=== PATIENT | female | born 1955 | race African-American/Black ===

== ENCOUNTER → 2016-11-17 | Outpatient (CLI) | payer OTHER ==
[2016-06-27 11:00] VITALS: BP 121/77
[~2016-11-17] MED LIST: ALPR0.25 PO; ALPR0.5T6 PO; AMLO10TA2 PO; AMLO10TA4 PO; ASPI325T70 PO; Aspirin PO; CELE200C PO; CITA10TA4 PO; GABA-586 PO; MELO-150 PO; MELO-156 PO; MELO7.5T5 PO; METH-37 PO; METO25TA2 PO; NITR0.4T SL; OLME1TAB3 PO; OLME40TA PO; OXYC10TA PO; OXYC1TAB9 PO; PREG150C PO; PREG75CA PO; TELM40TA PO; TIZA4CAP PO; WARF3TAB7 PO; WARF5TAB PO; ZOLP10TA4 PO
--- NOTE | 2016-11-18 04:03 | PAIN ---
DATE OF SERVICE: 11/17/2016 DIAGNOSES: 1. Chronic cervicalgia with cervical radiculopathy and post-cervical laminectomy syndrome. 2. Post-lumbar laminectomy syndrome with low back pain. 3. Bilateral knee joint pain. HISTORY OF PRESENT ILLNESS: The patient is a 61-year-old female who returns for followup status post medication management with oxycodone 10 mg. The patient reports she has been doing very well with this. Still taking Celebrex and Lyrica as well, all with good results and decreased pain in the neck, shoulders, arms as well as low back and legs. The patient reports that some of the pain is worse with weather-related issues with different changes in barometric pressures, but she is otherwise doing fairly well. The patient reports her left knee has been her most problematic area at this time, but she uses Pennsaid drops on the knee, which she is doing twice a day and it works significantly to reduce the pain about 80% and she is very pleased with this. The patient reports she was taking care of her mother who has been sick recently, has been on her feet a lot, visiting her at the hospital, which has made her knee more painful. Also, pain in the base of the neck, left shoulder, left upper extremity, low back and bilateral lower extremities. The patient reports the pain is a 7 on a scale of 10, it is worse, but reports no new motor or sensory deficits, no new bowel or bladder incontinence or other complaints. The patient's medication regimen has been very stable. She has been on the same regimen for sometime now with appropriate K-TRACS reporting as well as appropriate urinalysis to date and with good results with the medications about 70-80% improvement with the medications alone and without significant side effects. PHYSICAL EXAMINATION: VITAL SIGNS: The patient's blood pressure 126/77, pulse 80, respirations are 18, temperature is 98.8 degrees Fahrenheit, height is 5 feet 1 inch, weight is 168 pounds. GENERAL: The patient is awake, alert, oriented, appropriate, very pleasant demeanor. HEENT: Head shows normocephalic and atraumatic. Extraocular movements are intact, symmetrical. Oral cavity, mucous membranes are moist and pink. The patient wears eye glasses. NECK: Shows anterior throat supple without palpable lymphadenopathy noted. Swallow reflex is symmetrical. CHEST: Shows normal on inspection. Breath sounds are clear to auscultation bilaterally. HEART: Shows S1 and S2 clear. No murmurs are auscultated. ABDOMEN: Soft, nontender, nondistended. No palpable organomegaly. No rebound or guarding demonstrated. BACK: Shows spine grossly midline. Cervical paraspinous musculature shows some moderate tenderness with palpation bilaterally in the inferior aspect of the cervical paraspinous muscles and superior medial trapezius and slightly more on the left than the right on the trapezius with palpation, but no specific trigger points. No radiation of pain. The patient shows good rotation and motion of the cervical spine, both laterally at about 45 degrees with extension and flexion without significant pain reported. The patient's low back shows some well-healed surgical scarring, moderate tenderness with palpation in the lumbar paraspinous muscles bilaterally, but only diffusely and only to a mild extent without radiation. EXTREMITIES: The patient's upper extremities show deep tendon reflexes at 1+ in the biceps and triceps tendons. Motor exam is strong with civil drafting technician strength rated at 5/5, bicep and tricep flexion about 4/5 and equal. Lower extremities showed deep tendon reflexes 1+ in the patellar and tendo calcaneus tendons. Motor exam is strong with approximately 4/5 dorsiflexion, extension, quadriceps and hamstring flexion, but symmetrical. Peripheral pulses are 2+ in the radial distribution and 1+ posterior tibial and dorsalis pedis pulses. No peripheral edema is noted in any extremities. PLAN: Options were discussed with the patient and the patient's old chart was reviewed as her current medication regimen and updated. Current review of systems updated today as well, and we will refill the patient's oxycodone 10 mg for a 90-day supply as well as Lyrica and Celebrex, all with instructions and side effects to be aware are discussed. The patient was encouraged to maintain activity level and exercise, even just walking as she enjoys, as her knee will allow her to maintain a level of exercise, also was counseled as to the side effects of medications and will follow up with any concerns prior to that. She was given a 90-day prescription, will follow up in 90 days for office visit or sooner as needed. MACRINA LANDAVERDE MD DR: DIAMOND/dano JOB#: [id number] / [id number]
== END | disposition home or self-care (01) ==
LOC: PNCL 11:33
PROVIDERS: ATTEND Anesthesiology
DX: M54.2 Cervicalgia (principal); M54.16 Radiculopathy, lumbar region; M96.1 Postlaminectomy syndrome, not elsewhere classified; M54.5 Low back pain; M25.562 Pain in left knee; M25.561 Pain in right knee
CPT/HCPCS: G0463

== ENCOUNTER → 2016-12-09 | Outpatient (CLI) | payer OTHER ==
[2016-06-27 11:00] VITALS: BP 121/77
--- NOTE | 2016-12-09 14:57 | RAD ---
DATE: 12/09/2016 EXAM: DIGITAL SCREEN BILAT W/CAD HISTORY: Screening study. COMPARISON: 12/01/2013 This study was interpreted with the benefit of Computerized Aided Detection (CAD). FINDINGS: Digital MLO and CC mammograms of both breasts were obtained. Comparison study is dated 12/01/2013. The breast parenchyma is heterogeneously dense which can obscure a lesion on mammography (breast density code C). Benign-appearing calcifications and scattered vascular calcifications are seen within both breasts, unchanged. Small intramammary lymph nodes are unchanged. No spiculated mass is seen. No malignant appearing calcifications or area of architectural distortion is noted. Since the previous examination there has been no significant interval change. IMPRESSION: BI-RADS Category 1, negative. There is no mammographic evidence of malignancy. Routine yearly screening mammography is recommended for follow-up. BI-RADS CATEGORY: 1 NEGATIVE RECOMMENDED FOLLOW-UP: 12M 12 MONTH FOLLOW-UP PQRS compliance statement: Patient information was entered into a reminder system with a target due date 12/09/2017 for the next mammogram. Mammography is a sensitive method for finding small breast cancers, but it does not detect them all and is not a substitute for careful clinical examination. A negative mammogram does not negate a clinically suspicious finding and should not result in delay in biopsying a clinically suspicious abnormality. "Our facility is accredited by the [employer] Mammography Program."
== END | disposition home or self-care (01) ==
LOC: MAMMO 13:31
PROVIDERS: ATTEND Family Medicine
DX: Z12.31 Encounter for screening mammogram for malignant neoplasm of breast (principal)
CPT/HCPCS: G0202; 77067

== ENCOUNTER → 2016-12-11 | Outpatient (CLI) | payer OTHER ==
[2016-06-27 11:00] VITALS: BP 121/77
--- NOTE | 2016-12-11 13:38 | RAD ---
EXAM: Left lower extremity venous Doppler. HISTORY: Left lower extremity pain/swelling. COMPARISON: None. FINDINGS: Grayscale and Doppler analysis of the left lower extremity deep venous system was performed with graded compression and augmentation. The common femoral, greater saphenous, superficial femoral, popliteal and calf veins were assessed. There is no evidence of deep venous thrombosis. IMPRESSION: 1. No evidence of deep venous thrombosis.
== END | disposition home or self-care (01) ==
LOC: US 12:38
PROVIDERS: ATTEND Family Medicine
DX: M79.652 Pain in left thigh (principal); M79.89 Other specified soft tissue disorders
CPT/HCPCS: 93971

== ENCOUNTER → 2017-02-09 | Outpatient (CLI) | payer OTHER ==
[2016-06-27 11:00] VITALS: BP 121/77
[~2017-02-09] MED LIST changes: +WARF-78 PO; -WARF5TAB PO
--- NOTE | 2017-02-09 15:29 | PAIN ---
DATE OF SERVICE: 02/09/2017 PROGRESS NOTE FOR PAIN CLINIC DIAGNOSES: 1. Chronic cervicalgia with cervical radiculopathy with post-cervical laminectomy syndrome. 2. Chronic low back pain with post-lumbar laminectomy syndrome. 3. Bilateral knee joint pain. HISTORY OF PRESENT ILLNESS: The patient 62-year-old female, who returns for followup status post medication management of oxycodone and Lyrica and Celebrex. The patient reports she has been doing very well with this controlled the pain about 70%-80% improvement and her pain can be as high as 7 or 10 on scale of 10 in the low back and especially in the knees, but feels like she is doing better with the Celebrex helps, the Lyrica seems to help and the oxycodone helps. The patient reports no constipation, no drowsiness, sedation or any withdrawal symptoms. The patient ____ very stable regimen and reports still some pain that is constant, severe burning, aching ____ is off and on. The patient reports it awakens her from sleep occasionally, but not every night. She sleeps fairly well to most nights. The patient reports no new motor or sensory deficits, no new bowel or bladder incontinence or other complaints. PHYSICAL EXAMINATION: VITAL SIGNS: The patient's blood pressure 112/78, pulse 76, respirations are 18, temperature is 98.3 degrees Fahrenheit, height is 5 feet, weight is 168 pounds. GENERAL: The patient is awake, alert, oriented, appropriate, very pleasant demeanor. HEENT: Head shows normocephalic, atraumatic. Extraocular movements are intact and symmetrical. Oral cavity shows mucous membranes moist and pink. The patient is wearing eyeglasses. NECK: Shows anterior throat supple without palpable lymphadenopathy noted. Swallow reflex is symmetrical. Neck shows some limited extension, but better forward flexion. Right and left lateral rotation is guarded slow, but is complete to past 45 degrees. CHEST: Shows normal on inspection. Breath sounds are clear to auscultation bilaterally. HEART: Shows S1 and S2 clear. No murmurs auscultated. ABDOMEN: Soft, nontender, nondistended. No palpable organomegaly is noted. No rebound or guarding demonstrated. BACK: The patient's back shows spine grossly midline. Slight exaggeration of thoracic kyphosis and flattening of lumbar lordotic curvature. Well healed surgical scars noted in the lumbar distribution. Lumbar paraspinous musculature is moderately tender with palpation, but only diffusely in the lower lumbar distribution. EXTREMITIES: The patient's upper extremities show deep tendon reflexes at 2+ in the biceps and triceps tendons, lower extremities are 1+ in the patellar and tendo calcaneus tendons are symmetrical. Muscle strength is 5/5 with counter server strength and 4/5 with biceps and triceps flexion. Lower extremities show dorsiflexion, extension at 4/5 and symmetrical. Options were discussed with the patient and the patient's old chart was reviewed as her current medication regimen updated. Current review of systems updated today as well. We will refill the patient's oxycodone also Celebrex and Lyrica. The patient was given instruction as well as side effects to be aware of with the medication and will follow up in approximately 4 weeks as scheduled. Again, the patient has had appropriate K-TRACS reporting as well as appropriate urinalysis to date. We will maintain her medication and she is doing fairly well with this very stable on this regimen for followup. MACRINA LANDAVERDE MD DR: DIAMOND/dano JOB#: [id number] / [id number]
== END | disposition home or self-care (01) ==
LOC: PNCL 11:27
PROVIDERS: ATTEND Anesthesiology
DX: M54.12 Radiculopathy, cervical region (principal); M96.1 Postlaminectomy syndrome, not elsewhere classified; M54.5 Low back pain; G89.29 Other chronic pain; M25.562 Pain in left knee; M25.561 Pain in right knee
CPT/HCPCS: G0463

== ENCOUNTER → 2017-02-16 | Outpatient (CLI) | payer OTHER ==
[2016-06-27 11:00] VITALS: BP 121/77
--- NOTE | 2017-02-16 17:11 | CARD ---
APPROVED REPORT EXAM: Two-dimensional and M-mode echocardiogram with Doppler and color Doppler. Other Information Quality : Good INDICATION Ventricular Tachycardia 2D DIMENSIONS RVDd2.7 (2.9-3.5cm)Left Atrium(2D)2.8 (1.6-4.0cm) IVSd1.1 (0.7-1.1cm)Aortic Root(2D)2.5 (2.0-3.7cm) LVDd3.6 (3.9-5.9cm)LVOT Diameter1.9 (1.8-2.4cm) PWd1.1 (0.7-1.1cm)LVDs2.4 (2.5-4.0cm) FS (%) 30.0 %SV33.5 ml LVEF(%)60.0 (>50%) Aortic Valve AoV Peak Mario.103.3cm/sAoV VTI21.6cm AO Peak GR.4.3mmHgLVOT Peak Mario.90.4cm/s LVOT VTI 18.63cmAO Mean GR.2mmHg TAMMY (VMAX)2.20xw3RHD (VTI)2.49cm2 Mitral Valve MV E Paygkdvc67.6cm/sMV DECEL BNEP004nx MV A Hlnepuxy71.1cm/sMV MLV08ad E/A Ratio0.8MVA (PHT)3.16cm2 TDI E/Lateral E'8.5E/Medial E'11.8 Tricuspid Valve TR P. Mmshvnsd003ho/sRAP EOJSTVOW9slFk TR Peak Gr.83slFcCMMP89yiZu Pulmonary Vein S1 Lhcjneuj05.4cm/sD2 Golvupzz09.5cm/s PVa [id number] LEFT VENTRICLE The left ventricle is normal size. There is normal left ventricular wall thickness. The left ventricu lar systolic function is normal and the ejection fraction is within normal range. The Ejection Fracti on is 55-60%. There is normal LV segmental wall motion. Transmitral Doppler flow pattern is Grade I-a bnormal relaxation pattern. RIGHT VENTRICLE The right ventricle is normal size. The right ventricular systolic function is normal. ATRIA The left atrium size is normal. The right atrium size is normal. The interatrial septum is intact wit h no evidence for an atrial septal defect or patent foramen ovale as noted on 2-D or Doppler imaging. AORTIC VALVE The aortic valve is normal in structure and function. Doppler and Color Flow revealed trace aortic re gurgitation. There is no significant aortic valvular stenosis. MITRAL VALVE The anterior mitral valve leaflet is redundant but functions normally. There is no evidence of mitral valve prolapse. There is no mitral valve stenosis. Doppler and Color-flow revealed mild mitral regur gitation. TRICUSPID VALVE The tricuspid valve is normal in structure and function. Doppler and Color Flow revealed mild tricusp id regurgitation. The PA pressure was estimated at 36 mmHg. There is no tricuspid valve stenosis. PULMONIC VALVE Doppler and Color Flow revealed trace to mild pulmonic valvular regurgitation. There is no pulmonic v alvular stenosis. GREAT VESSELS The aortic root is normal in size. The ascending aorta is normal in size. The IVC is normal in size a nd collapses >50% with inspiration. PERICARDIAL EFFUSION There is no evidence of significant pericardial effusion. Critical Notification Critical Value: No <Conclusion> The left ventricular systolic function is normal and the ejection fraction is within normal range. Th e Ejection Fraction is 55-60%. There is normal LV segmental wall motion. Doppler and Color-flow revealed mild mitral regurgitation.
== END | disposition home or self-care (01) ==
LOC: ECHO 14:08
PROVIDERS: ATTEND Internal Medicine Cardiovascular Disease
DX: I08.3 Combined rheumatic disorders of mitral, aortic and tricuspid valves (principal)
CPT/HCPCS: 93306

== ENCOUNTER → 2017-04-09 | Outpatient (CLI) | payer OTHER ==
[2016-06-27 11:00] VITALS: BP 121/77
[~2017-04-09] MED LIST changes: +ATOR40TA59 PO; -MELO-150 PO; -MELO-156 PO; +MELO15TA23 PO; +MELO7.5T29 PO; +OLME1TAB23 PO; -OLME1TAB3 PO; -OLME40TA PO; +OLME40TA12 PO
== END | disposition home or self-care (01) ==
LOC: PNCL 11:32
PROVIDERS: ATTEND Anesthesiology
DX: M54.12 Radiculopathy, cervical region (principal); M96.1 Postlaminectomy syndrome, not elsewhere classified; M25.561 Pain in right knee; M25.562 Pain in left knee
CPT/HCPCS: G0463

== ENCOUNTER → 2017-06-04 | Outpatient (CLI) | payer OTHER ==
[2016-06-27 11:00] VITALS: BP 121/77
--- NOTE | 2017-06-04 19:59 | PAIN ---
DATE OF SERVICE: 06/04/2017 DIAGNOSES: 1. Chronic cervicalgia with cervical radiculopathy and post-cervical laminectomy syndrome. 2. Post-lumbar laminectomy syndrome with low back pain. 3. Bilateral knee joint pain. HISTORY OF PRESENT ILLNESS: The patient is a 62-year-old female who returns for followup status post medication management with oxycodone, Celebrex and Lyrica. The patient reports she is doing very well with this and reports about an 80% or so improvement with medications without significant side effects. The patient reports no constipation, no itching, no nausea, no dysphoria or sedation with medications. She has been complaining of some pain in her right knee, which is becoming more noticeable. She has had some significant degenerative changes. Next, she has had a left knee replacement already and is trying to put off having a right knee replacement, which is recommended by her report by her orthopedic surgeon. The patient reports that she also has some pain in her left shoulder and right hand with some symptoms of carpal tunnel on the right hand and some symptoms of bursitis in the left shoulder. The patient reports otherwise doing fairly well with the medication. She has had appropriate K-TRACS reporting as well as appropriate urinalysis to date. The patient reports she sleeps well at night but only sleeps about 4 hours at a time, but it does not wake him from sleep from the pain most nights, some nights she does. The patient reports her pain is a 10 on a scale of 10 at its worst, a 7 at least and a 7 on average in the base of the neck, left shoulder, some tingling again in the right hand as well as in the left shoulder and arm and the mid back, neck and low back. The patient reports aching and burning in quality, no new motor or sensory deficits, no new bowel or bladder incontinence. PHYSICAL EXAMINATION: VITAL SIGNS: The patient's blood pressure 117/68, pulse 72, respirations are 18, temperature is 98.7 degrees Fahrenheit, weight is 167 pounds. GENERAL: The patient is awake, alert, oriented, appropriate, very pleasant demeanor. HEENT: Head shows normocephalic and atraumatic. Extraocular movements are intact and symmetrical. Oral cavity: Mucous membranes are moist and pink. Dentition is intact. NECK: Shows anterior throat supple without palpable lymphadenopathy noted. Swallow reflex is symmetrical. CHEST: Shows normal on inspection. Breath sounds are clear to auscultation bilaterally. HEART: Shows S1 and S2 clear. No murmurs auscultated. ABDOMEN: Obese, soft, nontender, nondistended. No palpable organomegaly is noted. No rebound or guarding demonstrated. MUSCULOSKELETAL: Back shows spine grossly in midline with a normal-appearing cervical lordotic curvature, thoracic kyphotic curvature and lumbar lordotic curvature. Cervical paraspinous muscle shows some mild tenderness with palpation bilaterally in the inferior aspect of the cervical paraspinous musculature but without radiation. This is true with the superior, medial and lateral trapezius muscles as well, again diffusely tender without significant radiation. Neck shows full rotational motion of cervical spine, both laterally as well as in extension and flexion, without pain reported. The patient's upper extremities show deep tendon reflexes 1+ in the biceps and triceps tendons. Motor exam is strong with 5/5 [place] strength, rated at 5 in biceps and triceps flexion and at approximately 4 on a scale of 5 on the left and 5/5 on the right. Peripheral pulses are 2+ in radial distribution. No peripheral edema is noted. No clubbing, no cyanosis. The patient's left shoulder shows some mild tenderness with palpation over the acromioclavicular joint but only very mildly with palpation but shows tenderness with external abduction at approximately 90 degrees in the posterior aspect of the shoulder. This is relieved with relaxed adduction. ASSESSMENT AND PLAN: Options were discussed with the patient. The patient's old chart was reviewed as her current medication regimen and updated. Current review of systems updated today as well. We will refill the patient's oxycodone as well as Lyrica and Celebrex with instructions and side effects to be aware of discussed with each of the medications. The patient is also encouraged to increase her activity with stretching and strengthening exercises in the upper extremities as tolerated and to maintain her knee brace on her right knee and to follow up with her orthopedic surgeon should the pain become worse. MACRINA LANDAVERDE MD DR: DIAMOND/dano JOB#: [id number] / [id number]
== END | disposition home or self-care (01) ==
LOC: PNCL 11:00
PROVIDERS: ATTEND Anesthesiology
DX: M96.1 Postlaminectomy syndrome, not elsewhere classified (principal); G89.29 Other chronic pain; M54.9 Dorsalgia, unspecified
CPT/HCPCS: G0463

== ENCOUNTER → 2017-07-30 | Outpatient (CLI) | payer OTHER ==
[2016-06-27 11:00] VITALS: BP 121/77
--- NOTE | 2017-07-30 20:44 | PAIN ---
DATE OF SERVICE: 07/30/2017 PROGRESS NOTE FOR PAIN CLINIC DIAGNOSES: 1. Chronic cervicalgia with cervical radiculopathy and post-cervical laminectomy syndrome. 2. Post-lumbar laminectomy syndrome with chronic low back pain. 3. Bilateral knee joint pain with primary osteoarthritis, bilateral knee joints. HISTORY OF PRESENT ILLNESS: The patient is a 62-year-old female who returns for followup status post medication management with oxycodone, Lyrica and Celebrex. The patient reports she is continuing to do very well with this and is on very stable regimen for sometime now but still some pain in the base of the neck and shoulders, more on the right than the left, also the mid back, upper back and low back with some tingling in the right hand but she is wearing a brace on her right wrist, which we suggested on her last visit and has been helping about 50% as well. The patient reports overall she is about 70%-80% improved with the medications and without any significant side effects, dizziness, drowsiness, sleepiness, itching, nausea or constipation. The patient reports she sleeps fairly well at night about 5 hours at a time. She needs a reposition due to her neck and right shoulder is causing her to wake her from sleep. The patient reports the pain is aching, can be tingling, burning, stabbing, constant and severe. The patient reports no new motor or sensory deficits; however, no new bowel or bladder incontinence or other complaints. PHYSICAL EXAMINATION: VITAL SIGNS: Today, the patient's blood pressure is 121/74, pulse 84, respirations 16, temperature is 98.2 degrees Fahrenheit, height is 5 feet 1 inch and weight is 169 pounds. GENERAL: The patient is awake, alert, oriented, appropriate and very pleasant demeanor. The patient rates her pain as a 5 on a scale 10 today, can be as high as an 8 at its worst and is 7 on average. HEENT: Head shows normocephalic and atraumatic. The patient wears eyeglasses. Extraocular movements are intact and symmetrical. Oral cavity shows mucous membranes moist and pink. Dentition is intact. NECK: Shows anterior throat supple without palpable lymphadenopathy noted. Swallow reflex is symmetrical. Neck shows full rotational motion with some tenderness with extension but some minor guarding also but not with forward flexion. Right and left lateral rotations performed past 45 degrees, again some minor guarding with right lateral rotation but performed just fully. Left lateral rotations performed without significant guarding. CHEST: Shows normal with inspection. Breath sounds clear to auscultation bilaterally. HEART: Shows S1 and S2 clear. No murmurs auscultated. ABDOMEN: Soft, nontender and nondistended. No palpable organomegaly is noted. No rebound or guarding demonstrated. BACK: Shows spine grossly in the midline. Slight exaggeration of thoracic kyphosis and mild flattening of lumbar lordotic curvature. Well healed surgical scars noted in the lumbar distribution. Lumbar paraspinous muscle shows symmetrical. On inspection with palpation shows some moderate tenderness bilaterally but only diffusely in the middle and lower distribution of the paraspinous muscles, right equal to left without radiation on palpation. EXTREMITIES: Show upper extremity deep tendon reflexes 2+ in the biceps and triceps tendons. Motor exam is strong with composite science teacher strength at about 4/5 on the right and 5/5 on the left. Again, the patient is wearing a carpal tunnel type brace on the right wrist. Lower extremities showed deep tendon reflexes 1+ in the patellar and tendo-calcaneus tendons. Motor exam is strong with 5/5 dorsiflexion, extension, quadriceps and hamstring flexion and are equal bilaterally. Peripheral pulses are 2+ radial, 1+ posterior tibial. No peripheral edema is noted in any of the extremities. Options were discussed with the patient and the patient's old chart was reviewed as her current medication regimen updated and current review of systems updated today as well. We will proceed with refill of the patient's oxycodone as well as Celebrex and Lyrica. The patient was given instruction as well as side effects to be aware of each of medications and also was encouraged to increase activity as tolerated, doing some stretching and strengthening exercises at home as well as heat applications to the neck and shoulders as well as the mid and low back. The patient will have urinalysis today as well as routine random screening for documentation and renewal of the patient's narcotic contract as well. MACRINA LANDAVERDE MD DR: DIAMOND/dano JOB#: [id number] / [id number]
== END | disposition home or self-care (01) ==
LOC: PNCL 11:27
PROVIDERS: ATTEND Anesthesiology
DX: M54.12 Radiculopathy, cervical region (principal); M54.5 Low back pain; M16.0 Bilateral primary osteoarthritis of hip
CPT/HCPCS: G0463

== ENCOUNTER 2017-08-24 17:28 | Emergency (ER) | payer OTHER ==
[~2017-08-24] VITALS: Ht 149.9 cm; Wt 76.7 kg
[2017-08-24] MEDS ORDERED: ONDANSETRON PF 4 MG/2 ML VIAL. IV ONE (18:15)
[2017-08-24] MEDS ORDERED: IV NORMAL SALINE 1000ML BAG 1,000 ML IV ONE (18:15)
[2017-08-24] MEDS ORDERED: ONDANSETRON ODT 4 MG TAB.RAPDIS. PO ONE (18:45)
[2017-08-24 18:52] LABS: BASO # 0.1 x10^3/uL (0.0-0.2); BASO % 0 % (0-3); EOS % 0 % (0-3); HEMATOCRIT 46.6 % (36.0-47.0); HEMOGLOBIN 15.9 g/dL (12.0-15.5); LYMPH # 1.4 x10^3/uL (1.0-4.8); LYMPH % 12 % (24-48); MEAN CORPUSCULAR HEMOGLOBIN 30 pg (25-35); MEAN CORPUSCULAR HGB CONC 34 g/dL (31-37); MEAN CORPUSCULAR VOLUME 89 fL (79-100); MONO % 4 % (0-9); NEUT % 83 % (31-73); PLATELET COUNT 414 x10^3/uL (140-400); RED BLOOD COUNT 5.21 x10^6/uL (3.50-5.40); WHITE BLOOD COUNT 11.5 x10^3/uL (4.0-11.0)
[2017-08-24 19:08] LABS: CREATININE 0.8 mg/dL (0.6-1.0); GFR 87.4
[2017-08-24 19:14] LABS: ALBUMIN 4.2 g/dL (3.4-5.0); ALBUMIN/GLOBULIN RATIO 0.9 (1.0-1.7); TOTAL BILIRUBIN 1.1 mg/dL (0.2-1.0); TOTAL PROTEIN 8.8 g/dL (6.4-8.2)
[2017-08-24 19:19] LABS: BILIRUBIN,URINE NEGATIVE (NEG); GLUCOSE,URINE NEGATIVE (NEG); NITRITE,URINE NEGATIVE (NEG); PROTEIN,URINE NEGATIVE (NEG-TRACE)
[2017-08-24 19:23] LABS: POTASSIUM 4.1 mmol/L (3.5-5.1)
[2017-08-24] MEDS ORDERED: METOPROLOL SUCC 24HR ER 25 MG TAB.ER.24H. PO ONE (19:30)
[2017-08-24 19:31] LABS: BACTERIA,URINE FEW /HPF (0-FEW); RBC,URINE 0 /HPF (0-2); SQUAMOUS EPITHELIAL CELL,UR OCC /LPF; YEAST,URINE PRESENT /HPF
[2017-08-24] MEDS ORDERED: LOPE2TAB27 PO (19:42)
[2017-08-24] MEDS ORDERED: ZOLP10TA PO (19:42)
[2017-08-24] MEDS ORDERED: ONDA4TAB10 SL (19:42)
[2017-08-24] MEDS ORDERED: ALPR0.5T PO (19:42)
--- NOTE | 2017-08-24 19:43 | PHYS DOC ---
Past Medical History Past Medical History: Anxiety, CHF, Hypertension Additional Past Medical Histor: chronic low back pain, Past Surgical History: Other Additional Past Surgical Histo: back surgery, neck surgery x2, Alcohol Use: None Drug Use: None Adult General Chief Complaint Chief Complaint: NAUSEA/VOMITING/DIARRHA HPI HPI Patient is a 62 year old female who presents with days of worsening nausea with vomiting and diarrhea. Patient states that she was unable to take her blood pressure medication, she is keeping water down, vomiting food. Patient is also concerned that she is out of her Xanax and Ambien and has been unable to get a hold of her doctor he's been out of town. She attempted to call once today. No abdominal pain, no dysuria. Patient's primary care physician is Dr. Santacruz, denies chest pain or cough, no shortness of breath. Review of Systems Review of Systems Constitutional: Denies fever or chills Eyes: Denies eye pain or discharge HENT: Denies nasal congestion or sore throat Respiratory: Denies cough or shortness of breath [] Cardiovascular: Denies chest pain or edema GI: per hpi : Denies dysuria Musculoskeletal: Denies back pain Extremities: denies joint pain [] Integument: Denies rash Neurologic: Denies headache, denies focal weakness , denies sensory changes [] Current Medications Current Medications Current Medications Medications (Trade) Dose Ordered Sig/Dequan Start Time Stop Time Status Last Admin Dose Admin Metoprolol Succinate (Toprol Xl) 25 mg 1X ONCE 08/24/17 19:30 08/24/17 19:31 Ondansetron HCl (Zofran Odt) 4 mg 1X ONCE 08/24/17 18:45 08/24/17 18:46 DC 08/24/17 18:48 4 MG Ondansetron HCl (Zofran) 4 mg 1X ONCE 08/24/17 18:15 08/24/17 18:16 DC Sodium Chloride 1,000 ml @ 1,000 mls/hr 1X ONCE 08/24/17 18:15 08/24/17 19:14 DC Allergies Allergies Allergies Coded Allergies Type Severity Reaction Last Updated Verified atorvastatin Allergy Intermediate 04/03/16 Yes gabapentin Allergy Intermediate Rash 06/24/16 Yes strawberry Allergy Intermediate 03/31/16 Yes trazodone Allergy Intermediate Rash 04/03/16 Yes I S O L A T I O N *CONTACT* Allergy Unknown 03/31/16 Yes prednisone Adverse Reaction Intermediate 03/31/16 Yes Physical Exam Physical Exam Constitutional: Well developed, well nourished, no acute distress, non-toxic appearance. [] HENT: Normocephalic, atraumatic, bilateral external ears normal, oropharynx moist, no oral exudates, nose normal. [] Eyes: PERRLA, EOMI, conjunctiva normal, no discharge. [] Neck: Normal range of motion, no tenderness, supple, no stridor. [] Cardiovascular:Heart rate regular with regular rhythm, no murmur [] Lungs & Thorax: Bilateral breath sounds clear to auscultation [] Abdomen: Bowel sounds normal, soft, no tenderness, no masses, no pulsatile masses. No Guarding or peritoneal signs Skin: Warm, dry, no erythema, no rash. [] Back: No tenderness, no CVA tenderness. [] Extremities: No tenderness, no cyanosis, no clubbing, ROM intact, no edema. [] Neurologic: Alert and oriented X 3, normal motor function, normal sensory function, no focal deficits noted. [] Psychologic: Affect normal, judgement normal, mood normal. [] Current Patient Data Vital Signs Vital Signs Date Time Temp Pulse Resp B/P (MAP) Pulse Ox O2 Delivery O2 Flow Rate FiO2 08/24/17 17:28 98.9 16 141/83 (102) 96 Room Air 98.9 Lab Values Laboratory Tests Test 08/24/17 18:35 White Blood Count 11.5 x10^3/uL (4.0-11.0) H Red Blood Count 5.21 x10^6/uL (3.50-5.40) Hemoglobin 15.9 g/dL (12.0-15.5) H Hematocrit 46.6 % (36.0-47.0) Mean Corpuscular Volume 89 fL (79-100) Mean Corpuscular Hemoglobin 30 pg (25-35) Mean Corpuscular Hemoglobin Concent 34 g/dL (31-37) Red Cell Distribution Width 14.0 % (11.5-14.5) Platelet Count 414 x10^3/uL (140-400) H Neutrophils (%) (Auto) 83 % (31-73) H Lymphocytes (%) (Auto) 12 % (24-48) L Monocytes (%) (Auto) 4 % (0-9) Eosinophils (%) (Auto) 0 % (0-3) Basophils (%) (Auto) 0 % (0-3) Neutrophils # (Auto) 9.6 x10^3uL (1.8-7.7) H Lymphocytes # (Auto) 1.4 x10^3/uL (1.0-4.8) Monocytes # (Auto) 0.4 x10^3/uL (0.0-1.1) Eosinophils # (Auto) 0.0 x10^3/uL (0.0-0.7) Basophils # (Auto) 0.1 x10^3/uL (0.0-0.2) Sodium Level 137 mmol/L (136-145) Potassium Level 4.1 mmol/L (3.5-5.1) Chloride Level 101 mmol/L (98-107) Carbon Dioxide Level 22 mmol/L (21-32) Anion Gap 14 (6-14) Blood Urea Nitrogen 13 mg/dL (7-20) Creatinine 0.8 mg/dL (0.6-1.0) Estimated GFR (Cockcroft-Gault) 87.4 BUN/Creatinine Ratio 16 (6-20) Glucose Level 114 mg/dL (70-99) H Calcium Level 10.0 mg/dL (8.5-10.1) Total Bilirubin 1.1 mg/dL (0.2-1.0) H Aspartate Amino Transferase (AST) 43 U/L (15-37) H Alanine Aminotransferase (ALT) 23 U/L (14-59) Alkaline Phosphatase 117 U/L (46-116) H Total Protein 8.8 g/dL (6.4-8.2) H Albumin 4.2 g/dL (3.4-5.0) Albumin/Globulin Ratio 0.9 (1.0-1.7) L Laboratory Tests 08/24/17 18:35 Laboratory Tests 08/24/17 18:35 EKG EKG [] Radiology/Procedures Radiology/Procedures [] Course & Med Decision Making Course & Med Decision Making Pertinent Labs and Imaging studies reviewed. (See chart for details) pt has normal vital signs with exception of slightly elevated bp, likely due to not taking her meds today. No active vomiting in the ED, pt given zofran ODT and blood drawn. I informed pt I could give her a couple days of her Xanax and Ambien, further RX needs to come from PCP. She was agreeable. Also given RX for zofran and loperamide. Darren Disclaimer Dragon Disclaimer This electronic medical record was generated, in whole or in part, using a voice recognition dictation system. Departure Departure Impression: Primary Impression: Viral gastroenteritis Disposition: HOME, SELF-CARE Condition: IMPROVED Referrals: ELIAN LANCASTER MD (PCP) Patient Instructions: Insomnia, Viral Gastroenteritis Scripts Zolpidem Tartrate (AMBIEN) 10 Mg Tablet 1 TAB PO QHS Y for INSOMNIA, #5 TAB 0 Refills Prov: ZULMA GUTIERREZ MD 08/24/17 Alprazolam (XANAX) 0.5 Mg Tablet 1 TAB PO TID Y for ANXIETY / AGITATION, #10 TAB Prov: ZULMA GUTIERREZ MD 08/24/17 Ondansetron (ZOFRAN ODT) 4 Mg Tab.rapdis 1 TAB SL Q8HRS Y for NAUSEA, #10 TAB Prov: ZULMA GUTIERREZ MD 08/24/17 Loperamide Hcl (LOPERAMIDE) 2 Mg Tablet 2 MG PO per directions, #16 TAB take one tablet after each loose stool Prov: ZULMA GUTIERREZ MD 08/24/17 ZULMA GUTIERREZ MD Aug 24, 2017 19:43
[2017-08-24 19:50] VITALS: BP 149/81
== END 2017-08-24 19:55 | disposition home or self-care (01) ==
LOC: ER 17:28
DX: A08.4 Viral intestinal infection, unspecified (principal); I11.0 Hypertensive heart disease with heart failure; I50.9 Heart failure, unspecified; F41.9 Anxiety disorder, unspecified; G89.29 Other chronic pain; Z91.041 Radiographic dye allergy status; Z88.8 Allergy status to other drugs, medicaments and biological substances; Z91.018 Allergy to other foods
CPT/HCPCS: 36415; 80053; 81001; 85025; 87086; 99284; Q0162

== ENCOUNTER → 2017-09-29 | Outpatient (CLI) | payer OTHER | END | disposition home or self-care (01) | LOC: PNCL 10:39 | DX: M54.12 Radiculopathy, cervical region (principal); M17.0 Bilateral primary osteoarthritis of knee | CPT/HCPCS: G0463 ==

== ENCOUNTER → 2017-11-24 | Outpatient (CLI) | payer OTHER | END | disposition home or self-care (01) | LOC: PNCL 09:58 | DX: M54.12 Radiculopathy, cervical region (principal); M17.0 Bilateral primary osteoarthritis of knee | CPT/HCPCS: G0463 ==

== ENCOUNTER → 2018-01-19 | Outpatient (CLI) | payer OTHER | END | disposition home or self-care (01) | LOC: PNCL 10:25 | DX: M54.12 Radiculopathy, cervical region (principal); M17.0 Bilateral primary osteoarthritis of knee; M96.1 Postlaminectomy syndrome, not elsewhere classified | CPT/HCPCS: G0463 ==

== ENCOUNTER → 2018-02-25 | Outpatient (CLI) | payer OTHER | END | disposition home or self-care (01) | LOC: MAMMO 14:05 | DX: Z12.31 Encounter for screening mammogram for malignant neoplasm of breast (principal) | CPT/HCPCS: 77063; 77067 ==

== ENCOUNTER → 2018-03-25 | Outpatient (CLI) | payer OTHER | END | disposition home or self-care (01) | LOC: PNCL 13:41 | DX: M17.0 Bilateral primary osteoarthritis of knee (principal); M54.12 Radiculopathy, cervical region; M54.5 Low back pain; I13.0 Hypertensive heart and chronic kidney disease with heart failure and stage 1 through stage 4 chronic kidney disease, or unspecified chronic kidney disease; I50.9 Heart failure, unspecified; N18.9 Chronic kidney disease, unspecified; Z87.891 Personal history of nicotine dependence | CPT/HCPCS: G0463 ==

== ENCOUNTER → 2018-05-10 | Outpatient (CLI) | payer OTHER | END | disposition home or self-care (01) | LOC: MRI 14:12 | DX: M51.16 Intervertebral disc disorders with radiculopathy, lumbar region (principal); M48.061 Spinal stenosis, lumbar region without neurogenic claudication; M50.11 Cervical disc disorder with radiculopathy, high cervical region; M48.02 Spinal stenosis, cervical region; M41.85 Other forms of scoliosis, thoracolumbar region; N18.9 Chronic kidney disease, unspecified; I13.0 Hypertensive heart and chronic kidney disease with heart failure and stage 1 through stage 4 chronic kidney disease, or unspecified chronic kidney disease; I50.9 Heart failure, unspecified; E78.00 Pure hypercholesterolemia, unspecified; E66.9 Obesity, unspecified; Z96.652 Presence of left artificial knee joint; F32.9 Major depressive disorder, single episode, unspecified; F41.9 Anxiety disorder, unspecified; Z88.8 Allergy status to other drugs, medicaments and biological substances; Z91.018 Allergy to other foods; Z79.899 Other long term (current) drug therapy; M17.0 Bilateral primary osteoarthritis of knee; Z87.891 Personal history of nicotine dependence | CPT/HCPCS: 72141; 72148 ==

== ENCOUNTER → 2018-05-20 | Outpatient (CLI) | payer OTHER ==
[~2018-05-20] MED LIST changes: +ALPR0.5T PO; +LOPE2TAB27 PO; +ONDA4TAB10 SL; +OXYC-411 PO; -OXYC1TAB9 PO; +WARF3TAB50 PO; -WARF3TAB7 PO; +ZOLP10TA PO
--- NOTE | 2018-05-20 19:35 | PAIN ---
DATE OF SERVICE: 05/20/2018 DIAGNOSES: 1. Cervical radiculopathy with cervicalgia and post-cervical laminectomy syndrome. 2. Low back pain with lumbar post-laminectomy syndrome. 3. Bilateral knee joint pain with primary osteoarthritis, bilateral knees. HISTORY OF PRESENT ILLNESS: This patient is a 63-year-old female who returns for followup status post medication management for both oxycodone and Lyrica and Celebrex. The patient reports she has been doing very well with this and has been very stable, but her left arm continues to be painful. We ordered an MRI scan on her cervical and lumbar spines on her last visit and cervical spine showing significant findings of a C5-C6 left posterior osteophyte indenting on the left ventral cord. Also, C6-C7 showing posterior osteophyte asymmetric to the left with moderate facet uncovertebral joint disease, moderate left and mild right neural foraminal stenosis with mild mass effect on the left ventral cord without significant deformity. The patient reports the arm is becoming more weak, she has difficulty holding in things with the left arm and hand, is becoming more painful, is not covered with her pain medication. The patient reports pain is a 9 on a scale of 10 at its worst, 8 on average, 8 at its least and is an 8 today. Reports it is tight, aching, cramping, stabbing, shooting and becoming more constant in the left arm and hand. The patient reports it is awaking her from sleep at night, fairly frequently. She reports no new motor or sensory deficits, except for the increasing weakness in her left arm. PHYSICAL EXAMINATION: VITAL SIGNS: The patient's blood pressure 113/78, pulse 93, respirations 20, temperature is 98.4 degrees Fahrenheit, weight is 155 pounds. GENERAL: The patient is awake, alert, oriented, appropriate, very pleasant demeanor. HEENT: Head shows normocephalic, atraumatic. Extraocular movements are intact, symmetrical. Oral cavity: Mucous membranes are moist and pink. Dentition is intact. NECK: Shows anterior throat supple without palpable lymphadenopathy noted. A well-healed surgical scar is noted. The patient has good rotational motion, somewhat guarded to the left, but better rotation past 45 degrees right and left as well as full extension, full forward flexion without significant difficulty. CHEST: Shows normal on inspection. Breath sounds clear to auscultation bilaterally. HEART: Shows S1, S2 clear. No murmurs auscultated. ABDOMEN: Soft, nontender, nondistended. No palpable organomegaly is noted. No rebound or guarding demonstrated. BACK: Shows spine grossly in the midline. Normal appearing thoracic kyphosis, some minor flattening of lumbar lordotic curvature with well-healed surgical scar again appreciated. Lumbar paraspinous musculature shows symmetrical on inspection and palpation shows some [id number] tenderness, but only diffusely in the middle and lower distribution of paraspinous muscles. EXTREMITIES: The patient's upper extremities show deep tendon reflexes 2+ in the biceps and triceps tendons. 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 Bicep and tricep flexion again 3-4 on the left and 4-5 on the right. Peripheral pulses are 2+ radial distribution. No peripheral edema is noted. Options were discussed with the patient. The patient's old chart was reviewed as her current medication regimen and updated. Current review of systems is updated today as well. We will have the patient refill of oxycodone as well as Lyrica and Celebrex with instructions, side effects to be aware of these medications. The patient had appropriate K-TRACS reporting and appropriate urinalysis to date. We will fill this for 2 months. Also, we will make appointment for a neurosurgical evaluation regarding her left radiculopathy with increasing weakness and new MRI findings. The patient will follow up after neurosurgical evaluation and return for medication refill and evaluation in 2 months or sooner if necessary. MACRINA LANDAVERDE MD DR: DIAMOND/dano JOB#: [id number] / [id number]
== END | disposition home or self-care (01) ==
LOC: PNCL 12:59
PROVIDERS: ATTEND Anesthesiology
DX: M17.0 Bilateral primary osteoarthritis of knee (principal); M96.1 Postlaminectomy syndrome, not elsewhere classified; M54.12 Radiculopathy, cervical region; M79.642 Pain in left hand; I13.0 Hypertensive heart and chronic kidney disease with heart failure and stage 1 through stage 4 chronic kidney disease, or unspecified chronic kidney disease; N18.9 Chronic kidney disease, unspecified; I50.9 Heart failure, unspecified; E78.00 Pure hypercholesterolemia, unspecified; I25.10 Atherosclerotic heart disease of native coronary artery without angina pectoris; Z96.652 Presence of left artificial knee joint; Z87.891 Personal history of nicotine dependence
CPT/HCPCS: G0463

== ENCOUNTER → 2018-06-14 | Outpatient (CLI) | payer OTHER ==
[~2018-06-14] MED LIST changes: -AMLO10TA2 PO; +AMLO10TA6 PO; +DICL1KIT14 TP; +ERGO500027 PO; +LORA10TA3 PO; +OXYC-323 PO; +OXYC-328 PO; +TRAZ-85 PO
--- NOTE | 2018-06-14 16:15 | EKG ---
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
== END | disposition home or self-care (01) ==
LOC: SURGPAT 13:43
PROVIDERS: ATTEND Neurological Surgery
DX: I13.0 Hypertensive heart and chronic kidney disease with heart failure and stage 1 through stage 4 chronic kidney disease, or unspecified chronic kidney disease (principal); Z01.818 Encounter for other preprocedural examination; I25.2 Old myocardial infarction; I50.9 Heart failure, unspecified; N18.9 Chronic kidney disease, unspecified; M16.0 Bilateral primary osteoarthritis of hip; E78.00 Pure hypercholesterolemia, unspecified; Z96.652 Presence of left artificial knee joint; Z82.49 Family history of ischemic heart disease and other diseases of the circulatory system; Z83.3 Family history of diabetes mellitus; Z87.891 Personal history of nicotine dependence
CPT/HCPCS: 87641; 93005

== ENCOUNTER 2018-06-21 07:45 | Observation (INO) | payer OTHER ==
--- NOTE | 2018-06-18 14:50 | PREOP HP ---
DATE OF SERVICE: 06/21/2018 HISTORY OF PRESENT ILLNESS: The patient is a pleasant 63-year-old who 9 years ago underwent an anterior cervical discectomy and fusion at C4-C5, C5-C6 and did well. She said over the last 6 months, she has noted increasing neck pain along with numbness in her shoulders and arms and hands. The left side is much more involved than the right. The neck pain, she rates as an 8/10. She says it is worse when she lies down or tries to sleep. She has to sleep with her left arm across her chest. She takes Percocet for pain. She had cervical epidural steroid injections, which did not help her. She feels unsteady when she walks and feels as though she is going to fall. For this reason, she has been using a walker recently. She also describes problems with low back pain and says she has developed pain in her left posterior thigh and leg. PAST MEDICAL HISTORY: Hypertension, CHF, CAD, neck and lower back pain. PAST SURGICAL HISTORY: Cervical fusion, knee replacement in 2016. FAMILY HISTORY: Hypertension and arthritis. SOCIAL HISTORY: Retired. . History of marijuana abuse. Quit smoking more than 10 years ago. Never drinks alcohol. ALLERGIES: TO PREDNISONE, GABAPENTIN, AND STRAWBERRIES. CURRENT MEDICATIONS: Percocet, alprazolam, amlodipine, Celebrex, metoprolol, tizanidine, trazodone, atorvastatin. REVIEW OF SYSTEMS: A 12-point review of systems was obtained and is noncontributory except for that mentioned above. PHYSICAL EXAMINATION: NEUROSURGERY EXAMINATION: GENERAL APPEARANCE: Alert, pleasant, no acute distress. HEENT: Normocephalic and atraumatic. NECK: Thyroid mild to moderate tenderness with palpation of posterior cervical region, well-healed incision. SKIN: Warm and dry. MUSCULOSKELETAL: Cervical paraspinal muscle bulk is normal, restricted range of motion in the cervical spine, normal range of motion of the upper extremities bilaterally. EXTREMITIES: No clubbing, cyanosis or edema. NEUROLOGIC: Alert and oriented x 3, normal recent and remote memory. Strength 5/5 in bilateral upper and lower extremities except for 4+/5, wrist flexion, extension, and hand grasp, sensory was intact to light touch in the upper and lower extremities except for subjective decreased light touch involving her left hand diffusely, reflexes are present and symmetric in the upper and lower extremities bilaterally, unsteady gait. IMAGING: I reviewed the cervical MRI scan. Postoperative changes are seen at C4-C5 and C5-C6. At C3-C4, there is central and left-sided disc extrusion which when combined with moderate facet hypertrophy results in severe central canal stenosis. There is flattening of the cervical spinal cord. There are mild cord signal attenuation changes. I also reviewed a lumbar MRI scan. On that study, there is severe lateral recess stenosis bilaterally at L2-L3, severe; spinal stenosis at L3-L4, moderate; canal stenosis at L4-L5 and severe left lateral recess stenosis at L5-S1, which is due to left central disc extrusion along with severe left-sided facet arthropathy. ASSESSMENT/PLAN: The patient has problems with both cervical and lumbar spine. Currently, her cervical spine is more concern to me because of the relatively severe cervical spinal stenosis present. At this point, my recommendation is that we move forward with an anterior cervical discectomy and fusion at C3-C4. I did discuss the risk of this type of operation with her. I spoke about the technique of the operation and the expected postoperative course. She understands. She would like me to go ahead. We will make the arrangements. MARGRET FERRIS MD DR: JANEY/dano JOB#: [id number] / [id number] ELMA
[2018-06-21] VITALS (9 sets, daily range): BP systolic 120–150; BP diastolic 77–86
[~2018-06-21] VITALS: Ht 149.9 cm; Wt 68.0 kg
[~2018-06-21 07:45] MED LIST changes: +BACITRACIN 50,000 UNIT in IV NORMAL SALINE 1000ML BAG 1,000 ML IRR ONE; +BUPIVAC MPF-EPI 0.5%-1:200000 30 ML VIAL. INJ ONE; -DICL1KIT14 TP; -ERGO500027 PO; +GELATIN SPONGE SIZE 100. ONE; +HYDROmorphone 2 MG/ML VIAL IV PRN; +IV RINGERS,LACTATED 1000ML 1,000 ML IV SCH; +LIDOCAINE 1% PF 2 ML VIAL. ID PRN; -LORA10TA3 PO; +MORPHINE SULFATE 2 MG/ML VIAL. IV PRN; +ONDANSETRON PF 4 MG/2 ML VIAL. IV PRN; -OXYC-323 PO; +PROCHLORPERAZINE 10 MG/2 ML VIAL. IV PRN; +PROPOFOL 100 ML IV ONE; +THROMBIN TOPICAL 20,000 UNIT SPRAY.SYRN KIT TP ONE; +fentaNYL PF VIAL 100 MCG/2 ML VIAL IV PRN
[2018-06-21] MEDS ORDERED: REMIFENTANIL 1 MG VIAL. IV ONE ×3 (08:20→12:32)
[2018-06-21] MEDS ORDERED: MIDAZOLAM HCL/PF 2 MG/2 ML VIAL. ONE (08:20)
[2018-06-21] MEDS ORDERED: DESFLURANE > 120 MINUTES IH ONE (08:20)
[2018-06-21] MEDS ORDERED: NEOSTIGMINE METHYLSULFATE 5 MG/5 ML SYRINGE. ONE (08:21)
[2018-06-21] MEDS ORDERED: fentaNYL PF VIAL 100 MCG/2 ML VIAL ONE ×3 (08:21→14:57)
[2018-06-21] MEDS ORDERED: PHENYLEPHRINE in 0.9% NACL PF 1 MG/10 ML SYRINGE. IV ONE (08:21)
[2018-06-21] MEDS ORDERED: LIDOCAINE 2% PF Vial for OR 5 ML VIAL. ONE (08:21)
[2018-06-21] MEDS ORDERED: DEXAMETHASONE SOD PHOS 20 MG/5 ML VIAL. ONE (08:21)
[2018-06-21] MEDS ORDERED: GLYCOPYRROLATE 1 MG/5 ML VIAL. ONE (08:21)
[2018-06-21] MEDS ORDERED: PROPOFOL 20 ML IV ONE ×2 (08:21→12:40)
[2018-06-21] MEDS ORDERED: ONDANSETRON PF 4 MG/2 ML VIAL. ONE (08:21)
[2018-06-21] MEDS ORDERED: ROCURONIUM 50 MG/5 ML VIAL. ONE (08:21)
[2018-06-21] MEDS ORDERED: 0.9 % SODIUM CHLORIDE 20 ML VIAL. IJ ONE (08:24)
[2018-06-21] MEDS ORDERED: LORA10TA3 PO (09:02)
[2018-06-21] MEDS ORDERED: DICL1KIT14 TP (09:02)
[2018-06-21] MEDS ORDERED: ALPR0.5T6 PO ×2 (09:02)
[2018-06-21] MEDS ORDERED: ERGO500027 PO (09:02)
[2018-06-21] MEDS ORDERED: PHENYLEPHRINE 10 MG/ML VIAL. ONE ×2 (09:18)
[2018-06-21] MEDS ORDERED: ONDANSETRON ODT 4 MG TAB.RAPDIS. PO PRN (13:15)
[2018-06-21] MEDS ORDERED: NITROGLYCERIN SUBLINGUAL 0.4 MG BOTTLE OF 25. SL PRN (13:15)
[2018-06-21] MEDS ORDERED: LOPERAMIDE 2 MG CAPSULE PO PRN (13:30)
[2018-06-21] MEDS ORDERED: tiZANidine 4 MG TABLET. PO PRN (13:45)
[2018-06-21] MEDS ORDERED: 0.9 % SODIUM CHLORIDE 10 ML DISP.SYRIN. IV PRN (13:45)
[2018-06-21] MEDS ORDERED: ACETAMINOPHEN 325 MG TABLET. PO PRN (13:45)
[2018-06-21] MEDS ORDERED: ZOLPIDEM 5 MG TABLET. PO PRN ×2 (13:45)
[2018-06-21] MEDS ORDERED: CALCIUM CARBONATE 500 MG TAB.CHEW PO PRN (13:45)
[2018-06-21] MEDS ORDERED: MAGNESIUM HYDROXIDE 2,400 MG/30 ML ORAL.SUSP. PO PRN (13:45)
[2018-06-21] MEDS ORDERED: fentaNYL PF VIAL 100 MCG/2 ML VIAL IV PRN (13:45)
[2018-06-21] MEDS ORDERED: ONDANSETRON PF 4 MG/2 ML VIAL. IV PRN (13:45)
[2018-06-21] MEDS ORDERED: diphenhydrAMINE 50 MG/ML VIAL IV PRN (13:45)
[2018-06-21] MEDS ORDERED: MAG HYDROX/ALUMINUM HYD/SIMETH 30 ML ORAL.SUSP PO PRN (13:45)
[2018-06-21] MEDS ORDERED: diphenhydrAMINE HCL 25 MG CAPSULE PO PRN (13:45)
[2018-06-21] MEDS ORDERED: ceFAZolin SODIUM 1 GM in IV DEXTROSE 5% 50 ML IV SCH (14:00)
[2018-06-21] MEDS ORDERED: DICLOFENAC SODIUM 1% TOPICAL GEL 100GM TUBE. TP PRN (14:00)
[2018-06-21] MEDS: fentaNYL PF VIAL 100 MCG/2 ML VIAL IV PRN ×3 (14:23→15:01)
[2018-06-21] MEDS ORDERED: POTASSIUM CL 20MEQ D5-0.45NACL 1,000 ML IV SCH (16:00)
[2018-06-21] MEDS: ceFAZolin SODIUM IV Push 1 GM VIAL. IVP SCH (16:58)
[2018-06-21] MEDS: oxyCODONE/APAP 10/325 1 TAB TABLET PO PRN ×2 (16:59→23:10)
[2018-06-21] MEDS: DOCUSATE SODIUM 100 MG CAPSULE. PO SCH (20:36)
[2018-06-21] MEDS: ALPRAZolam 0.5 MG TABLET PO SCH (20:36)
[2018-06-21] MEDS: PREGABALIN 75 MG CAPSULE PO SCH (20:37)
[2018-06-21] MEDS ORDERED: CITALOPRAM 10 MG TABLET. PO SCH (21:00)
[2018-06-21] MEDS ORDERED: traZODone 50 MG TABLET. PO SCH (21:00)
[2018-06-21] MEDS ORDERED: ALPRAZolam 0.5 MG TABLET PO SCH (21:00)
[2018-06-21] MEDS ORDERED: INFLUENZA VAX SCREEN BY RX. MC ONE (21:15)
[2018-06-22] MEDS: ceFAZolin SODIUM IV Push 1 GM VIAL. IVP SCH ×2 (00:58→09:03)
[2018-06-22 03:00] VITALS: BP 129/82
[2018-06-22 05:54] VITALS: BP 124/79
[2018-06-22] MEDS: oxyCODONE/APAP 10/325 1 TAB TABLET PO PRN ×2 (06:09→14:46)
[2018-06-22] MEDS ORDERED: CETIRIZINE HCL 10 MG TABLET. PO SCH (09:00)
[2018-06-22] MEDS ORDERED: amLODIPine BESYLATE 10 MG TABLET PO SCH (09:00)
[2018-06-22] MEDS ORDERED: ATORVASTATIN CALCIUM 20 MG TABLET PO SCH (09:00)
[2018-06-22] MEDS ORDERED: METOPROLOL SUCC 24HR ER 25 MG TAB.ER.24H. PO SCH (09:00)
[2018-06-22] MEDS: DOCUSATE SODIUM 100 MG CAPSULE. PO SCH (09:01)
[2018-06-22] MEDS: ALPRAZolam 0.5 MG TABLET PO SCH (09:01)
[2018-06-22] MEDS: PREGABALIN 75 MG CAPSULE PO SCH (09:03)
[2018-06-22 09:08] VITALS: BP 106/67
--- NOTE | 2018-06-22 09:53 | DISCH ---
DISCHARGE INSTRUCTIONS Condition on Discharge Condition on Discharge: Stable Activity After Discharge Activity Instructions for Disc: Activity as tolerated, Avoid exertion Bathing Instructions: Shower-keep dressing dry, No Tub Bath until see Lifting Instructions after Dis: No heavy lifting Exercise Instruction after Dis: Progress as tolerated Driving Instructions after Dis: Do not drive, No driving for 2 weeks Weight Bearing Status after Di: As tolerated Diet after Discharge Additional Diet Restrictions: resume home diet Diet Texture: Regular Wound Incision Care Wound/Incision Care: Ice to area for comfort Other wound/incision instructi: may remove dressing in 24 hrs if dry, no soaking Wound Care Equipment: Dressings Checks after Discharge Checks after discharge: Check blood press - daily Contacting the [facility] after DC Call your doctor for: Concerns you may have Follow-Up Follow up with: Dr. Ferris's nurse in 2 weeks [phone] Treatment/Equipment after DC Adaptive Equipment Issued: Front wheeled walker MARGRET FERRIS MD Jun 22, 2018 09:53
[2018-06-22] MEDS ORDERED: OXYC-323 PO (09:56)
--- NOTE | 2018-06-22 10:15 | PDOC ---
PROGRESS NOTES Subjective Subjective POD #1 Up in chair notes significant improvement in arms and legs still has some tingling in hands Objective Objective Vital Signs Date Time Temp Pulse Resp B/P (MAP) Pulse Ox O2 Delivery O2 Flow Rate FiO2 06/22/18 09:08 101 16 106/67 (80) Room Air 06/22/18 07:00 96 06/22/18 06:09 2.0 06/22/18 05:54 99.0 99.0 Intake and Output 06/22/18 07:00 Intake Total 2657 ml Output Total 1825 ml Balance 832 ml Intake Oral 650 ml IV Total 2007 ml Output Urine Total 1800 ml Estimated Blood Loss 25 ml Physical Exam General: Alert, Oriented X3, Cooperative, No acute distress Neuro: Strength at 5/5 X4 ext Skin: Other (dressing C,D,I, flat) Plan Plan of Care may dc home f/u 2 weeks Comment Review of Relevant I have reviewed the following items gisele (where applicable) has been applied. Medications Current Medications Ondansetron HCl (Zofran) 4 mg PRN Q6HRS PRN IV NAUSEA/VOMITING; Start 06/21/18 at 07:00; Stop 06/21/18 at 19:00; Status DC Fentanyl Citrate (Fentanyl 2ml Vial) 25 mcg PRN Q5MIN PRN IV MILD PAIN; Start 06/21/18 at 07:00; Stop 06/21/18 at 19:00; Status DC Fentanyl Citrate (Fentanyl 2ml Vial) 50 mcg PRN Q5MIN PRN IV MODERATE TO SEVERE PAIN Last administered on 06/21/18at 15:01; Start 06/21/18 at 07:00; Stop 06/21/18 at 19:00; Status DC Morphine Sulfate (Morphine Sulfate) 1 mg PRN Q10MIN PRN IV SEVERE PAIN; Start 06/21/18 at 07:00; Stop 06/21/18 at 19:00; Status DC Ringer's Solution 1,000 ml @ 30 mls/hr Q24H IV Last administered on 06/21/18at 08:45; Start 06/21/18 at 07:00; Stop 06/21/18 at 18:59; Status DC Lidocaine HCl (Xylocaine-Mpf 1% 2ml Vial) 2 ml PRN 1X PRN ID PRIOR TO IV START ; Start 06/21/18 at 07:00; Stop 06/21/18 at 19:00; Status DC Hydromorphone HCl (Dilaudid) 0.5 mg PRN Q10MIN PRN IV SEV PAIN, Second choice; Start 06/21/18 at 07:00; Stop 06/21/18 at 19:00; Status DC Prochlorperazine Edisylate (Compazine) 5 mg PACU PRN PRN IV NAUSEA, MRX1; Start 06/21/18 at 07:00; Stop 06/21/18 at 19:00; Status DC Cefazolin Sodium/ Dextrose 50 ml @ 100 mls/hr 1X PREOP PRN IV PRIOR TO PROCEDURE Last administered on 06/21/18at 09:13; Start 06/21/18 at 06:00; Stop at 18:00; Status DC Bacitracin 67673 unit/Sodium Chloride 1,000 ml @ 1,000 mls/hr 1X ONCE IRR Last administered on 06/21/18at 09:41; Start 06/21/18 at 06:00; Stop 06/21/18 at 06:59; Status DC Bupivacaine HCl/ Epinephrine Bitart (Sensorcain-Mpf Epi 0.5%-1:[id number]) 30 ml 1X ONCE INJ Last administered on 06/21/18at 09:41; Start 06/21/18 at 06:00; Stop 06/21/18 at 06:01; Status DC Gelatin (Gelfoam Size 100) 1 each STK-MED ONCE .ROUTE Last administered on at 09:41; Start 06/21/18 at 06:21; Stop 06/21/18 at 07:22; Status DC Thrombin 20,000 unit STK-MED ONCE TP Last administered on 06/21/18at 09:41; Start 06/21/18 at 06:21; Stop 06/21/18 at 07:22; Status DC Propofol 100 ml @ As Directed STK-MED ONCE IV ; Start 06/21/18 at 07:14; Stop 06/21/18 at 08:15; Status DC Desflurane (Suprane) 90 ml STK-MED ONCE IH ; Start 06/21/18 at 08:20; Stop 06/21 at 08:21; Status DC Midazolam HCl (Versed) 2 mg STK-MED ONCE .ROUTE ; Start 06/21/18 at 08:20; Stop 06/21/18 at 08:21; Status DC Remifentanil HCl (Ultiva) 1 mg STK-MED ONCE IV ; Start 06/21/18 at 08:20; Stop 06/21/18 at 08:21; Status DC Fentanyl Citrate (Fentanyl 2ml Vial) 100 mcg STK-MED ONCE .ROUTE ; Start at 08:21; Stop 06/21/18 at 08:22; Status DC Glycopyrrolate (Robinul) 1 mg STK-MED ONCE .ROUTE ; Start 06/21/18 at 08:21; Stop 06/21/18 at 08:22; Status DC Neostigmine Methylsulfate (Neostigmine Methylsulfate) 5 mg STK-MED ONCE .ROUTE ; Start 06/21/18 at 08:21; Stop 06/21/18 at 08:22; Status DC Rocuronium [place]ham (Zemuron) 50 mg STK-MED ONCE .ROUTE ; Start 06/21/18 at 08:21 ; Stop 06/21/18 at 08:22; Status DC Dexamethasone Sodium Phosphate (Decadron) 20 mg STK-MED ONCE .ROUTE ; Start at 08:21; Stop 06/21/18 at 08:22; Status DC Ondansetron HCl (Zofran) 4 mg STK-MED ONCE .ROUTE ; Start 06/21/18 at 08:21; Stop 06/21/18 at 08:22; Status DC Propofol 20 ml @ As Directed STK-MED ONCE IV ; Start 06/21/18 at 08:21; Stop at 08:22; Status DC Lidocaine HCl (Lidocaine Pf 2% Vial) 5 ml STK-MED ONCE .ROUTE ; Start 06/21/18 at 08:21; Stop 06/21/18 at 08:22; Status DC Phenylephrine HCl (PHENYLEPHRINE in 0.9% NACL PF) 1 mg STK-MED ONCE IV ; Start 06/21/18 at 08:21; Stop 06/21/18 at 08:22; Status DC Sodium Chloride (SODIUM CHLORIDE 20ml) 20 ml STK-MED ONCE IJ ; Start 06/21/18 at 08:24; Stop 06/21/18 at 08:25; Status DC Phenylephrine HCl (Clark-Synephrine Inj) 10 mg STK-MED ONCE .ROUTE ; Start at 09:18; Stop 06/21/18 at 09:19; Status DC Phenylephrine HCl (Clark-Synephrine Inj) 10 mg STK-MED ONCE .ROUTE ; Start at 09:18; Stop 06/21/18 at 09:19; Status DC Remifentanil HCl (Ultiva) 1 mg STK-MED ONCE IV ; Start 06/21/18 at 10:37; Stop 06/21/18 at 10:38; Status DC Remifentanil HCl (Ultiva) 1 mg STK-MED ONCE IV ; Start 06/21/18 at 12:32; Stop 06/21/18 at 12:33; Status DC Propofol 20 ml @ As Directed STK-MED ONCE IV ; Start 06/21/18 at 12:40; Stop at 12:41; Status DC Cefazolin Sodium/ Dextrose 50 ml @ 100 mls/hr 1X ONCE IV Last administered on 06/21/18at 13:09; Start 06/21/18 at 13:00; Stop 06/21/18 at 13:29; Status DC Alprazolam (Xanax) 0.5 mg BID PO Last administered on 06/22/18at 09:01; Start at 21:00 Alprazolam (Xanax) 0.5 mg HS PO ; Start 06/21/18 at 21:00; Status UNV Amlodipine Besylate (Norvasc) 10 mg DAILY PO ; Start 06/22/18 at 09:00 Atorvastatin Calcium (Lipitor) 20 mg DAILY PO Last administered on 06/22/18at 09 :01; Start 06/22/18 at 09:00 Citalopram Hydrobromide (CeleXA) 10 mg HS PO Last administered on 06/21/18at 20: 37; Start 06/21/18 at 21:00 Ergocalciferol (Vitamin D2) 50,000 unit WEEKLY PO ; Start 06/28/18 at 09:00 Metoprolol Succinate (Toprol Xl) 25 mg DAILY PO Last administered on 06/22/18at 09:07; Start 06/22/18 at 09:00 Nitroglycerin (Nitrostat) 0.4 mg PRN Q5MIN PRN SL CHEST PAIN; Start 06/21/18 at 13:15 Ondansetron HCl (Zofran Odt) 4 mg PRN Q8HRS PRN PO NAUSEA; Start 06/21/18 at 13 :15 Oxycodone/ Acetaminophen (Percocet 10/325) 1 tab PRN Q6HRS PRN PO PAIN Last administered on 06/22/18at 06:09; Start 06/21/18 at 13:15 Trazodone HCl (Desyrel) 50 mg HS PO Last administered on 06/21/18at 20:43; Start 06/21/18 at 21:00 Diclofenac Sodium (Voltaren) 1 jackie PRN QID PRN TP JOINT PAIN; Start 06/21/18 at 14:00 Loperamide HCl (Imodium) 2 mg PRN Q15MIN PRN PO DIARRHEA; Start 06/21/18 at 13: 30 Cetirizine HCl (ZyrTEC) 10 mg DAILY PO Last administered on 06/22/18at 09:01; Start 06/22/18 at 09:00 Pregabalin (Lyrica) 150 mg BID PO Last administered on 06/22/18at 09:03; Start 06/21/18 at 21:00 Zolpidem Tartrate (Ambien) 5 mg PRN QHS PRN PO INSOMNIA, MAY REPEAT X1; Start 06/21/18 at 13:45 Acetaminophen (Tylenol) 650 mg PRN Q6HRS PRN PO MILD PAIN / TEMP; Start at 13:45 Al Hydroxide/Mg Hydroxide (Mylanta Plus Xs) 30 ml PRN Q3HRS PRN PO HEARTBURN / GAS; Start 06/21/18 at 13:45 Calcium Carbonate/ Glycine (Tums) 500 mg PRN Q3HRS PRN PO INDIGESTION; Start at 13:45 Diphenhydramine HCl (Benadryl) 25 mg PRN Q6HRS PRN PO ITCHING; Start 06/21/18 at 13:45 Diphenhydramine HCl (Benadryl) 25 mg PRN Q6HRS PRN IV ITCHING; Start 06/21/18 at 13:45 Zolpidem Tartrate (Ambien) 5 mg PRN QHS PRN PO INSOMNIA, MAY REPEAT IN 1HR; Start 06/21/18 at 13:45; Status UNV Sodium Chloride (Normal Saline Flush) 3 ml QSHIFT PRN IV AFTER MEDS AND BLOOD DRAWS; Start 06/21/18 at 13:45 Potassium Chloride/Dextrose/ Sod Cl 1,000 ml @ 75 mls/hr [id number] IV Last administered on 06/21/18at 16:59; Start 06/21/18 at 16:00; Stop 06/22/18 at 01:59 ; Status DC Docusate Sodium (Colace) 100 mg BID PO Last administered on 06/22/18at 09:01; Start 06/21/18 at 21:00 Magnesium Hydroxide (Milk Of Magnesia) 2,400 mg PRN Q12HR PRN PO CONSTIPATION; Start 06/21/18 at 13:45 Ondansetron HCl (Zofran) 4 mg PRN Q6HRS PRN IV NAUESA, 1ST CHOICE; Start at 13:45 Cefazolin Sodium 1 gm/Dextrose 50 ml @ 100 mls/hr Q8HRS IV ; Start 06/21/18 at 14:00; Stop 06/22/18 at 06:29; Status UNV Fentanyl Citrate (Fentanyl 2ml Vial) 50 mcg PRN Q2HR PRN IV PAIN; Start at 13:45 Tizanidine HCl (Zanaflex) 4 mg PRN Q8HRS PRN PO MUSCLE SPASMS; Start 06/21/18 at 13:45 Cefazolin Sodium (Ancef) 1 gm Q8H IVP Last administered on 06/22/18at 09:03; Start 06/21/18 at 17:00; Stop 06/22/18 at 09:01; Status DC Fentanyl Citrate (Fentanyl 2ml Vial) 100 mcg STK-MED ONCE .ROUTE ; Start at 14:18; Stop 06/21/18 at 14:19; Status DC Fentanyl Citrate (Fentanyl 2ml Vial) 100 mcg STK-MED ONCE .ROUTE ; Start at 14:57; Stop 06/21/18 at 14:58; Status DC Info (Do NOT chart on this placeholder) 1 each 1X ONCE MC ; Start 06/21/18 at 21:15; Stop 06/21/18 at 21:16; Status UNV Influenza Virus Vaccine (Afluria Trivalent 2233-3145 Syringe) 0.5 ml ONCE ONCE VAX IM Last administered on 06/22/18at 06:39; Start 06/21/18 at 21:00; Stop at 21:01; Status DC Active Scripts Active Ambien (Zolpidem Tartrate) 10 Mg Tablet 1 Tab PO QHS PRN Zofran Odt (Ondansetron) 4 Mg Tab.rapdis 1 Tab SL Q8HRS PRN Loperamide (Loperamide Hcl) 2 Mg Tablet 2 Mg PO PER DIRECTIONS take one tablet after each loose stool Nitrostat (Nitroglycerin) 0.4 Mg Tab.subl 0.4 Mg SL PRN Q5MIN PRN Toprol Xl (Metoprolol Succinate) 25 Mg Tab.er.24h 25 Mg PO DAILY Reported Diclo Gel (Diclofenac Sodium) 1 Each Kit 4 Each TP PRN 3-4XDAILY Vitamin D2 (Ergocalciferol (Vitamin D2)) 50,000 Unit Capsule 1 Cap PO WEEKLY Alprazolam 0.5 Mg Tablet 1 Tab PO HS Alprazolam 0.5 Mg Tablet 1 Tab PO BID Loratadine 10 Mg Tablet 1 Tab PO DAILY Trazodone Hcl 50 Mg Tablet 50 Mg PO HS Percocet 10-325 Mg Tablet (Oxycodone/Acetaminophen) 1 Each Tablet 1 Tab PO PRN Q6HRS PRN Atorvastatin Calcium 40 Mg Tablet 20 Mg PO DAILY Celebrex (Celecoxib) 200 Mg Capsule 1 Cap PO DAILY Amlodipine Besylate 10 Mg Tablet 10 Mg PO DAILY Lyrica (Pregabalin) 150 Mg Capsule 150 Mg PO BID Citalopram Hbr (Citalopram Hydrobromide) 10 Mg Tablet 1 Tab PO HS LAST DOSE LAST NIGHT NEXT DOSE TONIGHT Tizanidine Hcl 4 Mg Capsule 4 Mg PO BID Vitals/I & O Vital Sign - Last 24 Hours 06/21/18 06/21/18 06/21/18 06/21/18 13:46 13:46 14:01 14:16 Temp 98.1 98.1 Pulse 102 100 100 Resp 18 20 20 B/P (MAP) 167/77 148/85 118/62 Pulse Ox 100 100 97 O2 Delivery Mask Simple Mask Simple Mask Room Air O2 Flow Rate 8 8 8 06/21/18 17/18 17/18 06/21/18 14:23 14:31 14:33 14:46 Pulse 98 99 Resp 18 20 20 14 B/P (MAP) 105/66 128/61 Pulse Ox 98 97 97 96 O2 Delivery Nasal Cannula Nasal Cannula Nasal Cannula Nasal Cannula O2 Flow Rate 2.0 2 2.0 2 06/21/18 17/18 17/18 06/21/18 15:01 15:01 15:16 15:31 Temp 98.1 98.1 Pulse 98 100 97 Resp 14 16 20 18 B/P (MAP) 124/79 129/84 130/81 Pulse Ox 96 96 95 96 O2 Delivery Nasal Cannula Nasal Cannula Nasal Cannula Nasal Cannula O2 Flow Rate 2.0 2 2 2 18 06/21/18 06/21/18 06/21/18 15:40 16:00 16:13 16:15 Temp 98.1 98.1 Pulse 99 Resp 18 B/P (MAP) 129/86 (100) 122/79 (93) Pulse Ox 98 O2 Delivery Mask Nasal Cannula Nasal Cannula O2 Flow Rate 2 2.0 2.0 18 17/18 17/18 06/21/18 16:30 16:45 17:15 17:45 Temp 97.6 98.0 97.6 98.0 Pulse 88 79 Resp 18 20 B/P (MAP) 125/81 (96) 150/79 (102) 139/77 (97) 129/80 (96) Pulse Ox 98 97 O2 Delivery Nasal Cannula Nasal Cannula O2 Flow Rate 2.0 2.0 06/21/1806/21/18 17/18 06/21/18 18:16 19:15 20:00 23:00 Temp 97.3 98.7 99.2 97.3 98.7 99.2 Pulse 81 98 103 Resp 22 22 B/P (MAP) 131/83 (99) 121/84 (96) 120/85 (97) Pulse Ox 93 95 96 O2 Delivery Room Air Nasal Cannula Nasal Cannula Nasal Cannula O2 Flow Rate 2.0 2.0 2.0 06/21/1806/22/18 06/22/18 18 23:10 00:12 03:00 05:54 Temp 98.4 99.0 98.4 99.0 Pulse 101 101 Resp 18 24 B/P (MAP) 129/82 (98) 124/79 (94) Pulse Ox 96 99 97 O2 Delivery Nasal Cannula Nasal Cannula Nasal Cannula O2 Flow Rate 2.0 2.0 2.0 2.0 06/22/18 06/22/18 06/22/18 06/22/18 06:09 06:42 07:00 07:17 Resp 20 16 Pulse Ox 97 96 96 O2 Delivery Nasal Cannula Room Air Room Air Room Air O2 Flow Rate 2.0 06/22/18 06/22/18 06/22/18 09:00 09:07 09:08 Pulse 101 101 101 Resp 16 B/P (MAP) 106/67 106/67 106/67 (80) O2 Delivery Room Air Intake and Output 06/21/18 06/21/18 06/22/18 15:00 23:00 07:00 Intake Total 850 ml 610 ml 1197 ml Output Total 25 ml 750 ml 1050 ml Balance 825 ml -140 ml 147 ml MARGRET FERRIS MD Jun 22, 2018 10:15
[2018-06-22 11:45] VITALS: BP 105/61
--- NOTE | 2018-06-22 17:09 | PATHOLOGY ---
[facility] Accession Number: [id number] . 01 Material submitted: . CERVICAL DISC . 01 Clinician provided ICD-10: M48.02 . 01 Clinical history: . Cervical stenosis, herniated disc . 02 Diagnosis: Segments of fibrocartilaginous tissue and bone, cervical disc: - Degenerative changes of fibrocartilaginous tissue. (JPM/at;06/22/2018) QTA/06/22/2018 . 02 Comment: There is no evidence of an acute inflammatory process or malignancy. . 02 Electronically signed: . Farrukh Parikh MD, Pathologist NPI- [id number] . 01 Gross description: . Received in formalin labeled "January, cervical disc," are several pieces of glistening, fibrous tissue measuring 2.1 x 0.9 x 0.3 cm in aggregate dimensions, containing small fragments of possible bone. The specimen is filtered and entirely submitted in cassette A1, following decalcification. (TSD; 06/21/2018) TOB/TOB . 02 Pathologist provided ICD-10: M50.30 . 02 CPT . 403406, [id number] Specimen Comment: A courtesy copy of this report has been sent to Specimen Comment: [phone]. Specimen Comment: Report sent to [facility]formed at: [facility] [address], [place] [id number] MD Franklin Hernandez MD Phone: [phone] Performed at: 02 [facility] [address] [place], [place] [id number] MD Farrukh Parikh MD Phone: [phone]
[2018-06-28] MEDS ORDERED: ERGOCALCIFEROL (VITAMIN D2) 50,000 UNIT CAPSULE. PO SCH (09:00)
== END 2018-06-22 15:15 | disposition home or self-care (01) ==
LOC: OPSVCIP 07:45 → INTOOBSV 07:45 → 4 SOUTHEST 16:08
PROVIDERS: ADMIT Neurological Surgery; ATTEND Neurological Surgery
DX: M48.062 Spinal stenosis, lumbar region with neurogenic claudication (principal); I11.0 Hypertensive heart disease with heart failure; I25.10 Atherosclerotic heart disease of native coronary artery without angina pectoris; I50.9 Heart failure, unspecified; Z82.49 Family history of ischemic heart disease and other diseases of the circulatory system; Z96.659 Presence of unspecified artificial knee joint; Z98.1 Arthrodesis status
CPT/HCPCS: 22551; 76000; 88304; 88311; 90471; 90756; 96374; 96376; 97110; 97116; 97162; A7015; C1713; G0378; G0379; G8978; G8979; G8980; J0690; J1100; J2001; J2250; J2370; J2405; J2704; J2710; J3010; J3490; J7030; J7120; Q2035

== ENCOUNTER → 2018-07-15 | Outpatient (CLI) | payer OTHER ==
[2018-06-22 11:45] VITALS: BP 105/61
[~2018-07-15] MED LIST changes: -BACITRACIN 50,000 UNIT in IV NORMAL SALINE 1000ML BAG 1,000 ML IRR ONE; -BUPIVAC MPF-EPI 0.5%-1:200000 30 ML VIAL. INJ ONE; +DICL1KIT14 TP; +ERGO500027 PO; -GELATIN SPONGE SIZE 100. ONE; -HYDROmorphone 2 MG/ML VIAL IV PRN; -IV RINGERS,LACTATED 1000ML 1,000 ML IV SCH; -LIDOCAINE 1% PF 2 ML VIAL. ID PRN; +LORA10TA3 PO; -MORPHINE SULFATE 2 MG/ML VIAL. IV PRN; -ONDANSETRON PF 4 MG/2 ML VIAL. IV PRN; +OXYC-323 PO; -PROCHLORPERAZINE 10 MG/2 ML VIAL. IV PRN; -PROPOFOL 100 ML IV ONE; -THROMBIN TOPICAL 20,000 UNIT SPRAY.SYRN KIT TP ONE; -fentaNYL PF VIAL 100 MCG/2 ML VIAL IV PRN
--- NOTE | 2018-07-15 23:19 | PAIN ---
DATE OF SERVICE: 07/15/2018 PROGRESS NOTE FOR PAIN CLINIC DIAGNOSES: 1. Cervical radiculopathy with cervicalgia and post-cervical laminectomy syndrome. 2. Low back pain with post-lumbar laminectomy syndrome. 3. Bilateral knee joint pain with osteoarthritis. HISTORY OF PRESENT ILLNESS: The patient is a 63-year-old female who returns for followup status post medication management with oxycodone, Lyrica and Celebrex. The patient reports that she has recently about 3 weeks ago had an anterior cervical diskectomy and fusion, redo surgery and is doing quite well. The patient reports that her right arm is feeling much better; her left arm still has some significant pain radiating into it, in the shoulder and arm as well as in the hand, but doing better each day or so. She is going through rehab right now and is doing well with this. The patient reports that the pain is still significant though in the low back as well as in the neck and left arm without radiation to the lower extremities: The patient reports it is improving in the left arm as well, but the right arm the pain is essentially gone. The patient reports it awakens her from sleep, but only about every 7 hours or so at the most. The patient reports no new motor or sensory deficits. Rates her pain as 9 on a scale of 10 at its worst, 9 on average, 8 at its least and is at 9 currently. The patient reports it is tingling and aching in the low back as well as in the neck and shoulder and left upper extremity. PHYSICAL EXAMINATION: VITAL SIGNS: The patient's blood pressure is 136/80, pulse 107, respirations 16, temperature 98.6 degrees Fahrenheit. Height is 5 feet 1 inch, weight is 138 pounds. GENERAL: The patient is awake, alert, oriented, appropriate, very pleasant demeanor. HEENT: Head is normocephalic, atraumatic. Extraocular movements are intact, symmetrical. Oral cavity: Mucous membranes is moist and pink. Dentition is intact. NECK: Shows anterior throat supple without palpable lymphadenopathy noted. Swallow reflex symmetrical. CHEST: Shows normal with inspection. Breath sounds clear to auscultation bilaterally. HEART: Shows S1, S2 clear. No murmurs auscultated. ABDOMEN: Soft, nontender, nondistended. No palpable organomegaly is noted. No rebound or guarding demonstrated. BACK: Shows spine grossly in the midline. Slight flattening of cervical lordotic curvature. The patient has a new surgical scar on the anterior cervical distribution. Thoracic spine shows normal kyphosis. Lumbar lordotic curvature is flattened with well-healed lumbar surgical scars as well. Palpation of the cervical paraspinous muscle shows some mild tenderness in the inferior aspect of the cervical paraspinous muscles, more on the left than the right and into the superior lateral trapezius, but without atrophy, hypertrophy, without trigger points and without radiation. The patient has good rotational motion of cervical spine though it is somewhat limited because the patient is wearing a C-collar on initial presentation and we had her not to flex and extend to full extent today as she is fairly recently postop. EXTREMITIES: The patient's upper extremities show deep tendon reflexes 2+ in the biceps and triceps tendons. Motor exam is approximately 4 on a scale of 5 on the left and right, but symmetrical with shank scourer strength, bicep and tricep flexion. Peripheral pulses are 2+ radial distribution. No peripheral edema is noted. Options were discussed with the patient. The patient's old chart was reviewed as her current medication regimen updated. Current review of systems updated today as well. We will refill the patient's oxycodone as well as Lyrica with instructions, side effects to be aware of. The patient has had appropriate K-TRACS reporting as well as appropriate urinalysis to date and we will have her refill for a 2-month period. The patient will return to clinic in approximately 2 months or sooner as necessary. Again, the patient has had appropriate K-TRACS reporting and urinalysis. We will renew her narcotic contract today as well. The patient was given a copy of this also. MACRINA LANDAVERDE MD DR: DIAMOND/dano JOB#: [id number] / [id number]
== END | disposition home or self-care (01) ==
LOC: PNCL 12:58
PROVIDERS: ATTEND Anesthesiology
DX: M54.12 Radiculopathy, cervical region (principal); M17.0 Bilateral primary osteoarthritis of knee; M54.5 Low back pain; M96.1 Postlaminectomy syndrome, not elsewhere classified
CPT/HCPCS: G0463

== ENCOUNTER → 2018-08-06 | Outpatient (CLI) | payer MEDICAID, OTHER ==
--- NOTE | 2018-08-06 17:06 | CARD ---
MR#: [id number] Date of Study: 08/06/2018 Ordering Physician: HERBER HERNANDEZ, Referring Physician: HERBER HERNANDEZ, Tech: Rita Bangura APPROVED REPORT EXAM: Two-dimensional and M-mode echocardiogram with Doppler and color Doppler. Other Information Quality : AverageHR: 74bpm INDICATION Cardiomyopathy Tachycardia RISK FACTORS Hypertension Hyperlipidemia Previous smoker 2D DIMENSIONS RVDd2.6 (2.9-3.5cm)Left Atrium(2D)2.3 (1.6-4.0cm) IVSd0.8 (0.7-1.1cm)Aortic Root(2D)3.2 (2.0-3.7cm) LVDd4.6 (3.9-5.9cm)LVOT Diameter2.0 (1.8-2.4cm) PWd0.9 (0.7-1.1cm)LVDs2.7 (2.5-4.0cm) FS (%) 41.9 %SV70.6 ml LVEF(%)72.9 (>50%) Aortic Valve AoV Peak Mario.101.9cm/sAoV VTI18.9cm AO Peak GR.4.1mmHgLVOT Peak Mario.76.8cm/s LVOT VTI 19.79cmAO Mean GR.2mmHg TAMMY (VMAX)1.29bo7VVC (VTI)3.36cm2 Mitral Valve MV E Rilnjiwa78.6cm/sMV DECEL EHYI107lc MV A Uzjtlifi12.3cm/sMV TUI18pm E/A Ratio0.8MVA (PHT)2.72cm2 TDI E/Lateral E'9.3E/Medial E'7.4 Pulmonary Valve PV Peak Jnlvrwcm206.6cm/sPV Peak Grad.4mmHg Tricuspid Valve TR P. Omytslka988bf/sRAP [id number] TR Peak Gr.28mmHg Pulmonary Vein S1 Nbqoosfb54.0cm/sD2 Sxpenfbu46.3cm/s PVa [id number] LEFT VENTRICLE The left ventricle is normal size. There is normal left ventricular wall thickness. The left ventricu lar systolic function is normal. The Ejection Fraction is 60-65%. There is normal LV segmental wall m otion. Transmitral Doppler flow pattern is Grade I-abnormal relaxation pattern. RIGHT VENTRICLE The right ventricle is normal size. There is normal right ventricular wall thickness. The right ventr icular systolic function is normal. ATRIA The left atrium size is normal. The right atrium size is normal. AORTIC VALVE The aortic valve is normal in structure and function. Doppler and Color Flow revealed mild aortic reg urgitation. There is no significant aortic valvular stenosis. MITRAL VALVE The mitral valve is normal in structure and function. Doppler and Color-flow revealed mild mitral reg urgitation. TRICUSPID VALVE The tricuspid valve is normal in structure and function. Doppler and Color Flow revealed mild tricusp id regurgitation. There is no tricuspid valve stenosis. PULMONIC VALVE The pulmonic valve is not well visualized. Doppler and Color Flow revealed no pulmonic valvular regur gitation. GREAT VESSELS The aortic root is normal in size. Normal pulmonary venous flow (Doppler). The IVC is normal in size and collapses >50% with inspiration. PERICARDIAL EFFUSION There is no evidence of significant pericardial effusion. Critical Notification Critical Value: No <Conclusion> The left ventricular systolic function is normal. The Ejection Fraction is 60-65%. There is normal LV segmental wall motion. Transmitral Doppler flow pattern is Grade I-abnormal relaxation pattern. Mild aortic regurgitation. Mild mitral regurgitation. Mild tricuspid regurgitation. There is no evidence of significant pericardial effusion. Signed by : Herber Hernandez, Electronically Approved : 08/06/2018 17:05:51
== END | disposition home or self-care (01) ==
LOC: ECHO 13:18
PROVIDERS: ATTEND Internal Medicine Cardiovascular Disease
DX: I08.3 Combined rheumatic disorders of mitral, aortic and tricuspid valves (principal); I47.2 Ventricular tachycardia; I10 Essential (primary) hypertension; E78.5 Hyperlipidemia, unspecified; Z87.891 Personal history of nicotine dependence
CPT/HCPCS: 93306

== ENCOUNTER → 2018-09-03 | Outpatient (CLI) | payer OTHER ==
[~2018-09-03] MED LIST changes: -OXYC-323 PO; -OXYC-328 PO; +OXYC1TAB15 PO; +OXYC1TAB22 PO
--- NOTE | 2018-09-03 15:47 | RAD ---
EXAM: Cervical spine, 2 views. HISTORY: Fusion. COMPARISON: MRI dated 05/10/2018. FINDINGS: 2 views of the cervical spine are obtained. There is instrumented anterior spinal fusion with plates and anterior screws at C3-C4, C5-C6 and C7-T1. There is interbody fusion at C3-C4, C4-C5, C5-C6 and C7-T1. There is degenerative endplate remodeling and disc space narrowing at C6-C7 and C2-C3. There is multilevel facet arthropathy. IMPRESSION: 1. Instrumented fusion at the aforementioned levels. 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 There is no evidence of instrumentation loosening. 2. Multilevel degenerative change, primarily at C2-C3 and C6-C7. Electronically signed by: Michelle Boyd MD (09/03/2018 3:44 PM) [id number]
== END | disposition home or self-care (01) ==
LOC: RAD 13:57
PROVIDERS: ATTEND Neurological Surgery
DX: M43.22 Fusion of spine, cervical region (principal); M50.31 Other cervical disc degeneration, high cervical region; M12.88 Other specific arthropathies, not elsewhere classified, other specified site; M48.02 Spinal stenosis, cervical region
CPT/HCPCS: 72040

== ENCOUNTER → 2018-09-14 | Outpatient (CLI) | payer OTHER ==
[~2018-09-14] MED LIST changes: -GABA-586 PO; +GABA300C18 PO
--- NOTE | 2018-09-14 18:51 | PAIN ---
DATE OF SERVICE: 09/14/2018 PROGRESS NOTE FOR PAIN CLINIC DIAGNOSES: 1. Cervical radiculopathy with cervicalgia and post-cervical laminectomy syndrome. 2. Low back pain with post-lumbar laminectomy syndrome. 3. Bilateral knee joint pain with primary osteoarthritis, bilateral knees. HISTORY OF PRESENT ILLNESS: The patient is a 63-year-old female who returns for followup status post medication management with oxycodone and Lyrica. The patient reports she is doing fairly well, has been on a very stable regimen with approximately 70% improvement overall with the medication. The patient reports that she is feeling down as her brother had last week and she is doing some preparations for the . It does cause some increased emotional stress as well as physical stress and pain. The patient reports the pain is in the base of the neck and shoulder as well as the mid back, low back radiating to the right lateral hip and thigh as well. The patient reports it is an 8 on a scale of 10 at its worst, 8 on average and 7 at its least. The patient reports it is aching, stabbing, constant, becoming more noticeable with activity as well as with sitting and standing. The patient reports no new motor or sensory deficits, no new bowel or bladder incontinence. She describes the pain as aching, stabbing, becoming more constant at the base of neck and shoulders as well as in the low back and right leg. The patient reports she is doing well with the medications as far as any side effects, maintaining her hydration level as well. The patient reports no new motor or sensory deficits. She reports the pain does not awaken her from sleep at night, much worse when she is up and around, standing or walking. PHYSICAL EXAMINATION: VITAL SIGNS: The patient's blood pressure is 120/65, pulse 94, respirations 18, temperature 98.2 degrees Fahrenheit, height is 5 feet 1 inch, weight is 143 pounds. GENERAL: The patient is awake, alert, oriented, appropriate, very pleasant demeanor. HEENT: Head is normocephalic, atraumatic. Extraocular movements are intact and symmetrical. Oral cavity: Mucous membranes moist and pink. Dentition is intact. NECK: Shows anterior throat supple without palpable lymphadenopathy noted. Swallow reflex is symmetrical. CHEST: Shows normal on inspection. Breath sounds clear to auscultation bilaterally. HEART: Shows S1, S2 clear. No murmurs auscultated. ABDOMEN: Soft, nontender, nondistended. No palpable organomegaly is noted. No rebound or guarding demonstrated. BACK: The patient's back shows spine grossly in the midline. Slight exaggeration of thoracic kyphosis, some minor flattening of cervical lordotic curvature and flattening of lumbar lordotic curvature with well-healed surgical scar in the lumbar distribution. Palpation of the cervical paraspinous muscle shows symmetrical with some moderate tenderness with palpation bilaterally diffusely without trigger points, without radiation. The patient has some slightly limited extension of the cervical spine without difficulty with forward flexion, right and left lateral rotation is maintained at about 45 degrees or slightly further without significant pain. The patient's low back shows good rotation laterally greater than 10 degrees right and left as well as extension greater than 10 degrees, forward flexion 45 degrees without significant pain as well. EXTREMITIES: The patient's upper extremities show deep tendon reflexes 2+ in the biceps and triceps tendons. Lower extremities are 1+ ____ tendo-calcaneus and patellar tendons. Motor exam is approximately 4 on a scale of 5 with biceps and triceps as well as deputy general counsel strength bilaterally and 4/5 with lower extremity dorsiflexion, extension and symmetrical. Peripheral pulses are 2+ radial, 1+ posterior tibial. Options were discussed with the patient. The patient's old chart was reviewed as well as her current medication regimen updated. Current review of systems updated today as well. We will proceed with refilling the patient's oxycodone as well as Lyrica. The patient has had appropriate K-TRACS reporting as well as appropriate urinalysis to date and we will refill this for 2-month period. The patient was given instruction as well as side effects to be aware of each of medications and will follow up in approximately 2-month period or sooner if necessary. MACRINA LANDAVERDE MD DR: DIAMOND/dano JOB#: [id number] / [id number]
== END | disposition home or self-care (01) ==
LOC: PNCL 11:24
PROVIDERS: ATTEND Anesthesiology
DX: M54.12 Radiculopathy, cervical region (principal); M96.1 Postlaminectomy syndrome, not elsewhere classified; M54.5 Low back pain; M17.0 Bilateral primary osteoarthritis of knee
CPT/HCPCS: G0463

== ENCOUNTER → 2018-11-16 | Outpatient (CLI) | payer OTHER ==
[~2018-11-16] MED LIST changes: -AMLO10TA6 PO; +AMLO10TA8 PO
--- NOTE | 2018-11-16 13:26 | PAIN ---
DATE OF SERVICE: 11/16/2018 PROGRESS NOTE FOR PAIN CLINIC DIAGNOSES: 1. Cervical radiculopathy with cervicalgia and chronic post-lumbar laminectomy syndrome. 2. Low back pain with post-lumbar laminectomy syndrome. 3. Bilateral knee joint pain with primary osteoarthritis, bilateral knees. HISTORY OF PRESENT ILLNESS: The patient is a 63-year-old female who returns for followup status post medication management with both Lyrica and oxycodone 10 mg. The patient reports she is doing very well, has been on very stable regimen with the medication without side effects, controls her pain by approximately 75% without significant side effects. The patient reports still some pain in the base of the neck, shoulders and upper extremities more on the left than the right. Reports the pain as 9 on a scale of 10 at its worst, average and at its least and is a 9 today. The patient reports it is aching, tight, stabbing, shooting at times, sometimes aching and dull across the neck as well. The patient reports the pain pills do enable her to increasing her activity with greater distance walking. She is using a walker to do this, but also household activities and traveling much more comfortably. The patient reports that her chair she sits at home since tends to be too soft and is causing some back pain as well. We did discuss this in further detail and certainly does seem to be contributing as well as her mattress, which she reports is needs to be replaced as well. The patient reports no new motor or sensory deficits, no new changes or other concerns with the medications or other areas. PHYSICAL EXAMINATION: VITAL SIGNS: The patient's blood pressure 172/77, pulse 99, respirations 16, temperature 98.0 degrees Fahrenheit, height is 4 feet 11 inches, weight is 140 pounds. GENERAL: The patient is awake, alert, oriented, appropriate, very pleasant demeanor. HEENT: Head shows normocephalic, atraumatic. Extraocular movements are intact and symmetrical. Oral cavity: Mucous membranes moist and pink. Dentition is intact. NECK: Shows anterior throat supple without palpable lymphadenopathy noted. CHEST: Shows normal on inspection. Breath sounds are clear to auscultation bilaterally. HEART: Shows S1, S2 clear. No murmurs auscultated. ABDOMEN: Soft, nontender, nondistended. No palpable organomegaly is noted. No rebound or guarding demonstrated. BACK: Shows spine grossly in the midline. Cervical lordotic curvature slightly flattened as is thoracic kyphotic curvature and flattening of the lumbar lordotic curvature. Paraspinous muscles in the cervical distribution is symmetrical, with palpation shows some moderate tenderness diffusely without radiation bilaterally. The patient has good rotation of motion, somewhat guarded, but good rotation past 45 degrees right and left as well as extension and forward flexion of the cervical spine without significant limitation. EXTREMITIES: The patient's upper extremities show deep tendon reflexes 1+ in the biceps, triceps tendons. Motor exam is approximately 4 on a scale of 5 with handbag framer strength, but equal and symmetrical. Peripheral pulses are 2+ radial distribution. No peripheral edema is noted bilaterally. PLAN: Options were discussed with the patient. The patient's old chart was reviewed as her current medication regimen updated. Current review of systems updated today as well. We will refill the patient's oxycodone as well as Lyrica with instructions and side effects to be aware of each of the medications. The patient has had appropriate K-TRACS reporting as well as appropriate urinalysis to date. We will obtain a urinalysis specimen today for routine screening and the patient will be given 2-month prescription for the medications with instructions, side effects to be aware of. We will have her follow up in approximately 2 months or sooner if necessary. MACRINA LANDAVERDE MD DR: DIAMOND/dano JOB#: [id number] / [id number]
== END | disposition home or self-care (01) ==
LOC: PNCL 11:10
PROVIDERS: ATTEND Anesthesiology
DX: M54.12 Radiculopathy, cervical region (principal); M96.1 Postlaminectomy syndrome, not elsewhere classified; M17.0 Bilateral primary osteoarthritis of knee
CPT/HCPCS: G0463

== ENCOUNTER → 2019-01-11 | Outpatient (CLI) | payer OTHER ==
[~2019-01-11] MED LIST changes: +OMEP20TA8 PO; +TRAZ-118 PO; -TRAZ-85 PO
--- NOTE | 2019-01-12 03:37 | PAIN ---
DATE OF SERVICE: 01/11/2019 DIAGNOSES: 1. Cervical radiculopathy with cervical degenerative disk disease and post-cervical laminectomy syndrome. 2. Low back pain with post-lumbar laminectomy syndrome. 3. Bilateral knee joint pain with primary osteoarthritis, knee joints. HISTORY OF PRESENT ILLNESS: The patient is a 64-year-old female who returns for followup status post medication of both oxycodone and Lyrica. The patient reports she has been doing fairly well, has been on a very stable regimen. The pain is fairly well controlled, but is having increased pain in her right hip and right knee, especially the right knee. The patient reports it is worse with walking, standing, change in positions, stepping up on a curb or a step or stair, putting all of her weight on her right leg, it is significantly more painful. The patient reports also pain in the hip with radiating pain into the lower extremity, mostly in the lateral anterior aspect of the thigh. The patient reports it is getting worse over the past month or so. She has been moving much more slowly, but still the medication does well with about 75% improvement as she has had previously without significant side effects. The patient reports it does not awaken her from sleep at night, feels much better sitting or lying down as well as the neck and shoulders. The patient reports no new motor or sensory deficits, no new bowel or bladder incontinence. The patient describes the pain as becoming more constant, unbearable in the right knee, burning, aching and sharp in the back and neck. PHYSICAL EXAMINATION: VITAL SIGNS: The patient's blood pressure is 113/74, pulse 78, respirations 18, temperature 97.4 degrees Fahrenheit, height is 5 feet 1 inch, weight is 137 pounds. GENERAL: The patient is awake, alert, oriented, appropriate, very pleasant demeanor. HEENT: Head is normocephalic, atraumatic. Extraocular movements are intact and symmetrical. Oral cavity: Mucous membranes moist and pink. Dentition is intact. NECK: Shows anterior throat supple without palpable lymphadenopathy noted. Swallow reflex symmetrical. CHEST: Shows normal with inspection. Breath sounds clear to auscultation bilaterally. HEART: Shows S1, S2 clear. No murmurs auscultated. ABDOMEN: Soft, nontender, nondistended. No palpable organomegaly is noted. No rebound or guarding demonstrated. BACK: Shows spine grossly in the midline. Cervical paraspinous muscle shows symmetrical on inspection; on palpation shows some moderate tenderness throughout the upper, middle and lower distribution of paraspinous muscles bilaterally without radiation, without asymmetry or trigger points. The patient shows good rotational motion of cervical spine, both laterally as well as extension and flexion without significant difficulty. The patient's thoracic spine shows normal thoracic curvature. Lumbar paraspinous muscle shows symmetrical with some flattening of the lumbar distribution with well-healed surgical scar noted once again. Diffuse tenderness throughout the upper, middle, lower distribution of paraspinous musculature of the lumbar distribution as well without radiation. The patient has good rotational motion both laterally as well as extension and flexion without significant difficulty. EXTREMITIES: Upper extremity deep tendon reflexes 2+ in the biceps and triceps tendons. Lower extremities show 1+ patellar and tendo calcaneus tendons. Motor exam is strong with 5/5 bilingual branch manager strength, bicep and tricep flexion approximately 4 on a scale of 5, but equal and symmetrical dorsiflexion, extension, quadriceps and hamstring flexion bilaterally. Peripheral pulses are 2+ radial, 1+ posterior tibial. No peripheral edema is noted. Options were discussed with the patient. The patient's old chart was reviewed as was her current medication regimen updated. Current review of systems updated today as well. We will refill the patient's oxycodone as well as Lyrica for a 2-month prescription. The patient has had appropriate K-TRACS reporting as well as appropriate urinalysis to date. The patient was given instruction as well as side effects to be aware of with each of medications and will follow up in approximately 2 months or sooner as necessary. We did discuss potential intraarticular knee joint injection on the right. In the future, she would like to wait on this as she has some other appointments coming up first and some lab work to be done. She will follow up in approximately 2 months or sooner if necessary. MACRINA LANDAVERDE MD DR: DIAMOND/dano JOB#: [id number] / [id number]
== END | disposition home or self-care (01) ==
LOC: PNCL 11:29
PROVIDERS: ATTEND Anesthesiology
DX: M50.10 Cervical disc disorder with radiculopathy, unspecified cervical region (principal); M96.1 Postlaminectomy syndrome, not elsewhere classified; M17.0 Bilateral primary osteoarthritis of knee; M25.551 Pain in right hip
CPT/HCPCS: G0463

== ENCOUNTER → 2019-01-24 | Outpatient (CLI) | payer OTHER ==
[~2019-01-24] MED LIST changes: +BUPIVACAINE MPF 0.25% 10 ML VIAL. ONE; +IOHEXOL 180 MG/ML 10 ML VIAL. ONE; +methylPREDNISolone ACETATE 80 MG/ML VIAL. ONE
--- NOTE | 2019-01-24 22:38 | PAIN ---
DATE OF SERVICE: 01/24/2019 DIAGNOSES: 1. Cervical radiculopathy with cervicalgia and post-cervical laminectomy. 2. Low back pain with lumbar laminectomy syndrome. 3. Bilateral knee joint pain with primary osteoarthritis of the knee joints. The patient is a 64-year-old female who returns for followup status post medication management. She is doing fairly well with about 75% improvement. We discussed on her last visit her right knee is significantly painful with degenerative arthritis. The patient returns today wishing to proceed with right intra-articular knee joint injection that we had discussed previously. The patient reports it is worse with walking and standing, putting all her weight on her right leg, especially with stepping up on a step or a stair is almost excruciating. The patient reports it is better with sitting or lying down. Generally it does not awaken her from sleep at night, but her back is causing some pain that causes her to wake up from sleep. The patient reports the pain in her knee with walking is a 9 on a scale of 10 at its worst, average and at least is a 2 with rest and sitting. The patient reports it is a 9 today with activity and weightbearing. The patient reports it is aching, sharp, constant, severe in the knee as well as some pain in the back as well as the neck and shoulders, but again fairly well controlled with her medication regimen without side effects at this time for the back and neck pain, knee pain is getting much worse even with the pain medication and with ambulation. PHYSICAL EXAMINATION: VITAL SIGNS: Today, the patient's blood pressure 117/76, pulse 77, respirations 18, temperature 97.7, height is 5 feet 1 inch, weight is 130 pounds. GENERAL: The patient is awake, alert, oriented, appropriate, very pleasant demeanor. HEENT: Shows normocephalic, atraumatic. Extraocular movements are intact and symmetrical. Oral cavity, mucous membranes are moist and pink. Dentition is intact. NECK: Shows anterior throat supple without palpable lymphadenopathy noted. Swallow reflex is symmetrical. CHEST: Shows normal on inspection, breath sounds are clear to auscultation bilaterally. HEART: S1, S2 clear. No murmurs auscultated. ABDOMEN: Soft, nontender, nondistended. No palpable organomegaly is noted. No rebound or guarding noted. BACK: Spine grossly in the midline, normal appearance of cervical lordotic curvature with some minor increase in the thoracic kyphotic curvature, some flattening of the lumbar lordotic curvature. Well-healed surgical scar in the lumbar distribution. EXTREMITIES: The patient's lower extremities showed deep tendon reflexes at 1+ in patellar and tendo-calcaneus tendons. Motor examination is strong with 4/5 dorsiflexion and extension, quadriceps and hamstring flexion, but equal and symmetrical. Peripheral pulses are 1+ posterior tibia. No peripheral edema is noted. The patient's right knee shows good range of motion with passive range. With weightbearing, however, the patient reports significant pain immediately in the medial compartment with walking and standing. Options were discussed with the patient. The patient's old chart was reviewed and her current medication regimen updated. Current review of systems was updated today as well. We will proceed with a right intra-articular knee joint injection using C-arm fluoroscopic guidance. Risks were discussed including but not limited to bleeding, infection, possibility of intravascular injection sequelae, spread of local anesthetic and numbness, side effects of the steroid medication, exposure to fluoroscopy and poor results regarding pain control. The patient understands and wished to proceed. The patient will return to the clinic in approximately 2 weeks for followup, was counseled as to return appointment, activity level and side effects to be aware of. DIAGNOSES: Primary osteoarthritis right knee joint. PROCEDURE: Intra-articular knee joint injection using C-arm fluoroscopic guidance under sterile prep and drape using local anesthetic. MEDICATION INJECTED: A total of 80 mg Depo-Medrol plus 3 mL of 0.25% bupivacaine and 2 mL of contrast. CONDITION ON DISCHARGE: Stable. The patient tolerated the procedure well and had no complications. MACRINA LANDAVERDE MD DR: DIAMOND/dano JOB#: [id number] / [id number]
== END | disposition home or self-care (01) ==
LOC: PNCL 09:45
PROVIDERS: ATTEND Anesthesiology
DX: M17.11 Unilateral primary osteoarthritis, right knee (principal); Z88.6 Allergy status to analgesic agent; Z91.018 Allergy to other foods; M54.12 Radiculopathy, cervical region; M96.1 Postlaminectomy syndrome, not elsewhere classified
CPT/HCPCS: 20610; 77002; J1040; J3490; Q9965

== ENCOUNTER → 2019-03-08 | Outpatient (CLI) | payer OTHER ==
[~2019-03-08] MED LIST changes: -BUPIVACAINE MPF 0.25% 10 ML VIAL. ONE; -IOHEXOL 180 MG/ML 10 ML VIAL. ONE; -methylPREDNISolone ACETATE 80 MG/ML VIAL. ONE
--- NOTE | 2019-03-08 14:04 | RAD ---
Single AP view the pelvis and frog-leg views of both hips without comparison for hip pain. FINDINGS: There is no fracture, dislocation, or acute osseous abnormality of either hip. Minimal degenerative changes about the hips. There are severe degenerative changes throughout the lumbar spine, with near complete obliteration of the intervertebral disc spaces, increased sclerosis, and rotary changes. These could be better evaluated with MRI if there is clinical concern that the patient's hip pain is relatable to lumbar pathology. IMPRESSION: 1. No acute osseous abnormality of either hip. 2. Severe multilevel degenerative changes of the lumbar spine. Consider further evaluation with MRI if the patient's current signs and symptoms may be relatable to lumbar pathology. Electronically signed by: Kunal Woods MD (03/08/2019 2:01 PM) [id number]
--- NOTE | 2019-03-09 01:57 | PAIN ---
DATE OF SERVICE: 03/08/2019 PROGRESS NOTE FOR PAIN CLINIC DIAGNOSES: 1. Cervical radiculopathy with cervicalgia and post-cervical laminectomy syndrome. 2. Low back pain with post-lumbar laminectomy syndrome. 3. Bilateral knee joint pain with primary osteoarthritis, bilateral knees. HISTORY OF PRESENT ILLNESS: The patient is a 64-year-old female who returns for followup status post medication management with oxycodone and Lyrica. The patient reports she has been doing fairly well with primarily a stable regimen. Her chief complaint today, however, was right hip pain when she is standing and weightbearing, better with sitting or lying down. It wakes her from her sleep occasionally, but when she gets up and is walking, the pain is significant in the posterior gluteus and then radiating to the right groin and anterior thigh and lateral thigh to the knee. The patient reports it has been doing this for about a month. She fell about a month ago, landed on her right knee, where she has had some pain as well and did well with the knee joint injection on her last visit, but the pain returned after about a week. The patient reports the pain now it is 10 on scale of 10 in the right hip on the last week average is an 9 and its least is an 8 and is an 8 today. The patient reports it is aching, becoming more constant and severe and unbearable in the right hip and leg. The patient reports it is much worse with walking, standing and weightbearing and trying to climb stairs is impossible with the right leg because the pain is too great. The patient reports no new motor or sensory deficits. No bowel or bladder incontinence. PHYSICAL EXAMINATION: VITAL SIGNS: The patient's blood pressure is 146/67, respirations 16, pulse is 81 and temperature is 98.2 degrees Fahrenheit. Height is 5 feet 1 inch, weight is 141 pounds. GENERAL: The patient is awake, alert, oriented, appropriate, very pleasant demeanor. HEENT EXAMINATION: Shows normocephalic, atraumatic. Extraocular movements are intact and symmetrical. Oral cavity, mucous membranes are moist and pink. Dentition is intact. NECK: Shows anterior throat supple, without palpable lymphadenopathy noted. Swallow reflex is symmetrical. CHEST: Shows normal on inspection. Breath sounds are clear to auscultation bilaterally. HEART: S1 and S2 clear. No murmurs auscultated. ABDOMEN: Soft, nontender and nondistended. BACK: Shows spine grossly in the midline. Slight flattening of the cervical lordotic curvature as well as the lumbar lordotic curvature. Well-healed surgical scar noted in the lumbar distribution. Paraspinous musculature shows symmetrical on inspection. On palpation, there is some moderate tenderness diffusely bilaterally in the lumbar distribution as well as the cervical distribution, but only diffusely without radiation and without trigger points. Good rotational motion of both the cervical and lumbar spine is maintained laterally as well as extension and flexion, without any increase in pain. EXTREMITIES: The patient's lower extremities show deep tendon reflexes 1+ in the patella and tendo calcaneus tendons. Motor exam is approximately 4 on a scale of 5 with symmetrical dorsiflexion, extension, quadriceps and hamstring flexion. The patient's right hip shows some moderate tenderness with palpation over the greater trochanter, but only moderately so; left side is nontender. The patient has good rotational motion, but significant tenderness with external rotation. There is a positive Rubin sign on the right side, but not on the left. Options were discussed with the patient. The patient's old chart was reviewed as was her current medication regimen updated. Current review of systems updated today as well. We will send the patient for hip films, right and left and compare the right to left with significant hip pain on the right side. The patient will be given refill medications of oxycodone as well as Lyrica with instructions and side effects to be aware of. The patient has had appropriate K-TRACS reporting as well as appropriate urinalysis to date and we will write this for 2-month refill. The patient will return to the clinic in approximately 2 months or sooner as necessary. We will await right hip film results as well and discuss those with the patient once they become available. MACRINA LANDAVERDE MD DR: DIAMOND/dano JOB#: [id number] / [id number]
== END | disposition home or self-care (01) ==
LOC: PNCL 11:28
PROVIDERS: ATTEND Anesthesiology
DX: M16.12 Unilateral primary osteoarthritis, left hip (principal); M16.11 Unilateral primary osteoarthritis, right hip; M47.26 Other spondylosis with radiculopathy, lumbar region
CPT/HCPCS: 73521; G0463

== ENCOUNTER → 2019-05-03 | Outpatient (CLI) | payer OTHER ==
--- NOTE | 2019-05-03 23:57 | PAIN ---
DATE OF SERVICE: 05/03/2019 PROGRESS NOTE FOR PAIN CLINIC DIAGNOSES: 1. Cervical radiculopathy with post-cervical laminectomy syndrome and cervicalgia. 2. Lumbar radiculopathy with post-lumbar laminectomy syndrome and low back pain. 3. Bilateral knee joint pain with primary osteoarthritis. HISTORY OF PRESENT ILLNESS: The patient is a 64-year-old female, who returns for followup status post medication management with Lyrica and oxycodone. The patient reports she has been doing very well with this. We had x-rayed her hips on her last visit, she was having some left-sided hip pain; hip x-ray showed no acute osseous abnormality, but with severe multilevel degenerative changes of the lumbar spine, which she has had for some time now. We discussed the interventional techniques with this. She is against these at this time as she has had some in the past that were not helpful. The patient reports doing well with her medications with about a 75% improvement with medications and reduction of the pain without side effects. The patient reports her pain is in the low back, bilateral lower extremities as well as the hips, more on the left than the right; also neck and shoulders, upper extremities as well, aching, burning and constant at times; worse with activity, standing, walking, changing positions; better with sleeping or lying down. It awakens her from sleep though occasionally with her left hip. The patient reports her pain is a 9 on a scale of 10 at all times least, worst and average, is a 9 today. The patient reports no new motor or sensory deficits. Again, no side effects with medications. PHYSICAL EXAMINATION: VITAL SIGNS: The patient's blood pressure is 114/78, pulse 88, respirations are 18, temperature is 98.3 degrees Fahrenheit, height is 5 feet 1 inch, weight 135 pounds. GENERAL: The patient is awake, alert, oriented, appropriate, very pleasant demeanor. HEENT: Head is normocephalic, atraumatic. Extraocular movements are intact and symmetrical. Oral Cavity: Mucous membranes are moist and pink; dentition is intact. NECK: Shows anterior throat supple without palpable lymphadenopathy noted. Swallow reflex symmetrical. CHEST: Shows normal with inspection. Breath sounds are clear bilaterally. HEART: Shows S1, S2 clear. No murmurs auscultated. ABDOMEN: Soft, nontender and nondistended. No palpable organomegaly is noted. No rebound or guarding demonstrated. BACK: Shows spine grossly in the midline. Normal-appearing thoracic kyphosis and some flattening of lumbar lordotic curvature. Lumbar paraspinous musculature shows symmetrical on inspection, well-healed surgical scar noted; with palpation shows some moderate tenderness diffusely bilaterally throughout the upper, middle and lower distribution of paraspinous muscles. Cervical spine shows cervical lordotic curvature, slightly flattening curvature, with normal-appearing paraspinous musculature with palpation; she has some moderate tenderness in the low cervical distribution and into the superior medial trapezius, but without radiation as well. The patient has good rotational motion of cervical spine as well as good rotational motion of lumbar spine without exacerbation of pain. EXTREMITIES: The patient's upper extremities show deep tendon reflexes are 2+ in the biceps, triceps tendons. Lower extremities are 1+ patellar and tendo-calcaneus tendons. Motor exam is 5/5 with financial consultant strength and 4/5 with dorsiflexion, extension and equal and symmetrical. Peripheral pulses are 2+ radial and 1+ posterior tibial. Options were discussed with the patient. The patient's old chart was reviewed as her current medication regimen updated. Current review of systems updated today as well. We will refill the patient's oxycodone as well as Lyrica with instructions, side effects to be aware. The patient has had appropriate K-TRACS reporting as well as appropriate urinalyses to date. We will refill this for a 2-month period. We did discuss potential interventional techniques for her lumbar spine. She is going to consider this. We will try Medrol Dosepak as well. In the meantime, the patient was given instructions and side effects to be aware of with all her medications. We will follow up in approximately 2 months or sooner if necessary. MACRINA LANDAVERDE MD DR: DIAMOND/dano JOB#: [id number] / [id number]
== END | disposition home or self-care (01) ==
LOC: PNCL 11:39
PROVIDERS: ATTEND Anesthesiology
DX: M54.12 Radiculopathy, cervical region (principal); M54.16 Radiculopathy, lumbar region; M17.0 Bilateral primary osteoarthritis of knee; M96.1 Postlaminectomy syndrome, not elsewhere classified
CPT/HCPCS: G0463

== ENCOUNTER → 2019-06-30 | Outpatient (CLI) | payer OTHER ==
[~2019-06-30] MED LIST changes: +BIOT25006 PO; +CHOL100013 PO; -NITR0.4T SL; +NITR0.4T24 SL
--- NOTE | 2019-07-01 17:06 | RAD ---
DATE: 06/30/2019 EXAM: MAMMO LIEN SCREENING BILATERAL HISTORY: Routine screening COMPARISON: 12/01/2013, 12/09/2016, and 02/25/2018 mammographic exams This study was interpreted with the benefit of Computerized Aided Detection (CAD). Breast Density: HETERO The breast parenchyma is heterogenously dense, which could reduce sensitivity of mammography. Breast parenchyma level C. FINDINGS: No suspicious calcification, new mass, or distortion. IMPRESSION: Stable BI-RADS CATEGORY: 1 NEGATIVE RECOMMENDED FOLLOW-UP: 12M 12 MONTH FOLLOW-UP PQRS compliance statement: Patient information was entered into a reminder system with a target due date for the next mammogram. Mammography is a sensitive method for finding small breast cancers, but it does not detect them all and is not a substitute for careful clinical examination. A negative mammogram does not negate a clinically suspicious finding and should not result in delay in biopsying a clinically suspicious abnormality. "Our facility is accredited by the [employer] Mammography Program."
== END | disposition home or self-care (01) ==
LOC: MAMMO 14:16
PROVIDERS: ATTEND Pediatrics
DX: Z12.31 Encounter for screening mammogram for malignant neoplasm of breast (principal); N64.89 Other specified disorders of breast
CPT/HCPCS: 77063; 77067

== ENCOUNTER → 2019-07-28 | Outpatient (CLI) | payer OTHER ==
--- NOTE | 2019-07-28 14:42 | PAIN ---
DATE OF SERVICE: 07/28/2019 PROGRESS NOTE FOR PAIN CLINIC DIAGNOSES: 1. Cervical radiculopathy with cervical post-laminectomy syndrome with cervicalgia. 2. Lumbar radiculopathy with lumbar post-laminectomy syndrome and low back pain. 3. Bilateral knee joint pain with osteoarthritis. HISTORY OF PRESENT ILLNESS: The patient is a 64-year-old female who returns for followup status post medication management with oxycodone and Lyrica. The patient reports she is doing very well with this, has been on a very stable regimen. Her main complaint there was a right knee pain. She is seeing her orthopedic surgeon next month about this as she has had a left knee replacement, but for her right knee it has been told to her that the knee is to be replaced, but she is not quite ready to do that. The patient reports Medrol Dosepak did help fairly significantly with the pain that we tried about 2 months ago, but the pain has returned with walking, standing, especially with putting all of her weight on her right leg. The patient reports it is aching, burning, stabbing at times, reported as a 9 on a scale of 10 at all times, average, worst and least and is a 9 today in the right knee, back and upper back, is doing much better with the medications. She is tolerating the medication without significant side effects. Reports about a 75-80% improvement with the medications, but not with the right knee. The patient reports no new changes. PHYSICAL EXAMINATION: VITAL SIGNS: The patient's blood pressure 109/75, pulse 96, respirations are 16, temperature is 98.2 degrees Fahrenheit, and weight is 144 pounds. GENERAL: The patient is awake, alert, oriented, appropriate, very pleasant demeanor. HEENT: Shows normocephalic, atraumatic. Extraocular movements are intact and symmetrical. Oral cavity: Mucous membranes moist and pink. Dentition is intact. NECK: Shows anterior throat supple without palpable lymphadenopathy noted. Swallow reflex symmetrical. CHEST: Shows normal on inspection. Breath sounds clear to auscultation bilaterally. HEART: Shows S1, S2 clear. No murmurs auscultated. ABDOMEN: Soft, nontender, nondistended. No palpable organomegaly is noted. No rebound or guarding demonstrated. BACK: Shows spine grossly in the midline. Normal appearing thoracic kyphosis and some minor flattening of lumbar lordotic curvature. Cervical paraspinous muscle shows symmetrical on inspection, palpation shows some moderate tenderness diffusely, but only diffusely in the middle and lower distribution of paraspinous muscles, also superior medial trapezius. The patient has full rotational motion of cervical spine, both laterally as well as extension and flexion without difficulty. EXTREMITIES: Lower back shows moderate tenderness and well-healed surgical scarring bilaterally in the paraspinous musculature with palpation, but only diffusely without radiation. The patient has good rotation in both the cervical and lumbar spines without significant increase in pain. EXTREMITIES: The patient's upper extremities show deep tendon reflexes 2+ in the biceps and triceps tendons. Motor exam is approximately 4 on a scale of 5 with catch basin cleaner strength, bicep and tricep flexion, but is symmetrical. Lower extremities show 1+ deep tendon reflexes in the patellar and tendo-calcaneus tendons. Motor exam is approximately 4 on a scale of 5 with dorsiflexion, extension but equal as well. Peripheral pulses are 2+ radial, 1+ posterior tibial. No peripheral edema is noted in the upper or lower extremities. Options were discussed with the patient. The patient's old chart was reviewed as her current medication regimen updated. Current review of systems updated today as well. We will refill the patient's oxycodone as well as Lyrica. The patient has had appropriate K-TRACS reporting as well as appropriate urinalysis to date. We will give the patient a 60-day prescription. The patient was given instruction as well as side effects to be aware of with each of the medications. Also, renew the patient's narcotic contract today. She was given a copy of this as well. Her follow up in approximately 2 months or sooner if necessary. MACRINA LANDAVERDE MD DR: DIAMOND/dano JOB#: [id number] / [id number]
== END | disposition home or self-care (01) ==
LOC: PNCL 09:56
PROVIDERS: ATTEND Anesthesiology
DX: M54.16 Radiculopathy, lumbar region (principal); M54.12 Radiculopathy, cervical region; M17.0 Bilateral primary osteoarthritis of knee; Z98.1 Arthrodesis status
CPT/HCPCS: G0463

== ENCOUNTER → 2019-08-17 | Outpatient (CLI) | payer OTHER ==
--- NOTE | 2019-08-17 12:30 | KCIC ---
Bone Densitometry History: Osteoporosis screening, loss of height Findings: Bone Densitometry was performed with dual photon absorption of the lumbar spine and proximal femurs. Lumbar Spine: Significant levoconvex scoliosis of the mid to lower lumbar spine is present with endplate sclerosis evident along with spurring. Bone density is 1.189 g/cm2 for L1-L4. T-score is 1.3. Z-score is 2.4. Left femoral neck: Bone density is 0.783 g/cm2. T-score is -1.3. Z-score is -0.6. IMPRESSION: Approximately 17 percent bone mineral density loss is at the left femoral neck. Lumbar spine bone densitometry results are artifactually elevated due to degenerative change. Follow bone densitometry examination in 24 months is recommended if there is a change in therapy. World Health Organization definition of osteoporosis and osteopenia for women: normal equals T score at or above -1.0 standard deviations; osteopenia equals T score between -1.0 and -2.5 standard deviations; osteoporosis equals T score at or below -2.5 standard deviations. Electronically signed by: Rajinder Banda MD (08/17/2019 12:26 PM) [facility]
== END | disposition home or self-care (01) ==
LOC: KCIC DEXA 11:27
PROVIDERS: ATTEND Pediatrics
DX: Z13.820 Encounter for screening for osteoporosis (principal); R29.890 Loss of height; Z78.0 Asymptomatic menopausal state
CPT/HCPCS: 77080

== ENCOUNTER → 2019-09-22 | Outpatient (CLI) | payer OTHER ==
[~2019-09-22] MED LIST changes: +ESCI5SOL9 PO
--- NOTE | 2019-09-22 13:30 | PAIN ---
DATE OF SERVICE: 09/22/2019 PROGRESS NOTE FOR PAIN CLINIC DIAGNOSES: 1. Cervical radiculopathy with cervical post-laminectomy syndrome. 2. Lumbar radiculopathy with lumbar post-laminectomy syndrome. 3. Bilateral knee joint pain with primary osteoarthritis. HISTORY OF PRESENT ILLNESS: The patient is a 64-year-old female who returns for followup status post medication management with both oxycodone and Lyrica. The patient reports she is doing very well, has been on a very stable regimen, doing very well with the medication with about 65-70% improvement overall and decrease in pain. The patient reports still pain in the base of neck and shoulders, upper back, mid back, low back and the bilateral knees, but doing fairly well. The patient reports medication and has no side effects, currently sleeping better at night, worse with walking, standing, changing positions and better with sitting or lying down. The patient reports the pain is a 9 on a scale of 10 at its worst over the past week, 9 on average, 8 at its least and is an 8 today. The patient reports it is dull, aching in the base of the neck and shoulders as well as the low back, aching, dull, some cramping pain as well with more of a stinging pain that is more severe in the knees, but only with weightbearing. The patient reports no new motor or sensory deficits, no new changes. PHYSICAL EXAMINATION: VITAL SIGNS: The patient's blood pressure 114/72, pulse 85, respirations are 18, temperature 97.7 degrees Fahrenheit, height is 5 feet 1 inch, weight is 141 pounds. GENERAL: The patient is awake, alert, oriented, appropriate, very pleasant demeanor. HEENT: Shows normocephalic, atraumatic. Extraocular movements are intact and symmetrical. Oral cavity shows mucous membranes moist and pink. Dentition is intact. NECK: Shows anterior throat supple without palpable lymphadenopathy noted. Swallow reflex symmetrical. CHEST: Shows normal on inspection. Breath sounds are clear bilaterally. HEART: Shows S1, S2 clear. No murmurs auscultated. ABDOMEN: Soft, nontender, nondistended. No palpable organomegaly is noted. No rebound or guarding demonstrated. BACK: Shows spine grossly in the midline. Normal appearing thoracic kyphosis and lumbar lordotic curvature. Lumbar paraspinous muscle shows symmetrical on inspection, with palpation shows some moderate tenderness diffusely bilaterally, but only diffusely throughout the upper, middle and lower distribution of paraspinous muscles. Cervical paraspinous muscle shows symmetrical as well with some moderate tenderness but only in the lower cervical distribution, but without radiation, without trigger points. This is true into the superior medial trapezius bilaterally as well, but only diffusely tender. The patient has full rotational motion of cervical spine, both laterally as well as extension and flexion without significant difficulty. Lower back shows good rotation as well, both laterally greater than 10 degrees right and left as well as extension and flexion without significant pain. EXTREMITIES: Upper extremities show deep tendon reflexes at 2+ in the biceps and triceps tendons. Motor exam is approximately 4 on a scale of 5 with dry transfer worker strength equal bilaterally. Lower extremities show deep tendon reflexes 1+ in the patellar and tendo calcaneus tendons. Motor exam is approximately 4 on a scale of 5, but symmetrical with dorsiflexion, extension, quadriceps and hamstring flexion as well. Peripheral pulses are 2+ radial, 1+ posterior tibia. No peripheral edema is noted in the upper or lower extremities. Options were discussed with the patient. The patient's old chart was reviewed as her current medication regimen updated. Current review of systems updated today as well. We will refill the patient's oxycodone as well as Lyrica for a 2-month prescription. The patient has had appropriate K-TRACS reporting as well as appropriate urinalysis to date. We will have the patient return in approximately 2 months or sooner as necessary. The patient will have a urinalysis today as routine screening. Also, renew the patient's narcotic contract. The patient was given a copy of this as well. We will follow up as scheduled. MACRINA LANDAVERDE MD DR: DIAMOND/dano JOB#: [id number] / [id number]
== END | disposition home or self-care (01) ==
LOC: PNCL 11:36
PROVIDERS: ATTEND Anesthesiology
DX: M54.12 Radiculopathy, cervical region (principal); M54.16 Radiculopathy, lumbar region; M96.1 Postlaminectomy syndrome, not elsewhere classified; M17.0 Bilateral primary osteoarthritis of knee
CPT/HCPCS: G0463

== ENCOUNTER → 2019-11-17 | Outpatient (CLI) | payer MEDICARE ==
--- NOTE | 2019-11-17 22:29 | PAIN ---
DATE OF SERVICE: 11/17/2019 PROGRESS NOTE FOR PAIN CLINIC DIAGNOSES: 1. Cervical radiculopathy with cervical post-laminectomy syndrome and cervicalgia. 2. Lumbar radiculopathy with low back pain and post-lumbar laminectomy syndrome. 3. Bilateral knee joint pain with osteoarthritis. HISTORY OF PRESENT ILLNESS: This is a 64-year-old female who returns for followup status post medication management with oxycodone and Lyrica. The patient reports she has been doing very well with this very stable regimen for about 10 years now and has been very stable with this, again controlling the pain to about a 75% improvement level on a daily basis. The patient reports she still has some pain in the base of neck and shoulders, upper back, mid back, low back and in the knees, especially on the left knee, but is much more tolerable and very manageable with the medication and without any side effects. The patient reports the pain is a 10 on a scale of 10 at its worst over the past week, 10 on average, 9 at its least and is a 9 today. The patient reports she has recently changed insurance companies and they will not be able to give her more than 7 days prescription of her oxycodone. Her pain has been increased as she has been budgeting these down to where she can get a new prescription today and get the preauthorization for the prescription. The patient reports no new motor or sensory deficits, no new bowel or bladder incontinence. Reports it is better at night, better with sitting, resting or sleeping, is generally not disturbed except for the decreased amount of oxycodone recently, which has been making it more difficult to sleep as well secondary to pain. The patient reports no new changes, no new bowel or bladder incontinence. PHYSICAL EXAMINATION: VITAL SIGNS: The patient's blood pressure is 138/70, pulse 80, respirations 18, temperature 97.6 degrees Fahrenheit. Height is 4 feet 11 inches, weight is 151 pounds. GENERAL: The patient is awake, alert, oriented, appropriate, very pleasant demeanor. HEENT: Head shows normocephalic, atraumatic. Extraocular movements are intact and symmetrical. Oral cavity: Mucous membranes moist and pink. Dentition is intact. NECK: Shows anterior throat supple without palpable lymphadenopathy noted. Swallow reflex symmetrical. CHEST: Shows normal on inspection. Breath sounds clear to auscultation bilaterally. HEART: Shows S1, S2 clear. No murmurs auscultated. ABDOMEN: Soft, nontender, nondistended. No palpable organomegaly is noted. No rebound or guarding demonstrated. BACK: The patient's back shows spine grossly in midline, slight flattening of cervical lordotic curvature, minor increase in thoracic kyphotic curvature and minor flattening of lumbar lordotic curvature. The patient has well-healed surgical scar in the lumbar distribution. Cervical paraspinous muscle shows symmetrical on inspection, on palpation some moderate tenderness diffusely throughout the upper, middle and lower distribution of the paraspinous muscles bilaterally, but only diffusely. The patient shows good rotational motion, slightly guarded with extension. Right and left lateral rotation is performed past 45 degrees, but slowly once again. Forward flexion is performed without difficulty. Lower lumbar spine shows good rotational motion both laterally greater than 10 degrees right and left as well as extension greater than 10 degrees, forward flexion 45 degrees with only mild pain reported with all maneuvers in the low back, but without radiation. The patient shows no tenderness over the sacrum or sacroiliac regions or the spinous processes. EXTREMITIES: The patient's upper extremities show deep tendon reflexes at 2+ in the biceps and triceps tendons. Motor exam is approximately 4 on a scale of 5, but equal with shrimp boat captain strength, bicep and tricep flexion. Peripheral pulses are 2+ radial distribution. Lower extremities show deep tendon reflexes 1+ in the patellar and tendo calcaneus tendons. Some mild swelling of the left knee medially with palpation, which is mildly tender over the medial collateral ligament, but not on the right. Hinge motion is maintained bilaterally without crepitus or ratcheting. Peripheral pulses are 1+ posterior tibia. No peripheral edema is noted. NEUROLOGIC: Motor exam is approximately 4 on a scale of 5, but symmetrical with dorsiflexion, extension, quadriceps and hamstring flexion bilaterally. No peripheral edema is noted in the upper or lower extremities. Options were discussed with the patient. The patient's old chart was reviewed as her current medication regimen updated. Current review of systems updated today as well. We will refill the patient's medication on 2-month period. The patient had appropriate K-TRACS reported as well as appropriate urinalysis to date and we will refill this for 2-month period. The patient was given instruction as well as side effects to be aware of with each of the medications and will follow up in approximately 2 months or sooner as necessary. MACRINA LANDAVERDE MD DR: DIAMOND/dano JOB#: [id number] / [id number]
== END | disposition home or self-care (01) ==
LOC: PNCL 11:35
PROVIDERS: ATTEND Anesthesiology
DX: M54.12 Radiculopathy, cervical region (principal); M54.16 Radiculopathy, lumbar region; M96.1 Postlaminectomy syndrome, not elsewhere classified; M17.0 Bilateral primary osteoarthritis of knee
CPT/HCPCS: G0463

== ENCOUNTER → 2020-01-12 | Outpatient (CLI) | payer MEDICARE ==
[~2020-01-12] MED LIST changes: +FINA5TAB4 PO; +FLUO20DR EACH EAR
--- NOTE | 2020-01-12 12:53 | PAIN ---
DATE OF SERVICE: 01/12/2020 PROGRESS NOTE FOR PAIN CLINIC DIAGNOSES: 1. Cervical radiculopathy with cervical post-laminectomy syndrome and cervicalgia. 2. Lumbar radiculopathy with lumbar post-laminectomy syndrome and low back pain. 3. Bilateral knee joint with primary osteoarthritis. HISTORY OF PRESENT ILLNESS: The patient is a 65-year-old female who returns for followup status post medication management with oxycodone and Lyrica. The patient reports she is doing very well on a stable regimen with the medications without any specific side effects. The patient rates her pain is decreased by about 70% overall with the medications. She is maintaining a very high functionality with it, although she is not doing any overly stressful activities lately. She has been fairly sedentary, but the pain control is very well persistent. The patient rates her pain as an 8 on a scale of 10 at all times, worst, least and average and is an 8 on a scale of 10 today as well. The patient reports tingling and burning in the base of the neck and shoulders, left upper extremity more than right. It is sometimes sharp as well on the left arm. Also, pain in the low back, bilateral lower extremities and in the knees with walking and standing. The patient does have a walker which she uses and she has it with her today. The patient reports she is sleeping well at night. The pain is much better with sitting or lying down. With the medications, she is able to walk greater distances, do household activities, travel with greater ease and comfort, getting in and out of the car, etc. No new motor or sensory deficits reported. No new bowel or bladder incontinence. PHYSICAL EXAMINATION: VITAL SIGNS: The patient's blood pressure is 115/72, pulse 74, respirations 18, temperature 97.8 degrees Fahrenheit, height is 4 feet 11 inches, weight is 154 pounds. GENERAL: The patient is awake, alert, oriented, appropriate, very pleasant demeanor. HEENT: Head shows normocephalic, atraumatic. Extraocular movements are intact and symmetrical. The patient wears eyeglasses. Oral cavity: Mucous membranes are moist and pink. Dentition is Intact. NECK: Shows anterior throat supple without palpable lymphadenopathy noted. Swallow reflex symmetrical. CHEST: Shows normal on inspection. Breath sounds are clear to auscultation bilaterally. No rales, rhonchi or wheezes auscultated. HEART: Shows S1, S2 clear. No murmurs auscultated. ABDOMEN: Obese, but soft, nontender, nondistended. No palpable organomegaly is noted. BACK: Shows spine grossly in the midline. Slight exaggeration of thoracic kyphosis and normal-appearing cervical lordotic curvature. Some minor flattening of lumbar lordotic curvature with well-healed surgical scarring noted. Lumbar paraspinous muscle shows symmetrical on inspection, on palpation shows some mild tenderness diffusely throughout the upper, middle and lower distribution of the paraspinous muscles without radiation. The patient shows good rotational motion of lumbar spine, both laterally as well as extension and flexion without significant increase in pain. No tenderness over the spinous processes, sacrum or sacroiliac regions. Cervical paraspinous muscle shows symmetrical on inspection, with palpation shows some very mild tenderness in the middle and lower distribution of the paraspinous muscles as well as into the superior medial trapezius, slightly more on the left than the right, but without specific trigger points, without radiation. The patient's cervical rotation of motion shows good rotation on right and left, greater than 45 degrees closer to 90 degrees as well as full extension, full forward flexion without significant pain on rotation. The patient's upper extremities show deep tendon reflexes, 2+ in the biceps and triceps tendons. Motor exam is approximately 4 on a scale of 5 with optometric assistant strength, bicep and tricep flexion, but symmetrical. Peripheral pulses are 2+ in radial distribution. Lower extremities show deep tendon reflexes, 1+ in the patellar and tendo calcaneus tendons. Motor exam is approximately 4 on a scale of 5, but symmetrical with dorsiflexion and extension, quadriceps and hamstring flexion, but intact. Peripheral pulses are 1+ in posterior tibia. No peripheral edema is noted bilaterally. Options were discussed with the patient. The patient's old chart was reviewed as her current medication regimen updated. Current review of systems is updated today as well. We will proceed with refilling the patient's oxycodone as well as Lyrica. The patient was given instructions as well as side effects to be aware of each of the medication. The patient has had appropriate K-TRACS reporting as well as appropriate urinalysis to date and we will make the prescription for a 2-month period. The patient will return to the clinic in approximately 2 months or sooner as necessary. MACRINA LANDAVERDE MD DR: DIAMOND/dano JOB#: [id number] / [id number]
== END | disposition home or self-care (01) ==
LOC: PNCL 11:41
PROVIDERS: ATTEND Anesthesiology
DX: M54.12 Radiculopathy, cervical region (principal); M54.16 Radiculopathy, lumbar region; M54.2 Cervicalgia; M54.5 Low back pain; M17.0 Bilateral primary osteoarthritis of knee; M96.1 Postlaminectomy syndrome, not elsewhere classified; I11.0 Hypertensive heart disease with heart failure; I50.9 Heart failure, unspecified; E78.00 Pure hypercholesterolemia, unspecified; E66.9 Obesity, unspecified; F41.9 Anxiety disorder, unspecified; F32.9 Major depressive disorder, single episode, unspecified; Z87.891 Personal history of nicotine dependence; Z82.49 Family history of ischemic heart disease and other diseases of the circulatory system; Z83.3 Family history of diabetes mellitus; Z88.8 Allergy status to other drugs, medicaments and biological substances; Z79.899 Other long term (current) drug therapy
CPT/HCPCS: G0463

== ENCOUNTER → 2020-03-08 | Outpatient (CLI) | payer MEDICARE ==
[~2020-03-08] MED LIST changes: +BUPIVACAINE MPF 0.25% 10 ML VIAL. ONE; +IOHEXOL 180 MG/ML 10 ML VIAL. ONE; +PREG-9 PO; -PREG75CA PO; -WARF-78 PO; +WARF5TAB2 PO; +methylPREDNISolone ACETATE 40 MG/ML VIAL. ONE
--- NOTE | 2020-03-08 13:22 | PAIN ---
DATE OF SERVICE: 03/08/2020 PROGRESS NOTE FOR PAIN CLINIC DIAGNOSES: 1. Cervical radiculopathy with cervical post-laminectomy syndrome. 2. Lumbar radiculopathy with lumbar degenerative disk disease and post-lumbar laminectomy syndrome. 3. Bilateral knee joint pain with osteoarthritis. 4. Left shoulder joint pain with osteoarthritis. HISTORY OF PRESENT ILLNESS: The patient is a 65-year-old female who returns for followup status post medication management with both oxycodone and Lyrica. The patient reports she has been doing very well with this and has been on very stable regimen, reports the pain is reduced by about 70-75% with the medication. Her chief complaint today is left shoulder pain. The pain is aching for about 2-3 weeks now after she was carrying some items. The patient reports that the pain is worse with carrying items, especially at her side with the left arm. No pain on the right shoulder and no other injuries to it, but the patient reports pain is 8 on a scale of 10 at its worst over the past week, 8 on average and 8 at its least and is an 8 today. The patient reports it as aching and stabbing, on and off in the shoulder, low back and neck fairly consistently, decreased pain with the medications, but has not been hold or helping the shoulder much. The patient reports no side effects with medication, worse with activity, standing, walking, changing positions, especially at night if she is lying down, but generally does not awaken her from sleep at night when she gets to sleep and this is generally with the base of the neck and shoulders, also some low back pain as well. The patient's shoulder has been keeping her awake at times, but not awaken her from sleep. The patient reports no new motor or sensory deficits, no new bowel or bladder incontinence or other complaints. PHYSICAL EXAMINATION: VITAL SIGNS: The patient's blood pressure 119/68, pulse 85, respirations 18, temperature 98.2 degrees Fahrenheit, height is 4 feet 11 inches, weight is 160 pounds. GENERAL: The patient is awake, alert, oriented, appropriate, very pleasant demeanor. HEENT: Shows normocephalic, atraumatic. Extraocular movements are intact and symmetrical. The patient is wearing eyeglasses. Oral cavity shows mucous membranes moist and pink. Dentition is intact. NECK: Shows anterior throat supple without palpable lymphadenopathy noted. Swallow reflex symmetrical. CHEST: Shows normal on inspection. Breath sounds are clear to auscultation bilaterally. No rales, rhonchi or wheezes auscultated. HEART: Shows S1, S2 clear. No murmurs auscultated. ABDOMEN: Soft, nontender, nondistended. No palpable organomegaly is noted. There is no rebound or guarding demonstrated. BACK: Shows spine grossly in the midline. Slight exaggeration of thoracic kyphosis and minor flattening of the cervical lordotic curvature and lumbar lordotic curvatures. Lumbar paraspinous muscle shows symmetrical with inspection as the cervical paraspinous muscles, with palpation shows some moderate tenderness in the inferior aspect of the cervical paraspinous musculature bilaterally, but only diffusely without radiation throughout the upper, middle and lower distribution of paraspinous muscles. Lumbar spine shows likewise significant tenderness with palpation throughout the upper, middle and lower distribution of paraspinous muscles diffusely without radiation. Well-healed surgical scars noted as well in the lumbar distribution. EXTREMITIES: The patient's extremities show upper extremity deep tendon reflexes 2+ in the biceps and triceps tendons. Motor exam is approximately 4 on a scale of 5, but equal with presales consultant strength, bicep and tricep flexion. The patient has significant tenderness with palpation over the acromioclavicular joint on the left shoulder, but not the right, mostly anteriorly but also some posteriorly and with extension of the arm at her side with weightbearing is significantly tender on the left side. The patient has otherwise full rotational motion with lateral abduction as well as anterior and posterior reach and reaching over her head with her left hand without significant difficulty with some moderate pain. Right side shows full rotation without difficulty. Options were discussed with the patient. The patient's old chart was reviewed as her current medication regimen updated. Current review of systems updated today as well and will proceed with a left acromioclavicular joint injection with fluoroscopic guidance. Risks were discussed including but not limited to bleeding, infection, possibility of intravascular injection sequelae, spread of local anesthetic and numbness, side effects of steroid medication, exposure to fluoroscopy and poor results regarding pain control. The patient understands and wished to proceed. The patient will return to the clinic in approximately 2 months or sooner if necessary. The patient was given refill prescription for her medication for a 60-day supply. She has had appropriate K-TRACS reporting as well as appropriate urinalysis to date and we will make this a 2-month refill interval. The patient will return sooner as necessary. DIAGNOSIS: Left shoulder joint pain with osteoarthritis of acromioclavicular joints. PROCEDURE: Left acromioclavicular joint injection using C-arm fluoroscopic guidance under sterile prep and drape using local anesthetic. MEDICATION INJECTED: Total of 2 mL of 0.25% bupivacaine, 40 mg Depo-Medrol and 1 mL of contrast. CONDITION AT DISCHARGE: Stable. The patient tolerated the procedure well, had no complications. MACRINA LANDAVERDE MD DR: DIAMOND/dano JOB#: [id number] / [id number]
== END ==
LOC: PNCL 11:38
PROVIDERS: ATTEND Anesthesiology
DX: M19.012 Primary osteoarthritis, left shoulder (principal); M96.1 Postlaminectomy syndrome, not elsewhere classified; M51.16 Intervertebral disc disorders with radiculopathy, lumbar region; M17.0 Bilateral primary osteoarthritis of knee
CPT/HCPCS: 20605; 77002; J1030; J3490; Q9965

== ENCOUNTER → 2020-05-03 | Outpatient (CLI) | payer MEDICARE ==
[~2020-05-03] MED LIST changes: +ALBU1.25 NEB; -BUPIVACAINE MPF 0.25% 10 ML VIAL. ONE; +CETI10TA16 PO; +ESCITALOPRAM OX10 MG PO; -IOHEXOL 180 MG/ML 10 ML VIAL. ONE; -OXYC-411 PO; +OXYC1TAB20 PO; -methylPREDNISolone ACETATE 40 MG/ML VIAL. ONE
--- NOTE | 2020-05-03 14:29 | PAIN ---
DATE OF SERVICE: 05/03/2020 PROGRESS NOTE FOR PAIN CLINIC DIAGNOSES: 1. Cervical radiculopathy with cervical post-laminectomy syndrome. 2. Lumbar radiculopathy with low back pain and post-lumbar laminectomy syndrome. 3. Bilateral knee joint pain with osteoarthritis. 4. Left shoulder pain with osteoarthritis. HISTORY OF PRESENT ILLNESS: The patient is a 65-year-old female who returns for followup status post medication management with oxycodone and Lyrica, also left shoulder joint injection in the acromioclavicular joint on 03/08/2020. The patient reports that her shoulders are doing much better, about 90% improvement and her medication is doing a good job as well about 70% improvement. The patient reports increased pain in the base of the neck, the shoulders and upper extremities, more recently over the past several weeks. The patient reports this has come up without any injury or action that she is aware of, pain in the hands as well as the arms, left greater than right, but present bilaterally, similar to that she relates prior to her neck surgery that she had many years ago. The patient reports the pain is a 10 on a scale of 10 at its worse over the past week, 10 on average, 7 at its least and is a 10 today. The patient reports it is stabbing, and aching. She has been taking her pain medications more frequently or more with less time between doses and she usually spreads out and has not been running out of medication, but is requiring more secondary to this pain. The patient reports also some pain in the low back as well. Again, has had previous surgery there also. The patient reports otherwise the shoulder is doing very well with the left shoulder after injection, but the arms, hands, the neck and back is now becoming more painful. The patient reports no new motor or sensory deficits. Reports it awakens her from sleep only rarely, usually does not awaken her from sleep with any of the pain situations or areas that she has. PHYSICAL EXAMINATION: VITAL SIGNS: The patient's blood pressure 120/71, pulse 79, respirations 20, temperature 98.3 degrees Fahrenheit, height is 5 feet 1 inch, weight is 163 pounds. GENERAL: The patient is awake, alert, oriented, appropriate, very pleasant demeanor. HEENT: Shows normocephalic, atraumatic. Extraocular movements are intact and symmetrical. Oral cavity: Mucous membranes moist and pink. Dentition is intact. NECK: Shows anterior throat supple without palpable lymphadenopathy noted. Swallow reflex symmetrical. CHEST: Shows normal on inspection. Breath sounds are clear bilaterally. HEART: Shows S1, S2 clear. No murmurs auscultated. ABDOMEN: Soft, nontender, and nondistended. No palpable organomegaly is noted. No rebound or guarding demonstrated. BACK: Shows spine grossly in the midline, normal-appearing cervical lordotic curvature with some minor increase in thoracic kyphotic curvature and some flattening of lumbar lordotic curvature. The patient shows some moderate tenderness with palpation of cervical paraspinous musculature bilaterally, mostly in the middle and lower cervical paraspinous distribution, but without radiation. The patient does show good rotational motion both laterally greater than 45 degrees right and left with extension shows some minor tenderness, but not with forward flexion. The patient's low back shows some moderate tenderness throughout the upper, middle and lower distribution of paraspinous muscles, again with well-healed surgical scarring noted, diffusely tender without radiation, without trigger points or asymmetry. EXTREMITIES: The patient's upper extremities show deep tendon reflexes at 2+ in the biceps and triceps tendons. Motor exam is approximately 4 on a scale of 5, but equal bilaterally with dental service chief strength, biceps and triceps flexion. Peripheral pulses are 2+. Shoulder shrug is strong and intact with some minor pain in the base of the neck and the left shoulder with resistance, but no loss of strength on resistance. Patient's lower extremities show deep tendon reflexes 1+ in the patellar and tendo calcaneus tendons. Motor exam is approximately 4 on a scale of 5 with dorsiflexion and extension bilaterally. Options were discussed with the patient. The patient's old chart was reviewed as her current medication regimen updated. Current review of systems updated today as well. We will refill the patient's medication, oxycodone for a 2-month period. The patient has Lyrica also, but does not need a refill on this by her report as she has medication at home already. The patient was given instruction as well as side effects to be aware of with medications. The patient had appropriate K-TRACS reporting as well as appropriate urinalysis to date and we will make this a 2-month refill prescription. The patient will also have urinalysis done today as routine screening. Also discussed following up with her knees with her orthopedic surgeon. She reports she would like to make that appointment on her own, although we offered to make that for her. The patient will follow up in approximately 2 months or sooner as necessary. Also order MRI scan of the cervical spine to better differentiate the radicular pain that she is experiencing again left greater than right, but present bilaterally. MACRINA LANDAVERDE MD DR: DIAMOND/dano JOB#: [id number] / [id number]
== END | disposition home or self-care (01) ==
LOC: PNCL 11:37
PROVIDERS: ATTEND Anesthesiology
DX: M54.16 Radiculopathy, lumbar region (principal); M54.12 Radiculopathy, cervical region; M17.0 Bilateral primary osteoarthritis of knee; M96.1 Postlaminectomy syndrome, not elsewhere classified; M19.012 Primary osteoarthritis, left shoulder; Z88.8 Allergy status to other drugs, medicaments and biological substances; Z87.891 Personal history of nicotine dependence; Z98.890 Other specified postprocedural states; Z79.899 Other long term (current) drug therapy
CPT/HCPCS: G0463

== ENCOUNTER → 2020-05-07 | Outpatient (CLI) | payer MEDICARE ==
[~2020-05-07] MED LIST changes: +GADOTERATE 7.5 MMOL/15ML VIAL. IVP ONE
[2020-05-07 12:15] LABS: CREATININE 0.9 mg/dL (0.6-1.0); GFR 75.6
--- NOTE | 2020-05-07 14:42 | RAD ---
CERVICAL SPINE WO/W CONTRAST History:Reason: CERVICAL STENOSIS, BILATERAL ARM RADICULOPATHY, LEFT WORSE THAN RIGHT / Spl. Instructions: 12ML DOTAREM / History: Technique: Multiplanar, multi sequential without and with intravenous contrast MR imaging was performed of the cervical spine. Comparison: May 10, 2018 Findings: Anterior stabilization C3-C4 C5-C6 and C7-T1. Intervertebral fusion C3-C4, C4-C5 and C5-C6 as well as C7-T1. Mild retrolisthesis T1 on T2, unchanged. Normal vertebral body height. No fracture. No pathologic signal abnormality within the cervical spinal cord. No pathologic enhancement. C2-C3: Disc bulge. Mild cord flattening. No canal narrowing. Uncovertebral and facet arthropathy. Moderate bilateral neural foraminal narrowing. C3-C4: Intervertebral fusion. Mild canal narrowing, decreased compared to prior. Interval anterior stabilization and interbody fusion. Posterior osteophyte. Cord flattening. Uncovertebral and facet arthropathy. Moderate severe right and mild left neuroforaminal narrowing. C4-C5: Intervertebral fusion. Mild canal narrowing. Posterior osteophyte. Cord flattening. Uncovertebral and facet arthropathy. Moderate right and mild left neuroforaminal narrowing. C5-C6: Posterior disc osteophyte complex. Mild canal narrowing. Abutment of the left ventral spinal cord. Cord flattening. Uncovertebral and facet arthropathy. Mild left and moderate right neuroforaminal narrowing. C6-C7: Posterior disc osteophyte complex. Moderate canal narrowing. Cord flattening. Uncovertebral and facet arthropathy. Severe left and moderate to severe right neuroforaminal narrowing. C7-T1: Intervertebral fusion. No canal narrowing. No neuroforaminal narrowing. Facet arthropathy. T1-T2: Posterior disc osteophyte complex. Partial based ventral CSF space. No canal narrowing. Facet arthropathy. Moderate left and severe right neuroforaminal narrowing. Additional multilevel upper thoracic spondylosis with neuroforaminal narrowing. Impression: 1. Extensive postoperative changes throughout the cervical spine with interval changes and C3-C4. 2. Multilevel cervical spondylosis most prominent C6-C7 with moderate canal narrowing, similar compared to prior. 3. Neuroforaminal narrowing most prominent C6-C7. 4. Multilevel upper thoracic spondylosis with neuroforaminal narrowing, unchanged. Electronically signed by: Boby Etienne DO (05/07/2020 2:39 PM) [id number]
== END | disposition home or self-care (01) ==
LOC: MRI 11:16
PROVIDERS: ATTEND Anesthesiology
DX: M47.22 Other spondylosis with radiculopathy, cervical region (principal); M48.02 Spinal stenosis, cervical region; M47.894 Other spondylosis, thoracic region; M43.23 Fusion of spine, cervicothoracic region; M43.14 Spondylolisthesis, thoracic region; M25.78 Osteophyte, vertebrae
CPT/HCPCS: 36415; 72156; 82565; 84520; A9575

== ENCOUNTER → 2020-05-29 | Outpatient (CLI) | payer MEDICARE ==
[~2020-05-29] MED LIST changes: -GADOTERATE 7.5 MMOL/15ML VIAL. IVP ONE; +IOHEXOL 180 MG/ML 10 ML VIAL. ONE; +methylPREDNISolone ACETATE 40 MG/ML VIAL. ONE; +methylPREDNISolone ACETATE 80 MG/ML VIAL. ONE
--- NOTE | 2020-05-29 14:21 | PDOC ---
Progress Note - Pain Clinic Date of Service: DOS: DATE: 05/29/20 TIME: 14:16 Diagnosis: Dx: Cervical radiculopathy the cervical postlaminectomy syndrome Lumbar radiculopathy with post lumbar laminectomy syndrome Bilateral knee joint pain with osteoarthritis History or Present Illness: HPI: 65-year-old female returns follow-up status post medication management and recent MRI scan cervical spine which we discussed with her on the phone previously showing some significant degenerative changes than flattening of the cord at C6-7 and C5-6 levels. Patient has severe neuroforaminal stenosis at the C6-7 level as well. Patient reports she still has different pain base the neck and shoulder especially in the left upper extremity but by laterally present with numbness and tingling and vibrational sensation in the upper extremities. Rates her pain as a 9 on scale 10 is worst average and least in the past week is a 9 today. Patient describes pain as aching burning unbearable with vibrational feelings in the left arm especially. Patient reports is better with resting or laying down does not usually awaken her from sleep at night. Physical Exam: VS: Pressure is 121/77 pulse 87 respirations 18 temperature 98.1 F height is 4 foot 11 inches weight is 166 pounds PE: PHYSICAL EXAMINATION: GENERAL: The patient is awake, alert, oriented, appropriate, very pleasant demeanor HEENT: Shows normocephalic, atraumatic. Extraocular movements are intact and symmetrical. Oral cavity: Mucous membranes moist and pink. Dentition is intact. NECK: Shows anterior throat supple without palpable lymphadenopathy noted. Swallow reflex symmetrical. CHEST: Shows normal on inspection. Breath sounds are clear bilaterally. HEART: Shows S1, S2 clear. No murmurs auscultated. ABDOMEN: Soft, nontender, nondistended. No palpable organomegaly is noted. No rebound or guarding demonstrated. BACK: Shows spine grossly in the midline. Normal-appearing cervical lordotic curvature, neck shows full rotation motion cervical spine both laterally greater than 45 degrees closer to 90 degrees as well as full extension full forward flexion without significant pain reported posterior cervical musculature show symmetrical on inspection with palpation some moderate tenderness in the inferior aspect cervical paraspinous muscles bilaterally but without atrophy hypertrophy or asymmetry. No trigger points no radiation of pain demonstrated.. There is slightly increased thoracic kyphosis, some minor flattening of the lumbar lordotic curvature. Lumbar paraspinous muscles show symmetrical on inspection, on palpation shows some moderate tenderness diffusely throughout the upper, middle and lower distribution of the paraspinous muscles bilaterally and also into the lower thoracic paraspinous musculature, firm and tender, but without specific trigger points, without radiation of pain. The patient has good rotational motion of the lumbar spine, both laterally as well as extension and flexion without significant difficulty. No tenderness over the spinous processes, sacrum or sacroiliac regions. EXTREMITIES: Upper extremities show deep tendon reflexes 2+ in the biceps and tricep tendons. Motor exam is 4 on a scale of 5 with right buckle sewer machine strength bicep and tricep flexion and 4/5 on the left. Peripheral pulses are 2+ radial. No peripheral edema is noted bilaterally. Upper extremities are warm and dry to touch, equal in color and appearance. SKIN: Shows warm and dry, good turgor. No edema. No sores, rashes or bruising throughout. Procedure: Procedure: Options were discussed with the patient. Patient's old chart was reviewed as her current medication regimen updated current review of systems updated today as well. We will proceed with a cervical epidural steroid injection today with fluoroscopic guidance risks are discussed including but not limited to bleeding infection possibility of epidural hematoma subsequent neurological compromise dural puncture headache spinal cord and or nerve damage side effects of steroid medication and poor results regarding pain control. Patient understands and wishes to proceed. Patient return to clinic in approximate 2 weeks for follow- up was counseled as to return appointment activity level and side effects to be aware of. Medication Injected: Med Injected: Procedure cervical epidural steroid injection at the C6-7 level, using local anesthetic under sterile prep and drape using C-arm fluoroscopic guidance under local anesthesia medications injected ; 120 mg Depo-Medrol + 5 mL normal saline and 2 mL contrast; condition at discharge is stable patient tolerated procedure well. and had no complications Condition at Discharge: Condition at Discharge: Condition at discharge stable patient tolerated procedure well had no complications. MACRINA LANDAVERDE MD May 29, 2020 14:21
== END | disposition home or self-care (01) ==
LOC: PNCL 13:17
PROVIDERS: ATTEND Anesthesiology
DX: M48.02 Spinal stenosis, cervical region (principal); M50.123 Cervical disc disorder at C6-C7 level with radiculopathy; M51.16 Intervertebral disc disorders with radiculopathy, lumbar region; M96.1 Postlaminectomy syndrome, not elsewhere classified; M17.0 Bilateral primary osteoarthritis of knee; Z88.8 Allergy status to other drugs, medicaments and biological substances; Z79.899 Other long term (current) drug therapy; Z87.891 Personal history of nicotine dependence
CPT/HCPCS: 62321; J1030; J1040; Q9965

== ENCOUNTER → 2020-06-28 | Outpatient (CLI) | payer MEDICARE ==
[~2020-06-28] MED LIST changes: -IOHEXOL 180 MG/ML 10 ML VIAL. ONE; +MINO2.5T12 PO; -methylPREDNISolone ACETATE 40 MG/ML VIAL. ONE; -methylPREDNISolone ACETATE 80 MG/ML VIAL. ONE
--- NOTE | 2020-06-28 12:33 | PDOC ---
Progress Note - Pain Clinic Date of Service: DOS: DATE: 06/28/20 TIME: 12:28 Diagnosis: Dx: Cervical radiculopathy with cervical postlaminectomy syndrome Lumbar radiculopathy with low back pain and post lumbar laminectomy syndrome Bilateral knee joint pain with osteoarthritis History or Present Illness: HPI: 65-year-old female returns follow-up status post cervical epidural to injection x1. Patient reports 100% improvement and is still feeling much better with her neck and shoulders. Patient reports low back is her main problem at this time with pain across the low back into the bilateral lower extremities and also right knee pain. Patient reports she has recently had a Synvisc injection in the right knee which is not been helpful and this was about a week ago. She reports no new motor or sensory deficits patient reports with her back and lower extremities pain is a 9 on a scale of 10 is worse over the past week 8 on average and 8 its least is an 8 today. Patient reports no new motor or sensory deficits again doing much better with upper extremities neck and shoulders sleeping better at night does not awaken her from sleep. Patient reports no new motor or sensory deficits no bowel or bladder incontinence. Patient reports he is doing well with her oxycodone without significant side effects reports about a 70 to 80% improvement with the medication as well. Physical Exam: VS: Blood pressure is 119/84 pulse 99 respirations 18 temperature 98.6 F height is 4 foot 11 inches weight is 169 pounds PE: PHYSICAL EXAMINATION: GENERAL: The patient is awake, alert, oriented, appropriate, very pleasant d emeanor HEENT: Shows normocephalic, atraumatic. Extraocular movements are intact and symmetrical. NECK: Shows anterior throat supple without palpable lymphadenopathy noted. Swallow reflex symmetrical. CHEST: Shows normal on inspection. Breath sounds are clear bilaterally. HEART: Shows S1, S2 clear. No murmurs auscultated. ABDOMEN: Soft, nontender, nondistended, obese. No palpable organomegaly is noted. No rebound or guarding demonstrated. BACK: Shows spine grossly in the midline. Normal-appearing cervical lordotic curvature. Patient shows good rotation motion cervical spine both laterally greater than 45 degrees, closer to 90 degrees, with full extension full flexion performed as well without significant pain or difficulty. There is slightly increased thoracic kyphosis, some minor flattening of the lumbar lordotic curvature. Lumbar paraspinous muscles show symmetrical on inspection, on palpation shows some moderate tenderness diffusely throughout the upper, middle and lower distribution of the paraspinous muscles bilaterally without trigger points, without radiation of pain. The patient has good rotational motion of the lumbar spine, both laterally as well as extension and flexion without significant difficulty. No tenderness over the spinous processes, sacrum or sacroiliac regions. EXTREMITIES: Lower extremities show deep tendon reflexes 1+ in the patellar and tendo calcaneus tendons. Motor exam is 4 on a scale of 5 with right dorsiflexion, extension, quadriceps and hamstring flexion and 4/5 on the left. Peripheral pulses are 1+ posterior tibial. No peripheral edema is noted bilaterally. Lower extremities are warm and dry to touch, equal in color and appearance. Patient wearing supportive knee brace on the right knee. Upper extremities show deep tendon reflexes 2+ in the bicep and triceps tendons are equal motor exam shows approximate 4 to scale 5 with cad librarian strength bicep and tricep flexion symmetrical peripheral pulses are 2+ radial no peripheral edema is noted shoulder shrug is strong and intact without loss of strength on resistance bilaterally. SKIN: Shows warm and dry, good turgor. No edema. No sores, rashes or bruising throughout. Procedure: Procedure: Options were discussed with the patient. Patient's old chart was reviewed as her current medication regimen updated current review of systems updated today as well. We will refill patient's oxycodone as well as Lyrica for 2 months. Oxycodone and 3 refills with Lyrica. Patient is given instruction as well as side effects to be aware with each of the medications, and will follow-up in approximate 2 months or sooner if necessary. Patient is had appropriate K trax reporting as well as appropriate urinalyses to date and we will refill the medications as written. Medication Injected: Med Injected: None Condition at Discharge: Condition at Discharge: Condition at discharge is stable. MACRINA LANDAVERDE MD Jun 28, 2020 12:33
== END | disposition home or self-care (01) ==
LOC: PNCL 11:38
PROVIDERS: ATTEND Anesthesiology
DX: M54.16 Radiculopathy, lumbar region (principal); M96.1 Postlaminectomy syndrome, not elsewhere classified; M17.0 Bilateral primary osteoarthritis of knee; I11.0 Hypertensive heart disease with heart failure; I50.9 Heart failure, unspecified; E78.00 Pure hypercholesterolemia, unspecified; Z79.899 Other long term (current) drug therapy; Z87.891 Personal history of nicotine dependence; Z88.8 Allergy status to other drugs, medicaments and biological substances
CPT/HCPCS: G0463

== ENCOUNTER → 2020-07-11 | Outpatient (CLI) | payer MEDICARE ==
[~2020-07-11] MED LIST changes: +BUPIVACAINE MPF 0.25% 10 ML VIAL. ONE; +IOHEXOL 180 MG/ML 10 ML VIAL. ONE
--- NOTE | 2020-07-11 11:50 | PDOC ---
Progress Note - Pain Clinic Date of Service: DOS: DATE: 07/11/20 TIME: 11:45 Diagnosis: Dx: Cervical radiculopathy with cervical postlaminectomy syndrome Lumbar radiculopathy with lumbar postlaminectomy syndrome Bilateral knee joint pain with osteoarthritis Left shoulder joint pain with osteoarthritis History or Present Illness: HPI: 65-year-old female comes follow-up status post medication management as well as cervical epidurals or injection and left shoulder joint injection with very good improvement and still significant decrease in pain lasting to this day. Patient reports her main complaint is her right knee we discussed this on her last visit which was June 28 and she would like to proceed with left knee injection today. Patient was worse with walking standing putting all of her weight on her right leg such as climbing up on a step or stair with the knee significantly painful better with sitting or laying down generally does not awaken her from sleep at night. Patient reports worse with walking and standing and beginning to have some pain in the left knee as the right knee is becoming more favored. Patient rates her pain at 9 on scale pain at all times oversleeps and average over the past week described as aching becoming more severe and unbearable. Physical Exam: VS: Blood pressure is 133/87 pulse: 60 respirations 18 temp is 98.3 F height is 4 feet 11 inches weight is 167 pounds PE: PHYSICAL EXAMINATION: GENERAL: The patient is awake, alert, oriented, appropriate, very pleasant demeanor HEENT: Shows normocephalic, atraumatic. Extraocular movements are intact and symmetrical. Oral cavity: Mucous membranes moist and pink. Patient has full dentures upper and lower NECK: Shows anterior throat supple without palpable lymphadenopathy noted. Swallow reflex symmetrical. CHEST: Shows normal on inspection. Breath sounds are clear bilaterally, no rales rhonchi or wheezes auscultated. HEART: Shows S1, S2 clear. No murmurs auscultated. ABDOMEN: Soft, nontender, nondistended, obese. No palpable organomegaly is noted. No rebound or guarding demonstrated. BACK: Shows spine grossly in the midline. Normal-appearing cervical lordotic curvature. There is slightly increased thoracic kyphosis, some minor flattening of the lumbar lordotic curvature. Well-healed surgical scars noted. Lumbar paraspinous muscles show symmetrical on inspection, on palpation shows some moderate tenderness diffusely throughout the upper, middle and lower distribution of the paraspinous muscles bilaterally without specific trigger points, without radiation of pain. The patient has good rotational motion of the lumbar spine, both laterally as well as extension and flexion without significant difficulty. No tenderness over the spinous processes, sacrum or sacroiliac regions. EXTREMITIES: Lower extremities show deep tendon reflexes 1+ in the patellar and tendo calcaneus tendons. Motor exam is 4 on a scale of 5 with right dorsiflexion, extension, quadriceps and hamstring flexion and 4/5 on the left. Peripheral pulses are 1+ posterior tibial. No peripheral edema is noted bilaterally. Lower extremities are warm and dry to touch, equal in color and appearance. Patient's right knee shows some moderate tenderness with palpation over the medial collateral ligament but not the lateral but shows good rotation and hinge motion without crepitus or ratcheting. SKIN: Shows warm and dry, good turgor. No edema. No sores, rashes or bruising throughout. Procedure: Procedure: Options were discussed with the patient. Patient chart was reviewed is her current medication regimen updated her review of systems updated today as well. We will proceed with right intra-articular knee joint injection today with fluoroscopic guidance. Risk were discussed including but not limited to bleeding infection possibility of intravascular injection sequela spondylolis thetic numbness side effects of steroid medication exposure to fluoroscopy importance was regarding pain control. Patient understands wished to proceed. Patient return to clinic in approximately 4 weeks as scheduled. Medication Injected: Med Injected: Under sterile prep and drape using C-arm fluoroscopic guidance patient's right knee was visualized and sterilely prepped and draped using 1% lidocaine with topically anesthetized for the skin and subcutaneous tissues overlying the right medial knee joint using a 22-gauge Quincke needle with stylette the joint was entered under direct fluoroscopic vision without difficulty stylet was removed and 1.5 cc of contrast was injected with good spread within the intra-articular joint without uptake or washout. At this time a solution containing 3 cc 0.25% bupivacaine and 80 mg Depo-Medrol was then injected needle was removed sterile bandage was applied. Patient tolerated procedure well had no complications. Condition at Discharge: Condition at Discharge: Condition at discharge stable patient all procedure well had no complications. MACRINA LANDAVERDE MD Jul 11, 2020 11:50
== END ==
LOC: PNCL 11:08
PROVIDERS: ATTEND Anesthesiology
DX: M17.0 Bilateral primary osteoarthritis of knee (principal); M19.012 Primary osteoarthritis, left shoulder; M46.1 Sacroiliitis, not elsewhere classified; M54.16 Radiculopathy, lumbar region; M54.12 Radiculopathy, cervical region; M96.1 Postlaminectomy syndrome, not elsewhere classified; I11.0 Hypertensive heart disease with heart failure; I50.9 Heart failure, unspecified; Z88.8 Allergy status to other drugs, medicaments and biological substances; Z83.3 Family history of diabetes mellitus; Z87.891 Personal history of nicotine dependence; Z79.899 Other long term (current) drug therapy
CPT/HCPCS: 20610; 77002; J3490; Q9965

== ENCOUNTER → 2020-08-02 | Outpatient (CLI) | payer MEDICARE ==
[~2020-08-02] MED LIST changes: +AMLO-187 PO; -AMLO10TA8 PO; -BUPIVACAINE MPF 0.25% 10 ML VIAL. ONE; -IOHEXOL 180 MG/ML 10 ML VIAL. ONE
--- NOTE | 2020-08-02 17:28 | RAD ---
DATE: 08/02/2020 10:09 AM EXAM: DIGITAL SCREEN BILAT W/CAD HISTORY: Screening COMPARISON: 06/30/2019 Bilateral full field craniocaudal and mediolateral oblique images were obtained using digital technique. This study was interpreted with the benefit of Computerized Aided Detection (CAD). FINDINGS: Breast Density: SCATTERED The breast parenchyma shows scattered fibroglandular densities. Breast parenchyma level B No suspicious masses, microcalcifications or architectural distortion is present to suggest malignancy in either breast. The visualized axillae are unremarkable. IMPRESSION: No mammographic evidence of malignancy. BI-RADS CATEGORY: 1 NEGATIVE RECOMMENDED FOLLOW-UP: 12M 12 MONTH FOLLOW-UP Annual screening mammography is recommended, unless clinically indicated sooner based on symptoms or change in physical exam. PQRS compliance statement: Patient information was entered into a reminder system with a target due date for the next mammogram. Mammography is a sensitive method for finding small breast cancers, but it does not detect them all and is not a substitute for careful clinical examination. A negative mammogram does not negate a clinically suspicious finding and should not result in delay in biopsying a clinically suspicious abnormality. "Our facility is accredited by the [employer] Mammography Program."
== END ==
LOC: MAMMO 10:06
PROVIDERS: ATTEND Pediatrics
DX: Z12.31 Encounter for screening mammogram for malignant neoplasm of breast (principal)
CPT/HCPCS: 77067

== ENCOUNTER → 2020-08-23 | Outpatient (CLI) | payer MEDICARE ==
[~2020-08-23] MED LIST changes: +METF500T16 PO
--- NOTE | 2020-08-23 12:37 | PDOC ---
Progress Note - Pain Clinic Date of Service: DOS: DATE: 08/23/20 TIME: 12:32 Diagnosis: Dx: Cervical radiculopathy with cervical postlaminectomy syndrome Lumbar radiculopathy with low back pain and lumbar postlaminectomy syndrome Bilateral knee joint pain with osteoarthritis Left shoulder joint pain with osteoarthritis History or Present Illness: HPI: 65-year-old female returns follow-up status post medication management and right knee joint injection on last visit. Patient reports her knee is still significantly painful but felt better for a day or 2 the pain is still significant and she is seeing her orthopedic surgeon about 2 weeks regarding the right knee pain. Patient is been managed with oxycodone and Lyrica which she does well with reports no significant side effects she is maintaining hydration no nausea vomiting dizziness dysphoria euphoria or constipation right still significant pain in the right knee as a 9 on scale 10 at all times average the least and is worst is a 9 today. Patient ports on and off in intensity with weightbearing much worse better with sitting or laying down the pain in the back neck and shoulders is constant aching as well worse with activity worse with being up and around better with resting. Patient reportes it generally does not awaken her from sleep at night from the knee pain or the back pain. Patient reports no new motor or sensory deficits no new bowel or bladder incontinence. Physical Exam: VS: Blood pressure is 138/72 pulse 105 respirations 18 temperature 98.3 F height is 5 foot 1 his weight is 172lbs. PE: PHYSICAL EXAMINATION: GENERAL: The patient is awake, alert, oriented, appropriate, very pleasant demeanor HEENT: Shows normocephalic, atraumatic. Extraocular movements are intact and symmetrical. Patient wearing eyeglasses NECK: Shows anterior throat supple without palpable lymphadenopathy noted. Swallow reflex symmetrical. CHEST: Shows normal on inspection. Breath sounds are clear bilaterally no rales rhonchi or wheezes. HEART: Shows S1, S2 clear. No murmurs auscultated. ABDOMEN: Soft, nontender, nondistended, obese. No palpable organomegaly is noted. No rebound or guarding demonstrated. BACK: Shows spine grossly in the midline. Normal-appearing cervical lordotic curvature. Rotation of the cervical spine shows good rotation both laterally as well as extension flexion some mild tenderness with forward flexion but otherwise without significant difficulty. There is slightly increased thoracic kyphosis, some minor flattening of the lumbar lordotic curvature with well- healed surgical scar. Lumbar paraspinous muscles show symmetrical on inspectio n, on palpation shows some moderate tenderness diffusely throughout the upper, middle and lower distribution of the paraspinous muscles bilaterally, without specific trigger points, without radiation of pain. The patient has good rotational motion of the lumbar spine, both laterally as well as extension and flexion without significant difficulty. No tenderness over the spinous pr ocesses, sacrum or sacroiliac regions. EXTREMITIES: Lower extremities show deep tendon reflexes 1+ in the patellar and tendo calcaneus tendons. Motor exam is 4 on a scale of 5 with right dorsiflexion, extension, quadriceps and hamstring flexion and 4/5 on the left. Peripheral pulses are 1+ posterior tibial. No peripheral edema is noted bilaterally. Lower extremities are warm and dry to touch, equal in color and appearance. Upper extremities show deep tendon reflexes 2+ in the bicep and triceps tendons are equal motor exam is strong with liquid yeast supervisor strength rated 4 to scale 5 but symmetrical as is bicep and tricep flexion bilaterally. SKIN: Shows warm and dry, good turgor. No edema. No sores, rashes or bruising throughout. Procedure: Procedure: Options were discussed with the patient. Patient's old chart was reviewed as her current medication regimen updated current review of systems updated today as well. We will refill patient's medication oxycodone as well as Lyrica as kathy stanton is had appropriate K tracts reporting as well as appropriate urinalyses to date. We will make this a 2-month prescription patient was given instructions well side effects aware of each of the medications. Patient was encouraged to follow-up with her orthopedic surgeon as scheduled. Medication Injected: Med Injected: None Condition at Discharge: Condition at Discharge: Condition at discharge is stable. MACRINA LANDAVERDE MD Aug 23, 2020 12:37
== END | disposition home or self-care (01) ==
LOC: PNCL 11:48
PROVIDERS: ATTEND Anesthesiology
DX: M54.12 Radiculopathy, cervical region (principal); M54.16 Radiculopathy, lumbar region; M96.1 Postlaminectomy syndrome, not elsewhere classified; M17.0 Bilateral primary osteoarthritis of knee; M19.012 Primary osteoarthritis, left shoulder; I11.0 Hypertensive heart disease with heart failure; I50.9 Heart failure, unspecified; E78.00 Pure hypercholesterolemia, unspecified; F41.9 Anxiety disorder, unspecified; F32.9 Major depressive disorder, single episode, unspecified; M19.90 Unspecified osteoarthritis, unspecified site; E66.9 Obesity, unspecified; Z79.899 Other long term (current) drug therapy; Z98.890 Other specified postprocedural states; Z82.49 Family history of ischemic heart disease and other diseases of the circulatory system; Z83.3 Family history of diabetes mellitus; Z88.8 Allergy status to other drugs, medicaments and biological substances
CPT/HCPCS: G0463

== ENCOUNTER → 2020-09-07 | Outpatient (CLI) | payer MEDICARE ==
--- NOTE | 2020-09-07 17:10 | CARD ---
MR#: [id number] Date of Study: 09/07/2020 Ordering Physician: HERBER MARKS, Referring Physician: HERBER MARKS, Tech: Rita Bangura APPROVED REPORT EXAM: Two-dimensional and M-mode echocardiogram with Doppler and color Doppler. Other Information Quality : AverageHR: 100bpm INDICATION Ventricular Tachycardia RISK FACTORS Hypertension Hyperlipidemia Diabetes 2D DIMENSIONS RVDd2.1 (2.9-3.5cm)Left Atrium(2D)2.7 (1.6-4.0cm) IVSd0.8 (0.7-1.1cm)Aortic Root(2D)2.8 (2.0-3.7cm) LVDd3.9 (3.9-5.9cm)PWd0.9 (0.7-1.1cm) LVDs2.7 (2.5-4.0cm)FS (%) 29.3 % SV36.5 mlLVEF(%)56.8 (>50%) Aortic Valve AoV Peak Mario.127.4cm/sAoV VTI20.7cm AO Peak GR.6.5mmHgLVOT Peak Mario.105.1cm/s LVOT VTI 19.85cmAO Mean GR.3mmHg Mitral Valve MV E Bntecpzi34.5cm/sMV A Knjistml37.4cm/s MV E Mean Gr.3mmHgE/A Ratio0.7 TDI E/Lateral E'6.2E/Medial E'9.3 Pulmonary Valve PV Peak Wbjyrjbb82.7cm/sPV Peak Grad.3mmHg Tricuspid Valve TR P. [id number]/sRAP IWNNIMUA2peYl TR Peak Gr.49hzYrQSOG21zgKm Pulmonary Vein S1 Lkakoahq51.9cm/sD2 Eosxqynw69.2cm/s PVa [id number] LEFT VENTRICLE The left ventricle is normal size. There is normal left ventricular wall thickness. The left ventricu lar systolic function is normal and the ejection fraction is within normal range. The Ejection Fracti on is 55-60%. There is normal LV segmental wall motion. Transmitral Doppler flow pattern is Grade I-a bnormal relaxation pattern. RIGHT VENTRICLE The right ventricle is normal size. There is normal right ventricular wall thickness. The right ventr icular systolic function is normal. ATRIA The left atrium size is normal. The right atrium size is normal. The interatrial septum is intact wit h no evidence for an atrial septal defect or patent foramen ovale as noted on 2-D or Doppler imaging. AORTIC VALVE The aortic valve is normal in structure and function. Doppler and Color Flow revealed no significant aortic regurgitation. There is no significant aortic valvular stenosis. Calculated aortic valve area is 2.55 cm2 with maximum pressure gradient of 6 mmHg and mean pressure gradient of 3 mmHg. MITRAL VALVE The mitral valve is thickened but opens well. There is no evidence of mitral valve prolapse. There is no mitral valve stenosis. Doppler and Color-flow revealed trace mitral regurgitation. TRICUSPID VALVE The tricuspid valve is normal in structure and function. Doppler and Color Flow revealed trace tricus pid regurgitation with an estimated PAP of 26 mmHg. There is no tricuspid valve stenosis. PULMONIC VALVE The pulmonic valve is not well visualized. Doppler and Color Flow revealed trace pulmonic valvular re gurgitation. There is no pulmonic valvular stenosis. GREAT VESSELS The aortic root is normal in size. The IVC is normal in size and collapses >50% with inspiration. PERICARDIAL EFFUSION There is no evidence of significant pericardial effusion. Critical Notification Critical Value: No <Conclusion> The left ventricular systolic function is normal and the ejection fraction is within normal range. Th e Ejection Fraction is 55-60%. There is normal LV segmental wall motion. Myxomatous appearance of the mitral valve. Signed by : Kelton Gregorio, Electronically Approved : 09/07/2020 17:09:47
== END ==
LOC: ECHO 14:00
PROVIDERS: ATTEND Internal Medicine Cardiovascular Disease
DX: R07.9 Chest pain, unspecified (principal)
CPT/HCPCS: 93306

== ENCOUNTER 2020-10-16 13:23 | Inpatient (IN) | payer MEDICARE ==
[~2020-10-16] VITALS: Ht 149.9 cm; Wt 69.4 kg
[~2020-10-16 13:23] MED LIST changes: -ALBU2.5V8 INH; -ALPR1TAB6 PO; +ERGO500089 PO
[2020-10-16 14:40] LABS: BASO % 1 % (0-3); EOS # 0.1 x10^3/uL (0.0-0.7); EOS % 3 % (0-3); HEMATOCRIT 45.7 % (36.0-47.0); HEMOGLOBIN 15.4 g/dL (12.0-15.5); LYMPH # 0.6 x10^3/uL (1.0-4.8); LYMPH % 17 % (24-48); MEAN CORPUSCULAR HEMOGLOBIN 31 pg (25-35); MEAN CORPUSCULAR HGB CONC 34 g/dL (31-37); MEAN CORPUSCULAR VOLUME 91 fL (79-100); MONO # 0.3 x10^3/uL (0.0-1.1); MONO % 9 % (0-9); NEUT # 2.7 x10^3/uL (1.8-7.7); NEUT % 71 % (31-73); PLATELET COUNT 312 x10^3/uL (140-400); RED BLOOD COUNT 5.02 x10^6/uL (3.50-5.40); RED CELL DISTRIBUTION WIDTH 14.5 % (11.5-14.5); WHITE BLOOD COUNT 3.8 x10^3/uL (4.0-11.0)
--- NOTE | 2020-10-16 14:44 | EKG ---
[facility] [address] [place] [address] Test Date: 2020-10-16 Test Time: 14:03:05 Pat Name: STEPHANE RODRÍGUEZ Department: Room: Gender: F Sales Planning Coordinator: : 1955 Requested By: MONTRELL LUCAS Order Number: [id number] Reading MD: Measurements Intervals [place] Rate: 104 P: 48 IA: 156 QRS: -12 QRSD: 64 T: 37 QT: 348 QTc: 464 Interpretive Statements SINUS TACHYCARDIA LEFTWARD AXIS QRS(T) CONTOUR ABNORMALITY CONSISTENT WITH INFERIOR INFARCT PROBABLY OLD ABNORMAL ECG RI6.01 No previous ECG available for comparison
[2020-10-16 14:57] LABS: CALCIUM 9.5 mg/dL (8.5-10.1); CREATININE 0.7 mg/dL (0.6-1.0); POTASSIUM 4.4 mmol/L (3.5-5.1)
[2020-10-16 15:04] LABS: ALBUMIN 3.9 g/dL (3.4-5.0); MAGNESIUM 1.6 mg/dL (1.8-2.4); TOTAL BILIRUBIN 0.6 mg/dL (0.2-1.0); TOTAL PROTEIN 7.9 g/dL (6.4-8.2)
[2020-10-16 15:05] LABS: BASE EXCESS ABG 1 mmol/L (-3-3); HCO3 ABG 28 mmol/L (21-28); PCO2 ABG 50 mmHg (35-46); PO2 ABG 85 mmHg (65-108); SAT O2 ABG 96 % (92-99)
[2020-10-16 15:11] LABS: FIO2 ABG 2L N.C.
--- NOTE | 2020-10-16 15:11 | RAD ---
EXAM: XR CHEST 1V 10/16/2020 2:23 PM CLINICAL INDICATION: Shortness of breath COMPARISON: Chest radiograph 09/14/2020 TECHNIQUE: AP upright view the chest FINDINGS: The heart is at the upper limit of normal in size, unchanged. The lungs are adequately exp anded. Unchanged mild left basilar opacities versus small pleural effusion. The right lung is clear. No pneumothorax. There is mild rightward curvature of the lower thoracic spine. Cervicothoracic fusio n hardware is noted. IMPRESSION: Unchanged mild left basilar opacities versus small left pleural effusion. Electronically signed by: Florence Jorgensen MD (10/16/2020 3:09 PM) [id number]
[2020-10-16] MEDS ORDERED: MAGNESIUM SULFATE 2GM 50 ML IV ONE (15:30)
[2020-10-16] MEDS ORDERED: IPRATRPIUM/ALBUTEROL 0.5/2.5MG 3 ML NEBU. NEB ONE (15:30)
--- NOTE | 2020-10-16 16:46 | EKG ---
[facility] [address] [place] [address] Test Date: 2020-10-16 Test Time: 16:25:17 Pat Name: STEPHANE RODRÍGUEZ Department: Room: Gender: F Writing Manager: : 1955 Requested By: MONTRELL LUCAS Order Number: [id number] Reading MD: Measurements Intervals [place] Rate: 106 P: 46 MI: 152 QRS: -9 QRSD: 66 T: 72 QT: 328 QTc: 437 Interpretive Statements SINUS TACHYCARDIA LEFTWARD AXIS QRS(T) CONTOUR ABNORMALITY CONSIDER ANTEROLATERAL MYOCARDIAL DAMAGE CONSISTENT WITH INFERIOR INFARCT PROBABLY OLD T ABNORMALITY IN ANTERIOR LEADS ABNORMAL ECG RI6.01 No previous ECG available for comparison
[2020-10-16] MEDS ORDERED: IV NORMAL SALINE 1000ML BAG 1,000 ML IV ONE (17:45)
[2020-10-16] MEDS ORDERED: ALBU2.5V8 INH (18:22)
--- NOTE | 2020-10-16 18:24 | PHYS DOC ---
Past Medical History Past Medical History: Anxiety, CHF, COPD, Hypertension Additional Past Medical Histor: chronic low back pain, Past Surgical History: Other Additional Past Surgical Histo: back surgery, neck surgery x2, Smoking Status: Former Smoker Alcohol Use: None Drug Use: None General Adult EDM: Chief Complaint: SHORTNESS OF BREATH HPI: HPI: Patient is a 65-year-old female who was sent here from outpatient surgery center for evaluation of rapid heart rate and hypoxia. Patient was admitted here on September 142019 due to suspected of COVID-19 pneumonia and hypoxia. Patient was treated in hospital with IV steroid and antibiotic and IV antiviral medication. Patient got better. Patient was seen by adjustment clerk, diagnosed with COPD due to previous history of smoking. Patient is on albuterol nebs at home, she is not on oxygen at home. Patient denies any cough or fever. Patient is scheduled to have her right knee replaced on November [address] Laird. She was in outpatient surgery for routine testing today. Review of Systems: Review of Systems: Constitutional: Denies fever or chills. [] Eyes: Denies change in visual acuity. [] HENT: Denies nasal congestion or sore throat. [] Respiratory: Positive for cough or shortness of breath. [] Cardiovascular: Denies chest pain or edema. [] GI: Denies abdominal pain, nausea, vomiting, bloody stools or diarrhea. [] : Denies dysuria. [] Musculoskeletal: Denies back pain or joint pain. [] Integument: Denies rash. [] Neurologic: Denies headache, focal weakness or sensory changes. [] Endocrine: Denies polyuria or polydipsia. [] Lymphatic: Denies swollen glands. [] Psychiatric: Denies depression or anxiety. [] Heart Score: Risk Factors: Risk Factors: DM, Current or recent (<one month) smoker, HTN, HLP, family hist ory of CAD, obesity. Risk Scores: Score 0 - 3: 2.5% MACE over next 6 weeks - Discharge Home Score 4 - 6: 20.3% MACE over next 6 weeks - Admit for Clinical Observation Score 7 - 10: 72.7% MACE over next 6 weeks - Early Invasive Strategies Current Medications: Current Medications Medications (Trade) Dose Ordered Sig/Dequan Start Time Stop Time Status Last Admin Dose Admin Albuterol/ Ipratropium (Duoneb) 3 ml 1X ONCE 10/16/20 15:30 10/16/20 15:31 DC 10/16/20 15:47 3 ML Magnesium Sulfate 50 ml @ 25 mls/hr 1X ONCE 10/16/20 15:30 10/16/20 17:29 DC 10/16/20 15:59 25 MLS/HR Sodium Chloride 1,000 ml @ 1,000 mls/hr 1X ONCE 10/16/20 17:45 10/16/20 18:44 10/16/20 17:45 1,000 MLS/HR Allergies: Allergies: Allergies Coded Allergies Type Severity Reaction Last Updated Verified gabapentin Allergy Intermediate Rash 06/24/16 Yes strawberry Allergy Intermediate 03/31/16 Yes prednisone Adverse Reaction Intermediate 03/31/16 Yes Physical Exam: PE: Constitutional: Well developed, well nourished, no acute distress, non-toxic appearance. [] HENT: Normocephalic, atraumatic, bilateral external ears normal, oropharynx moist, no oral exudates, nose normal. [] Eyes: PERRLA, EOMI, conjunctiva normal, no discharge. [] Neck: Normal range of motion, no tenderness, supple, no stridor. [] Cardiovascular:Heart rate regular rhythm, no murmur [] Lungs & Thorax: Bilateral breath sounds decreased air movement to auscultation [] Abdomen: Bowel sounds normal, soft, no tenderness, no masses, no pulsatile masses. [] Skin: Warm, dry, no erythema, no rash. [] Back: No tenderness, no CVA tenderness. [] Extremities: No tenderness, no cyanosis, no clubbing, ROM intact, no edema. [] Neurologic: Alert and oriented X 3, normal motor function, normal sensory function, no focal deficits noted. [] Psychologic: Affect normal, judgement normal, mood normal. [] Current Patient Data: Labs: Laboratory Tests Test 10/16/20 14:32 10/16/20 15:03 White Blood Count 3.8 x10^3/uL (4.0-11.0) L Red Blood Count 5.02 x10^6/uL (3.50-5.40) Hemoglobin 15.4 g/dL (12.0-15.5) Hematocrit 45.7 % (36.0-47.0) Mean Corpuscular Volume 91 fL (79-100) Mean Corpuscular Hemoglobin 31 pg (25-35) Mean Corpuscular Hemoglobin Concent 34 g/dL (31-37) Red Cell Distribution Width 14.5 % (11.5-14.5) Platelet Count 312 x10^3/uL (140-400) Neutrophils (%) (Auto) 71 % (31-73) Lymphocytes (%) (Auto) 17 % (24-48) L Monocytes (%) (Auto) 9 % (0-9) Eosinophils (%) (Auto) 3 % (0-3) Basophils (%) (Auto) 1 % (0-3) Neutrophils # (Auto) 2.7 x10^3/uL (1.8-7.7) Lymphocytes # (Auto) 0.6 x10^3/uL (1.0-4.8) L Monocytes # (Auto) 0.3 x10^3/uL (0.0-1.1) Eosinophils # (Auto) 0.1 x10^3/uL (0.0-0.7) Basophils # (Auto) 0.0 x10^3/uL (0.0-0.2) Sodium Level 140 mmol/L (136-145) Potassium Level 4.4 mmol/L (3.5-5.1) Chloride Level 103 mmol/L (98-107) Carbon Dioxide Level 30 mmol/L (21-32) Anion Gap 7 (6-14) Blood Urea Nitrogen 11 mg/dL (7-20) Creatinine 0.7 mg/dL (0.6-1.0) Estimated GFR (Cockcroft-Gault) 101.0 BUN/Creatinine Ratio 16 (6-20) Glucose Level 83 mg/dL (70-99) Calcium Level 9.5 mg/dL (8.5-10.1) Magnesium Level 1.6 mg/dL (1.8-2.4) L Total Bilirubin 0.6 mg/dL (0.2-1.0) Aspartate Amino Transferase (AST) 23 U/L (15-37) Alanine Aminotransferase (ALT) 14 U/L (14-59) Alkaline Phosphatase 61 U/L (46-116) Troponin I Quantitative < 0.017 ng/mL (0.000-0.055) Total Protein 7.9 g/dL (6.4-8.2) Albumin 3.9 g/dL (3.4-5.0) Albumin/Globulin Ratio 1.0 (1.0-1.7) O2 Saturation 96 % (92-99) Arterial Blood pH 7.36 (7.35-7.45) Arterial Blood pCO2 at Patient Temp 50 mmHg (35-46) H Arterial Blood pO2 at Patient Temp 85 mmHg (65-108) Arterial Blood HCO3 28 mmol/L (21-28) Arterial Blood Base Excess 1 mmol/L (-3-3) FiO2 2l n.c. Laboratory Tests 10/16/20 14:32 Laboratory Tests 10/16/20 14:32 Vital Signs: Vital Signs Date Time Temp Pulse Resp B/P (MAP) Pulse Ox O2 Delivery O2 Flow Rate FiO2 10/16/20 15:48 96 Nasal Cannula 2.0 10/16/20 13:51 98.9 108 26 134/69 (90) 98.9 EKG: EKG: EKG WAS DONE AT 1625, HR OF 106 BPM, SINUS TACHYCARDIA, NO STEMI Radiology/Procedures: Radiology/Procedures: [][facility] [address] [place] [address] IMAGING REPORT Signed PATIENT: RODRÍGUEZ ACCOUNT: [id number] : 1955 LOCATION: ER AGE: 65 SEX: F EXAM STATUS: REG ER ORD. PHYSICIAN: MONTRELL LUCAS DO REASON: SOA PROCEDURE: CHEST AP ONLY EXAM: XR CHEST 1V 10/16/2020 2:23 PM CLINICAL INDICATION: Shortness of breath COMPARISON: Chest radiograph 09/14/2020 TECHNIQUE: AP upright view the chest FINDINGS: The heart is at the upper limit of normal in size, unchanged. The lungs are adequately expanded. Unchanged mild left basilar opacities versus small pleural effusion. The right lung is clear. No pneumothorax. There is mild rightward curvature of the lower thoracic spine. Cervicothoracic fusion hardware is noted. IMPRESSION: Unchanged mild left basilar opacities versus small left pleural effusion. Electronically signed by: Florence Jorgensen MD (10/16/2020 3:09 PM) [id number] DICTATED and SIGNED BY: FLORENCE JORGENSEN MD DATE: 10/16/20 [id number] 0 Course & Med Decision Making: Course & Med Decision Making Pertinent Labs and Imaging studies reviewed. (See chart for details) Patient is a 65-year-old female who was sent here from outpatient surgery center for evaluation of rapid heart rate and hypoxia. Patient was admitted here on September 142019 due to suspected of COVID-19 pneumonia and hypoxia. Patient was treated in hospital with IV steroid and antibiotic and IV antiviral medication. Patient got better. Patient was seen by adjustment clerk, diagnosed with COPD due to previous history of smoking. Patient is on albuterol nebs at home, she is not on oxygen at home. Patient denies any cough or fever. Patient is scheduled to have her right knee replaced on November [address] Laird. She was in outpatient surgery for routine testing today. Patient was given nebulizer treatment in ER, her oxygen saturation initially when she came in was around 86 to 89% on room air, however at the time of reevaluation her oxygen saturation was 95% on room air. Her lung exam was clear to auscultation. P atient was in no acute distress. Her chest x-ray did not show any acute problem. Patient will be discharged home, she will need to follow-up with the adjustment clerk for outpatient reevaluation. Her EKG shows sinus tachycardia, no atrial fibrillation. Patient is amenable to plan of care. Dragon Disclaimer: Dragon Disclaimer: This electronic medical record was generated, in whole or in part, using a voice recognition dictation system. Departure Departure Impression: Primary Impression: COPD exacerbation Disposition: 01 DC HOME SELF CARE/HOMELESS Condition: IMPROVED Referrals: WILLIAM SIM MD (PCP) BASSAM PEDRO MD PLEASE CALL THIS LUNG DOCTOR FOR FOLLOW UP THIS WEEK. Patient Instructions: Chronic Obstructive Pulmonary Disease Additional Instructions: Thank you for visiting our Emergency Department. We appreciate you trusting us with your care. If any additional problems come up don't hesitate to return to visit us. Please follow up with your primary care provider so they can plan additional care if needed and know about the problem that you had. If symptoms worsen come back to the Emergency Department. Any concerning symptoms that start such as chest pain, shortness of air, weakness or numbness on one side of the body, running high fevers or any other concerning symptoms return to the ER. Scripts Albuterol Sulfate (Proair Hfa) 8.5 Gm Hfa.aer.ad 1 PUFF INH PRN Q6HRS PRN for SHORTNESS OF BREATH for 30 Days, #1 INHALER Prov: MONTRELL LUCAS DO 10/16/20 MONTRELL LUCAS DO Oct 16, 2020 18:24
[2020-10-16] MEDS ORDERED: DEXAMETHASONE SOD PHOS 4 MG/ML VIAL IVP ONE (18:45)
[2020-10-16 20:07] LABS: BILIRUBIN,URINE NEGATIVE (NEG); CLARITY,URINE CLEAR; COLOR,URINE YELLOW; NITRITE,URINE NEGATIVE (NEG); PROTEIN,URINE NEGATIVE (NEG-TRACE); UROBILINOGEN,URINE 0.2 mg/dL (0.2 mg/dL)
[2020-10-16] MEDS ORDERED: IOHEXOL 350 MG/ML 100 ML VIAL. IV ONE (20:15)
[2020-10-16 20:17] LABS: BACTERIA,URINE FEW /HPF (0-FEW); RBC,URINE 0 /HPF (0-2)
[2020-10-16 20:18] LABS: YEAST,URINE PRESENT /HPF
--- NOTE | 2020-10-16 21:26 | RAD ---
CTA scan of the Chest with Contrast (Pulmonary Embolism protocol) 10/16/2020 Clinical History: Hypoxia. Technique: After the intravenous administration of 100 cc of Omnipaque 350, contiguous, 0.625 mm axia l sections were obtained through the chest. 2 mm axial and 3D MIP coronal and sagittal reconstructed images were obtained. One or more of the following individualized dose reduction techniques were utilized for this study: 1. Automated exposure control. 2. Adjustment of the mA and/or kV according to patient size. 3. Use of iterative reconstruction technique. Findings: No filling defect is seen within the major branches of either pulmonary artery. There is n o CT evidence of pulmonary embolism. The heart is mildly enlarged. Atherosclerotic calcification of t he thoracic aorta is seen. The thoracic aorta is tortuous but tapers normally. Calcified right hilar and mediastinal lymph nodes are seen. Dependent subsegmental atelectasis is seen involving both lungs. Mild bronchiectasis is seen. No leur al effusion or pneumothorax is seen. Impression: There is no CT evidence of pulmonary embolism. Electronically signed by: Joaquim Ivey MD (10/16/2020 9:23 PM) [id number]
[2020-10-16] MEDS ORDERED: ACETAMINOPHEN 325 MG TABLET. PO PRN (22:15)
[2020-10-16] MEDS ORDERED: ONDANSETRON PF 4 MG/2 ML VIAL. IV PRN (22:15)
[2020-10-16] MEDS: IV NORMAL SALINE 1000ML BAG 1,000 ML IV SCH (22:58)
[2020-10-17] VITALS (7 sets, daily range): BP systolic 125–147; BP diastolic 56–87
[2020-10-17] MEDS: MORPHINE SULFATE 2 MG/ML VIAL. IV PRN ×3 (04:22→20:49)
[2020-10-17] MEDS ORDERED: AMLO-187 PO (06:04)
[2020-10-17] MEDS ORDERED: ALPR1TAB6 PO (06:04)
[2020-10-17] MEDS ORDERED: MINO2.5T12 PO (06:04)
[2020-10-17 06:51] LABS: CALCIUM 8.7 mg/dL (8.5-10.1); CREATININE 0.6 mg/dL (0.6-1.0); GFR 120.7
[2020-10-17 07:00] LABS: BASO % 1 % (0-3); EOS % 0 % (0-3); HEMATOCRIT 43.5 % (36.0-47.0); HEMOGLOBIN 14.6 g/dL (12.0-15.5); LYMPH # 0.5 x10^3/uL (1.0-4.8); LYMPH % 21 % (24-48); MEAN CORPUSCULAR HEMOGLOBIN 30 pg (25-35); MEAN CORPUSCULAR HGB CONC 34 g/dL (31-37); MEAN CORPUSCULAR VOLUME 91 fL (79-100); MONO # 0.1 x10^3/uL (0.0-1.1); MONO % 4 % (0-9); NEUT # 1.6 x10^3/uL (1.8-7.7); NEUT % 74 % (31-73); PLATELET COUNT 316 x10^3/uL (140-400); RED CELL DISTRIBUTION WIDTH 14.9 % (11.5-14.5); WHITE BLOOD COUNT 2.2 x10^3/uL (4.0-11.0)
[2020-10-17] MEDS: IPRATRPIUM/ALBUTEROL 0.5/2.5MG 3 ML NEBU. NEB SCH ×4 (07:49→20:22)
--- NOTE | 2020-10-17 08:36 | PDOC1 ---
History and Physical Date of Service: DOS: DATE: 10/17/20 TIME: 08:32 Chief Complaint: Chief Complain: Hypoxia and rapid heart rate History of Present Illness: HPI: 65-year-old female who was sent here from outpatient surgery center for evaluation of rapid heart rate and hypoxia. Patient was admitted here on September 142019 due to suspected of COVID-19 pneumonia and hypoxia. Patient was treated in hospital with IV steroid and antibiotic and IV antiviral medication. Patient got better. Patient was seen by video presentation operator, diagnosed with COPD due to previous history of smoking. Patient is on albuterol nebs at home, she is not on oxygen at home. Patient denies any cough or fever. Patient is scheduled to have her right knee replaced on November [address] Laird. She was in outpatient surgery for routine testing today. Past Medical/Surgical History: PMH/PSH: Past Medical History: Anxiety, CHF, COPD, Hypertension, chronic low back pain, Past Surgical History: back surgery, neck surgery x2, Allergies: Allergies: Coded Allergies: gabapentin (Verified Allergy, Intermediate, Rash, 06/24/16) Takes pregabalin at home strawberry (Verified Allergy, Intermediate, 03/31/16) food allergy prednisone (Verified Adverse Reaction, Intermediate, 03/31/16) PAIN, HEADACHE, DECREASED APPETITE Family History: Family History: Reviewed and none reported Social History: Social History: Smoking Status: Former Smoker Alcohol Use: None Drug Use: None Current Medications: Current Medications Current Medications Magnesium Sulfate 50 ml @ 25 mls/hr 1X ONCE IV Last administered on 10/16/20at 15:59; Start 10/16/20 at 15:30; Stop 10/16/20 at 17:29; Status DC Albuterol/ Ipratropium (Duoneb) 3 ml 1X ONCE NEB Last administered on 10/16/20at 15:47; Start 10/16/20 at 15:30; Stop 10/16/20 at 15:31; Status DC Sodium Chloride 1,000 ml @ 1,000 mls/hr 1X ONCE IV Last administered on 10/16/20at 17:45; Start 10/16/20 at 17:45; Stop 10/16/20 at 18:44; Status DC Dexamethasone Sodium Phosphate (Decadron) 4 mg 1X ONCE IVP Last administered on 10/16/20at 20:57; Start 10/16/20 at 18:45; Stop 10/16/20 at 18:46; Status DC Iohexol (Omnipaque 350 Mg/ml) 100 ml 1X ONCE IV Last administered on 10/16/20at 20:15; Start 10/16/20 at 20:15; Stop 10/16/20 at 20:16; Status DC Ondansetron HCl (Zofran) 4 mg PRN Q8HRS PRN IV NAUSEA/VOMITING; Start 10/16/20 at 22:15; Stop 10/17/20 at 22:14 Morphine Sulfate (Morphine Sulfate) 2 mg PRN Q2HR PRN IV PAIN Last administered on 10/17/20at 04:22; Start 10/16/20 at 22:15; Stop 10/17/20 at 22:14 Sodium Chloride 1,000 ml @ 75 mls/hr [id number] IV Last administered on 10/16/20at 22:58; Start 10/16/20 at 22:15; Stop 10/17/20 at 22:14 Acetaminophen (Tylenol) 650 mg PRN Q4HRS PRN PO FEVER > 100.3'F; Start 10/16/20 at 22:15; Stop 10/17/20 at 22:14 Albuterol/ Ipratropium (Duoneb) 3 ml RTQID NEB Last administered on 10/17/20at 07:49; Start 10/17/20 at 08:00; Stop 10/18/20 at 07:59 Active Scripts Active Proair Hfa (Albuterol Sulfate) 8.5 Gm Hfa.aer.ad 1 Puff INH PRN Q6HRS PRN 30 Days Nitrostat (Nitroglycerin) 0.4 Mg Tab.subl 0.4 Mg SL PRN Q5MIN PRN Reported Minoxidil 2.5 Mg Tablet 2.5 Mg PO DAILY Amlodipine Besylate 10 Mg Tablet 10 Mg PO DAILY Alprazolam 1 Mg Tablet 1 Tab PO TID Vitamin D2 (Ergocalciferol (Vitamin D2)) 1,250 Mcg Capsule 1,250 Mcg PO WEEKLY Metformin Hcl 500 Mg Tablet 500 Mg PO BIDWMEALS Albuterol Sulfate Neb Soln (Albuterol Sulfate) 1.25 Mg/3 Ml Vial.neb 1.25 Mg NEB PRN PRN Escitalopram Oxalate 10 Mg Tablet 1 Tab PO DAILY Cetirizine Hcl 10 Mg Tablet 5 Mg PO DAILY Oxycodone Hcl Immed.release (Oxycodone Hcl) 10 Mg Tablet 10 Mg PO PRN Q6HRS PRN Lyrica (Pregabalin) 75 Mg Capsule 1 Cap PO BID Trazodone Hcl 50 Mg Tablet 50 Mg PO HS Atorvastatin Calcium 40 Mg Tablet 20 Mg PO DAILY Tizanidine Hcl 4 Mg Capsule 4 Mg PO PRN Q8HRS PRN ROS: Review of Systems Review of System REVIEW OF SYSTEMS: GENERAL: Denies weakness SKIN: No bruising, hair changes or rashes. EYES: No blurred, double or loss of vision. NOSE AND THROAT: No history of nosebleeds, hoarseness or sore throat. HEART: No history of palpitations, chest pain or shortness of breath on exertion. LUNGS: Denies cough, hemoptysis, wheezing or shortness of breath. GASTROINTESTINAL: Denies changes in appetite, nausea, vomiting, diarrhea or constipation. GENITOURINARY: No history of frequency, urgency, hesitancy or nocturia. NEUROLOGIC: Denies history of numbness, tingling, or tremor. PSYCHIATRIC: No history of panic, anxiety or depression. ENDOCRINE: No history of heat or cold intolerance, polyuria or polydipsia. EXTREMITIES: Denies joint pain, pain on walking or stiffness. Physical Exam: Vital Signs: Vital Signs Date Time Temp Pulse Resp B/P (MAP) Pulse Ox O2 Delivery O2 Flow Rate FiO2 10/17/20 07:59 Nasal Cannula 2.0 10/17/20 07:51 94 10/17/20 04:52 16 10/17/20 03:00 99.2 107 139/87 (104) 99.2 Physcial Exam: GEN: No apparent distress. Alert and oriented HEENT: Normal cephalic, atraumatic, external auditory canals are patent EYES: Extraocular muscles are intact, pupil are equally round and reactive to light and accommodation MUSCULOSKELETAL: Well developed , well nourished, good range of motion ENDOCRINE: No thyromegaly was palpated LYMPHATICS: No cervical chain or axillary nodes were noted HEMATOPOIETIC: No bruising NECK: Supple, no JVD, no thyromegaly was noted LUNGS: Clear to auscultation in all lung dixon without rhonchi or wheezing HEART: RRR, S!, S2 present. Peripheral pulses intact, no obvious murmurs noted ABDOMEN: Soft, nontender. Positive bowel sounds, no organomegaly, normal bowel sounds EXTREMITIES: Without clubbing, cyanosis, or edema. Pedal pulses intact. Negative Homans sign NEUROLOGIC: Normal speech and tone. A&O x 3, moves all extremities, no obvious focal deficits PSYCHIATRIC: Normal affect, normal mood. Stable SKIN: No ulcerations or rashes, good skin turgor, no jaundice VASCULAR: Good capillary refill, neurovascular bundle appears to be intact Labs: Labs: Laboratory Tests Test 10/16/20 14:32 10/16/20 15:03 10/16/20 19:58 10/17/20 05:50 White Blood Count 3.8 x10^3/uL (4.0-11.0) 2.2 x10^3/uL (4.0-11.0) Red Blood Count 5.02 x10^6/uL (3.50-5.40) 4.80 x10^6/uL (3.50-5.40) Hemoglobin 15.4 g/dL (12.0-15.5) 14.6 g/dL (12.0-15.5) Hematocrit 45.7 % (36.0-47.0) 43.5 % (36.0-47.0) Mean Corpuscular Volume 91 fL (79-100) 91 fL (79-100) Mean Corpuscular Hemoglobin 31 pg (25-35) 30 pg (25-35) Mean Corpuscular Hemoglobin Concent 34 g/dL (31-37) 34 g/dL (31-37) Red Cell Distribution Width 14.5 % (11.5-14.5) 14.9 % (11.5-14.5) Platelet Count 312 x10^3/uL (140-400) 316 x10^3/uL (140-400) Neutrophils (%) (Auto) 71 % (31-73) 74 % (31-73) Lymphocytes (%) (Auto) 17 % (24-48) 21 % (24-48) Monocytes (%) (Auto) 9 % (0-9) 4 % (0-9) Eosinophils (%) (Auto) 3 % (0-3) 0 % (0-3) Basophils (%) (Auto) 1 % (0-3) 1 % (0-3) Neutrophils # (Auto) 2.7 x10^3/uL (1.8-7.7) 1.6 x10^3/uL (1.8-7.7) Lymphocytes # (Auto) 0.6 x10^3/uL (1.0-4.8) 0.5 x10^3/uL (1.0-4.8) Monocytes # (Auto) 0.3 x10^3/uL (0.0-1.1) 0.1 x10^3/uL (0.0-1.1) Eosinophils # (Auto) 0.1 x10^3/uL (0.0-0.7) 0.0 x10^3/uL (0.0-0.7) Basophils # (Auto) 0.0 x10^3/uL (0.0-0.2) 0.0 x10^3/uL (0.0-0.2) Sodium Level 140 mmol/L (136-145) 141 mmol/L (136-145) Potassium Level 4.4 mmol/L (3.5-5.1) 4.0 mmol/L (3.5-5.1) Chloride Level 103 mmol/L (98-107) 106 mmol/L (98-107) Carbon Dioxide Level 30 mmol/L (21-32) 27 mmol/L (21-32) Anion Gap 7 (6-14) 8 (6-14) Blood Urea Nitrogen 11 mg/dL (7-20) 8 mg/dL (7-20) Creatinine 0.7 mg/dL (0.6-1.0) 0.6 mg/dL (0.6-1.0) Estimated GFR (Cockcroft-Gault) 101.0 120.7 BUN/Creatinine Ratio 16 (6-20) Glucose Level 83 mg/dL (70-99) 146 mg/dL (70-99) Calcium Level 9.5 mg/dL (8.5-10.1) 8.7 mg/dL (8.5-10.1) Magnesium Level 1.6 mg/dL (1.8-2.4) Total Bilirubin 0.6 mg/dL (0.2-1.0) Aspartate Amino Transf (AST/SGOT) 23 U/L (15-37) Alanine Aminotransferase (ALT/SGPT) 14 U/L (14-59) Alkaline Phosphatase 61 U/L (46-116) Troponin I Quantitative < 0.017 ng/mL (0.000-0.055) Total Protein 7.9 g/dL (6.4-8.2) Albumin 3.9 g/dL (3.4-5.0) Albumin/Globulin Ratio 1.0 (1.0-1.7) O2 Saturation 96 % (92-99) Arterial Blood pH 7.36 (7.35-7.45) Arterial Blood pCO2 at Patient Temp 50 mmHg (35-46) Arterial Blood pO2 at Patient Temp 85 mmHg (65-108) Arterial Blood HCO3 28 mmol/L (21-28) Arterial Blood Base Excess 1 mmol/L (-3-3) FiO2 2l n.c. Urine Collection Type Unknown Urine Color Yellow Urine Clarity Clear Urine pH 6.0 (<5.0-8.0) Urine Specific Margaret 1.010 (1.000-1.030) Urine Protein Negative mg/dL (NEG-TRACE) Urine Glucose (UA) Negative mg/dL (NEG) Urine Ketones (Stick) Trace mg/dL (NEG) Urine Blood Negative (NEG) Urine Nitrite Negative (NEG) Urine Bilirubin Negative (NEG) Urine Urobilinogen Dipstick 0.2 mg/dL (0.2 mg/dL) Urine Leukocyte Esterase Trace (NEG) Urine RBC 0 /HPF (0-2) Urine WBC 1-4 /HPF (0-4) Urine Squamous Epithelial Cells Mod /LPF Urine Bacteria Few /HPF (0-FEW) Urine Yeast Present /HPF Laboratory Tests Test 10/16/20 14:32 10/16/20 15:03 10/16/20 19:58 10/17/20 05:50 White Blood Count 3.8 x10^3/uL (4.0-11.0) 2.2 x10^3/uL (4.0-11.0) Red Blood Count 5.02 x10^6/uL (3.50-5.40) 4.80 x10^6/uL (3.50-5.40) Hemoglobin 15.4 g/dL (12.0-15.5) 14.6 g/dL (12.0-15.5) Hematocrit 45.7 % (36.0-47.0) 43.5 % (36.0-47.0) Mean Corpuscular Volume 91 fL (79-100) 91 fL (79-100) Mean Corpuscular Hemoglobin 31 pg (25-35) 30 pg (25-35) Mean Corpuscular Hemoglobin Concent 34 g/dL (31-37) 34 g/dL (31-37) Red Cell Distribution Width 14.5 % (11.5-14.5) 14.9 % (11.5-14.5) Platelet Count 312 x10^3/uL (140-400) 316 x10^3/uL (140-400) Neutrophils (%) (Auto) 71 % (31-73) 74 % (31-73) Lymphocytes (%) (Auto) 17 % (24-48) 21 % (24-48) Monocytes (%) (Auto) 9 % (0-9) 4 % (0-9) Eosinophils (%) (Auto) 3 % (0-3) 0 % (0-3) Basophils (%) (Auto) 1 % (0-3) 1 % (0-3) Neutrophils # (Auto) 2.7 x10^3/uL (1.8-7.7) 1.6 x10^3/uL (1.8-7.7) Lymphocytes # (Auto) 0.6 x10^3/uL (1.0-4.8) 0.5 x10^3/uL (1.0-4.8) Monocytes # (Auto) 0.3 x10^3/uL (0.0-1.1) 0.1 x10^3/uL (0.0-1.1) Eosinophils # (Auto) 0.1 x10^3/uL (0.0-0.7) 0.0 x10^3/uL (0.0-0.7) Basophils # (Auto) 0.0 x10^3/uL (0.0-0.2) 0.0 x10^3/uL (0.0-0.2) Sodium Level 140 mmol/L (136-145) 141 mmol/L (136-145) Potassium Level 4.4 mmol/L (3.5-5.1) 4.0 mmol/L (3.5-5.1) Chloride Level 103 mmol/L (98-107) 106 mmol/L (98-107) Carbon Dioxide Level 30 mmol/L (21-32) 27 mmol/L (21-32) Anion Gap 7 (6-14) 8 (6-14) Blood Urea Nitrogen 11 mg/dL (7-20) 8 mg/dL (7-20) Creatinine 0.7 mg/dL (0.6-1.0) 0.6 mg/dL (0.6-1.0) Estimated GFR (Cockcroft-Gault) 101.0 120.7 BUN/Creatinine Ratio 16 (6-20) Glucose Level 83 mg/dL (70-99) 146 mg/dL (70-99) Calcium Level 9.5 mg/dL (8.5-10.1) 8.7 mg/dL (8.5-10.1) Magnesium Level 1.6 mg/dL (1.8-2.4) Total Bilirubin 0.6 mg/dL (0.2-1.0) Aspartate Amino Transf (AST/SGOT) 23 U/L (15-37) Alanine Aminotransferase (ALT/SGPT) 14 U/L (14-59) Alkaline Phosphatase 61 U/L (46-116) Troponin I Quantitative < 0.017 ng/mL (0.000-0.055) Total Protein 7.9 g/dL (6.4-8.2) Albumin 3.9 g/dL (3.4-5.0) Albumin/Globulin Ratio 1.0 (1.0-1.7) O2 Saturation 96 % (92-99) Arterial Blood pH 7.36 (7.35-7.45) Arterial Blood pCO2 at Patient Temp 50 mmHg (35-46) Arterial Blood pO2 at Patient Temp 85 mmHg (65-108) Arterial Blood HCO3 28 mmol/L (21-28) Arterial Blood Base Excess 1 mmol/L (-3-3) FiO2 2l n.c. Urine Collection Type Unknown Urine Color Yellow Urine Clarity Clear Urine pH 6.0 (<5.0-8.0) Urine Specific Margaret 1.010 (1.000-1.030) Urine Protein Negative mg/dL (NEG-TRACE) Urine Glucose (UA) Negative mg/dL (NEG) Urine Ketones (Stick) Trace mg/dL (NEG) Urine Blood Negative (NEG) Urine Nitrite Negative (NEG) Urine Bilirubin Negative (NEG) Urine Urobilinogen Dipstick 0.2 mg/dL (0.2 mg/dL) Urine Leukocyte Esterase Trace (NEG) Urine RBC 0 /HPF (0-2) Urine WBC 1-4 /HPF (0-4) Urine Squamous Epithelial Cells Mod /LPF Urine Bacteria Few /HPF (0-FEW) Urine Yeast Present /HPF Images: Images Chest CTA negative for PE CXR IMPRESSION: Unchanged mild left basilar opacities versus small left pleural effusion. Assessment/Plan Assessment/Plan Acute hypoxic hypercapnic respiratory distress requiring O2 supplementation Concern for CAP, possible gram-negative organism Mild hypercapnia Tachycardia Admit to medicine for further management Cardiology consult for preoperative assessment and evaluation for her tachyarrhythmia Continue telemetry monitoring Pulmonology consult for respiratory distress Continue IV empiric antibiotics Pending TSH level Lovenox for DVT prophylaxis Protonix GI prophylaxis ADA diet Full code Discussed with RN and SW Disposition inpatient management as above Surrogate decision maker is the Justifications for Admission Other Justification SADA HAYS MD Oct 17, 2020 08:36
[2020-10-17] MEDS: IV NORMAL SALINE 1000ML BAG 1,000 ML IV SCH (10:33)
--- NOTE | 2020-10-17 10:37 | NUR ---
SW following. Discussed with RN, pt from home with family, mix between 2L oxygen and room air (pt does not use oxygen at home), regular diet. Pulmonology and cardiology consulted. RN advised no SW needs at this time. SW will continue to follow.
--- NOTE | 2020-10-17 11:05 | CONS ---
DATE OF CONSULTATION: 10/17/2020 ATTENDING PHYSICIAN: Dr. Bharat Levy. REASON FOR CONSULTATION: Dyspnea, hypoxia, abnormal CT chest. HISTORY OF PRESENT ILLNESS: The patient is 65 years old who was brought into the hospital after she was sent from [facility]patient [facility] for evaluation of rapid heart rate and hypoxia. The patient was admitted on 09/14/2020 due to suspected COVID-19 pneumonia and hypoxia. The patient was treated with IV steroids, antibiotics and antiviral medication. The patient has a history of tobacco use, but not for long duration. She quit 15 years ago. She is not on home oxygen. She was brought into the hospital with complaint of some chest pain and mild shortness of breath. She states she has a cough, but that is nonproductive. She had a low-grade fever of 99.2. The patient underwent CT angiogram, which was reviewed by me. There is no evidence of pulmonary embolism. There are minimal patchy infiltrates versus atelectasis in the right upper lobe as well as in the left lower lobe. The patient was started on dexamethasone. I have been asked to see her for further evaluation. PAST MEDICAL HISTORY: Significant for: 1. History of anxiety. 2. CHF. 3. Hypertension. 4. Chronic low back pain. PAST SURGICAL HISTORY: 1. Back surgery. 2. Neck surgery. ALLERGIES: GABAPENTIN, PREDNISONE and STRAWBERRY. REVIEW OF SYSTEMS: A 12-point system obtained. Pertinent positives discussed in my history of present illness, otherwise noncontributory. All systems that were negative were reviewed as well. SOCIAL HISTORY: Smoked for about 10-15 years before quitting, 15 years ago. PHYSICAL EXAMINATION: VITAL SIGNS: Reviewed. T-max of 99.2. Pulse ox 94% on 2 liters. NECK: Supple. LUNGS: With diminished breath sounds. CARDIOVASCULAR: With a regular rate. ABDOMEN: Soft. EXTREMITIES: With no pitting edema. LABORATORY DATA: Reviewed. White cell count 2.2, hemoglobin 14.6 and platelets are 316. ABGs with a pH of 7.36, pCO2 of 50 and a pO2 of 85 on 2 liters. IMPRESSION: 1. Acute hypoxic respiratory failure secondary to likely clinical pneumonia. 2. Compensated respiratory acidosis/underlying chronic obstructive pulmonary disease. 3. Abnormal CT chest with minimal patchy infiltrate in right upper lobe and left lower lobe. No evidence of pulmonary embolism. RECOMMENDATIONS: 1. Continue present oxygen. Keep saturation 92% and above. 2. Add empiric antibiotics. 3. Continue bronchodilators. 4. We will follow along with you. BASSAM PEDRO MD DR: MARTINEZ/dano JOB#: [id number] / [id number]
--- NOTE | 2020-10-17 11:23 | PDOC2 ---
ANSELMO LARKIN JACKERMAN 10/17/20 1122: CARDIAC CONSULT DATE OF CONSULT Date of Consult DATE: 10/17/20 TIME: 11:03 REASON FOR CONSULT Reason for Consult: AFIB, preop eval REFERRING PHYSICIAN Referring Physician: Dr. Hammond SOURCE Source: Chart review, Patient HISTORY OF PRESENT ILLNESS HISTORY OF PRESENT ILLNESS This is a 65 yo female who presented secondary to evaluation of rapid heart rate and hypoxia. Patient is scheduled for knee replacement with Dr. Laird November 06. Was at outpatient center for pre-op testing. Was noted to be hypoxic and tachycardiac. Was transferred to ED for further evaluation and treatment. EKG with ST. Noted with SVT overnight. Presently SR/ST. PAST MEDICAL HISTORY Cardiovascular: CHF, HTN, Other (NSVT) CENTRAL NERVOUS SYSTEM: Seizure Heme/Onc: Other (DVT) Psych: Anxiety, Depression Musculoskeletal: Osteoarthritis Endocrine: Diabetes PAST SURGICAL HISTORY Past Surgical History: Total knee replacement (left ), Other (necl, back surgery ) FAMILY HISTORY Family History: Diabetes, Hypertension SOCIAL HISTORY Smoke: Quit ALCOHOL: none Drugs: None CURRENT MEDICATIONS CURRENT MEDICATIONS Current Medications Medications (Trade) Dose Ordered Sig/Dequan Route PRN Reason Start Time Stop Time Status Last Admin Dose Admin Magnesium Sulfate 50 ml @ 25 mls/hr 1X ONCE IV 10/16/20 15:30 10/16/20 17:29 DC 10/16/20 15:59 Albuterol/ Ipratropium (Duoneb) 3 ml 1X ONCE NEB 10/16/20 15:30 10/16/20 15:31 DC 10/16/20 15:47 Sodium Chloride 1,000 ml @ 1,000 mls/hr 1X ONCE IV 10/16/20 17:45 10/16/20 18:44 DC 10/16/20 17:45 Dexamethasone Sodium Phosphate (Decadron) 4 mg 1X ONCE IVP 10/16/20 18:45 10/16/20 18:46 DC 10/16/20 20:57 Iohexol (Omnipaque 350 Mg/ml) 100 ml 1X ONCE IV 10/16/20 20:15 10/16/20 20:16 DC 10/16/20 20:15 Morphine Sulfate (Morphine Sulfate) 2 mg PRN Q2HR PRN IV PAIN 10/16/20 22:15 10/17/20 22:14 10/17/20 04:22 Sodium Chloride 1,000 ml @ 75 mls/hr [id number] IV 10/16/20 22:15 10/17/20 22:14 10/17/20 10:33 Albuterol/ Ipratropium (Duoneb) 3 ml RTQID NEB 10/17/20 08:00 10/18/20 07:59 10/17/20 07:49 ALLERGIES ALLERGIES: Coded Allergies: gabapentin (Verified Allergy, Intermediate, Rash, 06/24/16) Takes pregabalin at home strawberry (Verified Allergy, Intermediate, 03/31/16) food allergy prednisone (Verified Adverse Reaction, Intermediate, 03/31/16) PAIN, HEADACHE, DECREASED APPETITE ROS Review of System 14 point ROS conducted with pertinent positives noted above in HPI PHYSICAL EXAM General: Alert, Oriented X3, Cooperative, No acute distress HEENT: Atraumatic Lungs: Clear to auscultation Heart: Regular rate Abdomen: Soft, No tenderness Extremities: No edema, Normal pulses Skin: No significant lesion Neuro: Normal speech, Sensation intact Psych/Mental Status: Mental status NL, Mood NL MUSCULOSKELETAL: Osteoarthritic changes both hands VITALS/I&O VITALS/I&O: Vital Signs Date Time Temp Pulse Resp B/P (MAP) Pulse Ox O2 Delivery O2 Flow Rate FiO2 10/17/20 07:59 Nasal Cannula 2.0 10/17/20 07:51 94 10/17/20 07:00 98.8 99 16 131/83 (99) 98.8 I & O 10/16/20 10/16/20 10/17/20 15:00 23:00 07:00 Intake Total 1050 ml Balance 1050 ml LABS Lab: Laboratory Tests Test 10/16/20 14:32 10/16/20 15:03 10/16/20 19:58 10/17/20 05:50 White Blood Count 3.8 x10^3/uL (4.0-11.0) L 2.2 x10^3/uL (4.0-11.0) L Red Blood Count 5.02 x10^6/uL (3.50-5.40) 4.80 x10^6/uL (3.50-5.40) Hemoglobin 15.4 g/dL (12.0-15.5) 14.6 g/dL (12.0-15.5) Hematocrit 45.7 % (36.0-47.0) 43.5 % (36.0-47.0) Mean Corpuscular Volume 91 fL (79-100) 91 fL (79-100) Mean Corpuscular Hemoglobin 31 pg (25-35) 30 pg (25-35) Mean Corpuscular Hemoglobin Concent 34 g/dL (31-37) 34 g/dL (31-37) Red Cell Distribution Width 14.5 % (11.5-14.5) 14.9 % (11.5-14.5) H Platelet Count 312 x10^3/uL (140-400) 316 x10^3/uL (140-400) Neutrophils (%) (Auto) 71 % (31-73) 74 % (31-73) H Lymphocytes (%) (Auto) 17 % (24-48) L 21 % (24-48) L Monocytes (%) (Auto) 9 % (0-9) 4 % (0-9) Eosinophils (%) (Auto) 3 % (0-3) 0 % (0-3) Basophils (%) (Auto) 1 % (0-3) 1 % (0-3) Neutrophils # (Auto) 2.7 x10^3/uL (1.8-7.7) 1.6 x10^3/uL (1.8-7.7) L Lymphocytes # (Auto) 0.6 x10^3/uL (1.0-4.8) L 0.5 x10^3/uL (1.0-4.8) L Monocytes # (Auto) 0.3 x10^3/uL (0.0-1.1) 0.1 x10^3/uL (0.0-1.1) Eosinophils # (Auto) 0.1 x10^3/uL (0.0-0.7) 0.0 x10^3/uL (0.0-0.7) Basophils # (Auto) 0.0 x10^3/uL (0.0-0.2) 0.0 x10^3/uL (0.0-0.2) Sodium Level 140 mmol/L (136-145) 141 mmol/L (136-145) Potassium Level 4.4 mmol/L (3.5-5.1) 4.0 mmol/L (3.5-5.1) Chloride Level 103 mmol/L (98-107) 106 mmol/L (98-107) Carbon Dioxide Level 30 mmol/L (21-32) 27 mmol/L (21-32) Anion Gap 7 (6-14) 8 (6-14) Blood Urea Nitrogen 11 mg/dL (7-20) 8 mg/dL (7-20) Creatinine 0.7 mg/dL (0.6-1.0) 0.6 mg/dL (0.6-1.0) Estimated GFR (Cockcroft-Gault) 101.0 120.7 BUN/Creatinine Ratio 16 (6-20) Glucose Level 83 mg/dL (70-99) 146 mg/dL (70-99) H Calcium Level 9.5 mg/dL (8.5-10.1) 8.7 mg/dL (8.5-10.1) Magnesium Level 1.6 mg/dL (1.8-2.4) L Total Bilirubin 0.6 mg/dL (0.2-1.0) Aspartate Amino Transferase (AST) 23 U/L (15-37) Alanine Aminotransferase (ALT) 14 U/L (14-59) Alkaline Phosphatase 61 U/L (46-116) Troponin I Quantitative < 0.017 ng/mL (0.000-0.055) Total Protein 7.9 g/dL (6.4-8.2) Albumin 3.9 g/dL (3.4-5.0) Albumin/Globulin Ratio 1.0 (1.0-1.7) O2 Saturation 96 % (92-99) Arterial Blood pH 7.36 (7.35-7.45) Arterial Blood pCO2 at Patient Temp 50 mmHg (35-46) H Arterial Blood pO2 at Patient Temp 85 mmHg (65-108) Arterial Blood HCO3 28 mmol/L (21-28) Arterial Blood Base Excess 1 mmol/L (-3-3) FiO2 2l n.c. Urine Collection Type Unknown Urine Color Yellow Urine Clarity Clear Urine pH 6.0 (<5.0-8.0) Urine Specific Hood 1.010 (1.000-1.030) Urine Protein Negative mg/dL (NEG-TRACE) Urine Glucose (UA) Negative mg/dL (NEG) Urine Ketones (Stick) Trace mg/dL (NEG) Urine Blood Negative (NEG) Urine Nitrite Negative (NEG) Urine Bilirubin Negative (NEG) Urine Urobilinogen Dipstick 0.2 mg/dL (0.2 mg/dL) Urine Leukocyte Esterase Trace (NEG) Urine RBC 0 /HPF (0-2) Urine WBC 1-4 /HPF (0-4) Urine Squamous Epithelial Cells Mod /LPF Urine Bacteria Few /HPF (0-FEW) Urine Yeast Present /HPF Test 10/17/20 07:48 Glucose (Fingerstick) 155 mg/dL (70-99) H Laboratory Tests 10/16/20 14:32 10/17/20 05:50 Laboratory Tests 10/16/20 14:32 10/17/20 05:50 ECHOCARDIOGRAM ECHOCARDIOGRAM <Conclusion> The left ventricular systolic function is normal and the ejection fraction is wi thin normal range. The Ejection Fraction is 55-60%. There is normal LV segmental wall motion. Myxomatous appearance of the mitral valve. DATE: 09/07/20 [id number] STRESS TEST STRESS TEST Conclusion 1. No EKG evidence of stress-induced ischemia. 2. Nuclear images show an area of reversible ischemia in the inferior lateral wall and a probable old infarct in the anterior wall. 3. Left ventricular systolic function is mildly decreased at 45%. 4. Moderate risk Lexiscan nuclear stress test. DATE: 11/25/14 1349 HEART CATH HEART CATH FINDINGS 1. Hemodynamics: Left ventricular end-diastolic pressure 17 mmHg. No pullback gradient across the aortic valve. 2. Left ventriculography: Severe hypokinesis of the base to mid anterolateral wall with ejection fraction estimated at 50-55%. No significant mitral regurgitation seen. 3. Coronary angiography: a. The left main coronary artery arose from the left sinus of Valsalva, gave rise to the left anterior descending and left circumflex arteries and did not show any significant stenosis. b. The left anterior descending artery did not show any significant stenosis. c. The left circumflex artery did not show any significant stenosis. d. The right coronary artery arose from the right sinus of Valsalva and did not show any significant stenosis. Conclusion 1. No significant coronary artery disease 2. Severe hypokinesis of the base to mid anterolateral wall with ejection fraction estimated at 50-55%. 3. No significant mitral regurgitation or aortic stenosis Recommendations Medical management DATE: 11/27/14 1357 ASSESSMENT/PLAN ASSESSMENT/PLAN 1. Acute respiratory failure with possible PNA 2. PSVT; presently ST 3. Hypertension; controlled 4. Chronic diastolic CHF; Recent echo with preserved LV systolic function. Cath 2014 without obstructive disease 5. Diabetes, II 6. OA; scheduled for knee replacement with Dr. Laird 11/06/20 Recommendations Add metoprolol for rate control TSH Lung optimization, treatment of PNA as per pulm Supportive care HERBER MARKS MD 10/18/20 0553: CARDIAC CONSULT ASSESSMENT/PLAN ASSESSMENT/PLAN Patient seen and examined 10/17/20. Agree with DEPUTY HEAD's assessment and plan. Tele with brief episodes of SVT/AT noted. Presently in SR Chr diastolic HF compensated Agree with starting metoprolol Continue management of pneumonia per pulm team Recent 2D echo showed normal LVF Cardiac cath from 2014 noted above Ortho planning TKA Nov 06 Thank you for your consultation ANSELMO LARKIN APRN Oct 17, 2020 11:22 HERBER MARKS MD Oct 18, 2020 05:53
[2020-10-17] MEDS: cefTRIAXone IV Push 1 GM VIAL. IVP SCH (11:50)
[2020-10-17] MEDS: METOPROLOL TART IMMED RELEASE 25 MG TABLET. PO SCH ×2 (14:56→20:48)
[2020-10-17] MEDS: LACTOBACILLUS RHAMNOSUS GG 1 CAPSULE. PO SCH (20:48)
[2020-10-18 03:00] VITALS: BP 138/81
[2020-10-18 07:00] VITALS: BP 150/82
[2020-10-18] MEDS: METOPROLOL TART IMMED RELEASE 25 MG TABLET. PO SCH ×2 (08:21→21:27)
[2020-10-18] MEDS: LACTOBACILLUS RHAMNOSUS GG 1 CAPSULE. PO SCH ×2 (08:21→21:27)
--- NOTE | 2020-10-18 08:29 | PDOC ---
PROGRESS NOTES Date of Service: DATE: 10/18/20 TIME: 08:29 Chief Complaint Chief Complaint Images: Images Chest CTA negative for PE CXR IMPRESSION: Unchanged mild left basilar opacities versus small left pleural effusion. Assessment/Plan Assessment/Plan Acute hypoxic hypercapnic respiratory distress requiring O2 supplementation Concern for CAP, possible gram-negative organism Mild hypercapnia Tachycardia leukopenia hypomagnesemia Admit to medicine for further management Cardiology consult for preoperative assessment and evaluation for her tachyarrhythmia Continue telemetry monitoring iv mg 2 GM 1-14 IV Pulmonology consult for respiratory distress Continue IV empiric antibiotics Pending TSH level o2 support Lovenox for DVT prophylaxis Protonix GI prophylaxis ADA diet Full code Discussed with RN and SW Disposition inpatient management as above Surrogate decision maker is the follow cbc, mg PT/OT INCENTIVE SPIROMETRY Justifications for Admission Other Justification History of Present Illness History of Present Illness Chief Complaint: Chief Complain: Hypoxia and rapid heart rate History of Present Illness: HPI: 65-year-old female who was sent here from outpatient surgery center for evaluation of rapid heart rate and hypoxia. Patient was admitted here on September 142019 due to suspected of COVID-19 pneumonia and hypoxia. Patient was treated in hospital with IV steroid and antibiotic and IV antiviral medication. Patient got better. Patient was seen by home service technician, diagnosed with COPD due to previous history of smoking. Patient is on albuterol nebs at home, she is not on oxygen at home. Patient denies any cough or fever. Patient is scheduled to have her right knee replaced on November [address] Laird. She was in outpatient surgery for routine testing today. Past Medical/Surgical History: PMH/PSH: Past Medical History: Anxiety, CHF, COPD, Hypertension, chronic low back pain, Past Surgical History: back surgery, neck surgery x2, Allergies: Allergies: Coded Allergies: gabapentin (Verified Allergy, Intermediate, Rash, 06/24/16) Takes pregabalin at home strawberry (Verified Allergy, Intermediate, 03/31/16) food allergy prednisone (Verified Adverse Reaction, Intermediate, 03/31/16) PAIN, HEADACHE, DECREASED APPETITE Family History: Family History: Reviewed and none reported Social History: Social History: Smoking Status: Former Smoker Alcohol Use: None Drug Use: None Vitals Vitals Vital Signs Date Time Temp Pulse Resp B/P (MAP) Pulse Ox O2 Delivery O2 Flow Rate FiO2 10/18/20 08:21 88 150/82 10/18/20 07:39 94 Room Air 10/18/20 07:00 99.8 18 1.0 99.8 Physical Exam Physical Exam Physcial Exam: GEN: No apparent distress. Alert and oriented HEENT: Normal cephalic, atraumatic, external auditory canals are patent EYES: Extraocular muscles are intact, pupil are equally round and reactive to light and accommodation MUSCULOSKELETAL: Well developed , well nourished, good range of motion ENDOCRINE: No thyromegaly was palpated LYMPHATICS: No cervical chain or axillary nodes were noted HEMATOPOIETIC: No bruising NECK: Supple, no JVD, no thyromegaly was noted LUNGS: Clear to auscultation in all lung dixon without rhonchi or wheezing HEART: RRR, S!, S2 present. Peripheral pulses intact, no obvious murmurs noted ABDOMEN: Soft, nontender. Positive bowel sounds, no organomegaly, normal bowel sounds EXTREMITIES: Without clubbing, cyanosis, or edema. Pedal pulses intact. Negative Homans sign NEUROLOGIC: Normal speech and tone. A&O x 3, moves all extremities, no obvious focal deficits PSYCHIATRIC: Normal affect, normal mood. Stable SKIN: No ulcerations or rashes, good skin turgor, no jaundice VASCULAR: Good capillary refill, neurovascular bundle appears to be intact General: Alert, Oriented X3, Cooperative, No acute distress Heart: Regular rate Lungs: Clear Abdomen: Soft, No tenderness Extremities: No edema, Normal pulses Skin: No significant lesion Labs LABS CTA scan of the Chest with Contrast (Pulmonary Embolism protocol) 10/16/2020 Clinical History: Hypoxia. Technique: After the intravenous administration of 100 cc of Omnipaque 350, contiguous, 0.625 mm axial sections were obtained through the chest. 2 mm axial and 3D MIP coronal and sagittal reconstructed images were obtained. One or more of the following individualized dose reduction techniques were utilized for this study: 1. Automated exposure control. 2. Adjustment of the mA and/or kV according to patient size. 3. Use of iterative reconstruction technique. Findings: No filling defect is seen within the major branches of either pulmonary artery. There is no CT evidence of pulmonary embolism. The heart is mildly enlarged. Atherosclerotic calcification of the thoracic aorta is seen. The thoracic aorta is tortuous but tapers normally. Calcified right hilar and mediastinal lymph nodes are seen. Dependent subsegmental atelectasis is seen involving both lungs. Mild bronchiectasis is seen. No leural effusion or pneumothorax is seen. Impression: There is no CT evidence of pulmonary embolism. Electronically signed by: Joaquim Ivey MD (10/16/2020 9:23 PM) [id number] DICTATED and SIGNED BY: JOAQUIM IVEY MD DATE: 10/16/[id number] 0 CTA scan of the Chest with Contrast (Pulmonary Embolism protocol) 10/16/2020 Clinical History: Hypoxia. Technique: After the intravenous administration of 100 cc of Omnipaque 350, contiguous, 0.625 mm axial sections were obtained through the chest. 2 mm axial and 3D MIP coronal and sagittal reconstructed images were obtained. One or more of the following individualized dose reduction techniques were utilized for this study: 1. Automated exposure control. 2. Adjustment of the mA and/or kV according to patient size. 3. Use of iterative reconstruction technique. Findings: No filling defect is seen within the major branches of either pulmonary artery. There is no CT evidence of pulmonary embolism. The heart is mildly enlarged. Atherosclerotic calcification of the thoracic aorta is seen. The thoracic aorta is tortuous but tapers normally. Calcified right hilar and mediastinal lymph nodes are seen. Dependent subsegmental atelectasis is seen involving both lungs. Mild bronchiectasis is seen. No leural effusion or pneumothorax is seen. Impression: There is no CT evidence of pulmonary embolism. Electronically signed by: Joaquim Ivey MD (10/16/2020 9:23 PM) [id number] DICTATED and SIGNED BY: JOAQUIM IVEY MD DATE: 10/16/[id number] 0 Laboratory Tests Test 10/17/20 11:49 10/17/20 16:53 10/17/20 21:29 10/18/20 07:30 Glucose (Fingerstick) 196 mg/dL (70-99) 115 mg/dL (70-99) 121 mg/dL (70-99) 132 mg/dL (70-99) Assessment and Plan Assessmemt and Plan Problems Medical Problems: (1) COPD exacerbation Status: Acute (2) Hypoxia Status: Acute Comment Review of Relevant I have reviewed the following items gisele (where applicable) has been applied. Labs Laboratory Tests Test 10/16/20 14:32 10/16/20 15:03 10/16/20 19:58 10/17/20 05:50 White Blood Count 3.8 x10^3/uL (4.0-11.0) 2.2 x10^3/uL (4.0-11.0) Red Blood Count 5.02 x10^6/uL (3.50-5.40) 4.80 x10^6/uL (3.50-5.40) Hemoglobin 15.4 g/dL (12.0-15.5) 14.6 g/dL (12.0-15.5) Hematocrit 45.7 % (36.0-47.0) 43.5 % (36.0-47.0) Mean Corpuscular Volume 91 fL (79-100) 91 fL (79-100) Mean Corpuscular Hemoglobin 31 pg (25-35) 30 pg (25-35) Mean Corpuscular Hemoglobin Concent 34 g/dL (31-37) 34 g/dL (31-37) Red Cell Distribution Width 14.5 % (11.5-14.5) 14.9 % (11.5-14.5) Platelet Count 312 x10^3/uL (140-400) 316 x10^3/uL (140-400) Neutrophils (%) (Auto) 71 % (31-73) 74 % (31-73) Lymphocytes (%) (Auto) 17 % (24-48) 21 % (24-48) Monocytes (%) (Auto) 9 % (0-9) 4 % (0-9) Eosinophils (%) (Auto) 3 % (0-3) 0 % (0-3) Basophils (%) (Auto) 1 % (0-3) 1 % (0-3) Neutrophils # (Auto) 2.7 x10^3/uL (1.8-7.7) 1.6 x10^3/uL (1.8-7.7) Lymphocytes # (Auto) 0.6 x10^3/uL (1.0-4.8) 0.5 x10^3/uL (1.0-4.8) Monocytes # (Auto) 0.3 x10^3/uL (0.0-1.1) 0.1 x10^3/uL (0.0-1.1) Eosinophils # (Auto) 0.1 x10^3/uL (0.0-0.7) 0.0 x10^3/uL (0.0-0.7) Basophils # (Auto) 0.0 x10^3/uL (0.0-0.2) 0.0 x10^3/uL (0.0-0.2) Sodium Level 140 mmol/L (136-145) 141 mmol/L (136-145) Potassium Level 4.4 mmol/L (3.5-5.1) 4.0 mmol/L (3.5-5.1) Chloride Level 103 mmol/L (98-107) 106 mmol/L (98-107) Carbon Dioxide Level 30 mmol/L (21-32) 27 mmol/L (21-32) Anion Gap 7 (6-14) 8 (6-14) Blood Urea Nitrogen 11 mg/dL (7-20) 8 mg/dL (7-20) Creatinine 0.7 mg/dL (0.6-1.0) 0.6 mg/dL (0.6-1.0) Estimated GFR (Cockcroft-Gault) 101.0 120.7 BUN/Creatinine Ratio 16 (6-20) Glucose Level 83 mg/dL (70-99) 146 mg/dL (70-99) Calcium Level 9.5 mg/dL (8.5-10.1) 8.7 mg/dL (8.5-10.1) Magnesium Level 1.6 mg/dL (1.8-2.4) Total Bilirubin 0.6 mg/dL (0.2-1.0) Aspartate Amino Transf (AST/SGOT) 23 U/L (15-37) Alanine Aminotransferase (ALT/SGPT) 14 U/L (14-59) Alkaline Phosphatase 61 U/L (46-116) Troponin I Quantitative < 0.017 ng/mL (0.000-0.055) Total Protein 7.9 g/dL (6.4-8.2) Albumin 3.9 g/dL (3.4-5.0) Albumin/Globulin Ratio 1.0 (1.0-1.7) O2 Saturation 96 % (92-99) Arterial Blood pH 7.36 (7.35-7.45) Arterial Blood pCO2 at Patient Temp 50 mmHg (35-46) Arterial Blood pO2 at Patient Temp 85 mmHg (65-108) Arterial Blood HCO3 28 mmol/L (21-28) Arterial Blood Base Excess 1 mmol/L (-3-3) FiO2 2l n.c. Urine Collection Type Unknown Urine Color Yellow Urine Clarity Clear Urine pH 6.0 (<5.0-8.0) Urine Specific [place] 1.010 (1.000-1.030) Urine Protein Negative mg/dL (NEG-TRACE) Urine Glucose (UA) Negative mg/dL (NEG) Urine Ketones (Stick) Trace mg/dL (NEG) Urine Blood Negative (NEG) Urine Nitrite Negative (NEG) Urine Bilirubin Negative (NEG) Urine Urobilinogen Dipstick 0.2 mg/dL (0.2 mg/dL) Urine Leukocyte Esterase Trace (NEG) Urine RBC 0 /HPF (0-2) Urine WBC 1-4 /HPF (0-4) Urine Squamous Epithelial Cells Mod /LPF Urine Bacteria Few /HPF (0-FEW) Urine Yeast Present /HPF Thyroid Stimulating Hormone (TSH) 0.303 uIU/mL (0.358-3.74) Test 10/17/20 07:48 10/17/20 11:49 10/17/20 16:53 10/17/20 21:29 Glucose (Fingerstick) 155 mg/dL (70-99) 196 mg/dL (70-99) 115 mg/dL (70-99) 121 mg/dL (70-99) Test 10/18/20 07:30 Glucose (Fingerstick) 132 mg/dL (70-99) Laboratory Tests Test 10/17/20 11:49 10/17/20 16:53 10/17/20 21:29 10/18/20 07:30 Glucose (Fingerstick) 196 mg/dL (70-99) 115 mg/dL (70-99) 121 mg/dL (70-99) 132 mg/dL (70-99) Microbiology 10/16/20 Urine Culture - Final, Complete Medications Current Medications Magnesium Sulfate 50 ml @ 25 mls/hr 1X ONCE IV Last administered on 10/16/20at 15:59; Start 10/16/20 at 15:30; Stop 10/16/20 at 17:29; Status DC Albuterol/ Ipratropium (Duoneb) 3 ml 1X ONCE NEB Last administered on 10/16/20at 15:47; Start 10/16/20 at 15:30; Stop 10/16/20 at 15:31; Status DC Sodium Chloride 1,000 ml @ 1,000 mls/hr 1X ONCE IV Last administered on 10/16/20at 17:45; Start 10/16/20 at 17:45; Stop 10/16/20 at 18:44; Status DC Dexamethasone Sodium Phosphate (Decadron) 4 mg 1X ONCE IVP Last administered on 10/16/20at 20:57; Start 10/16/20 at 18:45; Stop 10/16/20 at 18:46; Status DC Iohexol (Omnipaque 350 Mg/ml) 100 ml 1X ONCE IV Last administered on 10/16/20at 20:15; Start 10/16/20 at 20:15; Stop 10/16/20 at 20:16; Status DC Ondansetron HCl (Zofran) 4 mg PRN Q8HRS PRN IV NAUSEA/VOMITING; Start 10/16/20 at 22:15; Stop 10/17/20 at 22:14; Status DC Morphine Sulfate (Morphine Sulfate) 2 mg PRN Q2HR PRN IV PAIN Last administered on 10/17/20at 20:49; Start 10/16/20 at 22:15; Stop 10/17/20 at 22:14; Status DC Sodium Chloride 1,000 ml @ 75 mls/hr [id number] IV Last administered on 10/17/20at 10:33; Start 10/16/20 at 22:15; Stop 10/17/20 at 22:14; Status DC Acetaminophen (Tylenol) 650 mg PRN Q4HRS PRN PO FEVER > 100.3'F; Start 10/16/20 at 22:15; Stop 10/17/20 at 22:14; Status DC Albuterol/ Ipratropium (Duoneb) 3 ml RTQID NEB Last administered on 10/17/20at 20:22; Start 10/17/20 at 08:00; Stop 10/18/20 at 07:59; Status DC Ceftriaxone Sodium (Rocephin) 1 gm Q24H IVP Last administered on 10/17/20at 11:50; Start 10/17/20 at 10:00 Metoprolol Tartrate (Lopressor) 25 mg BID PO Last administered on 10/18/20at 08:21; Start 10/17/20 at 15:00 Lactobacillus Rhamnosus (Culturelle) 1 cap BID PO Last administered on 10/18/20at 08:21; Start 10/17/20 at 21:00 Active Scripts Active Proair Hfa (Albuterol Sulfate) 8.5 Gm Hfa.aer.ad 1 Puff INH PRN Q6HRS PRN 30 Days Nitrostat (Nitroglycerin) 0.4 Mg Tab.subl 0.4 Mg SL PRN Q5MIN PRN Reported Minoxidil 2.5 Mg Tablet 2.5 Mg PO DAILY Amlodipine Besylate 10 Mg Tablet 10 Mg PO DAILY Alprazolam 1 Mg Tablet 1 Tab PO TID Vitamin D2 (Ergocalciferol (Vitamin D2)) 1,250 Mcg Capsule 1,250 Mcg PO WEEKLY Metformin Hcl 500 Mg Tablet 500 Mg PO BIDWMEALS Albuterol Sulfate Neb Soln (Albuterol Sulfate) 1.25 Mg/3 Ml Vial.neb 1.25 Mg NEB PRN PRN Escitalopram Oxalate 10 Mg Tablet 1 Tab PO DAILY Cetirizine Hcl 10 Mg Tablet 5 Mg PO DAILY Oxycodone Hcl Immed.release (Oxycodone Hcl) 10 Mg Tablet 10 Mg PO PRN Q6HRS PRN Lyrica (Pregabalin) 75 Mg Capsule 1 Cap PO BID Trazodone Hcl 50 Mg Tablet 50 Mg PO HS Atorvastatin Calcium 40 Mg Tablet 20 Mg PO DAILY Tizanidine Hcl 4 Mg Capsule 4 Mg PO PRN Q8HRS PRN Vitals/I & O Vital Sign - Last 24 Hours 10/17/20 10/17/20 10/17/20 10/17/20 11:00 12:56 14:56 15:00 Temp 99.4 98.8 99.4 98.8 Pulse 117 117 111 Resp 18 18 B/P (MAP) 147/84 (105) 147/84 139/81 (100) Pulse Ox 92 96 91 O2 Delivery Room Air Nasal Cannula O2 Flow Rate 1.0 1.0 1/10/17/20 10/17/20 10/17/20 16:39 19:00 20:14 20:22 Temp 99.1 99.1 Pulse 95 Resp 18 B/P (MAP) 132/56 (81) Pulse Ox 96 90 92 O2 Delivery Room Air Nasal Cannula Nasal Cannula Room Air O2 Flow Rate 1.0 2.0 10/17/20 10/17/20 10/17/20 10/17/20 20:48 20:49 21:54 23:00 Temp 99.4 99.4 Pulse 95 92 Resp 16 B/P (MAP) 132/56 137/74 (95) Pulse Ox 90 O2 Delivery Nasal Cannula Nasal Cannula Nasal Cannula O2 Flow Rate 2.0 2.0 1.0 10/18/20 10/18/20 10/18/20 10/18/20 03:00 07:00 07:39 08:21 Temp 99.2 99.8 99.2 99.8 Pulse 93 88 88 Resp 16 18 B/P (MAP) 138/81 (100) 150/82 (104) 150/82 Pulse Ox 91 92 94 O2 Delivery Nasal Cannula Nasal Cannula Room Air O2 Flow Rate 1.0 1.0 Intake and Output 10/17/20 10/17/20 10/18/20 15:00 23:00 07:00 Intake Total 300 ml Output Total 0 ml Balance 0 ml 300 ml Justicifation of Admission Dx: Justifications for Admission: Justification of Admission Dx: Yes Respiratory Failure: Severe Resp Distress NERISSA VIZCAINO MD Oct 18, 2020 08:29
--- NOTE | 2020-10-18 08:30 | PDOC ---
PULMONARY PROGRESS NOTES DATE: 10/18/20 TIME: 08:29 Subjective Is resting comfortably on room air Afebrile No shortness of breath or cough Vitals Vital Signs Date Time Temp Pulse Resp B/P (MAP) Pulse Ox O2 Delivery O2 Flow Rate FiO2 10/18/20 08:21 88 150/82 10/18/20 07:39 94 Room Air 10/18/20 07:00 99.8 18 1.0 99.8 ROS: No Nausea, No Chest Pain, No Increase Cough General: Alert, Oriented X4 Lungs: Clear Cardiovascular: S1, S2 Abdomen: Soft, Non-tender Neuro Exam: Alert Extremities: No Edema Skin: Warm Labs Laboratory Tests Test 10/16/20 14:32 10/16/20 15:03 10/16/20 19:58 10/17/20 05:50 White Blood Count 3.8 x10^3/uL (4.0-11.0) 2.2 x10^3/uL (4.0-11.0) Red Blood Count 5.02 x10^6/uL (3.50-5.40) 4.80 x10^6/uL (3.50-5.40) Hemoglobin 15.4 g/dL (12.0-15.5) 14.6 g/dL (12.0-15.5) Hematocrit 45.7 % (36.0-47.0) 43.5 % (36.0-47.0) Mean Corpuscular Volume 91 fL (79-100) 91 fL (79-100) Mean Corpuscular Hemoglobin 31 pg (25-35) 30 pg (25-35) Mean Corpuscular Hemoglobin Concent 34 g/dL (31-37) 34 g/dL (31-37) Red Cell Distribution Width 14.5 % (11.5-14.5) 14.9 % (11.5-14.5) Platelet Count 312 x10^3/uL (140-400) 316 x10^3/uL (140-400) Neutrophils (%) (Auto) 71 % (31-73) 74 % (31-73) Lymphocytes (%) (Auto) 17 % (24-48) 21 % (24-48) Monocytes (%) (Auto) 9 % (0-9) 4 % (0-9) Eosinophils (%) (Auto) 3 % (0-3) 0 % (0-3) Basophils (%) (Auto) 1 % (0-3) 1 % (0-3) Neutrophils # (Auto) 2.7 x10^3/uL (1.8-7.7) 1.6 x10^3/uL (1.8-7.7) Lymphocytes # (Auto) 0.6 x10^3/uL (1.0-4.8) 0.5 x10^3/uL (1.0-4.8) Monocytes # (Auto) 0.3 x10^3/uL (0.0-1.1) 0.1 x10^3/uL (0.0-1.1) Eosinophils # (Auto) 0.1 x10^3/uL (0.0-0.7) 0.0 x10^3/uL (0.0-0.7) Basophils # (Auto) 0.0 x10^3/uL (0.0-0.2) 0.0 x10^3/uL (0.0-0.2) Sodium Level 140 mmol/L (136-145) 141 mmol/L (136-145) Potassium Level 4.4 mmol/L (3.5-5.1) 4.0 mmol/L (3.5-5.1) Chloride Level 103 mmol/L (98-107) 106 mmol/L (98-107) Carbon Dioxide Level 30 mmol/L (21-32) 27 mmol/L (21-32) Anion Gap 7 (6-14) 8 (6-14) Blood Urea Nitrogen 11 mg/dL (7-20) 8 mg/dL (7-20) Creatinine 0.7 mg/dL (0.6-1.0) 0.6 mg/dL (0.6-1.0) Estimated GFR (Cockcroft-Gault) 101.0 120.7 BUN/Creatinine Ratio 16 (6-20) Glucose Level 83 mg/dL (70-99) 146 mg/dL (70-99) Calcium Level 9.5 mg/dL (8.5-10.1) 8.7 mg/dL (8.5-10.1) Magnesium Level 1.6 mg/dL (1.8-2.4) Total Bilirubin 0.6 mg/dL (0.2-1.0) Aspartate Amino Transf (AST/SGOT) 23 U/L (15-37) Alanine Aminotransferase (ALT/SGPT) 14 U/L (14-59) Alkaline Phosphatase 61 U/L (46-116) Troponin I Quantitative < 0.017 ng/mL (0.000-0.055) Total Protein 7.9 g/dL (6.4-8.2) Albumin 3.9 g/dL (3.4-5.0) Albumin/Globulin Ratio 1.0 (1.0-1.7) O2 Saturation 96 % (92-99) Arterial Blood pH 7.36 (7.35-7.45) Arterial Blood pCO2 at Patient Temp 50 mmHg (35-46) Arterial Blood pO2 at Patient Temp 85 mmHg (65-108) Arterial Blood HCO3 28 mmol/L (21-28) Arterial Blood Base Excess 1 mmol/L (-3-3) FiO2 2l n.c. Urine Collection Type Unknown Urine Color Yellow Urine Clarity Clear Urine pH 6.0 (<5.0-8.0) Urine Specific [place] 1.010 (1.000-1.030) Urine Protein Negative mg/dL (NEG-TRACE) Urine Glucose (UA) Negative mg/dL (NEG) Urine Ketones (Stick) Trace mg/dL (NEG) Urine Blood Negative (NEG) Urine Nitrite Negative (NEG) Urine Bilirubin Negative (NEG) Urine Urobilinogen Dipstick 0.2 mg/dL (0.2 mg/dL) Urine Leukocyte Esterase Trace (NEG) Urine RBC 0 /HPF (0-2) Urine WBC 1-4 /HPF (0-4) Urine Squamous Epithelial Cells Mod /LPF Urine Bacteria Few /HPF (0-FEW) Urine Yeast Present /HPF Thyroid Stimulating Hormone (TSH) 0.303 uIU/mL (0.358-3.74) Test 10/17/20 07:48 10/17/20 11:49 10/17/20 16:53 10/17/20 21:29 Glucose (Fingerstick) 155 mg/dL (70-99) 196 mg/dL (70-99) 115 mg/dL (70-99) 121 mg/dL (70-99) Test 10/18/20 07:30 Glucose (Fingerstick) 132 mg/dL (70-99) Laboratory Tests Test 10/17/20 11:49 10/17/20 16:53 10/17/20 21:29 10/18/20 07:30 Glucose (Fingerstick) 196 mg/dL (70-99) 115 mg/dL (70-99) 121 mg/dL (70-99) 132 mg/dL (70-99) Medications Active Scripts Medications Dose Route/Sig Max Daily Dose Days Date Category Minoxidil 2.5 Mg Tablet 2.5 Mg PO DAILY 10/17/20 Reported Amlodipine Besylate 10 Mg Tablet 10 Mg PO DAILY 10/17/20 Reported Alprazolam 1 Mg Tablet 1 Tab PO TID 10/17/20 Reported Proair Hfa (Albuterol Sulfate) 8.5 Gm Hfa.aer.ad 1 Puff INH PRN Q6HRS PRN 30 10/16/20 Rx Vitamin D2 (Ergocalciferol (Vitamin D2)) 1,250 Mcg Capsule 1,250 Mcg PO WEEKLY 09/15/20 Reported Metformin Hcl 500 Mg Tablet 500 Mg PO BIDWMEALS 08/23/20 Reported Albuterol Sulfate Neb Soln (Albuterol Sulfate) 1.25 Mg/3 Ml Vial.neb 1.25 Mg NEB PRN PRN 05/03/20 Reported Escitalopram Oxalate 10 Mg Tablet 1 Tab PO DAILY 05/03/20 Reported Cetirizine Hcl 10 Mg Tablet 5 Mg PO DAILY 05/03/20 Reported Oxycodone Hcl Immed.release (Oxycodone Hcl) 10 Mg Tablet 10 Mg PO PRN Q6HRS PRN 07/15/18 Reported Lyrica (Pregabalin) 75 Mg Capsule 1 Cap PO BID 07/15/18 Reported Trazodone Hcl 50 Mg Tablet 50 Mg PO HS 06/15/18 Reported Atorvastatin Calcium 40 Mg Tablet 20 Mg PO DAILY 04/09/17 Reported Nitrostat (Nitroglycerin) 0.4 Mg Tab.subl 0.4 Mg SL PRN Q5MIN PRN 11/29/14 Rx Tizanidine Hcl 4 Mg Capsule 4 Mg PO PRN Q8HRS PRN 12/02/13 Reported Comments CXR IMPRESSION: Unchanged mild left basilar opacities versus small left pleural effusion. Impression . IMPRESSION: 1. Acute hypoxic respiratory failure secondary to likely clinical pneumonia. 2. Compensated respiratory acidosis/underlying chronic obstructive pulmonary disease. 3. Abnormal CT chest with minimal patchy infiltrate in right upper lobe and left lower lobe. No evidence of pulmonary embolism. Plan . RECOMMENDATIONS: Patient is stable from a respiratory standpoint, remains on room air Continue Rocephin for antibiotic coverage Continue bronchodilators All cardiology recommendations Hypertension per cardiology/PCP DVT/GI prophylaxis Physical therapy Discussed with RN Disposition: Could discharge in the next 24 to 48 hours TIFFANY SILVA MD Oct 18, 2020 08:30
[2020-10-18] MEDS: cefTRIAXone IV Push 1 GM VIAL. IVP SCH (09:45)
[2020-10-18] MEDS: HYDROcodone/APAP 5/325MG 1 TAB TABLET PO PRN ×2 (09:45→21:28)
[2020-10-18 11:00] VITALS: BP 151/91
--- NOTE | 2020-10-18 11:22 | NUR ---
SW following. Discussed with RN, pt from home with family, room air, regular diet. Cardiology and pulmonology following. RN advised no SW needs at this time. SW will continue to follow.
--- NOTE | 2020-10-18 11:53 | PDOC ---
ANSELMO LARKIN NET DEVELOPER ARCHITECT 10/18/20 1152: CARDIO Progress Notes Date and Time Date of Service 10/18/20 Time of Evaluation 1140 Subjective Subjective: No Chest Pain, No shortness of breath, Other (breathing improved ) Vitals Vitals Vital Signs Date Time Temp Pulse Resp B/P (MAP) Pulse Ox O2 Delivery O2 Flow Rate FiO2 10/18/20 11:39 Room Air 10/18/20 11:00 98.5 94 18 151/91 (111) 90 98.5 10/18/20 07:00 1.0 Weight Weight [ ] Input and Output Intake and Output Intake and Output 10/18/20 07:00 Intake Total 300 ml Output Total 0 ml Balance 300 ml Intake Oral 300 ml Output Urine Total 0 ml Stool Total 0 ml # Voids 4 Laboratory Labs Laboratory Tests Test 10/17/20 11:49 10/17/20 16:53 10/17/20 21:29 10/18/20 07:30 Glucose (Fingerstick) 196 mg/dL (70-99) 115 mg/dL (70-99) 121 mg/dL (70-99) 132 mg/dL (70-99) Test 10/18/20 10:48 Glucose (Fingerstick) 132 mg/dL (70-99) Microbiology Micro Microbiology 10/16/20 Urine Culture - Final, Complete Physical Exam HEENT: Neck Supple W Full Motion Chest: Symmetric LUNGS: Other (diminished bases) Heart: RRR Abdomen: Soft N/T Extremities: No Edema Neurology: alert, oriented, follow commands Assessment Assessment 1. Acute respiratory failure with possible PNA 2. H/o PSVT; tele with very brief bursts of AFIB, AT; presently SR 3. Hypertension; controlled 4. Chronic diastolic CHF; Recent echo with preserved LV systolic function. Cath 2014 without obstructive disease. clinically compensated 5. Diabetes, II 6. OA; ortho planned TKA November 06 Recommendations Continue metoprolol for rate control ASA therapy Lung optimization, treatment of PNA as per pulm Supportive care Okay to proceed with TKA from a CV standpoint. Consider outpatient event monitor to guide therapy. Follow up with Dr. Hernandez as scheduled. Justicifation of Admission Dx: Justifications for Admission: Justification of Admission Dx: Yes Respiratory Failure: Severe Resp Distress HERBER HERNANDEZ MD 10/18/20 1720: CARDIO Progress Notes Assessment Assessment Patient seen and examined. Agree with HEAD PORTER's assessment and plan. Tele with brief episodes of SVT/AT. Presently in SR Chr diastolic HF compensated Continue beta-blockers. Continue management of pneumonia per pulm team Recent 2D echo showed normal LVF Cardiac cath from 2014 did not show any significant coronary disease. Ortho planning TKA Nov 06 Will consider event monitor as an outpatient. ANSELMO LARKIN APRN Oct 18, 2020 11:52 HERBER HERNANDEZ MD Oct 18, 2020 17:20
[2020-10-18] MEDS ORDERED: MAGNESIUM SULFATE 2GM 50 ML IV ONE (12:00)
[2020-10-18 12:22] LABS: BASO % 0 % (0-3); EOS % 0 % (0-3); HEMATOCRIT 45.2 % (36.0-47.0); HEMOGLOBIN 15.5 g/dL (12.0-15.5); LYMPH # 0.4 x10^3/uL (1.0-4.8); LYMPH % 6 % (24-48); MEAN CORPUSCULAR HEMOGLOBIN 31 pg (25-35); MEAN CORPUSCULAR HGB CONC 34 g/dL (31-37); MEAN CORPUSCULAR VOLUME 89 fL (79-100); MONO # 0.4 x10^3/uL (0.0-1.1); MONO % 6 % (0-9); NEUT # 6.4 x10^3/uL (1.8-7.7); NEUT % 88 % (31-73); PLATELET COUNT 330 x10^3/uL (140-400); RED BLOOD COUNT 5.07 x10^6/uL (3.50-5.40); RED CELL DISTRIBUTION WIDTH 14.8 % (11.5-14.5); WHITE BLOOD COUNT 7.3 x10^3/uL (4.0-11.0)
[2020-10-18 12:47] LABS: CALCIUM 8.8 mg/dL (8.5-10.1); CREATININE 0.7 mg/dL (0.6-1.0); POTASSIUM 3.3 mmol/L (3.5-5.1)
[2020-10-18 13:30] LABS: % LYMPHS 4 % (24-48); % MONOS 6 % (0-10); % SEGS 90 % (35-66); PLT ESTIMATE ADEQUATE (ADEQUATE)
[2020-10-18 15:00] VITALS: BP 156/90
[2020-10-18] MEDS: IPRATRPIUM/ALBUTEROL 0.5/2.5MG 3 ML NEBU. NEB SCH ×3 (16:00→19:18)
[2020-10-18 19:00] VITALS: BP 149/91
[2020-10-18 23:00] VITALS: BP 144/84
[2020-10-19] VITALS (7 sets, daily range): BP systolic 139–166; BP diastolic 78–96
[2020-10-19] MEDS: IPRATRPIUM/ALBUTEROL 0.5/2.5MG 3 ML NEBU. NEB SCH ×2 (07:59→11:54)
[2020-10-19 08:35] LABS: BASO % 0 % (0-3); EOS % 0 % (0-3); HEMATOCRIT 46.8 % (36.0-47.0); LYMPH # 0.6 x10^3/uL (1.0-4.8); LYMPH % 8 % (24-48); MEAN CORPUSCULAR HEMOGLOBIN 30 pg (25-35); MEAN CORPUSCULAR HGB CONC 34 g/dL (31-37); MEAN CORPUSCULAR VOLUME 88 fL (79-100); MONO # 0.7 x10^3/uL (0.0-1.1); MONO % 9 % (0-9); NEUT # 6.5 x10^3/uL (1.8-7.7); NEUT % 83 % (31-73); PLATELET COUNT 330 x10^3/uL (140-400); RED CELL DISTRIBUTION WIDTH 14.7 % (11.5-14.5); WHITE BLOOD COUNT 7.8 x10^3/uL (4.0-11.0)
--- NOTE | 2020-10-19 08:46 | PDOC ---
PULMONARY PROGRESS NOTES DATE: 10/19/20 TIME: 08:46 Subjective Is resting comfortably on room air Fever overnight No shortness of breath or cough Vitals Vital Signs Date Time Temp Pulse Resp B/P (MAP) Pulse Ox O2 Delivery O2 Flow Rate FiO2 10/19/20 08:01 97 Room Air 10/19/20 07:00 99.8 95 18 166/91 (116) 2.0 99.8 ROS: No Nausea, No Chest Pain, No Increase Cough General: Alert, Oriented X4 Lungs: Clear Cardiovascular: S1, S2 Abdomen: Soft, Non-tender Neuro Exam: Alert Extremities: No Edema Skin: Warm Labs Laboratory Tests Test 10/17/20 11:49 10/17/20 16:53 10/17/20 21:29 10/18/20 07:30 Glucose (Fingerstick) 196 mg/dL (70-99) 115 mg/dL (70-99) 121 mg/dL (70-99) 132 mg/dL (70-99) Test 10/18/20 10:48 10/18/20 11:35 10/18/20 17:08 10/18/20 21:31 Glucose (Fingerstick) 132 mg/dL (70-99) 145 mg/dL (70-99) 131 mg/dL (70-99) White Blood Count 7.3 x10^3/uL (4.0-11.0) Red Blood Count 5.07 x10^6/uL (3.50-5.40) Hemoglobin 15.5 g/dL (12.0-15.5) Hematocrit 45.2 % (36.0-47.0) Mean Corpuscular Volume 89 fL (79-100) Mean Corpuscular Hemoglobin 31 pg (25-35) Mean Corpuscular Hemoglobin Concent 34 g/dL (31-37) Red Cell Distribution Width 14.8 % (11.5-14.5) Platelet Count 330 x10^3/uL (140-400) Neutrophils (%) (Auto) 88 % (31-73) Lymphocytes (%) (Auto) 6 % (24-48) Monocytes (%) (Auto) 6 % (0-9) Eosinophils (%) (Auto) 0 % (0-3) Basophils (%) (Auto) 0 % (0-3) Neutrophils # (Auto) 6.4 x10^3/uL (1.8-7.7) Lymphocytes # (Auto) 0.4 x10^3/uL (1.0-4.8) Monocytes # (Auto) 0.4 x10^3/uL (0.0-1.1) Eosinophils # (Auto) 0.0 x10^3/uL (0.0-0.7) Basophils # (Auto) 0.0 x10^3/uL (0.0-0.2) Segmented Neutrophils % 90 % (35-66) Lymphocytes % 4 % (24-48) Monocytes % 6 % (0-10) Platelet Estimate Adequate (ADEQUATE) Sodium Level 141 mmol/L (136-145) Potassium Level 3.3 mmol/L (3.5-5.1) Chloride Level 104 mmol/L (98-107) Carbon Dioxide Level 26 mmol/L (21-32) Anion Gap 11 (6-14) Blood Urea Nitrogen 5 mg/dL (7-20) Creatinine 0.7 mg/dL (0.6-1.0) Estimated GFR (Cockcroft-Gault) 101.0 Glucose Level 117 mg/dL (70-99) Calcium Level 8.8 mg/dL (8.5-10.1) Magnesium Level 1.5 mg/dL (1.8-2.4) Test 10/19/20 07:37 10/19/20 07:39 White Blood Count 7.8 x10^3/uL (4.0-11.0) Red Blood Count 5.30 x10^6/uL (3.50-5.40) Hemoglobin 16.0 g/dL (12.0-15.5) Hematocrit 46.8 % (36.0-47.0) Mean Corpuscular Volume 88 fL (79-100) Mean Corpuscular Hemoglobin 30 pg (25-35) Mean Corpuscular Hemoglobin Concent 34 g/dL (31-37) Red Cell Distribution Width 14.7 % (11.5-14.5) Platelet Count 330 x10^3/uL (140-400) Neutrophils (%) (Auto) 83 % (31-73) Lymphocytes (%) (Auto) 8 % (24-48) Monocytes (%) (Auto) 9 % (0-9) Eosinophils (%) (Auto) 0 % (0-3) Basophils (%) (Auto) 0 % (0-3) Neutrophils # (Auto) 6.5 x10^3/uL (1.8-7.7) Lymphocytes # (Auto) 0.6 x10^3/uL (1.0-4.8) Monocytes # (Auto) 0.7 x10^3/uL (0.0-1.1) Eosinophils # (Auto) 0.0 x10^3/uL (0.0-0.7) Basophils # (Auto) 0.0 x10^3/uL (0.0-0.2) Glucose (Fingerstick) 128 mg/dL (70-99) Laboratory Tests Test 10/18/20 10:48 10/18/20 11:35 10/18/20 17:08 10/18/20 21:31 Glucose (Fingerstick) 132 mg/dL (70-99) 145 mg/dL (70-99) 131 mg/dL (70-99) White Blood Count 7.3 x10^3/uL (4.0-11.0) Red Blood Count 5.07 x10^6/uL (3.50-5.40) Hemoglobin 15.5 g/dL (12.0-15.5) Hematocrit 45.2 % (36.0-47.0) Mean Corpuscular Volume 89 fL (79-100) Mean Corpuscular Hemoglobin 31 pg (25-35) Mean Corpuscular Hemoglobin Concent 34 g/dL (31-37) Red Cell Distribution Width 14.8 % (11.5-14.5) Platelet Count 330 x10^3/uL (140-400) Neutrophils (%) (Auto) 88 % (31-73) Lymphocytes (%) (Auto) 6 % (24-48) Monocytes (%) (Auto) 6 % (0-9) Eosinophils (%) (Auto) 0 % (0-3) Basophils (%) (Auto) 0 % (0-3) Neutrophils # (Auto) 6.4 x10^3/uL (1.8-7.7) Lymphocytes # (Auto) 0.4 x10^3/uL (1.0-4.8) Monocytes # (Auto) 0.4 x10^3/uL (0.0-1.1) Eosinophils # (Auto) 0.0 x10^3/uL (0.0-0.7) Basophils # (Auto) 0.0 x10^3/uL (0.0-0.2) Segmented Neutrophils % 90 % (35-66) Lymphocytes % 4 % (24-48) Monocytes % 6 % (0-10) Platelet Estimate Adequate (ADEQUATE) Sodium Level 141 mmol/L (136-145) Potassium Level 3.3 mmol/L (3.5-5.1) Chloride Level 104 mmol/L (98-107) Carbon Dioxide Level 26 mmol/L (21-32) Anion Gap 11 (6-14) Blood Urea Nitrogen 5 mg/dL (7-20) Creatinine 0.7 mg/dL (0.6-1.0) Estimated GFR (Cockcroft-Gault) 101.0 Glucose Level 117 mg/dL (70-99) Calcium Level 8.8 mg/dL (8.5-10.1) Magnesium Level 1.5 mg/dL (1.8-2.4) Test 10/19/20 07:37 10/19/20 07:39 White Blood Count 7.8 x10^3/uL (4.0-11.0) Red Blood Count 5.30 x10^6/uL (3.50-5.40) Hemoglobin 16.0 g/dL (12.0-15.5) Hematocrit 46.8 % (36.0-47.0) Mean Corpuscular Volume 88 fL (79-100) Mean Corpuscular Hemoglobin 30 pg (25-35) Mean Corpuscular Hemoglobin Concent 34 g/dL (31-37) Red Cell Distribution Width 14.7 % (11.5-14.5) Platelet Count 330 x10^3/uL (140-400) Neutrophils (%) (Auto) 83 % (31-73) Lymphocytes (%) (Auto) 8 % (24-48) Monocytes (%) (Auto) 9 % (0-9) Eosinophils (%) (Auto) 0 % (0-3) Basophils (%) (Auto) 0 % (0-3) Neutrophils # (Auto) 6.5 x10^3/uL (1.8-7.7) Lymphocytes # (Auto) 0.6 x10^3/uL (1.0-4.8) Monocytes # (Auto) 0.7 x10^3/uL (0.0-1.1) Eosinophils # (Auto) 0.0 x10^3/uL (0.0-0.7) Basophils # (Auto) 0.0 x10^3/uL (0.0-0.2) Glucose (Fingerstick) 128 mg/dL (70-99) Medications Active Scripts Medications Dose Route/Sig Max Daily Dose Days Date Category Minoxidil 2.5 Mg Tablet 2.5 Mg PO DAILY 10/17/20 Reported Amlodipine Besylate 10 Mg Tablet 10 Mg PO DAILY 10/17/20 Reported Alprazolam 1 Mg Tablet 1 Tab PO TID 10/17/20 Reported Proair Hfa (Albuterol Sulfate) 8.5 Gm Hfa.aer.ad 1 Puff INH PRN Q6HRS PRN 30 10/16/20 Rx Vitamin D2 (Ergocalciferol (Vitamin D2)) 1,250 Mcg Capsule 1,250 Mcg PO WEEKLY 09/15/20 Reported Metformin Hcl 500 Mg Tablet 500 Mg PO BIDWMEALS 08/23/20 Reported Albuterol Sulfate Neb Soln (Albuterol Sulfate) 1.25 Mg/3 Ml Vial.neb 1.25 Mg NEB PRN PRN 05/03/20 Reported Escitalopram Oxalate 10 Mg Tablet 1 Tab PO DAILY 05/03/20 Reported Cetirizine Hcl 10 Mg Tablet 5 Mg PO DAILY 05/03/20 Reported Oxycodone Hcl Immed.release (Oxycodone Hcl) 10 Mg Tablet 10 Mg PO PRN Q6HRS PRN 07/15/18 Reported Lyrica (Pregabalin) 75 Mg Capsule 1 Cap PO BID 07/15/18 Reported Trazodone Hcl 50 Mg Tablet 50 Mg PO HS 06/15/18 Reported Atorvastatin Calcium 40 Mg Tablet 20 Mg PO DAILY 04/09/17 Reported Nitrostat (Nitroglycerin) 0.4 Mg Tab.subl 0.4 Mg SL PRN Q5MIN PRN 11/29/14 Rx Tizanidine Hcl 4 Mg Capsule 4 Mg PO PRN Q8HRS PRN 12/02/13 Reported Comments CXR Impression: 1. No acute cardiopulmonary process. Impression . IMPRESSION: 1. Acute hypoxic respiratory failure secondary to likely clinical pneumonia. 2. Compensated respiratory acidosis/underlying chronic obstructive pulmonary disease. 3. Abnormal CT chest with minimal patchy infiltrate in right upper lobe and left lower lobe. No evidence of pulmonary embolism. Plan . RECOMMENDATIONS: Patient is stable from a respiratory standpoint, remains on room air DC Rocephin, start Augmentin, complete full course Continue bronchodilators All cardiology recommendations Hypertension per cardiology/PCP DVT/GI prophylaxis Physical therapy Discussed with RN Disposition: Could discharge in the next 24 to 48 hours TIFFANY SILVA MD Oct 19, 2020 08:46
[2020-10-19 08:50] LABS: ALBUMIN 3.5 g/dL (3.4-5.0); CALCIUM 8.7 mg/dL (8.5-10.1); CREATININE 0.5 mg/dL (0.6-1.0); GFR 148.9; POTASSIUM 3.4 mmol/L (3.5-5.1); TOTAL BILIRUBIN 0.5 mg/dL (0.2-1.0)
[2020-10-19] MEDS: METOPROLOL TART IMMED RELEASE 25 MG TABLET. PO SCH ×2 (09:10→20:42)
[2020-10-19] MEDS: LACTOBACILLUS RHAMNOSUS GG 1 CAPSULE. PO SCH ×2 (09:10→20:42)
[2020-10-19] MEDS: ASPIRIN ENTERIC COATED 81 MG TABLET.DR. PO SCH (09:11)
--- NOTE | 2020-10-19 09:49 | NUR ---
GERARDO following. Discussed with RN, pt from home with family, room air, regular diet. Cardiology and pulmonology signed off. Pt not feeling great today, fever, chills, cough - pt being transferred to [address] [place] [address] for COVID PUI. Selam CARRILLO will follow. GERARDO will continue to follow.
--- NOTE | 2020-10-19 10:40 | RAD ---
Single AP view of the chest. Comparison: 10/16/2020. Indication: Dyspnea Findings: Cervical fusion hardware is reidentified. The heart is enlarged but stable. There is no pneumothorax or effusion. No air space or interstitial disease. Impression: 1. No acute cardiopulmonary process. Electronically signed by: Gustavo Vasquez MD (10/19/2020 10:37 AM) [id number]
[2020-10-19] MEDS: cefTRIAXone IV Push 1 GM VIAL. IVP SCH (10:57)
[2020-10-19] MEDS ORDERED: ACETAMINOPHEN 325 MG TABLET. PO PRN (11:00)
--- NOTE | 2020-10-19 14:47 | PDOC ---
[facility] PROGRESS NOTE Date of Service DOS: DATE: 10/19/20 TIME: 14:45 Chief Complaint Chief Complaint Images: Images Chest CTA negative for PE CXR IMPRESSION: Unchanged mild left basilar opacities versus small left pleural effusion. Assessment/Plan Assessment/Plan Investigation for COVID-19 infection Acute hypoxic hypercapnic respiratory distress requiring O2 supplementation Concern for CAP, possible gram-negative organism Mild hypercapnia Tachycardia leukopenia hypomagnesemia Admit to medicine for further management Cardiology consult for preoperative assessment and evaluation for her tachyarrhythmia Continue telemetry monitoring iv mg 2 GM 1-14 IV Pulmonology consult for respiratory distress Continue IV empiric antibiotics Pending TSH level o2 support Lovenox for DVT prophylaxis Protonix GI prophylaxis ADA diet Full code Discussed with RN and SW Disposition inpatient management as above Surrogate decision maker is the follow cbc, mg PT/OT INCENTIVE SPIROMETRY Justifications for Admission Other Justification History of Present Illness History of Present Illness 10/19/2020 No acute events overnight. Patient is saturating well on room air. Fever of 100.5 this morning. Patient had malaise and a cough. We will swab the patient for COVID-19 infection. Chest x-ray is unremarkable. Patient's chart, labs, images were reviewed and discussed with RN Chief Complaint: Chief Complain: Hypoxia and rapid heart rate History of Present Illness: HPI: 65-year-old female who was sent here from outpatient surgery center for evaluation of rapid heart rate and hypoxia. Patient was admitted here on September 142019 due to suspected of COVID-19 pneumonia and hypoxia. Patient was treated in hospital with IV steroid and antibiotic and IV antiviral medication. Patient got better. 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 Patient is on albuterol nebs at home, she is not on oxygen at home. Patient denies any cough or fever. Patient is scheduled to have her right knee replaced on November [address] Laird. She was in outpatient surgery for routine testing today. Past Medical/Surgical History: PMH/PSH: Past Medical History: Anxiety, CHF, COPD, Hypertension, chronic low back pain, Past Surgical History: back surgery, neck surgery x2, Allergies: Allergies: Coded Allergies: gabapentin (Verified Allergy, Intermediate, Rash, 06/24/16) Takes pregabalin at home strawberry (Verified Allergy, Intermediate, 03/31/16) food allergy prednisone (Verified Adverse Reaction, Intermediate, 03/31/16) PAIN, HEADACHE, DECREASED APPETITE Family History: Family History: Reviewed and none reported Social History: Social History: Smoking Status: Former Smoker Alcohol Use: None Drug Use: None Vitals/I&O Vitals/I&O: Vital Signs Date Time Temp Pulse Resp B/P (MAP) Pulse Ox O2 Delivery O2 Flow Rate FiO2 10/19/20 13:34 100.2 84 139/78 (98) Room Air 93.0 100.2 10/19/20 09:13 24 10/19/20 08:01 97 I & O 10/18/20 10/18/20 10/19/20 15:00 23:00 07:00 Intake Total 1040 ml 400 ml 200 ml Balance 1040 ml 400 ml 200 ml Physical Exam Physical Exam: Physcial Exam: GEN: No apparent distress. Alert and oriented HEENT: Normal cephalic, atraumatic, external auditory canals are patent EYES: Extraocular muscles are intact, pupil are equally round and reactive to light and accommodation MUSCULOSKELETAL: Well developed , well nourished, good range of motion ENDOCRINE: No thyromegaly was palpated LYMPHATICS: No cervical chain or axillary nodes were noted HEMATOPOIETIC: No bruising NECK: Supple, no JVD, no thyromegaly was noted LUNGS: Clear to auscultation in all lung dixon without rhonchi or wheezing HEART: RRR, S!, S2 present. Peripheral pulses intact, no obvious murmurs noted ABDOMEN: Soft, nontender. Positive bowel sounds, no organomegaly, normal bowel sounds EXTREMITIES: Without clubbing, cyanosis, or edema. Pedal pulses intact. Negative Homans sign NEUROLOGIC: Normal speech and tone. A&O x 3, moves all extremities, no obvious focal deficits PSYCHIATRIC: Normal affect, normal mood. Stable SKIN: No ulcerations or rashes, good skin turgor, no jaundice VASCULAR: Good capillary refill, neurovascular bundle appears to be intact General: Alert, Oriented X3, Cooperative, No acute distress Heart: Regular rate Lungs: Clear Abdomen: Soft, No tenderness Extremities: No edema, Normal pulses Skin: No significant lesion Labs Labs: Laboratory Tests Test 10/18/20 17:08 10/18/20 21:31 10/19/20 07:37 10/19/20 07:39 Glucose (Fingerstick) 145 mg/dL (70-99) 131 mg/dL (70-99) 128 mg/dL (70-99) White Blood Count 7.8 x10^3/uL (4.0-11.0) Red Blood Count 5.30 x10^6/uL (3.50-5.40) Hemoglobin 16.0 g/dL (12.0-15.5) Hematocrit 46.8 % (36.0-47.0) Mean Corpuscular Volume 88 fL (79-100) Mean Corpuscular Hemoglobin 30 pg (25-35) Mean Corpuscular Hemoglobin Concent 34 g/dL (31-37) Red Cell Distribution Width 14.7 % (11.5-14.5) Platelet Count 330 x10^3/uL (140-400) Neutrophils (%) (Auto) 83 % (31-73) Lymphocytes (%) (Auto) 8 % (24-48) Monocytes (%) (Auto) 9 % (0-9) Eosinophils (%) (Auto) 0 % (0-3) Basophils (%) (Auto) 0 % (0-3) Neutrophils # (Auto) 6.5 x10^3/uL (1.8-7.7) Lymphocytes # (Auto) 0.6 x10^3/uL (1.0-4.8) Monocytes # (Auto) 0.7 x10^3/uL (0.0-1.1) Eosinophils # (Auto) 0.0 x10^3/uL (0.0-0.7) Basophils # (Auto) 0.0 x10^3/uL (0.0-0.2) Sodium Level 137 mmol/L (136-145) Potassium Level 3.4 mmol/L (3.5-5.1) Chloride Level 101 mmol/L (98-107) Carbon Dioxide Level 26 mmol/L (21-32) Anion Gap 10 (6-14) Blood Urea Nitrogen 7 mg/dL (7-20) Creatinine 0.5 mg/dL (0.6-1.0) Estimated GFR (Cockcroft-Gault) 148.9 BUN/Creatinine Ratio 14 (6-20) Glucose Level 101 mg/dL (70-99) Calcium Level 8.7 mg/dL (8.5-10.1) Magnesium Level 2.1 mg/dL (1.8-2.4) Total Bilirubin 0.5 mg/dL (0.2-1.0) Aspartate Amino Transf (AST/SGOT) 26 U/L (15-37) Alanine Aminotransferase (ALT/SGPT) 23 U/L (14-59) Alkaline Phosphatase 63 U/L (46-116) Total Protein 7.0 g/dL (6.4-8.2) Albumin 3.5 g/dL (3.4-5.0) Albumin/Globulin Ratio 1.0 (1.0-1.7) Test 10/19/20 13:19 Glucose (Fingerstick) 113 mg/dL (70-99) Assessment and Plan Assessmemt and Plan Problems Medical Problems: (1) COPD exacerbation Status: Acute (2) Hypoxia Status: Acute Comment Review of Relevant I have reviewed the following items gisele (where applicable) has been applied. Medications: Current Medications Medications (Trade) Dose Ordered Sig/Dequan Route PRN Reason Start Time Stop Time Status Last Admin Dose Admin Aspirin (Ecotrin) 81 mg [id number] PO 10/19/20 08:00 10/19/20 09:11 Acetaminophen (Tylenol) 650 mg PRN Q6HRS PRN PO MILD PAIN / TEMP > 100.3'F 10/19/20 11:00 10/19/20 10:57 Justifications for Admission Other Justification SADA HAYS MD Oct 19, 2020 14:47
[2020-10-19] MEDS ORDERED: POTASSIUM CHLORIDE 10 MEQ TABLET.ER. PO ONE (15:00)
[2020-10-19] MEDS: IPRATROPIUM/ALBUTEROL 20/100mcg/INH INHALER. INH SCH ×2 (16:00→20:00)
[2020-10-19] MEDS: AMOXICILLIN/K CLAV 875/125MG TABLET. PO SCH (20:42)
[2020-10-19] MEDS: HYDROcodone/APAP 5/325MG 1 TAB TABLET PO PRN (20:43)
[2020-10-20 03:57] VITALS: BP 158/81
[2020-10-20 07:00] VITALS: BP 158/90
--- NOTE | 2020-10-20 08:41 | PDOC ---
PULMONARY PROGRESS NOTES DATE: 10/20/20 TIME: 08:40 Subjective feels better, sob better, has occ cough Vitals Vital Signs Date Time Temp Pulse Resp B/P (MAP) Pulse Ox O2 Delivery O2 Flow Rate FiO2 10/20/20 03:57 99.2 79 20 158/81 (106) 96 Nasal Cannula 2.0 99.2 Comments alert no distress NC AT RRR no accessory muscle use General: Alert, Oriented X4 Extremities: No Edema Skin: No Rashes Labs Laboratory Tests Test 10/18/20 10:48 10/18/20 11:35 10/18/20 17:08 10/18/20 21:31 Glucose (Fingerstick) 132 mg/dL (70-99) 145 mg/dL (70-99) 131 mg/dL (70-99) White Blood Count 7.3 x10^3/uL (4.0-11.0) Red Blood Count 5.07 x10^6/uL (3.50-5.40) Hemoglobin 15.5 g/dL (12.0-15.5) Hematocrit 45.2 % (36.0-47.0) Mean Corpuscular Volume 89 fL (79-100) Mean Corpuscular Hemoglobin 31 pg (25-35) Mean Corpuscular Hemoglobin Concent 34 g/dL (31-37) Red Cell Distribution Width 14.8 % (11.5-14.5) Platelet Count 330 x10^3/uL (140-400) Neutrophils (%) (Auto) 88 % (31-73) Lymphocytes (%) (Auto) 6 % (24-48) Monocytes (%) (Auto) 6 % (0-9) Eosinophils (%) (Auto) 0 % (0-3) Basophils (%) (Auto) 0 % (0-3) Neutrophils # (Auto) 6.4 x10^3/uL (1.8-7.7) Lymphocytes # (Auto) 0.4 x10^3/uL (1.0-4.8) Monocytes # (Auto) 0.4 x10^3/uL (0.0-1.1) Eosinophils # (Auto) 0.0 x10^3/uL (0.0-0.7) Basophils # (Auto) 0.0 x10^3/uL (0.0-0.2) Segmented Neutrophils % 90 % (35-66) Lymphocytes % 4 % (24-48) Monocytes % 6 % (0-10) Platelet Estimate Adequate (ADEQUATE) Sodium Level 141 mmol/L (136-145) Potassium Level 3.3 mmol/L (3.5-5.1) Chloride Level 104 mmol/L (98-107) Carbon Dioxide Level 26 mmol/L (21-32) Anion Gap 11 (6-14) Blood Urea Nitrogen 5 mg/dL (7-20) Creatinine 0.7 mg/dL (0.6-1.0) Estimated GFR (Cockcroft-Gault) 101.0 Glucose Level 117 mg/dL (70-99) Calcium Level 8.8 mg/dL (8.5-10.1) Magnesium Level 1.5 mg/dL (1.8-2.4) Test 10/19/20 07:37 10/19/20 07:39 10/19/20 13:19 10/19/20 20:09 White Blood Count 7.8 x10^3/uL (4.0-11.0) Red Blood Count 5.30 x10^6/uL (3.50-5.40) Hemoglobin 16.0 g/dL (12.0-15.5) Hematocrit 46.8 % (36.0-47.0) Mean Corpuscular Volume 88 fL (79-100) Mean Corpuscular Hemoglobin 30 pg (25-35) Mean Corpuscular Hemoglobin Concent 34 g/dL (31-37) Red Cell Distribution Width 14.7 % (11.5-14.5) Platelet Count 330 x10^3/uL (140-400) Neutrophils (%) (Auto) 83 % (31-73) Lymphocytes (%) (Auto) 8 % (24-48) Monocytes (%) (Auto) 9 % (0-9) Eosinophils (%) (Auto) 0 % (0-3) Basophils (%) (Auto) 0 % (0-3) Neutrophils # (Auto) 6.5 x10^3/uL (1.8-7.7) Lymphocytes # (Auto) 0.6 x10^3/uL (1.0-4.8) Monocytes # (Auto) 0.7 x10^3/uL (0.0-1.1) Eosinophils # (Auto) 0.0 x10^3/uL (0.0-0.7) Basophils # (Auto) 0.0 x10^3/uL (0.0-0.2) Sodium Level 137 mmol/L (136-145) Potassium Level 3.4 mmol/L (3.5-5.1) Chloride Level 101 mmol/L (98-107) Carbon Dioxide Level 26 mmol/L (21-32) Anion Gap 10 (6-14) Blood Urea Nitrogen 7 mg/dL (7-20) Creatinine 0.5 mg/dL (0.6-1.0) Estimated GFR (Cockcroft-Gault) 148.9 BUN/Creatinine Ratio 14 (6-20) Glucose Level 101 mg/dL (70-99) Calcium Level 8.7 mg/dL (8.5-10.1) Magnesium Level 2.1 mg/dL (1.8-2.4) Total Bilirubin 0.5 mg/dL (0.2-1.0) Aspartate Amino Transf (AST/SGOT) 26 U/L (15-37) Alanine Aminotransferase (ALT/SGPT) 23 U/L (14-59) Alkaline Phosphatase 63 U/L (46-116) Total Protein 7.0 g/dL (6.4-8.2) Albumin 3.5 g/dL (3.4-5.0) Albumin/Globulin Ratio 1.0 (1.0-1.7) Glucose (Fingerstick) 128 mg/dL (70-99) 113 mg/dL (70-99) 109 mg/dL (70-99) Laboratory Tests Test 10/19/20 13:19 10/19/20 20:09 Glucose (Fingerstick) 113 mg/dL (70-99) 109 mg/dL (70-99) Medications Active Scripts Medications Dose Route/Sig Max Daily Dose Days Date Category Minoxidil 2.5 Mg Tablet 2.5 Mg PO DAILY 10/17/20 Reported Amlodipine Besylate 10 Mg Tablet 10 Mg PO DAILY 10/17/20 Reported Alprazolam 1 Mg Tablet 1 Tab PO TID 10/17/20 Reported Proair Hfa (Albuterol Sulfate) 8.5 Gm Hfa.aer.ad 1 Puff INH PRN Q6HRS PRN 30 1/12/21 Rx Vitamin D2 (Ergocalciferol (Vitamin D2)) 1,250 Mcg Capsule 1,250 Mcg PO WEEKLY 09/15/20 Reported Metformin Hcl 500 Mg Tablet 500 Mg PO BIDWMEALS 08/23/20 Reported Albuterol Sulfate Neb Soln (Albuterol Sulfate) 1.25 Mg/3 Ml Vial.neb 1.25 Mg NEB PRN PRN 05/03/20 Reported Escitalopram Oxalate 10 Mg Tablet 1 Tab PO DAILY 05/03/20 Reported Cetirizine Hcl 10 Mg Tablet 5 Mg PO DAILY 05/03/20 Reported Oxycodone Hcl Immed.release (Oxycodone Hcl) 10 Mg Tablet 10 Mg PO PRN Q6HRS PRN 07/15/18 Reported Lyrica (Pregabalin) 75 Mg Capsule 1 Cap PO BID 07/15/18 Reported Trazodone Hcl 50 Mg Tablet 50 Mg PO HS 06/15/18 Reported Atorvastatin Calcium 40 Mg Tablet 20 Mg PO DAILY 04/09/17 Reported Nitrostat (Nitroglycerin) 0.4 Mg Tab.subl 0.4 Mg SL PRN Q5MIN PRN 11/29/14 Rx Tizanidine Hcl 4 Mg Capsule 4 Mg PO PRN Q8HRS PRN 12/02/13 Reported Comments CXR Impression: 1. No acute cardiopulmonary process. Impression . IMPRESSION: 1. Acute hypoxic respiratory failure secondary to likely clinical pneumonia. 2. Compensated respiratory acidosis/underlying chronic obstructive pulmonary disease. 3. Abnormal CT chest with minimal patchy infiltrate in right upper lobe and left lower lobe. No evidence of pulmonary embolism. Plan . RECOMMENDATIONS: 02 titration to keep sat 90% Augmentin, complete full course Continue bronchodilators All cardiology recommendations Hypertension per cardiology/PCP DVT/GI prophylaxis Physical therapy Discussed with ABRAM GUERRERO MD Oct 20, 2020 08:41
[2020-10-20] MEDS: IPRATROPIUM/ALBUTEROL 20/100mcg/INH INHALER. INH SCH ×4 (10:24→21:18)
[2020-10-20] MEDS: AMOXICILLIN/K CLAV 875/125MG TABLET. PO SCH ×2 (10:24→21:18)
[2020-10-20] MEDS: LACTOBACILLUS RHAMNOSUS GG 1 CAPSULE. PO SCH ×2 (10:24→21:18)
[2020-10-20] MEDS: ASPIRIN ENTERIC COATED 81 MG TABLET.DR. PO SCH (10:24)
[2020-10-20] MEDS: METOPROLOL TART IMMED RELEASE 25 MG TABLET. PO SCH ×2 (10:25→21:19)
--- NOTE | 2020-10-20 10:31 | PDOC ---
PROGRESS NOTES Date of Service: DATE: 10/20/20 TIME: 10:30 Chief Complaint Chief Complaint Images: Images Chest CTA negative for PE CXR IMPRESSION: Unchanged mild left basilar opacities versus small left pleural effusion. Assessment/Plan Assessment/Plan Investigation for COVID-19 infection Acute hypoxic hypercapnic respiratory distress requiring O2 supplementation Concern for CAP, possible gram-negative organism Mild hypercapnia Tachycardia leukopenia hypomagnesemia DC Rocephin, start Augmentin, complete full course plan Admit to medicine for further management Cardiology consult for preoperative assessment and evaluation for her tachyarrhythmia Continue telemetry monitoring iv mg 2 GM 1-14 IV Pulmonology consult for respiratory distress Continue IV empiric antibiotics Pending TSH level o2 support Lovenox for DVT prophylaxis Protonix GI prophylaxis ADA diet Full code Discussed with RN and SW Disposition inpatient management as above Surrogate decision maker is the follow cbc, mg PT/OT INCENTIVE SPIROMETRY 02 titration to keep sat 90% Augmentin, complete full course Continue bronchodilators All cardiology recommendations Hypertension per cardiology/ Justifications for Admission Other Justification History of Present Illness History of Present Illness 10/20/2020 No acute events overnight. Patient is saturating well on room air. Fever of 100.5 this morning. Patient had malaise and a cough. We will swab the patient for COVID-19 infection. Chest x-ray is unremarkable. Patient's chart, labs, images were reviewed and discussed with RN bp meds adjusted Chief Complaint: Chief Complain: Hypoxia and rapid heart rate History of Present Illness: HPI: 65-year-old female who was sent here from outpatient surgery center for evaluation of rapid heart rate and hypoxia. Patient was admitted here on September 142019 due to suspected of COVID-19 pneumonia and hypoxia. Patient was treated in hospital with IV steroid and antibiotic and IV antiviral medication. Patient got better. 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 Patient is on albuterol nebs at home, she is not on oxygen at home. Patient denies any cough or fever. Patient is scheduled to have her right knee replaced on November [address] Laird. She was in outpatient surgery for routine testing today. Past Medical/Surgical History: PMH/PSH: Past Medical History: Anxiety, CHF, COPD, Hypertension, chronic low back pain, Past Surgical History: back surgery, neck surgery x2, Allergies: Allergies: Coded Allergies: gabapentin (Verified Allergy, Intermediate, Rash, 06/24/16) Takes pregabalin at home strawberry (Verified Allergy, Intermediate, 03/31/16) food allergy prednisone (Verified Adverse Reaction, Intermediate, 03/31/16) PAIN, HEADACHE, DECREASED APPETITE Family History: Family History: Reviewed and none reported Social History: Social History: Smoking Status: Former Smoker Alcohol Use: None Drug Use: None Vitals Vitals Vital Signs Date Time Temp Pulse Resp B/P (MAP) Pulse Ox O2 Delivery O2 Flow Rate FiO2 10/20/20 10:25 88 158/90 10/20/20 07:00 99.5 20 97 Nasal Cannula 2.0 99.5 Physical Exam Physical Exam Physcial Exam: GEN: No apparent distress. Alert and oriented HEENT: Normal cephalic, atraumatic, external auditory canals are patent EYES: Extraocular muscles are intact, pupil are equally round and reactive to light and accommodation MUSCULOSKELETAL: Well developed , well nourished, good range of motion ENDOCRINE: No thyromegaly was palpated LYMPHATICS: No cervical chain or axillary nodes were noted HEMATOPOIETIC: No bruising NECK: Supple, no JVD, no thyromegaly was noted LUNGS: Clear to auscultation in all lung dixon without rhonchi or wheezing HEART: RRR, S!, S2 present. Peripheral pulses intact, no obvious murmurs noted ABDOMEN: Soft, nontender. Positive bowel sounds, no organomegaly, normal bowel sounds EXTREMITIES: Without clubbing, cyanosis, or edema. Pedal pulses intact. Negative Homans sign NEUROLOGIC: Normal speech and tone. A&O x 3, moves all extremities, no obvious focal deficits PSYCHIATRIC: Normal affect, normal mood. Stable SKIN: No ulcerations or rashes, good skin turgor, no jaundice VASCULAR: Good capillary refill, neurovascular bundle appears to be intact General: Alert, Oriented X3, Cooperative, No acute distress Heart: Regular rate, Normal S1, Normal S2 Lungs: Clear Abdomen: Soft, No tenderness Extremities: No cyanosis, No edema, Normal pulses Skin: No significant lesion Labs LABS Laboratory Tests Test 10/19/20 13:19 10/19/20 20:09 10/20/20 07:51 Glucose (Fingerstick) 113 mg/dL (70-99) 109 mg/dL (70-99) 100 mg/dL (70-99) Assessment and Plan Assessmemt and Plan Problems Medical Problems: (1) COPD exacerbation Status: Acute (2) Hypoxia Status: Acute Comment Review of Relevant I have reviewed the following items gisele (where applicable) has been applied. Labs Laboratory Tests Test 10/18/20 10:48 10/18/20 11:35 10/18/20 17:08 10/18/20 21:31 Glucose (Fingerstick) 132 mg/dL (70-99) 145 mg/dL (70-99) 131 mg/dL (70-99) White Blood Count 7.3 x10^3/uL (4.0-11.0) Red Blood Count 5.07 x10^6/uL (3.50-5.40) Hemoglobin 15.5 g/dL (12.0-15.5) Hematocrit 45.2 % (36.0-47.0) Mean Corpuscular Volume 89 fL (79-100) Mean Corpuscular Hemoglobin 31 pg (25-35) Mean Corpuscular Hemoglobin Concent 34 g/dL (31-37) Red Cell Distribution Width 14.8 % (11.5-14.5) Platelet Count 330 x10^3/uL (140-400) Neutrophils (%) (Auto) 88 % (31-73) Lymphocytes (%) (Auto) 6 % (24-48) Monocytes (%) (Auto) 6 % (0-9) Eosinophils (%) (Auto) 0 % (0-3) Basophils (%) (Auto) 0 % (0-3) Neutrophils # (Auto) 6.4 x10^3/uL (1.8-7.7) Lymphocytes # (Auto) 0.4 x10^3/uL (1.0-4.8) Monocytes # (Auto) 0.4 x10^3/uL (0.0-1.1) Eosinophils # (Auto) 0.0 x10^3/uL (0.0-0.7) Basophils # (Auto) 0.0 x10^3/uL (0.0-0.2) Segmented Neutrophils % 90 % (35-66) Lymphocytes % 4 % (24-48) Monocytes % 6 % (0-10) Platelet Estimate Adequate (ADEQUATE) Sodium Level 141 mmol/L (136-145) Potassium Level 3.3 mmol/L (3.5-5.1) Chloride Level 104 mmol/L (98-107) Carbon Dioxide Level 26 mmol/L (21-32) Anion Gap 11 (6-14) Blood Urea Nitrogen 5 mg/dL (7-20) Creatinine 0.7 mg/dL (0.6-1.0) Estimated GFR (Cockcroft-Gault) 101.0 Glucose Level 117 mg/dL (70-99) Calcium Level 8.8 mg/dL (8.5-10.1) Magnesium Level 1.5 mg/dL (1.8-2.4) Test 10/19/20 07:37 10/19/20 07:39 10/19/20 13:19 10/19/20 20:09 White Blood Count 7.8 x10^3/uL (4.0-11.0) Red Blood Count 5.30 x10^6/uL (3.50-5.40) Hemoglobin 16.0 g/dL (12.0-15.5) Hematocrit 46.8 % (36.0-47.0) Mean Corpuscular Volume 88 fL (79-100) Mean Corpuscular Hemoglobin 30 pg (25-35) Mean Corpuscular Hemoglobin Concent 34 g/dL (31-37) Red Cell Distribution Width 14.7 % (11.5-14.5) Platelet Count 330 x10^3/uL (140-400) Neutrophils (%) (Auto) 83 % (31-73) Lymphocytes (%) (Auto) 8 % (24-48) Monocytes (%) (Auto) 9 % (0-9) Eosinophils (%) (Auto) 0 % (0-3) Basophils (%) (Auto) 0 % (0-3) Neutrophils # (Auto) 6.5 x10^3/uL (1.8-7.7) Lymphocytes # (Auto) 0.6 x10^3/uL (1.0-4.8) Monocytes # (Auto) 0.7 x10^3/uL (0.0-1.1) Eosinophils # (Auto) 0.0 x10^3/uL (0.0-0.7) Basophils # (Auto) 0.0 x10^3/uL (0.0-0.2) Sodium Level 137 mmol/L (136-145) Potassium Level 3.4 mmol/L (3.5-5.1) Chloride Level 101 mmol/L (98-107) Carbon Dioxide Level 26 mmol/L (21-32) Anion Gap 10 (6-14) Blood Urea Nitrogen 7 mg/dL (7-20) Creatinine 0.5 mg/dL (0.6-1.0) Estimated GFR (Cockcroft-Gault) 148.9 BUN/Creatinine Ratio 14 (6-20) Glucose Level 101 mg/dL (70-99) Calcium Level 8.7 mg/dL (8.5-10.1) Magnesium Level 2.1 mg/dL (1.8-2.4) Total Bilirubin 0.5 mg/dL (0.2-1.0) Aspartate Amino Transf (AST/SGOT) 26 U/L (15-37) Alanine Aminotransferase (ALT/SGPT) 23 U/L (14-59) Alkaline Phosphatase 63 U/L (46-116) Total Protein 7.0 g/dL (6.4-8.2) Albumin 3.5 g/dL (3.4-5.0) Albumin/Globulin Ratio 1.0 (1.0-1.7) Glucose (Fingerstick) 128 mg/dL (70-99) 113 mg/dL (70-99) 109 mg/dL (70-99) Test 10/20/20 07:51 Glucose (Fingerstick) 100 mg/dL (70-99) Laboratory Tests Test 10/19/20 13:19 10/19/20 20:09 10/20/20 07:51 Glucose (Fingerstick) 113 mg/dL (70-99) 109 mg/dL (70-99) 100 mg/dL (70-99) Microbiology 10/16/20 Urine Culture - Final, Complete Medications Current Medications Magnesium Sulfate 50 ml @ 25 mls/hr 1X ONCE IV Last administered on 10/16/20at 15:59; Start 10/16/20 at 15:30; Stop 10/16/20 at 17:29; Status DC Albuterol/ Ipratropium (Duoneb) 3 ml 1X ONCE NEB Last administered on 10/05 11/25at 15:47; Start 10/16/20 at 15:30; Stop 10/16/20 at 15:31; Status DC Sodium Chloride 1,000 ml @ 1,000 mls/hr 1X ONCE IV Last administered on 10/16/20at 17:45; Start 10/16/20 at 17:45; Stop 10/16/20 at 18:44; Status DC Dexamethasone Sodium Phosphate (Decadron) 4 mg 1X ONCE IVP Last administered on 10/16/20at 20:57; Start 10/16/20 at 18:45; Stop 10/16/20 at 18:46; Status DC Iohexol (Omnipaque 350 Mg/ml) 100 ml 1X ONCE IV Last administered on 10/16/20at 20:15; Start 10/16/20 at 20:15; Stop 10/16/20 at 20:16; Status DC Ondansetron HCl (Zofran) 4 mg PRN Q8HRS PRN IV NAUSEA/VOMITING; Start 10/16/20 at 22:15; Stop 10/17/20 at 22:14; Status DC Morphine Sulfate (Morphine Sulfate) 2 mg PRN Q2HR PRN IV PAIN Last administered on 10/17/20at 20:49; Start 10/16/20 at 22:15; Stop 10/17/20 at 22:14; Status DC Sodium Chloride 1,000 ml @ 75 mls/hr [id number] IV Last administered on 10/17/20at 10:33; Start 10/16/20 at 22:15; Stop 10/17/20 at 22:14; Status DC Acetaminophen (Tylenol) 650 mg PRN Q4HRS PRN PO FEVER > 100.3'F; Start 10/16/20 at 22:15; Stop 10/17/20 at 22:14; Status DC Albuterol/ Ipratropium (Duoneb) 3 ml RTQID NEB Last administered on 10/17/20at 20:22; Start 10/17/20 at 08:00; Stop 10/18/20 at 07:59; Status DC Ceftriaxone Sodium (Rocephin) 1 gm Q24H IVP Last administered on 10/19/20at 10:57; Start 10/17/20 at 10:00; Stop 10/19/20 at 11:02; Status DC Metoprolol Tartrate (Lopressor) 25 mg BID PO Last administered on 10/20/20at 10:25; Start 10/17/20 at 15:00 Lactobacillus Rhamnosus (Culturelle) 1 cap BID PO Last administered on 10/20/20at 10:24; Start 10/17/20 at 21:00 Acetaminophen/ Hydrocodone Bitart (Lortab 5/325) 1 tab PRN Q6HRS PRN PO MODERATE TO SEVERE PAIN Last administered on 10/19/20at 20:43; Start 10/18/20 at 09:00 Magnesium Sulfate 50 ml @ 25 mls/hr 1X ONCE IV Last administered on 10/18/20at 11:47; Start 10/18/20 at 12:00; Stop 10/18/20 at 13:59; Status DC Albuterol/ Ipratropium (Duoneb) 3 ml RTQID NEB Last administered on 10/19/20at 07:59; Start 10/18/20 at 12:00; Stop 10/19/20 at 13:44; Status DC Aspirin (Ecotrin) 81 mg [id number] PO Last administered on 10/20/20at 10:24; Start 10/19/20 at 08:00 Acetaminophen (Tylenol) 650 mg PRN Q6HRS PRN PO MILD PAIN / TEMP > 100.3'F Last administered on 10/19/20at 10:57; Start 10/19/20 at 11:00 Amoxicillin/ Clavulanate Potassium (Augmentin 875/ 125mg) 1 tab BID PO Last administered on 10/20/20at 10:24; Start 10/19/20 at 21:00; Stop 10/24/20 at 20:59 Albuterol/ Ipratropium (Combivent Respimat 20-100 Mcg) 1 puff RTQID INH Last administered on 10/20/20at 10:24; Start 10/19/20 at 16:00 Potassium Chloride (Klor-Con) 30 meq 1X ONCE PO Last administered on 10/19/20at 15:22; Start 10/19/20 at 15:00; Stop 10/19/20 at 15:01; Status DC Active Scripts Active Proair Hfa (Albuterol Sulfate) 8.5 Gm Hfa.aer.ad 1 Puff INH PRN Q6HRS PRN 30 Days Nitrostat (Nitroglycerin) 0.4 Mg Tab.subl 0.4 Mg SL PRN Q5MIN PRN Reported Minoxidil 2.5 Mg Tablet 2.5 Mg PO DAILY Amlodipine Besylate 10 Mg Tablet 10 Mg PO DAILY Alprazolam 1 Mg Tablet 1 Tab PO TID Vitamin D2 (Ergocalciferol (Vitamin D2)) 1,250 Mcg Capsule 1,250 Mcg PO WEEKLY Metformin Hcl 500 Mg Tablet 500 Mg PO BIDWMEALS Albuterol Sulfate Neb Soln (Albuterol Sulfate) 1.25 Mg/3 Ml Vial.neb 1.25 Mg NEB PRN PRN Escitalopram Oxalate 10 Mg Tablet 1 Tab PO DAILY Cetirizine Hcl 10 Mg Tablet 5 Mg PO DAILY Oxycodone Hcl Immed.release (Oxycodone Hcl) 10 Mg Tablet 10 Mg PO PRN Q6HRS PRN Lyrica (Pregabalin) 75 Mg Capsule 1 Cap PO BID Trazodone Hcl 50 Mg Tablet 50 Mg PO HS Atorvastatin Calcium 40 Mg Tablet 20 Mg PO DAILY Tizanidine Hcl 4 Mg Capsule 4 Mg PO PRN Q8HRS PRN Vitals/I & O Vital Sign - Last 24 Hours 10/19/20 10/19/20 10/19/20 10/19/20 13:34 15:00 19:00 20:00 Temp 100.2 100.0 100.0 100.2 100.0 100.0 Pulse 84 88 106 Resp 17 26 B/P (MAP) 139/78 (98) 152/86 (108) 156/96 (116) Pulse Ox 92 92 O2 Delivery Room Air Room Air Room Air Room Air O2 Flow Rate 93.0 10/19/20 10/19/20 10/19/20 10/20/20 20:42 20:43 23:02 03:57 Temp 99.2 99.2 99.2 99.2 Pulse 106 79 79 Resp 14 20 B/P (MAP) 156/96 143/87 (105) 158/81 (106) Pulse Ox 92 96 O2 Delivery Room Air Room Air Nasal Cannula O2 Flow Rate 2.0 10/20/20 10/20/20 07:00 10:25 Temp 99.5 99.5 Pulse 88 88 Resp 20 B/P (MAP) 158/90 (112) 158/90 Pulse Ox 97 O2 Delivery Nasal Cannula O2 Flow Rate 2.0 Intake and Output 10/19/20 10/19/20 10/20/20 15:00 23:00 07:00 Intake Total 120 ml 120 ml Balance 120 ml 120 ml Justicifation of Admission Dx: Justifications for Admission: Justification of Admission Dx: Yes Respiratory Failure: Severe Resp Distress NERISSA VIZCAINO MD Oct 20, 2020 10:31
[2020-10-20] MEDS: HYDROcodone/APAP 5/325MG 1 TAB TABLET PO PRN ×2 (10:38→18:19)
[2020-10-20 11:12] VITALS: BP 149/87
[2020-10-20 14:59] VITALS: BP 151/77
[2020-10-20 17:31] LABS: BASE EXCESS COOX -1 mmol/L (-3-3); HCO3 COOX 22 mmol/L (21-28); METHEMOGLOBIN 0.4 % (0.0-1.9); OXYHEMOGLOBIN 92.6 %; PCO2 COOX 34 mmHg (35-46); PO2 COOX 63 mmHg (65-108); SAT O2 COOX 93 % (92-99)
[2020-10-20 19:00] VITALS: BP 149/83
[2020-10-20 23:00] VITALS: BP 157/83
[2020-10-21 03:00] VITALS: BP 150/86
[2020-10-21] MEDS: HYDROcodone/APAP 5/325MG 1 TAB TABLET PO PRN ×2 (04:40→20:11)
[2020-10-21 04:44] LABS: BASO % 1 % (0-3); EOS % 0 % (0-3); HEMATOCRIT 47.3 % (36.0-47.0); HEMOGLOBIN 16.3 g/dL (12.0-15.5); LYMPH # 0.8 x10^3/uL (1.0-4.8); LYMPH % 15 % (24-48); MEAN CORPUSCULAR HEMOGLOBIN 31 pg (25-35); MEAN CORPUSCULAR HGB CONC 34 g/dL (31-37); MEAN CORPUSCULAR VOLUME 89 fL (79-100); MONO # 0.7 x10^3/uL (0.0-1.1); MONO % 13 % (0-9); NEUT # 3.6 x10^3/uL (1.8-7.7); NEUT % 71 % (31-73); PLATELET COUNT 306 x10^3/uL (140-400); RED BLOOD COUNT 5.35 x10^6/uL (3.50-5.40); RED CELL DISTRIBUTION WIDTH 14.5 % (11.5-14.5); WHITE BLOOD COUNT 5.1 x10^3/uL (4.0-11.0)
[2020-10-21 05:02] LABS: CALCIUM 8.9 mg/dL (8.5-10.1); CREATININE 0.8 mg/dL (0.6-1.0); GFR 86.6; POTASSIUM 3.4 mmol/L (3.5-5.1)
[2020-10-21 07:00] VITALS: BP 158/80
--- NOTE | 2020-10-21 07:59 | PDOC ---
PULMONARY PROGRESS NOTES DATE: 10/21/20 TIME: 07:59 Subjective feels better, sob better, has occ cough on 02 2 lpm at night Vitals Vital Signs Date Time Temp Pulse Resp B/P (MAP) Pulse Ox O2 Delivery O2 Flow Rate FiO2 10/21/20 05:44 18 94 Room Air 2.0 10/21/20 03:00 98.6 68 150/86 (107) 98.6 Comments alert no distress NC AT RRR no accessory muscle use General: Alert, Oriented X4 Extremities: No Edema Skin: No Rashes Labs Laboratory Tests Test 10/19/20 11:00 10/19/20 13:19 10/19/20 20:09 10/20/20 07:51 Coronavirus (PCR) Detected (Not Detected) Glucose (Fingerstick) 113 mg/dL (70-99) 109 mg/dL (70-99) 100 mg/dL (70-99) Test 10/20/20 10:32 10/20/20 16:01 10/20/20 16:32 10/20/20 20:12 Glucose (Fingerstick) 117 mg/dL (70-99) 104 mg/dL (70-99) 134 mg/dL (70-99) O2 Saturation 93 % (92-99) Arterial Blood pH 7.43 (7.35-7.45) Arterial Blood pCO2 at Patient Temp 34 mmHg (35-46) Arterial Blood pO2 at Patient Temp 63 mmHg (65-108) Arterial Blood HCO3 22 mmol/L (21-28) Arterial Blood Base Excess -1 mmol/L (-3-3) Oxyhemoglobin 92.6 % Methemoglobin 0.4 % (0.0-1.9) Carbon Monoxide, Quantitative 0.1 % (0.0-1.9) FiO2 21% Test 10/21/20 04:00 White Blood Count 5.1 x10^3/uL (4.0-11.0) Red Blood Count 5.35 x10^6/uL (3.50-5.40) Hemoglobin 16.3 g/dL (12.0-15.5) Hematocrit 47.3 % (36.0-47.0) Mean Corpuscular Volume 89 fL (79-100) Mean Corpuscular Hemoglobin 31 pg (25-35) Mean Corpuscular Hemoglobin Concent 34 g/dL (31-37) Red Cell Distribution Width 14.5 % (11.5-14.5) Platelet Count 306 x10^3/uL (140-400) Neutrophils (%) (Auto) 71 % (31-73) Lymphocytes (%) (Auto) 15 % (24-48) Monocytes (%) (Auto) 13 % (0-9) Eosinophils (%) (Auto) 0 % (0-3) Basophils (%) (Auto) 1 % (0-3) Neutrophils # (Auto) 3.6 x10^3/uL (1.8-7.7) Lymphocytes # (Auto) 0.8 x10^3/uL (1.0-4.8) Monocytes # (Auto) 0.7 x10^3/uL (0.0-1.1) Eosinophils # (Auto) 0.0 x10^3/uL (0.0-0.7) Basophils # (Auto) 0.0 x10^3/uL (0.0-0.2) Sodium Level 137 mmol/L (136-145) Potassium Level 3.4 mmol/L (3.5-5.1) Chloride Level 100 mmol/L (98-107) Carbon Dioxide Level 26 mmol/L (21-32) Anion Gap 11 (6-14) Blood Urea Nitrogen 13 mg/dL (7-20) Creatinine 0.8 mg/dL (0.6-1.0) Estimated GFR (Cockcroft-Gault) 86.6 Glucose Level 100 mg/dL (70-99) Calcium Level 8.9 mg/dL (8.5-10.1) Laboratory Tests Test 10/20/20 10:32 10/20/20 16:01 10/20/20 16:32 10/20/20 20:12 Glucose (Fingerstick) 117 mg/dL (70-99) 104 mg/dL (70-99) 134 mg/dL (70-99) O2 Saturation 93 % (92-99) Arterial Blood pH 7.43 (7.35-7.45) Arterial Blood pCO2 at Patient Temp 34 mmHg (35-46) Arterial Blood pO2 at Patient Temp 63 mmHg (65-108) Arterial Blood HCO3 22 mmol/L (21-28) Arterial Blood Base Excess -1 mmol/L (-3-3) Oxyhemoglobin 92.6 % Methemoglobin 0.4 % (0.0-1.9) Carbon Monoxide, Quantitative 0.1 % (0.0-1.9) FiO2 21% Test 10/21/20 04:00 White Blood Count 5.1 x10^3/uL (4.0-11.0) Red Blood Count 5.35 x10^6/uL (3.50-5.40) Hemoglobin 16.3 g/dL (12.0-15.5) Hematocrit 47.3 % (36.0-47.0) Mean Corpuscular Volume 89 fL (79-100) Mean Corpuscular Hemoglobin 31 pg (25-35) Mean Corpuscular Hemoglobin Concent 34 g/dL (31-37) Red Cell Distribution Width 14.5 % (11.5-14.5) Platelet Count 306 x10^3/uL (140-400) Neutrophils (%) (Auto) 71 % (31-73) Lymphocytes (%) (Auto) 15 % (24-48) Monocytes (%) (Auto) 13 % (0-9) Eosinophils (%) (Auto) 0 % (0-3) Basophils (%) (Auto) 1 % (0-3) Neutrophils # (Auto) 3.6 x10^3/uL (1.8-7.7) Lymphocytes # (Auto) 0.8 x10^3/uL (1.0-4.8) Monocytes # (Auto) 0.7 x10^3/uL (0.0-1.1) Eosinophils # (Auto) 0.0 x10^3/uL (0.0-0.7) Basophils # (Auto) 0.0 x10^3/uL (0.0-0.2) Sodium Level 137 mmol/L (136-145) Potassium Level 3.4 mmol/L (3.5-5.1) Chloride Level 100 mmol/L (98-107) Carbon Dioxide Level 26 mmol/L (21-32) Anion Gap 11 (6-14) Blood Urea Nitrogen 13 mg/dL (7-20) Creatinine 0.8 mg/dL (0.6-1.0) Estimated GFR (Cockcroft-Gault) 86.6 Glucose Level 100 mg/dL (70-99) Calcium Level 8.9 mg/dL (8.5-10.1) Medications Active Scripts Medications Dose Route/Sig Max Daily Dose Days Date Category Minoxidil 2.5 Mg Tablet 2.5 Mg PO DAILY 10/17/20 Reported Amlodipine Besylate 10 Mg Tablet 10 Mg PO DAILY 10/17/20 Reported Alprazolam 1 Mg Tablet 1 Tab PO TID 10/17/20 Reported Proair Hfa (Albuterol Sulfate) 8.5 Gm Hfa.aer.ad 1 Puff INH PRN Q6HRS PRN 30 10/16/20 Rx Vitamin D2 (Ergocalciferol (Vitamin D2)) 1,250 Mcg Capsule 1,250 Mcg PO WEEKLY 09/15/20 Reported Metformin Hcl 500 Mg Tablet 500 Mg PO BIDWMEALS 08/23/20 Reported Albuterol Sulfate Neb Soln (Albuterol Sulfate) 1.25 Mg/3 Ml Vial.neb 1.25 Mg NEB PRN PRN 05/03/20 Reported Escitalopram Oxalate 10 Mg Tablet 1 Tab PO DAILY 05/03/20 Reported Cetirizine Hcl 10 Mg Tablet 5 Mg PO DAILY 05/03/20 Reported Oxycodone Hcl Immed.release (Oxycodone Hcl) 10 Mg Tablet 10 Mg PO PRN Q6HRS PRN 07/15/18 Reported Lyrica (Pregabalin) 75 Mg Capsule 1 Cap PO BID 07/15/18 Reported Trazodone Hcl 50 Mg Tablet 50 Mg PO HS 06/15/18 Reported Atorvastatin Calcium 40 Mg Tablet 20 Mg PO DAILY 04/09/17 Reported Nitrostat (Nitroglycerin) 0.4 Mg Tab.subl 0.4 Mg SL PRN Q5MIN PRN 11/29/14 Rx Tizanidine Hcl 4 Mg Capsule 4 Mg PO PRN Q8HRS PRN 12/02/13 Reported Comments CXR Impression: 1. No acute cardiopulmonary process. Impression . IMPRESSION: 1. Acute hypoxic respiratory failure secondary to likely clinical pneumonia. 2. Compensated respiratory acidosis/underlying chronic obstructive pulmonary disease. 3. Abnormal CT chest with minimal patchy infiltrate in right upper lobe and left lower lobe. No evidence of pulmonary embolism. 4. covid19 pneumonia in 09/2020 Plan . RECOMMENDATIONS: 02 titration to keep sat 90% Augmentin, complete full course Continue bronchodilators All cardiology recommendations Hypertension per cardiology/PCP DVT/GI prophylaxis Physical therapy Discussed with ABRAM GUERRERO MD Oct 21, 2020 07:59
[2020-10-21] MEDS: LACTOBACILLUS RHAMNOSUS GG 1 CAPSULE. PO SCH ×2 (08:27→21:17)
[2020-10-21] MEDS: IPRATROPIUM/ALBUTEROL 20/100mcg/INH INHALER. INH SCH ×4 (08:27→21:19)
[2020-10-21] MEDS: AMOXICILLIN/K CLAV 875/125MG TABLET. PO SCH ×2 (08:27→21:16)
[2020-10-21] MEDS: ASPIRIN ENTERIC COATED 81 MG TABLET.DR. PO SCH (08:28)
[2020-10-21] MEDS: METOPROLOL TART IMMED RELEASE 25 MG TABLET. PO SCH ×2 (08:29→21:17)
[2020-10-21 11:00] VITALS: BP 144/88
--- NOTE | 2020-10-21 11:03 | PDOC ---
PROGRESS NOTES Date of Service: DATE: 10/21/20 TIME: 11:03 Chief Complaint Chief Complaint Images: Images Chest CTA negative for PE CXR IMPRESSION: Unchanged mild left basilar opacities versus small left pleural effusion. Assessment/Plan Assessment/Plan Investigation for COVID-19 infection Acute hypoxic hypercapnic respiratory distress requiring O2 supplementation, improving Concern for CAP, possible gram-negative organism Mild hypercapnia Tachycardia leukopenia hypomagnesemia DC Rocephin, start Augmentin, complete full course HYPOKALEMIA plan Admit to medicine for further management Cardiology consult for preoperative assessment and evaluation for her tachyarrhythmia Continue telemetry monitoring iv mg 2 GM 1-14 IV Pulmonology consult for respiratory distress Continue IV empiric antibiotics TSH level o2 support 2 liters nc Lovenox for DVT prophylaxis Protonix GI prophylaxis ADA diet Full code Discussed with RN and SW Disposition inpatient management as above Surrogate decision maker is the follow cbc, mg PT/OT INCENTIVE SPIROMETRY 02 titration to keep sat 90% Augmentin, complete full course Continue bronchodilators All cardiology recommendations Hypertension , better control Scheduled to have her right knee replaced November [address] Laird D/W RN D/C PLANNING Justifications for Admission Other Justification History of Present Illness History of Present Illness 10/21/2020 No acute events overnight. Patient is saturating well on room air. c/o malai se and a cough. We will swab the patient for COVID-19 infection. Patient's chart, labs, images were reviewed and discussed with RN bp meds adjusted Chief Complaint: Chief Complain: Hypoxia and rapid heart rate History of Present Illness: HPI: 65-year-old female who was sent here from outpatient surgery center for evaluation of rapid heart rate and hypoxia. Patient was admitted here on September 142019 due to suspected of COVID-19 pneumonia and hypoxia. Patient was treated in hospital with IV steroid and antibiotic and IV antiviral medication. Patient got better. Patient was seen by digital solutions architect, diagnosed with COPD due to previous history of smoking. Patient is on albuterol nebs at home, she is not on oxygen at home. Patient denies any cough or fever. Patient is scheduled to have her right knee replaced on November [address] Laird. She was in outpatient surgery for routine testing today. Past Medical/Surgical History: PMH/PSH: Past Medical History: Anxiety, CHF, COPD, Hypertension, chronic low back pain, Past Surgical History: back surgery, neck surgery x2, Allergies: Allergies: Coded Allergies: gabapentin (Verified Allergy, Intermediate, Rash, 06/24/16) Takes pregabalin at home strawberry (Verified Allergy, Intermediate, 03/31/16) food allergy prednisone (Verified Adverse Reaction, Intermediate, 03/31/16) PAIN, HEADACHE, DECREASED APPETITE Family History: Family History: Reviewed and none reported Social History: Social History: Smoking Status: Former Smoker Alcohol Use: None Drug Use: None Vitals Vitals Vital Signs Date Time Temp Pulse Resp B/P (MAP) Pulse Ox O2 Delivery O2 Flow Rate FiO2 10/21/20 08:29 65 158/80 10/21/20 07:00 98.5 24 94 Nasal Cannula 2.0 98.5 Physical Exam Physical Exam Physcial Exam: GEN: No apparent distress. Alert and oriented HEENT: Normal cephalic, atraumatic, external auditory canals are patent EYES: Extraocular muscles are intact, pupil are equally round and reactive to light and accommodation MUSCULOSKELETAL: Well developed , well nourished, good range of motion ENDOCRINE: No thyromegaly was palpated LYMPHATICS: No cervical chain or axillary nodes were noted HEMATOPOIETIC: No bruising NECK: Supple, no JVD, no thyromegaly was noted LUNGS: Clear to auscultation in all lung dixon without rhonchi or wheezing HEART: RRR, S!, S2 present. Peripheral pulses intact, no obvious murmurs noted ABDOMEN: Soft, nontender. Positive bowel sounds, no organomegaly, normal bowel sounds EXTREMITIES: Without clubbing, cyanosis, or edema. Pedal pulses intact. Negative Homans sign NEUROLOGIC: Normal speech and tone. A&O x 3, moves all extremities, no obvious focal deficits PSYCHIATRIC: Normal affect, normal mood. Stable SKIN: No ulcerations or rashes, good skin turgor, no jaundice VASCULAR: Good capillary refill, neurovascular bundle appears to be intact General: Alert, Oriented X3, Cooperative, No acute distress Heart: Regular rate, Normal S1, Normal S2 Abdomen: Soft, No tenderness Extremities: No cyanosis, No edema, Normal pulses Skin: No significant lesion Labs LABS Pulmonary Vein S1 Velocity 32.9cm/s D2 Velocity 46.2cm/s PVa duration 120msec LEFT VENTRICLE The left ventricle is normal size. There is normal left ventricular wall thickness. The left ventricular systolic function is normal and the ejection fraction is within normal range. The Ejection Fraction is 55-60%. There is normal LV segmental wall motion. Transmitral Doppler flow pattern is Grade I- abnormal relaxation pattern. RIGHT VENTRICLE The right ventricle is normal size. There is normal right ventricular wall thickness. The right ventricular systolic function is normal. ATRIA The left atrium size is normal. The right atrium size is normal. The interatrial septum is intact with no evidence for an atrial septal defect or patent foramen ovale as noted on 2-D or Doppler imaging. AORTIC VALVE The aortic valve is normal in structure and function. Doppler and Color Flow revealed no significant aortic regurgitation. There is no significant aortic valvular stenosis. Calculated aortic valve area is 2.55 cm2 with maximum pressure gradient of 6 mmHg and mean pressure gradient of 3 mmHg. MITRAL VALVE The mitral valve is thickened but opens well. There is no evidence of mitral valve prolapse. There is no mitral valve stenosis. Doppler and Color-flow revealed trace mitral regurgitation. TRICUSPID VALVE The tricuspid valve is normal in structure and function. Doppler and Color Flow revealed trace tricuspid regurgitation with an estimated PAP of 26 mmHg. There is no tricuspid valve stenosis. PULMONIC VALVE The pulmonic valve is not well visualized. Doppler and Color Flow revealed trace pulmonic valvular regurgitation. There is no pulmonic valvular stenosis. GREAT VESSELS The aortic root is normal in size. The IVC is normal in size and collapses >50% with inspiration. PERICARDIAL EFFUSION There is no evidence of significant pericardial effusion. Critical Notification Critical Value: No <Conclusion> The left ventricular systolic function is normal and the ejection fraction is within normal range. The Ejection Fraction is 55-60%. There is normal LV segmental wall motion. Myxomatous appearance of the mitral valve. Signed by : Henok Gregorio, Electronically Approved : 09/07/2020 17:09:47 DICTATED and SIGNED BY: HENOK GREGORIO MD DATE: 09/07/[id number] [facility] #: [id number] MALIK: 10/16/20 STATUS: COMP REQ #: [id number] RECD: 10/16/[address]: MONTRELL LUCAS DO SOURCE: VOID ENTR: 10/16/[address]: VALENTIN WEI MD [facility]: WILLIAM SIM MD ORDERED: URINE CULTURE Procedure Result URINE CULTURE Final Final LESS THAN 10,000 CFU/ML: GROWTH NOT INDICATIVE OF INFECTION on 10/18/20 at 0651 Testing Performed by: [place] [id number] For Inquires, the Physician may contact the Microbiology department at [phone] Unless otherwise specified, Testing Performed by: [place] [id number] For Inquires, the Physician may contact the Microbiology department at [phone] Laboratory Tests Test 10/20/20 16:01 1/16/21 16:32 10/20/20 20:12 10/21/20 04:00 Glucose (Fingerstick) 104 mg/dL (70-99) 134 mg/dL (70-99) O2 Saturation 93 % (92-99) Arterial Blood pH 7.43 (7.35-7.45) Arterial Blood pCO2 at Patient Temp 34 mmHg (35-46) Arterial Blood pO2 at Patient Temp 63 mmHg (65-108) Arterial Blood HCO3 22 mmol/L (21-28) Arterial Blood Base Excess -1 mmol/L (-3-3) Oxyhemoglobin 92.6 % Methemoglobin 0.4 % (0.0-1.9) Carbon Monoxide, Quantitative 0.1 % (0.0-1.9) FiO2 21% White Blood Count 5.1 x10^3/uL (4.0-11.0) Red Blood Count 5.35 x10^6/uL (3.50-5.40) Hemoglobin 16.3 g/dL (12.0-15.5) Hematocrit 47.3 % (36.0-47.0) Mean Corpuscular Volume 89 fL (79-100) Mean Corpuscular Hemoglobin 31 pg (25-35) Mean Corpuscular Hemoglobin Concent 34 g/dL (31-37) Red Cell Distribution Width 14.5 % (11.5-14.5) Platelet Count 306 x10^3/uL (140-400) Neutrophils (%) (Auto) 71 % (31-73) Lymphocytes (%) (Auto) 15 % (24-48) Monocytes (%) (Auto) 13 % (0-9) Eosinophils (%) (Auto) 0 % (0-3) Basophils (%) (Auto) 1 % (0-3) Neutrophils # (Auto) 3.6 x10^3/uL (1.8-7.7) Lymphocytes # (Auto) 0.8 x10^3/uL (1.0-4.8) Monocytes # (Auto) 0.7 x10^3/uL (0.0-1.1) Eosinophils # (Auto) 0.0 x10^3/uL (0.0-0.7) Basophils # (Auto) 0.0 x10^3/uL (0.0-0.2) Sodium Level 137 mmol/L (136-145) Potassium Level 3.4 mmol/L (3.5-5.1) Chloride Level 100 mmol/L (98-107) Carbon Dioxide Level 26 mmol/L (21-32) Anion Gap 11 (6-14) Blood Urea Nitrogen 13 mg/dL (7-20) Creatinine 0.8 mg/dL (0.6-1.0) Estimated GFR (Cockcroft-Gault) 86.6 Glucose Level 100 mg/dL (70-99) Calcium Level 8.9 mg/dL (8.5-10.1) Test 10/21/20 07:59 Glucose (Fingerstick) 98 mg/dL (70-99) Assessment and Plan Assessmemt and Plan Problems Medical Problems: (1) COPD exacerbation Status: Acute (2) Hypoxia Status: Acute Comment Review of Relevant I have reviewed the following items gisele (where applicable) has been applied. Labs Laboratory Tests Test 10/19/20 13:19 10/19/20 20:09 10/20/20 07:51 10/20/20 10:32 Glucose (Fingerstick) 113 mg/dL (70-99) 109 mg/dL (70-99) 100 mg/dL (70-99) 117 mg/dL (70-99) Test 10/20/20 16:01 10/20/20 16:32 10/20/20 20:12 10/21/20 04:00 Glucose (Fingerstick) 104 mg/dL (70-99) 134 mg/dL (70-99) O2 Saturation 93 % (92-99) Arterial Blood pH 7.43 (7.35-7.45) Arterial Blood pCO2 at Patient Temp 34 mmHg (35-46) Arterial Blood pO2 at Patient Temp 63 mmHg (65-108) Arterial Blood HCO3 22 mmol/L (21-28) Arterial Blood Base Excess -1 mmol/L (-3-3) Oxyhemoglobin 92.6 % Methemoglobin 0.4 % (0.0-1.9) Carbon Monoxide, Quantitative 0.1 % (0.0-1.9) FiO2 21% White Blood Count 5.1 x10^3/uL (4.0-11.0) Red Blood Count 5.35 x10^6/uL (3.50-5.40) Hemoglobin 16.3 g/dL (12.0-15.5) Hematocrit 47.3 % (36.0-47.0) Mean Corpuscular Volume 89 fL (79-100) Mean Corpuscular Hemoglobin 31 pg (25-35) Mean Corpuscular Hemoglobin Concent 34 g/dL (31-37) Red Cell Distribution Width 14.5 % (11.5-14.5) Platelet Count 306 x10^3/uL (140-400) Neutrophils (%) (Auto) 71 % (31-73) Lymphocytes (%) (Auto) 15 % (24-48) Monocytes (%) (Auto) 13 % (0-9) Eosinophils (%) (Auto) 0 % (0-3) Basophils (%) (Auto) 1 % (0-3) Neutrophils # (Auto) 3.6 x10^3/uL (1.8-7.7) Lymphocytes # (Auto) 0.8 x10^3/uL (1.0-4.8) Monocytes # (Auto) 0.7 x10^3/uL (0.0-1.1) Eosinophils # (Auto) 0.0 x10^3/uL (0.0-0.7) Basophils # (Auto) 0.0 x10^3/uL (0.0-0.2) Sodium Level 137 mmol/L (136-145) Potassium Level 3.4 mmol/L (3.5-5.1) Chloride Level 100 mmol/L (98-107) Carbon Dioxide Level 26 mmol/L (21-32) Anion Gap 11 (6-14) Blood Urea Nitrogen 13 mg/dL (7-20) Creatinine 0.8 mg/dL (0.6-1.0) Estimated GFR (Cockcroft-Gault) 86.6 Glucose Level 100 mg/dL (70-99) Calcium Level 8.9 mg/dL (8.5-10.1) Test 10/21/20 07:59 Glucose (Fingerstick) 98 mg/dL (70-99) Laboratory Tests Test 10/20/20 16:01 10/20/20 16:32 10/20/20 20:12 10/21/20 04:00 Glucose (Fingerstick) 104 mg/dL (70-99) 134 mg/dL (70-99) O2 Saturation 93 % (92-99) Arterial Blood pH 7.43 (7.35-7.45) Arterial Blood pCO2 at Patient Temp 34 mmHg (35-46) Arterial Blood pO2 at Patient Temp 63 mmHg (65-108) Arterial Blood HCO3 22 mmol/L (21-28) Arterial Blood Base Excess -1 mmol/L (-3-3) Oxyhemoglobin 92.6 % Methemoglobin 0.4 % (0.0-1.9) Carbon Monoxide, Quantitative 0.1 % (0.0-1.9) FiO2 21% White Blood Count 5.1 x10^3/uL (4.0-11.0) Red Blood Count 5.35 x10^6/uL (3.50-5.40) Hemoglobin 16.3 g/dL (12.0-15.5) Hematocrit 47.3 % (36.0-47.0) Mean Corpuscular Volume 89 fL (79-100) Mean Corpuscular Hemoglobin 31 pg (25-35) Mean Corpuscular Hemoglobin Concent 34 g/dL (31-37) Red Cell Distribution Width 14.5 % (11.5-14.5) Platelet Count 306 x10^3/uL (140-400) Neutrophils (%) (Auto) 71 % (31-73) Lymphocytes (%) (Auto) 15 % (24-48) Monocytes (%) (Auto) 13 % (0-9) Eosinophils (%) (Auto) 0 % (0-3) Basophils (%) (Auto) 1 % (0-3) Neutrophils # (Auto) 3.6 x10^3/uL (1.8-7.7) Lymphocytes # (Auto) 0.8 x10^3/uL (1.0-4.8) Monocytes # (Auto) 0.7 x10^3/uL (0.0-1.1) Eosinophils # (Auto) 0.0 x10^3/uL (0.0-0.7) Basophils # (Auto) 0.0 x10^3/uL (0.0-0.2) Sodium Level 137 mmol/L (136-145) Potassium Level 3.4 mmol/L (3.5-5.1) Chloride Level 100 mmol/L (98-107) Carbon Dioxide Level 26 mmol/L (21-32) Anion Gap 11 (6-14) Blood Urea Nitrogen 13 mg/dL (7-20) Creatinine 0.8 mg/dL (0.6-1.0) Estimated GFR (Cockcroft-Gault) 86.6 Glucose Level 100 mg/dL (70-99) Calcium Level 8.9 mg/dL (8.5-10.1) Test 10/21/20 07:59 Glucose (Fingerstick) 98 mg/dL (70-99) Microbiology 10/16/20 Urine Culture - Final, Complete Medications Current Medications Magnesium Sulfate 50 ml @ 25 mls/hr 1X ONCE IV Last administered on 10/16/20at 15:59; Start 10/16/20 at 15:30; Stop 10/16/20 at 17:29; Status DC Albuterol/ Ipratropium (Duoneb) 3 ml 1X ONCE NEB Last administered on 10/16/20at 15:47; Start 10/16/20 at 15:30; Stop 10/16/20 at 15:31; Status DC Sodium Chloride 1,000 ml @ 1,000 mls/hr 1X ONCE IV Last administered on 10/16/20at 17:45; Start 10/16/20 at 17:45; Stop 10/16/20 at 18:44; Status DC Dexamethasone Sodium Phosphate (Decadron) 4 mg 1X ONCE IVP Last administered on 10/16/20at 20:57; Start 10/16/20 at 18:45; Stop 10/16/20 at 18:46; Status DC Iohexol (Omnipaque 350 Mg/ml) 100 ml 1X ONCE IV Last administered on 10/16/20at 20:15; Start 10/16/20 at 20:15; Stop 10/16/20 at 20:16; Status DC Ondansetron HCl (Zofran) 4 mg PRN Q8HRS PRN IV NAUSEA/VOMITING; Start 10/16/20 at 22:15; Stop 10/17/20 at 22:14; Status DC Morphine Sulfate (Morphine Sulfate) 2 mg PRN Q2HR PRN IV PAIN Last administered on 10/17/20at 20:49; Start 10/16/20 at 22:15; Stop 10/17/20 at 22:14; Status DC Sodium Chloride 1,000 ml @ 75 mls/hr [id number] IV Last administered on 10/17/20at 10:33; Start 10/16/20 at 22:15; Stop 10/17/20 at 22:14; Status DC Acetaminophen (Tylenol) 650 mg PRN Q4HRS PRN PO FEVER > 100.3'F; Start 10/16/20 at 22:15; Stop 10/17/20 at 22:14; Status DC Albuterol/ Ipratropium (Duoneb) 3 ml RTQID NEB Last administered on 10/17/20at 20:22; Start 10/17/20 at 08:00; Stop 10/18/20 at 07:59; Status DC Ceftriaxone Sodium (Rocephin) 1 gm Q24H IVP Last administered on 10/19/20at 10:57; Start 10/17/20 at 10:00; Stop 10/19/20 at 11:02; Status DC Metoprolol Tartrate (Lopressor) 25 mg BID PO Last administered on 10/20/20at 10:25; Start 10/17/20 at 15:00; Stop 10/20/20 at 16:30; Status DC Lactobacillus Rhamnosus (Culturelle) 1 cap BID PO Last administered on 10/21/20at 08:27; Start 10/17/20 at 21:00 Acetaminophen/ Hydrocodone Bitart (Lortab 5/325) 1 tab PRN Q6HRS PRN PO MODERATE TO SEVERE PAIN Last administered on 10/21/20at 04:40; Start 10/18/20 at 09:00 Magnesium Sulfate 50 ml @ 25 mls/hr 1X ONCE IV Last administered on 10/18/20at 11:47; Start 10/18/20 at 12:00; Stop 10/18/20 at 13:59; Status DC Albuterol/ Ipratropium (Duoneb) 3 ml RTQID NEB Last administered on 10/19/20at 07:59; Start 10/18/20 at 12:00; Stop 10/19/20 at 13:44; Status DC Aspirin (Ecotrin) 81 mg [id number] PO Last administered on 10/21/20at 08:28; Start 10/19/20 at 08:00 Acetaminophen (Tylenol) 650 mg PRN Q6HRS PRN PO MILD PAIN / TEMP > 100.3'F Last administered on 10/19/20at 10:57; Start 10/19/20 at 11:00 Amoxicillin/ Clavulanate Potassium (Augmentin 875/ 125mg) 1 tab BID PO Last administered on 10/21/20at 08:27; Start 10/19/20 at 21:00; Stop 10/24/20 at 20:59 Albuterol/ Ipratropium (Combivent Respimat 20-100 Mcg) 1 puff RTQID INH Last administered on 10/21/20at 08:27; Start 10/19/20 at 16:00 Potassium Chloride (Klor-Con) 30 meq 1X ONCE PO Last administered on 10/19/20at 15:22; Start 10/19/20 at 15:00; Stop 10/19/20 at 15:01; Status DC Metoprolol Tartrate (Lopressor) 37.5 mg BID PO Last administered on 10/21/20at 08:29; Start 10/20/20 at 21:00 Active Scripts Active Proair Hfa (Albuterol Sulfate) 8.5 Gm Hfa.aer.ad 1 Puff INH PRN Q6HRS PRN 30 Days Nitrostat (Nitroglycerin) 0.4 Mg Tab.subl 0.4 Mg SL PRN Q5MIN PRN Reported Minoxidil 2.5 Mg Tablet 2.5 Mg PO DAILY Amlodipine Besylate 10 Mg Tablet 10 Mg PO DAILY Alprazolam 1 Mg Tablet 1 Tab PO TID Vitamin D2 (Ergocalciferol (Vitamin D2)) 1,250 Mcg Capsule 1,250 Mcg PO WEEKLY Metformin Hcl 500 Mg Tablet 500 Mg PO BIDWMEALS Albuterol Sulfate Neb Soln (Albuterol Sulfate) 1.25 Mg/3 Ml Vial.neb 1.25 Mg NEB PRN PRN Escitalopram Oxalate 10 Mg Tablet 1 Tab PO DAILY Cetirizine Hcl 10 Mg Tablet 5 Mg PO DAILY Oxycodone Hcl Immed.release (Oxycodone Hcl) 10 Mg Tablet 10 Mg PO PRN Q6HRS PRN Lyrica (Pregabalin) 75 Mg Capsule 1 Cap PO BID Trazodone Hcl 50 Mg Tablet 50 Mg PO HS Atorvastatin Calcium 40 Mg Tablet 20 Mg PO DAILY Tizanidine Hcl 4 Mg Capsule 4 Mg PO PRN Q8HRS PRN Vitals/I & O Vital Sign - Last 24 Hours 10/20/20 10/20/20 10/20/20 10/20/20 11:12 14:59 18:19 19:00 Temp 99.2 99.2 99.1 99.2 99.2 99.1 Pulse 80 64 64 Resp 20 20 18 B/P (MAP) 149/87 (107) 151/77 (101) 149/83 (105) Pulse Ox 97 96 96 93 O2 Delivery Nasal Cannula Nasal Cannula Room Air Nasal Cannula O2 Flow Rate 2.0 2.0 2.0 2.0 10/20/20 10/20/20 10/20/20 10/20/20 19:43 20:17 21:19 23:00 Temp 98.6 98.6 Pulse 64 64 Resp 19 24 B/P (MAP) 149/83 157/83 (107) Pulse Ox 96 94 O2 Delivery Room Air Room Air Nasal Cannula O2 Flow Rate 2.0 2.0 10/21/20 10/21/20 10/21/20 10/21/20 03:00 04:40 05:44 07:00 Temp 98.6 98.5 98.6 98.5 Pulse 68 65 Resp 18 18 18 24 B/P (MAP) 150/86 (107) 158/80 (106) Pulse Ox 94 94 94 O2 Delivery Nasal Cannula Room Air Room Air Nasal Cannula O2 Flow Rate 2.0 2.0 2.0 2.0 10/21/20 08:29 Pulse 65 B/P (MAP) 158/80 Intake and Output 10/20/20 10/20/20 10/21/20 15:00 23:00 07:00 Intake Total 400 ml 300 ml 180 ml Output Total 200 ml Balance 400 ml 300 ml -20 ml Justicifation of Admission Dx: Justifications for Admission: Justification of Admission Dx: Yes Respiratory Failure: Severe Resp Distress NERISSA VIZCAINO MD Oct 21, 2020 11:03
[2020-10-21 15:00] VITALS: BP 151/91
[2020-10-21 19:00] VITALS: BP 165/88
[2020-10-21] MEDS ORDERED: POTASSIUM CHLORIDE 20 MEQ TABLET.ER. PO ONE (19:00)
[2020-10-21] MEDS ORDERED: DEXTROSE 50% 25 GM / 50ML DISP.SYRIN. IV PRN (20:15)
[2020-10-21 23:00] VITALS: BP 153/88
[2020-10-22] MEDS: HYDROcodone/APAP 5/325MG 1 TAB TABLET PO PRN (02:02)
[2020-10-22 03:00] VITALS: BP 155/85
[2020-10-22 07:00] VITALS: BP 174/86
[2020-10-22] MEDS ORDERED: POTASSIUM CHLORIDE 20 MEQ TABLET.ER. PO SCH (08:00)
[2020-10-22 08:33] LABS: CALCIUM 9.3 mg/dL (8.5-10.1); CREATININE 0.6 mg/dL (0.6-1.0); GFR 120.7; POTASSIUM 3.7 mmol/L (3.5-5.1)
[2020-10-22] MEDS: METOPROLOL TART IMMED RELEASE 25 MG TABLET. PO SCH (08:40)
[2020-10-22] MEDS: ASPIRIN ENTERIC COATED 81 MG TABLET.DR. PO SCH (08:41)
[2020-10-22] MEDS: AMOXICILLIN/K CLAV 875/125MG TABLET. PO SCH (08:41)
[2020-10-22] MEDS: LACTOBACILLUS RHAMNOSUS GG 1 CAPSULE. PO SCH (08:42)
[2020-10-22] MEDS: IPRATROPIUM/ALBUTEROL 20/100mcg/INH INHALER. INH SCH (08:42)
[2020-10-22 11:00] VITALS: BP 159/86
--- NOTE | 2020-10-22 11:44 | NUR ---
SW following for discharge planning. Spoke with RN and reviewed chart. Pt COVID positive. Pt from home with spouse and daughter Rosalia. Rosalia cares for patient while pt's spouse is at work. 6 min walk indicated no home 02 needs. PT recommendation is for SNU, pt refusing. Spoke with daughter ([phone]) who is agreeable to and will call SW back with a decision about a provider. SW awaiting discharge orders. Daughter to transport home this afternoon around 1400. SW following. Addendum: 10/22/20 at 1430 by TATO CARRILLO Spoke with daughter. Requesting referral to [facility]. Patient choice of vendor form completed. Referral with discharge orders provided to Roxana. No further SW needs at this time. Addendum: 10/24/20 at 1022 by TATO CARRILLO SW contacted by Roxana with [facility] and they can't accept this patient now as they don't work with pt's PCP. Spoke with daughter who is agreeable to referral to [facility]. Clinicals provided to Shima with [facility] as they take pt's insurance. SW awaiting acceptance decision from [facility]. Addendum: 10/24/20 at 1259 by TATO CARRILLO Start of care with [facility] is 10/25 darius Ronquillo. No further SW needs at this time.
--- NOTE | 2020-10-22 13:34 | PDOC ---
[employer] PROGRESS NOTE Date of Service DOS: DATE: 10/22/20 TIME: 13:33 Chief Complaint Chief Complaint Images: Images Chest CTA negative for PE CXR IMPRESSION: Unchanged mild left basilar opacities versus small left pleural effusion. Assessment/Plan Assessment/Plan Investigation for COVID-19 infection Acute hypoxic hypercapnic respiratory distress requiring O2 supplementation, improving Concern for CAP, possible gram-negative organism Mild hypercapnia Tachycardia leukopenia hypomagnesemia DC Rocephin, start Augmentin, complete full course HYPOKALEMIA plan Admit to medicine for further management Cardiology consult for preoperative assessment and evaluation for her tachyarrhythmia Continue telemetry monitoring iv mg 2 GM 1-14 IV Pulmonology consult for respiratory distress Continue IV empiric antibiotics TSH level o2 support 2 liters nc Lovenox for DVT prophylaxis Protonix GI prophylaxis ADA diet Full code Discussed with RN and SW Disposition inpatient management as above Surrogate decision maker is the follow cbc, mg PT/OT INCENTIVE SPIROMETRY 02 titration to keep sat 90% Augmentin, complete full course Continue bronchodilators All cardiology recommendations Hypertension , better control Scheduled to have her right knee replaced November [address] Laird D/W RN D/C PLANNING Justifications for Admission Other Justification History of Present Illness History of Present Illness 10/22/2020 Patient seen and evaluated bedside. Charts and labs reviewed. She is afebrile, no complaints today. She is currently breathing on room air. Will obtain 6- minute walk to evaluate for oxygen requirement. Patient was discharged home today with home health. Greater than 30 minutes spent managing discharge this patient. Chief Complaint: Chief Complain: Hypoxia and rapid heart rate History of Present Illness: HPI: 65-year-old female who was sent here from outpatient surgery center for evaluati on of rapid heart rate and hypoxia. Patient was admitted here on September 142019 due to suspected of COVID-19 pneumonia and hypoxia. Patient was treated in hospital with IV steroid and antibiotic and IV antiviral medication. Patient got better. Patient was seen by budget counselor, diagnosed with COPD due to previous history of smoking. Patient is on albuterol nebs at home, she is not on oxygen at home. Patient denies any cough or fever. Patient is scheduled to have her right knee replaced on November [address] Laird. She was in outpatient surgery for routine testing today. Past Medical/Surgical History: PMH/PSH: Past Medical History: Anxiety, CHF, COPD, Hypertension, chronic low back pain, Past Surgical History: back surgery, neck surgery x2, Allergies: Allergies: Coded Allergies: gabapentin (Verified Allergy, Intermediate, Rash, 06/24/16) Takes pregabalin at home strawberry (Verified Allergy, Intermediate, 03/31/16) food allergy prednisone (Verified Adverse Reaction, Intermediate, 03/31/16) PAIN, HEADACHE, DECREASED APPETITE Family History: Family History: Reviewed and none reported Social History: Social History: Smoking Status: Former Smoker Alcohol Use: None Drug Use: None Vitals/I&O Vitals/I&O: Vital Signs Date Time Temp Pulse Resp B/P (MAP) Pulse Ox O2 Delivery O2 Flow Rate FiO2 10/22/20 11:00 97.9 60 18 159/86 (110) 95 Room Air 97.9 10/21/20 15:00 2.0 I & O 10/21/20 10/21/20 10/22/20 15:00 23:00 07:00 Intake Total 240 ml 150 ml Output Total 3 ml Balance 237 ml 150 ml Physical Exam Physical Exam: Physcial Exam: GEN: No apparent distress. Alert and oriented HEENT: Normal cephalic, atraumatic, external auditory canals are patent EYES: Extraocular muscles are intact, pupil are equally round and reactive to light and accommodation MUSCULOSKELETAL: Well developed , well nourished, good range of motion ENDOCRINE: No thyromegaly was palpated LYMPHATICS: No cervical chain or axillary nodes were noted HEMATOPOIETIC: No bruising NECK: Supple, no JVD, no thyromegaly was noted LUNGS: Clear to auscultation in all lung dixon without rhonchi or wheezing HEART: RRR, S!, S2 present. Peripheral pulses intact, no obvious murmurs noted ABDOMEN: Soft, nontender. Positive bowel sounds, no organomegaly, normal bowel sounds EXTREMITIES: Without clubbing, cyanosis, or edema. Pedal pulses intact. Negative Homans sign NEUROLOGIC: Normal speech and tone. A&O x 3, moves all extremities, no obvious focal deficits PSYCHIATRIC: Normal affect, normal mood. Stable SKIN: No ulcerations or rashes, good skin turgor, no jaundice VASCULAR: Good capillary refill, neurovascular bundle appears to be intact General: Alert, Oriented X3, Cooperative, No acute distress Heart: Regular rate, Normal S1, Normal S2 Abdomen: Soft, No tenderness Extremities: No cyanosis, No edema, Normal pulses Skin: No significant lesion Labs Labs: Laboratory Tests Test 10/21/20 15:54 10/21/20 19:50 10/21/20 20:05 10/21/20 20:10 Glucose (Fingerstick) 97 mg/dL (70-99) 26 mg/dL (70-99) 273 mg/dL (70-99) Glucose Level 214 mg/dL (70-99) Test 10/22/20 07:45 10/22/20 11:34 Sodium Level 136 mmol/L (136-145) Potassium Level 3.7 mmol/L (3.5-5.1) Chloride Level 100 mmol/L (98-107) Carbon Dioxide Level 25 mmol/L (21-32) Anion Gap 11 (6-14) Blood Urea Nitrogen 12 mg/dL (7-20) Creatinine 0.6 mg/dL (0.6-1.0) Estimated GFR (Cockcroft-Gault) 120.7 Glucose Level 101 mg/dL (70-99) Glucose (Fingerstick) 103 mg/dL (70-99) 133 mg/dL (70-99) Calcium Level 9.3 mg/dL (8.5-10.1) Assessment and Plan Assessmemt and Plan Problems Medical Problems: (1) COPD exacerbation Status: Acute (2) Hypoxia Status: Acute Comment Review of Relevant I have reviewed the following items gisele (where applicable) has been applied. Medications: Current Medications Medications (Trade) Dose Ordered Sig/Dequan Route PRN Reason Start Time Stop Time Status Last Admin Dose Admin Potassium Chloride (Klor-Con) 40 meq 1X ONCE PO 10/21/20 19:00 10/21/20 19:01 DC 10/21/20 21:17 Potassium Chloride (Klor-Con) 20 meq DAILYWBKFT PO 10/22/20 08:00 10/22/20 08:42 Dextrose (Dextrose 50%-Water Syringe) 12.5 gm PRN Q15MIN PRN IV SEE COMMENTS 10/21/20 20:15 10/21/20 20:10 Justifications for Admission Other Justification JOSE C RUELAS MD Oct 22, 2020 13:34
--- NOTE | 2020-10-22 13:38 | SNU/HH DC ---
DISCHARGE WITH HOME HEALTH DISCHARGE INFORMATION: Discharge Date: Oct 22, 2020 Final Diagnosis: Problems Medical Problems: (1) COPD exacerbation Status: Acute (2) Hypoxia Status: Acute Condition on Discharge: Stable CODE STATUS: Code Status: Full HOME HEALTH: Face to Face: I certify this patient is under my care and that I, or a nurse practitioner or physician's medical research assistant working with me, had a face to face encounter that meets the physician face to face encounter requirements with this patient on 10/22/2020. RN For Eval/Treatment: Yes Pt Meets Homebound Status: Extreme weakness w/ amb., Fatigue w/ amb. POST DISCHARGE ORDERS: Activity Instructions for Disc: Activity as tolerated Weight Bearing Status after Di: No restrictions, Full weight bearing, As tolerated Bathing Instructions: Shower-keep dressing dry, No Tub Bath until see Wound/Incision Care: Ice to area for comfort, Keep wound/cast CDI CHECKS AFTER DISCHARGE: Checks after discharge: Check blood press - daily TREATMENT/EQUIPMENT ORDERS: Adaptive Equipment Issued: None CERTIFICATION STATEMENT: Certification Statement: Certification Statement: Based on the above finding, I certify that this patient is confined to the home and needs intermittent fdc care, physical therapy and/or speech therapy, or continues to need occupational therapy.~ This patient is under my care, and I have initiated the establishment of the plan of care.~ This patient will be followed by myself or a community physician who will periodically review the plan of care. Home Meds Active Scripts Albuterol Sulfate (Proair Hfa) 8.5 Gm Hfa.aer.ad, 1 PUFF INH PRN Q6HRS PRN for SHORTNESS OF BREATH for 30 Days, #1 INHALER Prov:MONTRELL LUCAS DO 10/16/20 Nitroglycerin (NITROSTAT) 0.4 Mg Tab.subl, 0.4 MG SL PRN Q5MIN PRN for CHEST PAIN, #100 BOT Prov:SADA BHATIA MD 11/29/14 Reported Medications Minoxidil (MINOXIDIL) 2.5 Mg Tablet, 2.5 MG PO DAILY for hairgrowth, TAB 10/17/20 Amlodipine Besylate (AMLODIPINE BESYLATE) 10 Mg Tablet, 10 MG PO DAILY for bp, TAB 10/17/20 Alprazolam (ALPRAZOLAM) 1 Mg Tablet, 1 TAB PO TID for anxiety, #90 TAB 10/17/20 Ergocalciferol (Vitamin D2) (Vitamin D2) 1,250 Mcg Capsule, 1250 MCG PO WEEKLY for suplement, CAP 09/15/20 Metformin Hcl (METFORMIN HCL) 500 Mg Tablet, 500 MG PO BIDWMEALS for ANTI- DIABETIC, TAB 0 Refills 08/23/20 Albuterol Sulfate (ALBUTEROL SULFATE NEB SOLN) 1.25 Mg/3 Ml Vial.neb, 1.25 MG NEB PRN PRN for SHORTNESS OF BREATH, EACH 0 Refills 05/03/20 Escitalopram Oxalate (ESCITALOPRAM OXALATE) 10 Mg Tablet, 1 TAB PO DAILY for anxiety, #30 TAB 3 Refills 05/03/20 Cetirizine Hcl (CETIRIZINE HCL) 10 Mg Tablet, 5 MG PO DAILY for allergies, TAB 05/03/20 Oxycodone Hcl (OXYCODONE HCL IMMED.RELEASE) 10 Mg Tablet, 10 MG PO PRN Q6HRS PRN for PAIN, TAB 0 Refills 07/15/18 Pregabalin (LYRICA) 75 Mg Capsule, 1 CAP PO BID, #60 CAP 1 Refill 07/15/18 Trazodone Hcl (TRAZODONE HCL) 50 Mg Tablet, 50 MG PO HS for anxiety/depression, TAB 06/15/18 Atorvastatin Calcium (ATORVASTATIN CALCIUM) 40 Mg Tablet, 20 MG PO DAILY for cholesterol, #30 TAB 5 Refills 04/09/17 Tizanidine Hcl (TIZANIDINE HCL) 4 Mg Capsule, 4 MG PO PRN Q8HRS PRN for MUSCLE SPASMS 12/02/13 Discontinued Reported Medications Fluocinolone Acetonide Oil (FLUOCINOLONE ACETONIDE OIL) 20 Ml Drops, 5 DROP EACH EAR BID for primary for 14 Days, #20 ML 0 Refills 01/12/20 Alprazolam (ALPRAZOLAM) 0.5 Mg Tablet, 1 MG PO DAILY for anxiety , #30 TAB 06/21/18 JOSE C RUELAS MD Oct 22, 2020 13:38
--- NOTE | 2020-10-22 13:48 | PDOC3 ---
Discharge Summary Visit Information Date of Admission: Oct 17, 2020 Date of Discharge: Oct 22, 2020 Final Diagnosis Problems Medical Problems: (1) COPD exacerbation Status: Acute (2) Hypoxia Status: Acute Brief Hospital Course Allergies Allergies Coded Allergies Type Severity Reaction Last Updated Verified gabapentin Allergy Intermediate Rash 06/24/16 Yes strawberry Allergy Intermediate 03/31/16 Yes prednisone Adverse Reaction Intermediate 03/31/16 Yes Vital Signs Vital Signs Date Time Temp Pulse Resp B/P (MAP) Pulse Ox O2 Delivery O2 Flow Rate FiO2 10/22/20 11:00 97.9 60 18 159/86 (110) 95 Room Air 97.9 10/21/20 15:00 2.0 Lab Results Laboratory Tests Test 10/20/20 16:01 10/20/20 16:32 10/20/20 20:12 10/21/20 04:00 Glucose (Fingerstick) 104 mg/dL (70-99) 134 mg/dL (70-99) O2 Saturation 93 % (92-99) Arterial Blood pH 7.43 (7.35-7.45) Arterial Blood pCO2 at Patient Temp 34 mmHg (35-46) Arterial Blood pO2 at Patient Temp 63 mmHg (65-108) Arterial Blood HCO3 22 mmol/L (21-28) Arterial Blood Base Excess -1 mmol/L (-3-3) Oxyhemoglobin 92.6 % Methemoglobin 0.4 % (0.0-1.9) Carbon Monoxide, Quantitative 0.1 % (0.0-1.9) FiO2 21% White Blood Count 5.1 x10^3/uL (4.0-11.0) Red Blood Count 5.35 x10^6/uL (3.50-5.40) Hemoglobin 16.3 g/dL (12.0-15.5) Hematocrit 47.3 % (36.0-47.0) Mean Corpuscular Volume 89 fL (79-100) Mean Corpuscular Hemoglobin 31 pg (25-35) Mean Corpuscular Hemoglobin Concent 34 g/dL (31-37) Red Cell Distribution Width 14.5 % (11.5-14.5) Platelet Count 306 x10^3/uL (140-400) Neutrophils (%) (Auto) 71 % (31-73) Lymphocytes (%) (Auto) 15 % (24-48) Monocytes (%) (Auto) 13 % (0-9) Eosinophils (%) (Auto) 0 % (0-3) Basophils (%) (Auto) 1 % (0-3) Neutrophils # (Auto) 3.6 x10^3/uL (1.8-7.7) Lymphocytes # (Auto) 0.8 x10^3/uL (1.0-4.8) Monocytes # (Auto) 0.7 x10^3/uL (0.0-1.1) Eosinophils # (Auto) 0.0 x10^3/uL (0.0-0.7) Basophils # (Auto) 0.0 x10^3/uL (0.0-0.2) Sodium Level 137 mmol/L (136-145) Potassium Level 3.4 mmol/L (3.5-5.1) Chloride Level 100 mmol/L (98-107) Carbon Dioxide Level 26 mmol/L (21-32) Anion Gap 11 (6-14) Blood Urea Nitrogen 13 mg/dL (7-20) Creatinine 0.8 mg/dL (0.6-1.0) Estimated GFR (Cockcroft-Gault) 86.6 Glucose Level 100 mg/dL (70-99) Calcium Level 8.9 mg/dL (8.5-10.1) Test 10/21/20 07:59 10/21/20 10:09 10/21/20 15:54 10/21/20 19:50 Glucose (Fingerstick) 98 mg/dL (70-99) 143 mg/dL (70-99) 97 mg/dL (70-99) 26 mg/dL (70-99) Test 10/21/20 20:05 10/21/20 20:10 10/22/20 07:45 10/22/20 11:34 Glucose (Fingerstick) 273 mg/dL (70-99) 103 mg/dL (70-99) 133 mg/dL (70-99) Glucose Level 214 mg/dL (70-99) 101 mg/dL (70-99) Sodium Level 136 mmol/L (136-145) Potassium Level 3.7 mmol/L (3.5-5.1) Chloride Level 100 mmol/L (98-107) Carbon Dioxide Level 25 mmol/L (21-32) Anion Gap 11 (6-14) Blood Urea Nitrogen 12 mg/dL (7-20) Creatinine 0.6 mg/dL (0.6-1.0) Estimated GFR (Cockcroft-Gault) 120.7 Calcium Level 9.3 mg/dL (8.5-10.1) Laboratory Tests Test 10/21/20 15:54 10/21/20 19:50 10/21/20 20:05 10/21/20 20:10 Glucose (Fingerstick) 97 mg/dL (70-99) 26 mg/dL (70-99) 273 mg/dL (70-99) Glucose Level 214 mg/dL (70-99) Test 10/22/20 07:45 10/22/20 11:34 Sodium Level 136 mmol/L (136-145) Potassium Level 3.7 mmol/L (3.5-5.1) Chloride Level 100 mmol/L (98-107) Carbon Dioxide Level 25 mmol/L (21-32) Anion Gap 11 (6-14) Blood Urea Nitrogen 12 mg/dL (7-20) Creatinine 0.6 mg/dL (0.6-1.0) Estimated GFR (Cockcroft-Gault) 120.7 Glucose Level 101 mg/dL (70-99) Glucose (Fingerstick) 103 mg/dL (70-99) 133 mg/dL (70-99) Calcium Level 9.3 mg/dL (8.5-10.1) Brief Hospital Course Ms. Gonzales is a 65 old female who presented with hypoxic respiratory failure secondary to COVID-[address] chest on admission showed patchy infiltrates in the right upper lobe and left lower lobe, but no evidence of PE. Consultations placed to pulmonology and infectious disease. She was treated w ith steroids, antibiotics, and supportive care. She improved to be able to breathe comfortably on room air and finish oral antibiotics as outpatient. Discharge Information Condition at Discharge: Improved Follow Up: Weeks Disposition/Orders: D/C to Home w/ HH Scheduled Alprazolam (Alprazolam) 1 Mg Tablet, 1 TAB PO TID for anxiety, #90 (Reported) Entered as Reported by: Jesus Montero on 10/17/20603 Last Action: New Order on 10/17/20603 by Jesus Montero Amlodipine Besylate (Amlodipine Besylate) 10 Mg Tablet, 10 MG PO DAILY for bp, (Reported) Entered as Reported by: Jesus Montero on 10/17/20603 Last Action: New Order on 10/17/20603 by Jesus Montero Atorvastatin Calcium (Atorvastatin Calcium) 40 Mg Tablet, 20 MG PO DAILY for cholesterol, #30 Ref 5 (Reported) Entered as Reported by: YEISON HAIR on 04/09/17 1136 Last Action: Reviewed on 10/17/20603 by Jesus Montero Cetirizine Hcl (Cetirizine Hcl) 10 Mg Tablet, 5 MG PO DAILY for allergies, (Reported) Entered as Reported by: ISSA YARBROUGH on 05/03/20 1216 Last Action: Reviewed on 10/17/20603 by Jesus Montero Ergocalciferol (Vitamin D2) (Vitamin D2) 1,250 Mcg Capsule, 1,250 MCG PO WEEKLY for suplement, (Reported) Entered as Reported by: ISAAK ENCINAS RN on 09/15/20 0833 Last Action: Reviewed on 10/17/20603 by Jesus Montero Escitalopram Oxalate (Escitalopram Oxalate) 10 Mg Tablet, 1 TAB PO DAILY for anxiety, #30 Ref 3 (Reported) Entered as Reported by: ISSA YARBROUGH on 05/03/206 Last Action: Reviewed on 10/17/20603 by Jesus Montero Metformin Hcl (Metformin Hcl) 500 Mg Tablet, 500 MG PO BIDWMEALS for ANTI- DIABETIC, Ref 0 (Reported) Entered as Reported by: YEISON HAIR on 08/23/20 1206 Last Action: Reviewed on 10/17/20603 by Jesus Montero Minoxidil (Minoxidil) 2.5 Mg Tablet, 2.5 MG PO DAILY for hairgrowth, (Reported) Entered as Reported by: Jesus Montero on 10/17/20603 Last Action: New Order on 10/17/20603 by Jesus Montero Pregabalin (Lyrica) 75 Mg Capsule, 1 CAP PO BID, #60 Ref 1 (Reported) Entered as Reported by: ISSA YARBROUGH on 07/15/18 1358 Last Action: Reviewed on 10/17/20603 by Jesus Montero Trazodone Hcl (Trazodone Hcl) 50 Mg Tablet, 50 MG PO HS for anxiety/depression, (Reported) Entered as Reported by: REBECCA CARSON on 06/15/18 0934 Last Action: Reviewed on 10/17/20603 by Jesus Montero Scheduled PRN Albuterol Sulfate (Albuterol Sulfate Neb Soln) 1.25 Mg/3 Ml Vial.neb, 1.25 MG NEB PRN PRN for SHORTNESS OF BREATH, Ref 0 (Reported) Entered as Reported by: ISSA YARBROUGH on 05/03/20 1216 Last Action: Reviewed on 10/17/20603 by Jesus Montero Albuterol Sulfate (Proair Hfa) 8.5 Gm Hfa.aer.ad, 1 PUFF INH PRN Q6HRS PRN for SHORTNESS OF BREATH for 30 Days, #1 Prescribed by: MONTRELL LUCAS D.O. on 10/16/20 1822 Last Action: Reviewed on 10/17/20603 by Jesus Montero Nitroglycerin (Nitrostat) 0.4 Mg Tab.subl, 0.4 MG SL PRN Q5MIN PRN for CHEST PAIN, #100 Prescribed by: SADA BHATIA on 11/29/14 1439 Last Action: Reviewed on 10/17/20603 by Jesus Montero Oxycodone Hcl (Oxycodone Hcl Immed.release) 10 Mg Tablet, 10 MG PO PRN Q6HRS PRN for PAIN, Ref 0 (Reported) Entered as Reported by: ISSA YARBROUGH on 07/15/18 1358 Last Action: Edited on 10/17/20603 by Jesus Montero Tizanidine Hcl (Tizanidine Hcl) 4 Mg Capsule, 4 MG PO PRN Q8HRS PRN for MUSCLE SPASMS, (Reported) Entered as Reported by: ISSA YARBROUGH on 12/02/13 0922 Last Action: Reviewed on 10/17/20603 by Jesus Montero Discontinued Medications Alprazolam (Alprazolam) 0.5 Mg Tablet, 1 MG PO DAILY for anxiety , #30 (Reported) Discontinued Reason: Prescription changed Entered as Reported by: MONICA MORSE on 06/21/18 0902 Fluocinolone Acetonide Oil (Fluocinolone Acetonide Oil) 20 Ml Drops, 5 DROP EACH EAR BID for primary for 14 Days, #20 Ref 0 (Reported) Entered as Reported by: YEISON HAIR on 01/12/20 1211 Last Action: Discontinued on 10/17/20 0604 by Jesus Montero Justicifation of Admission Dx: Justifications for Admission: Justification of Admission Dx: Yes Respiratory Failure: Severe Resp Distress JOSE C RUELAS MD Oct 22, 2020 13:48
--- NOTE | 2020-10-22 16:30 | NUR ---
Pt was escorted out via wheelchair IV and telemonitor discontinued to main entrance and private vehicle. Patient educated on isolation and discharge instructions.
--- NOTE | 2020-10-22 16:48 | PDOC ---
PULMONARY PROGRESS NOTES DATE: 10/22/20 TIME: 16:47 Subjective Patient feels better no more short of air. Vitals Vital Signs Date Time Temp Pulse Resp B/P (MAP) Pulse Ox O2 Delivery O2 Flow Rate FiO2 10/22/20 11:00 97.9 60 18 159/86 (110) 95 Room Air 97.9 10/21/20 15:00 2.0 Comments alert no distress NC AT RRR no accessory muscle use General: Alert Extremities: No Edema Skin: No Rashes Labs Laboratory Tests Test 10/20/20 20:12 10/21/20 04:00 10/21/20 07:59 10/21/20 10:09 Glucose (Fingerstick) 134 mg/dL (70-99) 98 mg/dL (70-99) 143 mg/dL (70-99) White Blood Count 5.1 x10^3/uL (4.0-11.0) Red Blood Count 5.35 x10^6/uL (3.50-5.40) Hemoglobin 16.3 g/dL (12.0-15.5) Hematocrit 47.3 % (36.0-47.0) Mean Corpuscular Volume 89 fL (79-100) Mean Corpuscular Hemoglobin 31 pg (25-35) Mean Corpuscular Hemoglobin Concent 34 g/dL (31-37) Red Cell Distribution Width 14.5 % (11.5-14.5) Platelet Count 306 x10^3/uL (140-400) Neutrophils (%) (Auto) 71 % (31-73) Lymphocytes (%) (Auto) 15 % (24-48) Monocytes (%) (Auto) 13 % (0-9) Eosinophils (%) (Auto) 0 % (0-3) Basophils (%) (Auto) 1 % (0-3) Neutrophils # (Auto) 3.6 x10^3/uL (1.8-7.7) Lymphocytes # (Auto) 0.8 x10^3/uL (1.0-4.8) Monocytes # (Auto) 0.7 x10^3/uL (0.0-1.1) Eosinophils # (Auto) 0.0 x10^3/uL (0.0-0.7) Basophils # (Auto) 0.0 x10^3/uL (0.0-0.2) Sodium Level 137 mmol/L (136-145) Potassium Level 3.4 mmol/L (3.5-5.1) Chloride Level 100 mmol/L (98-107) Carbon Dioxide Level 26 mmol/L (21-32) Anion Gap 11 (6-14) Blood Urea Nitrogen 13 mg/dL (7-20) Creatinine 0.8 mg/dL (0.6-1.0) Estimated GFR (Cockcroft-Gault) 86.6 Glucose Level 100 mg/dL (70-99) Calcium Level 8.9 mg/dL (8.5-10.1) Test 10/21/20 15:54 10/21/20 19:50 10/21/20 20:05 10/21/20 20:10 Glucose (Fingerstick) 97 mg/dL (70-99) 26 mg/dL (70-99) 273 mg/dL (70-99) Glucose Level 214 mg/dL (70-99) Test 10/22/20 07:45 10/22/20 11:34 Sodium Level 136 mmol/L (136-145) Potassium Level 3.7 mmol/L (3.5-5.1) Chloride Level 100 mmol/L (98-107) Carbon Dioxide Level 25 mmol/L (21-32) Anion Gap 11 (6-14) Blood Urea Nitrogen 12 mg/dL (7-20) Creatinine 0.6 mg/dL (0.6-1.0) Estimated GFR (Cockcroft-Gault) 120.7 Glucose Level 101 mg/dL (70-99) Glucose (Fingerstick) 103 mg/dL (70-99) 133 mg/dL (70-99) Calcium Level 9.3 mg/dL (8.5-10.1) Laboratory Tests Test 10/21/20 19:50 10/21/20 20:05 10/21/20 20:10 10/22/20 07:45 Glucose (Fingerstick) 26 mg/dL (70-99) 273 mg/dL (70-99) 103 mg/dL (70-99) Glucose Level 214 mg/dL (70-99) 101 mg/dL (70-99) Sodium Level 136 mmol/L (136-145) Potassium Level 3.7 mmol/L (3.5-5.1) Chloride Level 100 mmol/L (98-107) Carbon Dioxide Level 25 mmol/L (21-32) Anion Gap 11 (6-14) Blood Urea Nitrogen 12 mg/dL (7-20) Creatinine 0.6 mg/dL (0.6-1.0) Estimated GFR (Cockcroft-Gault) 120.7 Calcium Level 9.3 mg/dL (8.5-10.1) Test 10/22/20 11:34 Glucose (Fingerstick) 133 mg/dL (70-99) Medications Active Scripts Medications Dose Route/Sig Max Daily Dose Days Date Category Minoxidil 2.5 Mg Tablet 2.5 Mg PO DAILY 10/17/20 Reported Amlodipine Besylate 10 Mg Tablet 10 Mg PO DAILY 10/17/20 Reported Alprazolam 1 Mg Tablet 1 Tab PO TID 10/17/20 Reported Proair Hfa (Albuterol Sulfate) 8.5 Gm Hfa.aer.ad 1 Puff INH PRN Q6HRS PRN 30 10/16/20 Rx Vitamin D2 (Ergocalciferol (Vitamin D2)) 1,250 Mcg Capsule 1,250 Mcg PO WEEKLY 09/15/20 Reported Metformin Hcl 500 Mg Tablet 500 Mg PO BIDWMEALS 08/23/20 Reported Albuterol Sulfate Neb Soln (Albuterol Sulfate) 1.25 Mg/3 Ml Vial.neb 1.25 Mg NEB PRN PRN 05/03/20 Reported Escitalopram Oxalate 10 Mg Tablet 1 Tab PO DAILY 05/03/20 Reported Cetirizine Hcl 10 Mg Tablet 5 Mg PO DAILY 05/03/20 Reported Oxycodone Hcl Immed.release (Oxycodone Hcl) 10 Mg Tablet 10 Mg PO PRN Q6HRS PRN 07/15/18 Reported Lyrica (Pregabalin) 75 Mg Capsule 1 Cap PO BID 07/15/18 Reported Trazodone Hcl 50 Mg Tablet 50 Mg PO HS 06/15/18 Reported Atorvastatin Calcium 40 Mg Tablet 20 Mg PO DAILY 04/09/17 Reported Nitrostat (Nitroglycerin) 0.4 Mg Tab.subl 0.4 Mg SL PRN Q5MIN PRN 11/29/14 Rx Tizanidine Hcl 4 Mg Capsule 4 Mg PO PRN Q8HRS PRN 12/02/13 Reported Comments CXR Impression: 1. No acute cardiopulmonary process. Impression . IMPRESSION: 1. Acute hypoxic respiratory failure secondary to likely clinical pneumonia. 2. Compensated respiratory acidosis/underlying chronic obstructive pulmonary disease. 3. Abnormal CT chest with minimal patchy infiltrate in right upper lobe and left lower lobe. No evidence of pulmonary embolism. 4. covid19 pneumonia in 09/2020 Plan . Discussed with RN, raynay to discharge, Complete Augmentin Follow-up with me as needed in the office TIFFANY SILVA MD Oct 22, 2020 16:48
== END 2020-10-22 16:20 | disposition home health service (06) | DRG 871 ==
LOC: ER 13:23 → 5 NORTH 21:38 → 6 SOUTH 10-19 12:56
PROVIDERS: ADMIT Internal Medicine; ATTEND Internal Medicine
DX: A41.9 Sepsis, unspecified organism (principal); U07.1 COVID-19; J96.01 Acute respiratory failure with hypoxia; J12.82 Pneumonia due to coronavirus disease 2019; J15.6 Pneumonia due to other Gram-negative bacteria; J44.1 Chronic obstructive pulmonary disease with (acute) exacerbation; J44.0 Chronic obstructive pulmonary disease with (acute) lower respiratory infection; I50.32 Chronic diastolic (congestive) heart failure; I47.1 Supraventricular tachycardia; E87.2 Acidosis; I11.0 Hypertensive heart disease with heart failure; E83.42 Hypomagnesemia; E87.6 Hypokalemia; E11.9 Type 2 diabetes mellitus without complications; E66.9 Obesity, unspecified; I48.91 Unspecified atrial fibrillation; Z82.49 Family history of ischemic heart disease and other diseases of the circulatory system; Z83.3 Family history of diabetes mellitus; Z87.891 Personal history of nicotine dependence; Z96.652 Presence of left artificial knee joint; F32.9 Major depressive disorder, single episode, unspecified; F41.9 Anxiety disorder, unspecified; G89.29 Other chronic pain; M19.90 Unspecified osteoarthritis, unspecified site; Z88.8 Allergy status to other drugs, medicaments and biological substances; Z68.30 Body mass index [BMI] 30.0-30.9, adult; Z79.899 Other long term (current) drug therapy; Z86.718 Personal history of other venous thrombosis and embolism; Z79.01 Long term (current) use of anticoagulants; Z91.018 Allergy to other foods
CPT/HCPCS: 36415; 36600; 71045; 71275; 80048; 80053; 81001; 82805; 82947; 82962; 83735; 84443; 84484; 85007; 85025; 87086; 93005; 94618; 94640; 94760; 96361; 96365; 96375; G0238; J0696; J1100; J2270; J3475; J7030; Q9967; U0003; 97110-GP; 97116-GP; 97535-GO; 99285-25; G0378

== ENCOUNTER → 2020-10-16 | Outpatient (CLI) | payer MEDICARE ==
[2020-09-17 15:03] VITALS: BP 127/61
[~2020-10-16] MED LIST changes: +ALBU2.5V8 INH; +ALPR1TAB6 PO; +CEFP200T PO
--- NOTE | 2020-10-16 13:02 | EKG ---
[facility] [address] [place] [address] Test Date: 2020-10-16 Test Time: 13:00:09 Pat Name: STEPHANE RODRÍGUEZ Department: Room: Gender: F Speech Pathology Supervisor: ELENI : 1955 Requested By: LEROY POOLE Order Number: [id number] Reading MD: Measurements Intervals [place] Rate: 113 P: 24 MI: 134 QRS: -12 QRSD: 62 T: 52 QT: 372 QTc: 510 Interpretive Statements SINUS TACHYCARDIA LEFT ATRIAL ABNORMALITY LEFTWARD AXIS QRS(T) CONTOUR ABNORMALITY CONSIDER ANTERIOR INFARCT CONSISTENT WITH INFERIOR INFARCT PROBABLY OLD ABNORMAL ECG RI6.02 Compared to ECG 09/14/2020 17:27:16 Atrial abnormality now present Left-axis deviation now present Sinus rhythm no longer present Myocardial infarct finding still present
== END ==
LOC: SURGPAT 12:31
PROVIDERS: ATTEND Orthopaedic Surgery
DX: Z01.818 Encounter for other preprocedural examination (principal); M17.11 Unilateral primary osteoarthritis, right knee; R94.31 Abnormal electrocardiogram [ECG] [EKG]; R00.0 Tachycardia, unspecified; I21.09 ST elevation (STEMI) myocardial infarction involving other coronary artery of anterior wall
CPT/HCPCS: 93005

== ENCOUNTER → 2020-11-08 | Outpatient (CLI) | payer MEDICARE ==
[2020-10-22 11:00] VITALS: BP 159/86
[~2020-11-08] MED LIST changes: +ALBU2.5V8 INH; +ALPR1TAB6 PO
--- NOTE | 2020-11-08 14:00 | PDOC ---
Progress Note - Pain Clinic Date of Service: DOS: DATE: 11/08/20 TIME: 13:52 Diagnosis: Dx: Cervical radiculopathy with cervical postlaminectomy syndrome Lumbar radiculopathy with lumbar postlaminectomy syndrome Bilateral knee joint pain with osteoarthritis Left shoulder joint pain with osteoarthritis History or Present Illness: HPI: 65-year-old female returns to follow-up status post medication management with oxycodone and Lyrica. Patient reports he is doing fairly well with this although she was hospitalized about a month ago with a COPD exacerbation but has gotten over this without significant sequelae. Patient reports still pain the base the neck and shoulder mostly in the left side upper extremities with some tingling also low back pain as well. Patient reports her medication know when she is been out of the hospital and been back on her regular schedule medication has been much better with about a 70 to 75% improvement overall without significant side effects. Patient reports no new motor or sensory deficits no new bowel or bladder incontinence or other complaints still pain is reported as 8 on scale 10 is worst least and average over the past week is an 8 today patient describes as aching and burning on and off in intensity in the neck and shoulder on the left side upper extremities with numbness and tingling again and dull aching pain that is cramping at times and stabbing in the low back with activity. Patient reports it wakes her from sleep sporadically sometimes not at all but sometimes every 3 to 4 hours. Patient reports no new motor or sensory deficits no new bowel or bladder incontinence or other complaints. Physical Exam: VS: Blood pressure is 113/71 pulse 119 respirations 16 temperature is 98.1 F weight is 157 pounds PE: PHYSICAL EXAMINATION: GENERAL: The patient is awake, alert, oriented, appropriate, very pleasant demeanor HEENT: Shows normocephalic, atraumatic. Extraocular movements are intact and symmetrical. Oral cavity: Mucous membranes moist and pink. NECK: Shows anterior throat supple without palpable lymphadenopathy noted. Swallow reflex symmetrical. CHEST: Shows normal on inspection. Breath sounds are clear bilaterally, distant but no rales or rhonchi. HEART: Shows S1, S2 clear. ABDOMEN: Soft, nontender, nondistended, obese. No palpable organomegaly is noted. BACK: Shows spine grossly in the midline. Normal-appearing cervical lordotic curvature. Cervical paraspinous muscles show symmetrical with inspection, on palpation shows some moderate tenderness diffusely in the middle and lower distribution the paraspinous musculature but without significant asymmetry atrophy or hypertrophy no trigger points and no radiation. Patient does show good rotation motion cervical spine slightly guarded but full rotation past 45 degrees right and left as well as full extension and full forward flexion. There is slightly increased thoracic kyphosis, some minor flattening of the lumbar lordotic curvature. Lumbar paraspinous muscles show symmetrical on inspection, on palpation shows some moderate tenderness diffusely throughout the upper, middle and lower distribution of the paraspinous muscles, but without specific trigger points, without radiation of pain. The patient has good rotational motion of the lumbar spine, both laterally as well as extension and flexion without significant difficulty. No tenderness over the spinous p rocesses. 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 Peripheral pulses are 2+ radial no peripheral edema bilaterally. Lower extremities show deep tendon reflexes 1+ in the patellar and tendo calcaneus tendons. Motor exam is 4 on a scale of 5 with right dorsiflexion, extension, quadriceps and hamstring flexion and 4/5 on the left. Peripheral pulses are 1+ posterior tibial. No peripheral edema is noted bilaterally. Lower extremities are warm and dry to touch, equal in color and appearance. SKIN: Shows warm and dry, good turgor. No edema. No sores, rashes or bruising throughout. Procedure: Procedure: Options were discussed with the patient. Patient will chart reviews her current medication regimen updated current review of systems updated today as well. We will refill patient's oxycodone as well as Lyrica with instructions side effects aware of discussed each one of the medications. Patient is on very stable regimen and has had appropriate K tracks report as well as appropriate urinalyses to date. We will make this for 2-month refill with instructions and side effects be aware of. Patient will have urinalysis done today as well for routine screening. She will follow-up in approximate 2 months or sooner as necessary. Medication Injected: Med Injected: None Condition at Discharge: Condition at Discharge: Condition at discharge is stable. MACRINA LANDAVERDE MD Nov 08, 2020 14:00
== END | disposition home or self-care (01) ==
LOC: PNCL 13:19
PROVIDERS: ATTEND Anesthesiology
DX: M54.12 Radiculopathy, cervical region (principal); M54.16 Radiculopathy, lumbar region; M96.1 Postlaminectomy syndrome, not elsewhere classified; M17.0 Bilateral primary osteoarthritis of knee; M19.012 Primary osteoarthritis, left shoulder; I11.0 Hypertensive heart disease with heart failure; I50.9 Heart failure, unspecified; E78.00 Pure hypercholesterolemia, unspecified; I48.91 Unspecified atrial fibrillation; E11.9 Type 2 diabetes mellitus without complications; J44.9 Chronic obstructive pulmonary disease, unspecified; E66.9 Obesity, unspecified; F41.9 Anxiety disorder, unspecified; F32.9 Major depressive disorder, single episode, unspecified; Z87.891 Personal history of nicotine dependence; Z79.899 Other long term (current) drug therapy; Z98.890 Other specified postprocedural states; Z79.84 Long term (current) use of oral hypoglycemic drugs; Z88.8 Allergy status to other drugs, medicaments and biological substances
CPT/HCPCS: G0463

== ENCOUNTER → 2020-12-20 | Outpatient (CLI) | payer MEDICARE ==
[~2020-12-20] MED LIST changes: -ERGO500089 PO; +GADOTERATE 7.5 MMOL/15ML VIAL. IVP ONE
[2020-12-20 10:16] LABS: CREATININE 0.7 mg/dL (0.6-1.0)
--- NOTE | 2020-12-20 12:42 | RAD ---
MRI of the lumbar spine without comparison for radiculopathy, right greater than left, possible nerve root compression. TECHNIQUE: Multiplanar multisequence MR imaging of the lumbar spine is provided. 14 mL of Clariscan c ontrast was administered. FINDINGS: No fracture or acute osseous or alignment abnormality is seen. There is reversal of normal lumbar lordosis, with focal kyphosis at L3-4 due to severe degenerative change. The spinal cord termi nates at T12. There is a small hemangioma at T11, and a second one at L2. No signal abnormalities wit hin the spinal cord are identified. No areas of abnormal contrast enhancement. Small posterior fundal uterine fibroid. There is rotoscoliosis of the lumbar spine on a degenerative basis, with significan t atrophy of the right psoas and bilateral paraspinal musculature, right greater than left. At L1-2, there is a mild left far lateral disc osteophyte complex, along with bulky facet arthrosis o n the left, and a levo rotary position of the vertebral body, resulting in effacement of the posterio r thecal sac and mild left neural foraminal stenosis. At L2-3, there is near complete obliteration of the intervertebral disc space, with advanced endplate changes. There is a fusiform disc osteophyte complex which extends into the far lateral space of the left, with moderate bilateral facet arthrosis. There is levo rotation of the vertebral body. There i s a facet osteophyte on the left, and there is a calcified synovial cyst on the right, all of which r esult in moderate canal stenosis, with severe left neural foraminal narrowing, abutment of the exitin g nerve root on the left, and moderate neuroforaminal narrowing on the right. At L3-4, there is near complete obliteration of the intervertebral disc space with advanced endplate changes. There is grade 1 anterolisthesis of L3 on L4. There is a fusiform disc osteophyte complex wh ich extends once again into the far lateral space on the left. Again little rotation of the vertebral body, bulky facet arthrosis, ligamentum flavum hypertrophy, all of which result in severe central ca nal stenosis and moderate bilateral neural foraminal narrowing. At L4-5, there is severe narrowing of the intervertebral disc space, with endplate changes. There is levo rotation of the vertebral body and there is a fusiform disc osteophyte complex once again. Facet arthrosis is bulky and bilateral, and there is ligamentum flavum hypertrophy as well. Findings resul t in severe central canal stenosis. There is preservation of patency of the left neural foramen, with severe neuroforaminal narrowing and exiting nerve root encroachment on the right. At L5-S1, there is severe narrowing of the intervertebral disc space with endplate changes. There is a fusiform disc osteophyte complex which effaces the anterior thecal sac. There is levo rotary change of the vertebral body, with mild facet arthrosis and ligamentum flavum hypertrophy. Findings collect ively produce mild central canal stenosis. There is patency of the right neural foramen, with severe narrowing of the left foramen. IMPRESSION: 1. Extensive multilevel advanced degenerative changes throughout the lumbar spine, with severe centra l canal stenosis at L3-4, and L4-5, as well as severe foraminal/far lateral stenosis with nerve root impingement on the left at L2-3 and on the right at L4-5 and L5-S1. More moderate but potentially sig nificant canal stenosis or neuroforaminal narrowing is seen elsewhere. Electronically signed by: Kunal Woods MD (12/20/2020 12:40 PM) [id number]
== END ==
LOC: MRI 10:06
PROVIDERS: ATTEND Orthopaedic Surgery
DX: M47.26 Other spondylosis with radiculopathy, lumbar region (principal); M48.07 Spinal stenosis, lumbosacral region; M43.16 Spondylolisthesis, lumbar region; Z68.32 Body mass index [BMI] 32.0-32.9, adult
CPT/HCPCS: 36415; 72158; 82565; A9575

== ENCOUNTER → 2021-01-03 | Outpatient (CLI) | payer MEDICARE ==
[~2021-01-03] MED LIST changes: -GADOTERATE 7.5 MMOL/15ML VIAL. IVP ONE; +IOHEXOL 180 MG/ML 10 ML VIAL. ONE; +methylPREDNISolone ACETATE 40 MG/ML VIAL. ONE; +methylPREDNISolone ACETATE 80 MG/ML VIAL. ONE
--- NOTE | 2021-01-03 13:56 | PDOC ---
Progress Note - Pain Clinic Date of Service: DOS: DATE: 01/03/21 TIME: 13:52 Diagnosis: Dx: Lumbar radiculopathy with lumbar postlaminectomy syndrome and lumbar spinal stenosis Cervical radiculopathy with cervical postlaminectomy syndrome Bilateral knee joint pain with osteoarthritis Left shoulder joint pain with osteoarthritis History or Present Illness: HPI: 65-year-old female returns to follow-up status post medication management with codeine and Lyrica. Patient reports to be doing fairly well but has had increased pain in the right lower extremity over the past month or so she had seen her orthopedic surgeon who performed an MR I scan on the lumbar spine showing significant extensive multiple advanced degenerative changes throughout the lumbar spine with severe central canal stenosis L3-4 and L4-5 as well as severe foraminal and far lateral stenosis with nerve root impingement on the left at L2-3 and on the right L4-5 and L5-S1. Patient reports she has been having difficulty weightbearing because of the pain in her right leg and she has had some injection into her right knee without significant improvement. Patient reports she gets difficult for her to bear weight on the right leg and has been falling and stumbling and using a wheelchair on her presentation today. Patient reports pain is stabbing aching constant in the back rating the right lower extremity posterior gluteus posterior thigh posterior calf as well as anterior thigh and calf is on the right side greater than left patient reports is a 10 on scale 10 is worse to the past week 9-10 on average and 9 its least is a 9 today patient reports no new motor or sensory deficits but significant fatigability and weakness in the right leg with weightbearing. Patient reports better with sitting or lying down generally does not awaken her from sleep at night. Physical Exam: VS: Blood pressure is 104/69 pulse 91 respirations 16 temperature 90.5 F weight is 152 pounds PE: PHYSICAL EXAMINATION: GENERAL: The patient is awake, alert, oriented, appropriate, very pleasant demeanor HEENT: Shows normocephalic, atraumatic. Extraocular movements are intact and symmetrical. Oral cavity: Mucous membranes moist and pink. NECK: Shows anterior throat supple without palpable lymphadenopathy noted. Swallow reflex symmetrical. CHEST: Shows normal on inspection. Breath sounds are clear bilaterally, no rales or rhonchi. HEART: Shows S1, S2 clear. No murmurs auscultated. ABDOMEN: Soft, nontender, nondistended, obese. No palpable organomegaly is noted. No rebound or guarding demonstrated. BACK: Shows spine grossly in the midline. Normal-appearing cervical lordotic curvature. There is slightly increased thoracic kyphosis, some minor flattening of the lumbar lordotic curvature. Lumbar paraspinous muscles show symmetrical on inspection, on palpation shows some moderate tenderness diffusely throughout the upper, middle and lower distribution of the paraspinous muscles, but without specific trigger points, without radiation of pain. The patient has good rotational motion of the lumbar spine, both laterally as well as extension and flexion without significant difficulty. EXTREMITIES: Lower extremities show deep tendon reflexes 1+ in the patellar and tendo calcaneus tendons. Motor exam is 3-4 on a scale of 5 with right dorsiflexion, extension, quadriceps and hamstring flexion and 4/5 on the left. Peripheral pulses are 1+ posterior tibial. No peripheral edema is noted bilaterally. Lower extremities are warm and dry to touch, equal in color and appearance. SKIN: Shows warm and dry, good turgor. No edema. No sores, rashes or bruising throughout. Procedure: Procedure: Options were discussed with the patient. Patient chart reviews her current medication regimen updated current review of systems updated today as well. We will proceed with lumbar epidural steroid injection today with fluoroscopic guidance. Risks were discussed including but not limited to: Bleeding, infection, possibility of epidural hematoma and subsequent neurological compromise, dural puncture, headaches, spinal cord and/or nerve damage, side effects of steroid medication, and poor results regarding pain control. Patient understands and wished to proceed. Patient will return to the clinic in approximate 4 weeks for follow-up, was counseled as return appointment to fill and side effects beware. We will also refill patient's oxycodone and Lyrica as she has been on very stable regimen has had appropriate K tracts reporting as well as appropriate urinalyses to date. Patient was given 2-month prescription for this with instructions and side effects to be aware of with each of the medications discussed. Medication Injected: Med Injected: Procedure is lumbar epidural steroid injection under local anesthetic using sterile prep and drape at the L5-S1 level using C-arm fluoroscopic guidance in both AP and lateral views medications injected is 120 mg Depo-Medrol + 10 mL preservative-free normal saline and 2 mL contrast- condition at discharge is stable patient tolerated procedure well had no complications. Condition at Discharge: Condition at Discharge: Condition at discharge stable, patient alert procedure well and had no complications. MACRINA LANDAVERDE MD Jan 03, 2021 13:56
--- NOTE | 2021-01-03 13:57 | PDOC4 ---
PROCEDURE Procedure Patient was consented for lumbar epidural steroid injection. Risks were dis cussed including but not limited to: Bleeding, infection, possibility of epidural hematoma and subsequent neurological compromise, dural puncture, headaches, spinal cord and/or nerve damage, side effects of steroid medication, and poor results regarding pain control. Patient understands and wished to proceed. Procedure is lumbar epidural steroid injection under local anesthetic using sterile prep and drape at the L5-S1 level using C-arm fluoroscopic guidance in both AP and lateral views medications injected is 120 mg Depo-Medrol + 10 mL preservative-free normal saline and 2 mL contrast- condition at discharge is stable patient tolerated procedure well had no complications. MACRINA LANDAVERDE MD Jan 03, 2021 13:57
== END | disposition home or self-care (01) ==
LOC: PNCL 13:04
PROVIDERS: ATTEND Anesthesiology
DX: M54.16 Radiculopathy, lumbar region (principal); M96.1 Postlaminectomy syndrome, not elsewhere classified; M17.0 Bilateral primary osteoarthritis of knee; M19.012 Primary osteoarthritis, left shoulder; M48.061 Spinal stenosis, lumbar region without neurogenic claudication; Z98.890 Other specified postprocedural states; Z91.018 Allergy to other foods; Z88.8 Allergy status to other drugs, medicaments and biological substances
CPT/HCPCS: 62323; J1030; J1040; Q9965

== ENCOUNTER → 2021-01-30 | Outpatient (CLI) | payer MEDICARE ==
[~2021-01-30] MED LIST changes: -IOHEXOL 180 MG/ML 10 ML VIAL. ONE; -methylPREDNISolone ACETATE 40 MG/ML VIAL. ONE; -methylPREDNISolone ACETATE 80 MG/ML VIAL. ONE
--- NOTE | 2021-01-30 13:47 | PDOC ---
Progress Note - Pain Clinic Date of Service: DOS: DATE: 01/30/21 TIME: 13:42 Diagnosis: Dx: Cervical radiculopathy with cervical postlaminectomy syndrome Lumbar radiculopathy lumbar postlaminectomy syndrome and lumbar spinal stenosis Bilateral knee joint pain with osteoarthritis Left shoulder joint pain with osteoarthritis History or Present Illness: HPI: 66-year-old female returns to follow-up status post lumbar epidurals injection x1. Patient reports near 100% improvement for about 3 weeks has been about 3 weeks since her injection and reports the pain is still very well controlled in the low back and right lower extremity. Patient reports she still has some significant pain in the back itself but the pain in the leg is much better is returning slowly but not nearly where it was at baseline. Patient reports currently still improved with distance walking she feels more stable on her feet a lot she still using her walker patient rates her pain as an 8 on scale 10 is worse over the past week 6 on average 6 its least as a 6 today. Patient reports a stabbing and aching in the back tingling in the right leg. Patient reports no new motor or sensory deficits she been doing better with distance walking doing household activities travel with greater ease and comfort as well reports it does awaken her from sleep still about every 3-4 hours. Patient reports that since her low back is been feeling better her upper extremities have been more painful or more noticeably so. Patient reports no new bowel or bladder incontinence no new motor or sensory deficits. Physical Exam: VS: Blood pressure is 112/58 pulse 99 respirations 146 pounds PE: PHYSICAL EXAMINATION: GENERAL: The patient is awake, alert, oriented, appropriate, very pleasant demeanor HEENT: Shows normocephalic, atraumatic. Extraocular movements are intact and symmetrical. NECK: Shows anterior throat supple without palpable lymphadenopathy noted. Swallow reflex symmetrical. CHEST: Shows normal on inspection. Breath sounds are clear bilaterally. HEART: Shows S1, S2 clear. No murmurs auscultated. ABDOMEN: Soft, nontender, nondistended. No palpable organomegaly is noted. No rebound or guarding demonstrated. BACK: Shows spine grossly in the midline. Normal-appearing cervical lordotic curvature. Cervical paraspinous muscles show symmetrical inspection with palpation some mild tenderness in the middle and inferior aspect of the cervical paraspinous muscles bilaterally but only diffusely without radiation. Patient shows good rotation motion cervical spine both laterally as well as extension flexion without significant limitation. There is slightly increased thoracic kyphosis, some minor flattening of the lumbar lordotic curvature. Lumbar paraspinous muscles show symmetrical on inspection, on palpation shows some moderate tenderness diffusely throughout the upper, middle and lower distribution of the paraspinous muscles, but without specific trigger points, without radiation of pain. The patient has good rotational motion of the lumbar spine, both laterally as well as extension and flexion without significant difficulty. No tenderness over the spinous processes, sacrum or sacroiliac regions. EXTREMITIES: Lower extremities show deep tendon reflexes 1+ in the patellar and tendo calcaneus tendons. Motor exam is 4 on a scale of 5 with right dorsiflexion, extension, quadriceps and hamstring flexion and 5/5 on the left. Peripheral pulses are 1 posterior tibial. No peripheral edema is noted bilaterally. Lower extremities are warm and dry to touch, equal in color and appearance. 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 SKIN: Shows warm and dry, good turgor. No edema. No sores, rashes or bruising throughout. Procedure: Procedure: Options were discussed with the patient. Patient chart was reviewed as her current medication regimen updated current review of systems updated today as well. We will wait for further injections at this time as patient is doing quite a bit better however it is returning in the low back right lower extremity only mildly. Patient will await insurance preauthorization for a 30-day gap between injections and assess is better in about another week which will fulfill this requirement. Meantime patient will continue with medication regimen oxycodone and Lyrica as currently. Also will have UA drawn today as part of normal process. Patient will follow up in approximately 4 weeks or sooner as necessary. Medication Injected: Med Injected: None Condition at Discharge: Condition at Discharge: Condition at discharge is stable. MACRINA LANDAVERDE MD Jan 30, 2021 13:47
== END | disposition home or self-care (01) ==
LOC: PNCL 13:07
PROVIDERS: ATTEND Anesthesiology
DX: M54.12 Radiculopathy, cervical region (principal); M54.16 Radiculopathy, lumbar region; M96.1 Postlaminectomy syndrome, not elsewhere classified; M17.0 Bilateral primary osteoarthritis of knee; M19.012 Primary osteoarthritis, left shoulder; I11.0 Hypertensive heart disease with heart failure; I50.9 Heart failure, unspecified; E78.00 Pure hypercholesterolemia, unspecified; I48.91 Unspecified atrial fibrillation; E11.9 Type 2 diabetes mellitus without complications; J44.9 Chronic obstructive pulmonary disease, unspecified; E66.9 Obesity, unspecified; F41.9 Anxiety disorder, unspecified; F32.9 Major depressive disorder, single episode, unspecified; Z87.891 Personal history of nicotine dependence; Z79.84 Long term (current) use of oral hypoglycemic drugs; Z79.899 Other long term (current) drug therapy; Z98.890 Other specified postprocedural states; Z88.8 Allergy status to other drugs, medicaments and biological substances
CPT/HCPCS: G0463

== ENCOUNTER → 2021-02-18 | Outpatient (CLI) | payer MEDICARE ==
[~2021-02-18] MED LIST changes: +IOHEXOL 180 MG/ML 10 ML VIAL. ONE; +methylPREDNISolone ACETATE 40 MG/ML VIAL. ONE; +methylPREDNISolone ACETATE 80 MG/ML VIAL. ONE
--- NOTE | 2021-02-18 11:38 | PDOC4 ---
PROCEDURE Procedure Patient was consented for lumbar epidural steroid injection. Risks were dis cussed including but not limited to: Bleeding, infection, possibility of epidural hematoma and subsequent neurological compromise, dural puncture, headaches, spinal cord and/or nerve damage, side effects of steroid medication, and poor results regarding pain control. Patient understands and wished to proceed. Procedure is lumbar epidural steroid injection under local anesthetic using sterile prep and drape at the L5-S1 level using C-arm fluoroscopic guidance in both AP and lateral views medications injected is 120 mg Depo-Medrol +10mL preservative-free normal saline and 2 mL contrast- condition at discharge is stable patient tolerated procedure well had no complications. MACRINA LANDAVERDE MD February 18, 2021 11:38
--- NOTE | 2021-02-18 11:38 | PDOC ---
Progress Note - Pain Clinic Date of Service: DOS: DATE: 02/18/21 TIME: 11:34 Diagnosis: Dx: Lumbar radiculopathy with lumbar spinal stenosis lumbar postlaminectomy syndrome Cervical radiculopathy with cervical postlaminectomy syndrome Bilateral knee joint pain with osteoarthritis Left shoulder joint pain with osteoarthritis History or Present Illness: HPI: 66-year-old female returns for follow-up status post lumbar epidural steroid injection x1 and medication management with oxycodone as well as Lyrica. Patient reports she is doing very well with the medications with about a 70% improvement with those alone and was 100% improved after the injection in her low back which was January 03. Patient had to wait for insurance requirements for 30 days between injections and has passed this now and is in significant pain with pain rating to bilateral lower extremities more on the right and left posterior gluteus posterior thigh posterior calf into the ankles as well with walking standing changing position especially worse in the morning when she first gets up patient reports is a 10 on scale 10 is worst average and least over the past week is a 10 on a scale of 10 today. Patient reports no new motor or sensory deficits no new bowel or bladder incontinence cries pain is aching and sharp in the back shooting constant can be severe again worse with standing walking better with sitting or laying down but is waking her from sleep least once or twice a night. Patient reports no new motor or sensory deficits no new bowel or bladder incontinence and no side effects with her medications. Physical Exam: VS: Blood pressure is 121/72 pulse 94 respirations 18 temperature 97.5 F height is 5 foot 1 his weight is 144 pounds PE: PHYSICAL EXAMINATION: GENERAL: The patient is awake, alert, oriented, appropriate, very pleasant demeanor HEENT: Shows normocephalic, atraumatic. Extraocular movements are intact and symmetrical. Oral cavity: Mucous membranes moist and pink. NECK: Shows anterior throat supple without palpable lymphadenopathy noted. Swallow reflex symmetrical. CHEST: Shows normal on inspection. Breath sounds are clear bilaterally. HEART: Shows S1, S2 clear. No murmurs auscultated. ABDOMEN: Soft, nontender, nondistended. No palpable organomegaly is noted. No rebound or guarding demonstrated. BACK: Shows spine grossly in the midline. Normal-appearing cervical lordotic curvature. There is increased thoracic kyphosis, some flattening of the lumbar lordotic curvature, with well-healed surgical scarring noted. Lumbar paraspinous muscles show symmetrical on inspection, on palpation shows some moderate tenderness diffusely throughout the upper, middle and lower distribution of the paraspinous muscles without specific trigger points, without radiation of pain. The patient has good rotational motion of the lumbar spine, both laterally as well as extension and flexion without significant difficulty. No tenderness over the spinous processes, sacrum or sacroiliac regions. EXTREMITIES: Lower extremities show deep tendon reflexes 1+ in the patellar and tendo calcaneus tendons. Motor exam is 4 on a scale of 5 with right dorsiflexion, extension, quadriceps and hamstring flexion and 5/5 on the left. Peripheral pulses are 1+ posterior tibial. No peripheral edema is noted bilaterally. Lower extremities are warm and dry to touch, equal in color and appearance. SKIN: Shows warm and dry, good turgor. No edema. No sores, rashes or bruising throughout. Procedure: Procedure: Options were discussed with the patient. Patient old chart was reviewed as was her current medication regimen updated current review of systems updated today as well. We will proceed with a second in a series lumbar epidural steroid injection today with fluoroscopic guidance. Risks were discussed including but not limited to: Bleeding, infection, possibility of epidural hematoma and subsequent neurological compromise, dural puncture, headaches, spinal cord and/or nerve damage, side effects of steroid medication, and poor results regarding pain control. Patient understands and wished to proceed. Patient is also given refill prescription for oxycodone as well as Lyrica with instructions side effects aware of discussed with each of the medications. Patient is had appropriate K tracks report as well as appropriate urinalyses to date and will make this a 2-month refill with her medications. Medication Injected: Med Injected: Procedure is lumbar epidural steroid injection under local anesthetic using sterile prep and drape at the L5-S1 level using C-arm fluoroscopic guidance in both AP and lateral views medications injected is 120 mg Depo-Medrol +10mL preservative-free normal saline and 2 mL contrast- condition at discharge is stable patient tolerated procedure well had no complications. Condition at Discharge: Condition at Discharge: Condition at discharge stable, patient already the procedure well and had no complications. MACRINA LANDAVERDE MD February 18, 2021 11:38
== END | disposition home or self-care (01) ==
LOC: PNCL 10:38
PROVIDERS: ATTEND Anesthesiology
DX: M54.16 Radiculopathy, lumbar region (principal); M48.061 Spinal stenosis, lumbar region without neurogenic claudication; M96.1 Postlaminectomy syndrome, not elsewhere classified; M54.12 Radiculopathy, cervical region; M17.0 Bilateral primary osteoarthritis of knee; M19.012 Primary osteoarthritis, left shoulder; I11.0 Hypertensive heart disease with heart failure; I50.9 Heart failure, unspecified; E78.00 Pure hypercholesterolemia, unspecified; J44.9 Chronic obstructive pulmonary disease, unspecified; I48.91 Unspecified atrial fibrillation; E66.9 Obesity, unspecified; E11.9 Type 2 diabetes mellitus without complications; F41.9 Anxiety disorder, unspecified; F32.9 Major depressive disorder, single episode, unspecified; Z87.891 Personal history of nicotine dependence; Z79.84 Long term (current) use of oral hypoglycemic drugs; Z79.899 Other long term (current) drug therapy; Z98.890 Other specified postprocedural states; Z88.8 Allergy status to other drugs, medicaments and biological substances; Z82.49 Family history of ischemic heart disease and other diseases of the circulatory system; Z83.3 Family history of diabetes mellitus
CPT/HCPCS: 62323; J1030; J1040; Q9965

== ENCOUNTER → 2021-04-15 | Outpatient (CLI) | payer MEDICARE ==
[2021-03-28 11:38] VITALS: BP 121/85
[~2021-04-15] MED LIST changes: +ERGO500089 PO; -IOHEXOL 180 MG/ML 10 ML VIAL. ONE; -methylPREDNISolone ACETATE 40 MG/ML VIAL. ONE; -methylPREDNISolone ACETATE 80 MG/ML VIAL. ONE
--- NOTE | 2021-04-15 13:50 | PDOC ---
Progress Note - Pain Clinic Date of Service: DOS: DATE: 04/15/21 TIME: 13:46 Diagnosis: Dx: Cervical radiculopathy with cervical postlaminectomy syndrome Lumbar radiculopathy with lumbar degenerative disc disease lumbar spinal stenosis and postlaminectomy syndrome Bilateral knee joint pain with osteoarthritis Left shoulder joint pain with osteoarthritis History or Present Illness: HPI: 66-year-old female returns for follow-up status post lumbar epidural steroid injection x2 last seen February 18, 2021. Patient reports new findings of falling several times at home at her sink and in her bathroom 1 time she fell this was about 4 weeks ago between the bed and the dresser where she was stuck there but unable to reach her phone and had to wait for her to get off work to come in pick her up. Patient reports this has been new activity and seems to correspond with the timing of recent tizanidine which is added to her medication regimen. Patient was hospitalized after her last fall at the end of March and tizanidine was eventually discontinued. Patient reports still significant pain in the low back bilateral lower extremities better after the last injection but still worse on the right than the left posterior gluteus posterior lateral thigh lateral anterior thighs posterior calves and ankles patient ports tingling aching and sharp in the back and legs rated an 8 on scale 10 at worst average and least is an 8 today. Patient reports no new motor or sensory deficits or other complaints she is using a walker to ambulate and has that with her today reports he feels much more stable off of the tizanidine. Physical Exam: VS: Blood pressure is 104/68 pulse 96 respirations 16 temperature 98.0 F weight is 141 pounds PE: PHYSICAL EXAMINATION: GENERAL: The patient is awake, alert, oriented, appropriate, very pleasant in demeanor. HEENT: Shows normocephalic, atraumatic. Extraocular movements are intact and symmetrical. NECK: Shows anterior throat supple without palpable lymphadenopathy noted. Swallow reflex symmetrical. CHEST: Shows normal on inspection. Breath sounds are clear bilaterally. HEART: Shows S1, S2 clear. No murmurs auscultated. ABDOMEN: Soft, nontender, nondistended, obese. BACK: Shows spine grossly in the midline. Normal-appearing cervical lordotic curvature. There is increased thoracic kyphosis, some flattening of the lumbar lordotic curvature. Patient has well-healed surgical scarring. Lumbar paraspinous muscles show symmetrical on inspection, on palpation shows some moderate tenderness diffusely throughout the upper, middle and lower distribution of the paraspinous muscles without specific trigger points, without radiation of pain. The patient has good rotational motion of the lumbar spine, both laterally as well as extension and flexion without significant difficulty. No tenderness over the spinous processes, sacrum or sacroiliac regions. EXTREMITIES: Lower extremities show deep tendon reflexes 1+ in the patellar and tendo calcaneus tendons. Motor exam is 4 on a scale of 5 with right dorsiflexion, extension, quadriceps and hamstring flexion and 5/5 on the left. Peripheral pulses are 1+ posterior tibial. No peripheral edema is noted bilaterally. Lower extremities are warm and dry. SKIN: Shows warm and dry, good turgor. No edema. No sores, rashes or bruising throughout. Procedure: Procedure: Options were discussed with the patient. Pain is recurrent case regimen updated current review of systems updated today as well. We will refill patient's oxycodone at the end of April as she had a refill on April 02. As this is electronically prescribed now, patient will need to call for refill at the end of this month. Also have patient return in an additional month as scheduled and possible third lumbar epidural steroid injection if the pain begins to return in the low back and extremities as previously. Patient was given instructions well side effects to be aware of with the medication. Patient has had appropriate K tracks report as well as appropriate urinalyses to date as well. Medication Injected: Med Injected: None Condition at Discharge: Condition at Discharge: Condition at discharge is stable. MACRINA LANDAVERDE MD Apr 15, 2021 13:50
== END | disposition home or self-care (01) ==
LOC: PNCL 13:05
PROVIDERS: ATTEND Anesthesiology
DX: M51.16 Intervertebral disc disorders with radiculopathy, lumbar region (principal); M48.061 Spinal stenosis, lumbar region without neurogenic claudication; M96.1 Postlaminectomy syndrome, not elsewhere classified; M17.0 Bilateral primary osteoarthritis of knee; M19.012 Primary osteoarthritis, left shoulder; I11.0 Hypertensive heart disease with heart failure; I50.9 Heart failure, unspecified; I48.91 Unspecified atrial fibrillation; E78.00 Pure hypercholesterolemia, unspecified; E11.9 Type 2 diabetes mellitus without complications; J44.9 Chronic obstructive pulmonary disease, unspecified; E66.9 Obesity, unspecified; F41.9 Anxiety disorder, unspecified; F32.9 Major depressive disorder, single episode, unspecified; Z87.891 Personal history of nicotine dependence; Z79.82 Long term (current) use of aspirin; Z79.84 Long term (current) use of oral hypoglycemic drugs; Z79.899 Other long term (current) drug therapy; Z98.890 Other specified postprocedural states; Z88.8 Allergy status to other drugs, medicaments and biological substances
CPT/HCPCS: 99212; G0463

== ENCOUNTER → 2021-05-13 | Outpatient (CLI) | payer MEDICARE ==
[2021-03-28 11:38] VITALS: BP 121/85
[~2021-05-13] MED LIST changes: +BUPIVACAINE MPF 0.25% 10 ML VIAL. ONE; +IOHEXOL 180 MG/ML 10 ML VIAL. ONE; +methylPREDNISolone ACETATE 80 MG/ML VIAL. ONE
--- NOTE | 2021-05-13 14:37 | PDOC ---
Progress Note - Pain Clinic Date of Service: DOS: DATE: 05/13/21 TIME: 14:31 Diagnosis: Dx: Bilateral knee joint pain with osteoarthritis Cervical radiculopathy with cervical postlaminectomy Lumbar radiculopathy with lumbar spinal stenosis and lumbar postlaminectomy syndrome Left shoulder joint pain with osteoarthritis History or Present Illness: HPI: 66-year-old female returns for follow-up status post medication management with oxycodone as well as interventional techniques patient reports significant pain in her right knee with weightbearing walking and standing. Patient reports she did very well after last lumbar epidural steroid injection which was February 18 of this year also doing well with oxycodone without any significant side effects and with good decrease in pain around 75 to 80% on most days patient reports that lately pain has been much worse in her right knee with walking standing climbing stairs putting all her weight on her right leg climbing on a step. Patient continues use her walker with ambulation and has it with her today as well. Patient rates her pain as a 9 on scale 10 is worse in the past week 9 on average 7 its least and is a 7 today. Patient reports is constant aching dull shooting and occasionally sharp in the knee itself. Physical Exam: VS: Blood pressure is 92/60 pulse 105 respirations 18 temperature 98.3 F height is 5 foot 1 inch which is 142 pounds PE: PHYSICAL EXAMINATION: GENERAL: The patient is awake, alert, oriented, appropriate, is very pleasant in demeanor. HEENT: Shows normocephalic, atraumatic. Extraocular movements are intact and symmetrical. Oral cavity: Mucous membranes moist and pink. NECK: Shows anterior throat supple without palpable lymphadenopathy noted. Swallow reflex is symmetrical. CHEST: Shows normal on inspection. Breath sounds are clear bilaterally, no rales rhonchi or wheezes auscultated bilaterally. HEART: Shows S1, S2 clear. No murmurs auscultated. ABDOMEN: Soft, nontender, nondistended, obese. No palpable organomegaly is noted. BACK: Shows spine grossly in the midline. Normal-appearing cervical lordotic curvature. There is slightly increased thoracic kyphosis, some minor flattening of the lumbar lordotic curvature. Well-healed surgical scar is noted in the midline. Lumbar paraspinous muscles show symmetrical on inspection, on palpation shows some moderate tenderness diffusely throughout the upper, middle and lower distribution of the paraspinous muscles without specific trigger points, without radiation of pain. The patient has good rotational motion of the lumbar spine, both laterally as well as extension and flexion without sign ificant difficulty. EXTREMITIES: Lower extremities show deep tendon reflexes 1 in the patellar and tendo calcaneus tendons. Motor exam is 4 on a scale of 5 with right dorsiflexion, extension, quadriceps and hamstring flexion and 5/5 on the left. Peripheral pulses are 1+ posterior tibial. No peripheral edema is noted bilaterally. Lower extremities are warm and dry. Patient's knee shows well- healed surgical scar over the left knee right knee shows moderate tenderness with medial collateral ligament palpation as well as lateral collateral ligament palpation but more so on the medial compartment. Patient has good mobility of the patella without significant tenderness over the patella itself with patellofemoral ligament. Range of motion shows good hinge motion without obvious ratcheting or crepitus. SKIN: Shows warm and dry, good turgor. No edema. No sores, rashes or bruising throughout. Procedure: Procedure: Options discussed with the patient. Patient chart reviews her current medication regimen updated current review of systems updated today as well. We will proceed with a right intra-articular knee joint injection today with fluoroscopic guidance. Risks discussed including but not limited to bleeding infection possibility of intravascular injection sequelae spread local anesthetic numbness side effects steroid medication exposure fluoroscopy and poor results regarding pain control. Patient understands wished to proceed. Patient return to clinic in approximately 4 weeks for follow-up, was counseled as to return appointment activity level and side effects to be aware of. Medication Injected: Med Injected: Under sterile prep and drape patient in supine position using C-arm fluoroscopic guidance patient's right knee was sterilely prepped and draped in usual fashion. Using C-arm fluoroscopy the medial aspect of the knee joint was identified and visualized and using 1% lidocaine 25-gauge needle of the area of the skin overlying the medial knee compartment was anesthetized. Using a 22-gauge quickie needle with stylette the joint was entered under direct visualization without difficulty. Stylet was removed at this time 1.5 cc of contrast was then injected with good spread within the knee joint itself without washout or uptake. At this time solution containing 3 cc of 0.25 bupivacaine and 80 mg Depo-Medrol, was then injected. Needle was withdrawn and sterile bandage applied. Patient tolerated procedure well and had no complications. Condition at Discharge: Condition at Discharge: Condition at discharge stable, patient alert the procedure well and had no complications. MACRINA LANDAVERDE MD May 13, 2021 14:37
--- NOTE | 2021-05-13 14:38 | PDOC4 ---
Procedure Note: ICD 10 Code: ICD 10 Code: M2 5.561 M1 7.11 Procedure Note: Patient was consented for right intra-articular knee joint injection with fluoroscopic guidance. Risks are discussed including but not limited to bleeding infection possibly intravascular injection sequelae spread local anesthetic and numbness side effects steroid medications post arthroscopy and portals regarding pain control. Patient understands wishes to proceed. Under sterile prep and drape patient in supine position using C-arm fluoroscopic guidance patient's right knee was sterilely prepped and draped in usual fashion. Using C-arm fluoroscopy the medial aspect of the knee joint was identified and visualized and using 1% lidocaine 25-gauge needle of the area of the skin overlying the medial knee compartment was anesthetized. Using a 22-gauge quickie needle with stylette the joint was entered under direct visualization without difficulty. Stylet was removed at this time 1.5 cc of contrast was then injected with good spread within the knee joint itself without washout or uptake. At this time solution containing 3 cc of 0.25 bupivacaine and 80 mg Depo-Medrol, was then injected. Needle was withdrawn and sterile bandage applied. Patient tolerated procedure well and had no complications. MACRINA LANDAVERDE MD May 13, 2021 14:38
== END | disposition home or self-care (01) ==
LOC: PNCL 13:38
PROVIDERS: ATTEND Anesthesiology
DX: M17.0 Bilateral primary osteoarthritis of knee (principal); M19.012 Primary osteoarthritis, left shoulder; M54.16 Radiculopathy, lumbar region; M54.12 Radiculopathy, cervical region; M48.061 Spinal stenosis, lumbar region without neurogenic claudication; M96.1 Postlaminectomy syndrome, not elsewhere classified; I11.0 Hypertensive heart disease with heart failure; I50.9 Heart failure, unspecified; I48.91 Unspecified atrial fibrillation; E78.00 Pure hypercholesterolemia, unspecified; E66.9 Obesity, unspecified; J44.9 Chronic obstructive pulmonary disease, unspecified; E11.9 Type 2 diabetes mellitus without complications; M19.90 Unspecified osteoarthritis, unspecified site; F41.9 Anxiety disorder, unspecified; F32.9 Major depressive disorder, single episode, unspecified; Z87.891 Personal history of nicotine dependence; Z79.84 Long term (current) use of oral hypoglycemic drugs; Z79.899 Other long term (current) drug therapy; Z98.890 Other specified postprocedural states; Z82.49 Family history of ischemic heart disease and other diseases of the circulatory system; Z83.3 Family history of diabetes mellitus; Z88.8 Allergy status to other drugs, medicaments and biological substances
CPT/HCPCS: 20610; 77002; J1040; J3490; Q9965

== ENCOUNTER → 2021-05-31 | Outpatient (CLI) | payer MEDICARE ==
[2021-03-28 11:38] VITALS: BP 121/85
[~2021-05-31] MED LIST changes: +ASPI-886 PO; -BUPIVACAINE MPF 0.25% 10 ML VIAL. ONE; -IOHEXOL 180 MG/ML 10 ML VIAL. ONE; -methylPREDNISolone ACETATE 80 MG/ML VIAL. ONE
--- NOTE | 2021-05-31 12:40 | PDOC ---
Progress Note - Pain Clinic Date of Service: DOS: DATE: 05/31/21 TIME: 12:31 Diagnosis: Dx: Cervical radiculopathy with cervical degenerative disease and cervical postlaminectomy syndrome Lumbar to colopathy with lumbar spinal stenosis and lumbar postlaminectomy syndrome Bilateral knee joint pain with osteoarthritis Left AC joint pain with osteoarthritis of the left shoulder History or Present Illness: HPI: 66-year-old female returns status post right knee joint injection with no significant decrease in pain. Patient also with medication management taking oxycodone 10 mg and does well with this with a good stable regimen patient has had no side effects with the medication and reports that it allows her to get through her daily activities with much greater ease and comfort, patient reports her pain is an 8 on scale 10 is worse over the past week 8 on average 7 its least is a 7 today. We discussed possible referral for orthopedic evaluation but patient would like to consider this and is not ready to see a specialist about her knee just yet. We did discuss her wearing a knee brace on the right side and she has one at home and encouraged her to start wearing this once again. Patient reports pain is aching and constant in the back also in the neck and shoulders upper extremities radiating as well as the low back and the right knee. Patient reports no new bowel or bladder incontinence no loss of motor function. Physical Exam: VS: Blood pressure is 102/52 pulse 96 respirations 16 temperature 90.2 F height is 4 foot 11 inches weight is 144 pounds PE: PHYSICAL EXAMINATION: GENERAL: The patient is awake, alert, oriented, appropriate, very pleasant in demeanor. HEENT: Shows normocephalic, atraumatic. Extraocular movements are intact and symmetrical. Oral cavity: Mucous membranes moist and pink. NECK: Shows anterior throat supple without palpable lymphadenopathy noted. Swallow reflex symmetrical. CHEST: Shows normal on inspection. Breath sounds are clear bilaterally, distant no rales rhonchi or wheezes auscultated. HEART: Shows S1, S2 clear. No murmurs auscultated. ABDOMEN: Soft, nontender, nondistended, obese. No palpable organomegaly is noted. BACK: Shows spine grossly in the midline. Normal-appearing cervical lordotic curvature. There is slightly increased thoracic kyphosis, some minor flattening of the lumbar lordotic curvature. Lumbar paraspinous muscles show symmetrical on inspection, on palpation shows some moderate tenderness diffusely throughout the upper, middle and lower distribution of the paraspinous muscles without specific trigger points, without radiation of pain. The patient has good rotational motion of the lumbar spine, both laterally as well as extension and flexion without significant difficulty. EXTREMITIES: Lower extremities show deep tendon reflexes 1 in the patellar and tendo calcaneus tendons. Motor exam is 4 on a scale of 5 with right dorsiflexion, extension, quadriceps and hamstring flexion and 4/5 on the left. Peripheral pulses are 1+ posterior tibial. No peripheral edema is noted bilaterally. Lower extremities are warm and dry to touch, equal in color and appearance. Upper extremity show deep tendon reflexes 2+ in the bicep triceps tendons, motor exam is strong with servomechanism designer strength rated 5 out of 5 as is bicep and tricep flexion and symmetrical. Peripheral pulses are 2+ radial. SKIN: Shows warm and dry, good turgor. No edema. No sores, rashes or bruising throughout. Procedure: Procedure: Options were discussed with the patient. Patient chart reviews her current medication regimen updated current review of systems updated today as well. We will refill patient's medication via electronic prescribing as we attempted to do this 3 days ago however her pharmacy was out of her medication and does not have it restocked. We will send this to a new location as documented [facility]. Patient has had appropriate K tracks reporting as well as appropriate urinalyses to date we will make this a 1 month prescription. Patient was given instructions well side effects aware with the medication. Once again, patient will consider orthopedic referral but would like to try a knee brace as we discussed in the meantime. Medication Injected: Med Injected: None Condition at Discharge: Condition at Discharge: Condition at discharge is stable. MACRINA LANDAVERDE MD May 31, 2021 12:40
== END | disposition home or self-care (01) ==
LOC: PNCL 11:12
PROVIDERS: ATTEND Anesthesiology
DX: M50.10 Cervical disc disorder with radiculopathy, unspecified cervical region (principal); M96.1 Postlaminectomy syndrome, not elsewhere classified; M48.061 Spinal stenosis, lumbar region without neurogenic claudication; M17.0 Bilateral primary osteoarthritis of knee; M19.012 Primary osteoarthritis, left shoulder; I11.0 Hypertensive heart disease with heart failure; I50.9 Heart failure, unspecified; E78.00 Pure hypercholesterolemia, unspecified; I48.91 Unspecified atrial fibrillation; J44.9 Chronic obstructive pulmonary disease, unspecified; E11.9 Type 2 diabetes mellitus without complications; F41.9 Anxiety disorder, unspecified; F32.9 Major depressive disorder, single episode, unspecified; E66.9 Obesity, unspecified; Z87.891 Personal history of nicotine dependence; Z79.82 Long term (current) use of aspirin; Z79.84 Long term (current) use of oral hypoglycemic drugs; Z79.899 Other long term (current) drug therapy; Z98.890 Other specified postprocedural states; Z88.8 Allergy status to other drugs, medicaments and biological substances
CPT/HCPCS: 99212; G0463

== ENCOUNTER → 2021-06-24 | Outpatient (CLI) | payer MEDICARE ==
[2021-03-28 11:38] VITALS: BP 121/85
--- NOTE | 2021-06-24 15:48 | NUR ---
Pt called Pain Clinic requesting refill on her Lyrica 75mg bid. States her pain level is 6/10 "pretty consistently" Denies any adverse reactions to the med. States no new health issues or medication changes. Pharmacy verified and Dr. Baker spoke with pt. prior to E-scribing pts. med. Jaspreet Eisenberg RN
--- NOTE | 2021-06-24 16:01 | PDOC ---
Progress Note - Pain Clinic Date of Service: DOS: DATE: 06/24/21 TIME: 15:59 Diagnosis: Dx: Cervical radiculopathy with cervical degenerative disease and cervical postlaminectomy syndrome Lumbar to colopathy with lumbar spinal stenosis and lumbar postlaminectomy syndrome Bilateral knee joint pain with osteoarthritis Left acromioclavicular joint pain with osteoarthritis History or Present Illness: HPI: telemedicine visit today with identity verified with date of and full name, total time spent: 12 minutes 66-year-old female via telemedicine visit today for refill of patient's Lyrica patient has been doing very well is been a very stable regimen as well as swelling oxycodone again with no side effects and doing very well with both medications does need a refill of the Lyrica reports he still having some significant pain which it does help in the neck and upper extremity as well as in the back without any significant side effects once again. Patient has had appropriate K tracks report as well as appropriate urinalyses as well to date. We discussed the options with the patient we will refill this electronically prescribed to her local pharmacy. Patient given instructions well side effects aware of with the medication. Patient will follow up in approximately 1 month as scheduled. Physical Exam: PE: MACRINA LANDAVERDE MD Jun 24, 2021 16:01
== END | disposition home or self-care (01) ==
LOC: PNCL 13:19
PROVIDERS: ATTEND Anesthesiology
DX: M50.10 Cervical disc disorder with radiculopathy, unspecified cervical region (principal); M96.1 Postlaminectomy syndrome, not elsewhere classified; M48.061 Spinal stenosis, lumbar region without neurogenic claudication; M17.0 Bilateral primary osteoarthritis of knee; I11.0 Hypertensive heart disease with heart failure; I50.9 Heart failure, unspecified; E78.00 Pure hypercholesterolemia, unspecified; I48.91 Unspecified atrial fibrillation; E11.9 Type 2 diabetes mellitus without complications; E66.9 Obesity, unspecified; J44.9 Chronic obstructive pulmonary disease, unspecified; F41.9 Anxiety disorder, unspecified; F32.9 Major depressive disorder, single episode, unspecified; Z87.891 Personal history of nicotine dependence; Z79.82 Long term (current) use of aspirin; Z79.84 Long term (current) use of oral hypoglycemic drugs; Z79.899 Other long term (current) drug therapy; Z98.890 Other specified postprocedural states; Z83.3 Family history of diabetes mellitus; Z82.49 Family history of ischemic heart disease and other diseases of the circulatory system; Z88.8 Allergy status to other drugs, medicaments and biological substances
CPT/HCPCS: G0463

== ENCOUNTER → 2021-07-26 | Outpatient (CLI) | payer MEDICARE ==
[2021-03-28 11:38] VITALS: BP 121/85
--- NOTE | 2021-07-26 12:21 | PDOC ---
Progress Note - Pain Clinic Date of Service: DOS: DATE: 07/26/21 TIME: 12:17 Diagnosis: Dx: Cervical radiculopathy with cervical degenerative disease and cervical spinal stenosis cervical postlaminectomy syndrome Lumbar radiculopathy with lumbar degenerative disc disease lumbar spinal stenosis lumbar postlaminectomy syndrome Bilateral knee joint pain with osteoarthritis Left shoulder joint pain with osteoarthritis History or Present Illness: HPI: 66-year-old female returns for follow-up status post medication management with oxycodone and Lyrica. Patient reports she has been doing very well been on very stable regimen is doing quite well with the medication with about a 75% improvement overall without significant side effects. Patient reports occasional constipation but she generally can treat this with increase hydration. Patient reports pain still in the low back also in the left shoulder in the knees bilaterally. Patient reports is worse with walking standing changing positions better with sitting or resting generally does not awaken her from sleep at night but can occasionally but with the low back. Patient reports her pain is a 9 on scale 10 is worse over the past weeks 7 on its least and 8 on average and is an 8 today. Patient reports no new motor or sensory deficits no bowel or bladder incontinence. Physical Exam: VS: Blood pressure is 96/58 pulse 77 respirations 18 temperature 97.4 F weight is 143 pounds. PE: PHYSICAL EXAMINATION: GENERAL: The patient is awake, alert, oriented, appropriate, very pleasant in demeanor HEENT: Shows normocephalic, atraumatic. Extraocular movements are intact and symmetrical. Patient wearing eyeglasses. Oral cavity: Mucous membranes moist and pink. NECK: Shows anterior throat supple without palpable lymphadenopathy noted. Swallow reflex symmetrical. CHEST: Shows normal on inspection. Breath sounds are clear bilaterally, no rales rhonchi wheezes auscultated. HEART: Shows S1, S2 clear. No murmurs auscultated. ABDOMEN: Soft, nontender, nondistended, obese. No palpable organomegaly is noted. BACK: Shows spine grossly in the midline. Normal-appearing cervical lordotic curvature. There is slightly increased thoracic kyphosis, some minor flattening of the lumbar lordotic curvature. Lumbar paraspinous muscles show symmetrical on inspection, on palpation shows some moderate tenderness diffusely throughout the upper, middle and lower distribution of the paraspinous muscles without specific trigger points, without radiation of pain. The patient has good rotational motion of the lumbar spine, both laterally as well as extension and flexion without significant difficulty. EXTREMITIES: Lower extremities show deep tendon reflexes 1+ in the patellar and tendo calcaneus tendons. Motor exam is 4 on a scale of 5 with right dorsiflexion, extension, quadriceps and hamstring flexion and 4/5 on the left. Peripheral pulses are 1 posterior tibial. No peripheral edema is noted bilaterally. Lower extremities are warm and dry to touch, equal in color and appearance. Upper extremity show deep tendon reflexes 2+ in the bicep triceps tendons, motor exam and strong with principal trainer strength rated 5 out of 5 as is bicep and tricep flexion. Peripheral pulses are 2+ radial. SKIN: Shows warm and dry, good turgor. No edema. No sores, rashes or bruising throughout. Procedure: Procedure: Options were discussed with the patient. Patient chart was reviewed as her current medication regimen updated current review of systems updated today as well. We will refill patient's oxycodone and Lyrica as she has had very stable regimen of medications and has had appropriate K tracks reporting as well as appropriate urinalyses to date. Patient was given instructions well side effects aware of each of the medications will follow up in approximate 4 weeks as scheduled. Medication Injected: Med Injected: None Condition at Discharge: Condition at Discharge: Condition at discharge is stable. MACRINA LANDAVERDE MD Jul 26, 2021 12:21
== END | disposition home or self-care (01) ==
LOC: PNCL 11:29
PROVIDERS: ATTEND Anesthesiology
DX: M50.10 Cervical disc disorder with radiculopathy, unspecified cervical region (principal); M48.02 Spinal stenosis, cervical region; M96.1 Postlaminectomy syndrome, not elsewhere classified; M51.16 Intervertebral disc disorders with radiculopathy, lumbar region; M48.061 Spinal stenosis, lumbar region without neurogenic claudication; M17.0 Bilateral primary osteoarthritis of knee; M19.012 Primary osteoarthritis, left shoulder; I11.0 Hypertensive heart disease with heart failure; I50.9 Heart failure, unspecified; E78.00 Pure hypercholesterolemia, unspecified; I48.91 Unspecified atrial fibrillation; J44.9 Chronic obstructive pulmonary disease, unspecified; E11.9 Type 2 diabetes mellitus without complications; E66.9 Obesity, unspecified; F41.9 Anxiety disorder, unspecified; F32.9 Major depressive disorder, single episode, unspecified; Z87.891 Personal history of nicotine dependence; Z79.82 Long term (current) use of aspirin; Z79.84 Long term (current) use of oral hypoglycemic drugs; Z79.899 Other long term (current) drug therapy; Z98.890 Other specified postprocedural states; Z82.49 Family history of ischemic heart disease and other diseases of the circulatory system; Z83.3 Family history of diabetes mellitus; Z88.8 Allergy status to other drugs, medicaments and biological substances
CPT/HCPCS: 99212; G0463

== ENCOUNTER → 2021-08-26 | Outpatient (CLI) | payer MEDICARE ==
[2021-03-28 11:38] VITALS: BP 121/85
[~2021-08-26] MED LIST changes: -CITA10TA4 PO; +CITA10TA5 PO
--- NOTE | 2021-08-26 16:13 | NUR ---
Patient called states she needs a refill of her medications. Verified name and , pharmacy. Patient denies any new medications, allergies, or medical problems. Verified next appointment. [employer] checked. Patient transfered to Dr Baker.
--- NOTE | 2021-08-26 17:23 | PDOC ---
Progress Note - Pain Clinic Date of Service: DOS: DATE: 08/26/21 TIME: 17:21 Diagnosis: Dx: Cervical radiculopathy with cervical degenerative disease and cervical spinal stenosis with postlaminectomy syndrome Lumbar radiculopathy with lumbar degenerative disease lumbar spinal stenosis lumbar postlaminectomy syndrome Bilateral knee joint pain with osteoarthritis Left shoulder joint pain with osteoarthritis History or Present Illness: HPI: Telemedicine visit today with patient with identity verified with full date of as well as full name, total time spent 12 minutes 66-year-old female via telemedicine visit today requesting refill of oxycodone as well as Lyrica patient has been on very stable regimen has had appropriate K tracks portables appropriate urinalyses to date and is continue to do well with no side effects. Patient reports about a 75% or better improvement with the medications with her activities patient is cautious to not overdo it too much she knows her limitations and knows how to adjust this with most daily activities. Patient reports still benefiting from the Lyrica as well as the oxycodone without any significant side effects as noted. Patient will be electronically prescribed a 30-day supply of medications was given instructions well side effects beware with each of the medications and will follow up in approximate 4 weeks as scheduled. Physical Exam: PE: MACRINA LANDAVERDE MD Aug 26, 2021 17:23
== END | disposition home or self-care (01) ==
LOC: PNCL 13:27
PROVIDERS: ATTEND Anesthesiology
DX: M50.10 Cervical disc disorder with radiculopathy, unspecified cervical region (principal); M48.02 Spinal stenosis, cervical region; M96.1 Postlaminectomy syndrome, not elsewhere classified; M51.16 Intervertebral disc disorders with radiculopathy, lumbar region; M48.061 Spinal stenosis, lumbar region without neurogenic claudication; M17.0 Bilateral primary osteoarthritis of knee; M19.012 Primary osteoarthritis, left shoulder; I11.0 Hypertensive heart disease with heart failure; I50.9 Heart failure, unspecified; I48.91 Unspecified atrial fibrillation; E78.00 Pure hypercholesterolemia, unspecified; E11.9 Type 2 diabetes mellitus without complications; E66.9 Obesity, unspecified; J44.9 Chronic obstructive pulmonary disease, unspecified; F41.9 Anxiety disorder, unspecified; F32.9 Major depressive disorder, single episode, unspecified; Z87.891 Personal history of nicotine dependence; Z79.82 Long term (current) use of aspirin; Z79.84 Long term (current) use of oral hypoglycemic drugs; Z79.899 Other long term (current) drug therapy; Z98.890 Other specified postprocedural states; Z88.8 Allergy status to other drugs, medicaments and biological substances
CPT/HCPCS: 99212; G0463

== ENCOUNTER → 2021-09-20 | Outpatient (CLI) | payer MEDICARE ==
[2021-03-28 11:38] VITALS: BP 121/85
--- NOTE | 2021-09-20 12:10 | PDOC ---
Progress Note - Pain Clinic Date of Service: DOS: DATE: 09/20/21 TIME: 12:06 Diagnosis: Dx: Cervical radiculopathy with cervical degenerative disease and cervical spinal stenosis with cervical postlaminectomy syndrome Lumbar radiculopathy with lumbar degenerative disc disease lumbar spinal stenosis lumbar postlaminectomy syndrome Bilateral knee joint pain with osteoarthritis Left shoulder joint pain with osteoarthritis History or Present Illness: HPI: 66-year-old female returns for follow-up status post medication management with both oxycodone and Lyrica. Patient reports doing very well with as well very stable regimen with about a 60 to 75% improvement pending on the day with the medications and without significant side effects. Patient reports that she still has a difficult pain the base of neck and shoulders more in the right than the left with repetitive motions but is able to control her activity to a moderate extent Edward is not exacerbated significantly patient reports the pain medication does decrease it significantly and is exacerbated it can be as high as a 10 and was a 10 on scale 10 to worse to the last week 8 on average 8 its least is 8 today. Patient reports he is sleeping well at night however generally is not awakening from sleep reports no bowel or bladder incontinence or loss of motor function. Patient does report fatigability of motions with her extremities such as cooking or reaching and lifting items but is able to control this to a moderate extent where is not any over use. Physical Exam: VS: Blood pressure is 111/70 pulse 111 respirations 16 temperature is 97.9 F weight 140 pounds. PE: PHYSICAL EXAMINATION: GENERAL: The patient is awake, alert, oriented, appropriate, very pleasant in demeanor HEENT: Shows normocephalic, atraumatic. Extraocular movements are intact and symmetrical. Patient wearing eyeglasses. NECK: Shows anterior throat supple without palpable lymphadenopathy noted. Swallow reflex symmetrical. CHEST: Shows normal on inspection. Breath sounds are clear bilaterally, distant but no rales or rhonchi. HEART: Shows S1, S2 clear. No murmurs auscultated. ABDOMEN: Soft, nontender, nondistended. No palpable organomegaly is noted. BACK: Shows spine grossly in the midline. Normal-appearing cervical lordotic curvature. Cervical paraspinous muscles show symmetrical inspection, on palpation some moderate tenderness diffusely throughout the upper middle lower decrease the paraspinous muscles bilaterally but with rotation motion both la terally as well as extension flexion without significant increase in pain. There is increased thoracic kyphosis, some flattening of the lumbar lordotic curvature, with well-healed surgical scar. Lumbar paraspinous muscles show symmetrical on inspection, on palpation shows some moderate tenderness diffusely throughout the upper, middle and lower distribution of the paraspinous muscles without specific trigger points, without radiation of pain. The patient has good rotational motion of the lumbar spine, both laterally as well as extension and flexion without significant difficulty. EXTREMITIES: Lower extremities show deep tendon reflexes 1+ in the patellar and tendo calcaneus tendons. Motor exam is 4 on a scale of 5 with right dorsiflexion, extension, quadriceps and hamstring flexion and 4/5 on the left. Peripheral pulses are 1+ posterior tibial. No peripheral edema is noted bi laterally. Lower extremities are warm and dry to touch, equal in color and appearance. Upper extremity show deep tendon reflexes 2+ in the bicep triceps tendons motor exam strong with hat sizer strength rated 5 out of 5 as is bicep and tricep flexion bilaterally. SKIN: Shows warm and dry, good turgor. No edema. No sores, rashes or bruising throughout. Procedure: Procedure: Options discussed with the patient. Patient chart reviews her current medication regimen updated review of systems updated today as well. We will refill patient's medications he has been on a very stable regimen has had appropriate K tracks report as well as appropriate urinalyses to date. Also have urinalysis drawn today as part of routine screening. Patient is given instructions well side effects beware with the medications and will follow up in approximately 1 month as scheduled. Medication Injected: Med Injected: None Condition at Discharge: Condition at Discharge: Condition at discharge is stable. MACRINA LANDAVERDE MD Sep 20, 2021 12:10
--- NOTE | 2021-09-20 13:09 | NUR ---
Patient found on the floor in the bathroom on knees, states she slipped off the toilet when she was pulling her pants up. Patient denies any injury assisted up with Dr Baker, ambulated states nothing hurts. Daughter brought in patient continues to denies the need for any medical intervention, Placed in w/c and discharged.
== END | disposition home or self-care (01) ==
LOC: PNCL 11:45
PROVIDERS: ATTEND Anesthesiology
DX: M50.10 Cervical disc disorder with radiculopathy, unspecified cervical region (principal); M48.02 Spinal stenosis, cervical region; M96.1 Postlaminectomy syndrome, not elsewhere classified; M51.16 Intervertebral disc disorders with radiculopathy, lumbar region; M48.061 Spinal stenosis, lumbar region without neurogenic claudication; M17.0 Bilateral primary osteoarthritis of knee; M19.012 Primary osteoarthritis, left shoulder; I11.0 Hypertensive heart disease with heart failure; I50.9 Heart failure, unspecified; I48.91 Unspecified atrial fibrillation; E78.00 Pure hypercholesterolemia, unspecified; J44.9 Chronic obstructive pulmonary disease, unspecified; E11.9 Type 2 diabetes mellitus without complications; E66.9 Obesity, unspecified; F41.9 Anxiety disorder, unspecified; F32.9 Major depressive disorder, single episode, unspecified; Z87.891 Personal history of nicotine dependence; Z79.82 Long term (current) use of aspirin; Z79.84 Long term (current) use of oral hypoglycemic drugs; Z79.899 Other long term (current) drug therapy; Z98.890 Other specified postprocedural states; Z88.8 Allergy status to other drugs, medicaments and biological substances; Z82.49 Family history of ischemic heart disease and other diseases of the circulatory system
CPT/HCPCS: 99212; G0463

== ENCOUNTER → 2021-10-25 | Outpatient (CLI) | payer MEDICARE ==
[2021-03-28 11:38] VITALS: BP 121/85
--- NOTE | 2021-10-25 11:24 | PDOC ---
Progress Note - Pain Clinic Date of Service: DOS: DATE: 10/25/21 TIME: 11:19 Diagnosis: Dx: Cervical radiculopathy with cervical degenerative disease and cervical spinal stenosis cervical postlaminectomy syndrome Lumbar radiculopathy lumbar degenerative disc disease lumbar spinal stenosis lumbar postlaminectomy syndrome Bilateral knee joint pain with osteoarthritis Left shoulder joint pain with osteoarthritis History or Present Illness: HPI: Telemedicine visit today with patient's identity verified with full date of as well as full name total time spent, 12 minutes 66-year-old female via telemedicine visit for refill patient's medication oxyc odone as well as Lyrica. Patient reports has been doing very well with medications been on very stable regimen had no significant side effects from the medication as well to date. Patient reports she is increase her activity with greater ease and comfort secondary to the medication although still has significant pain in the base neck and shoulders upper back mid back and low back and bilateral lower extremities and specially noticeable in her bilateral knees but is managing fairly well with the medication again without any significant side effects. Patient reports the Lyrica seems to be helping as well again reports no side effects with either. Patient has had appropriate K tracks report as well as appropriate urinalyses to date. We will electronically prescribe the Lyrica as well as oxycodone for 30-month supply. Patient will follow-up in approximately 30 days as scheduled. Physical Exam: PE: MACRINA LANDAVERDE MD Oct 25, 2021 11:24
== END | disposition home or self-care (01) ==
LOC: PNCL 10:14
PROVIDERS: ATTEND Anesthesiology
DX: M50.10 Cervical disc disorder with radiculopathy, unspecified cervical region (principal); M48.02 Spinal stenosis, cervical region; M96.1 Postlaminectomy syndrome, not elsewhere classified; M51.16 Intervertebral disc disorders with radiculopathy, lumbar region; M17.0 Bilateral primary osteoarthritis of knee; M19.012 Primary osteoarthritis, left shoulder; I11.0 Hypertensive heart disease with heart failure; I50.9 Heart failure, unspecified; I48.91 Unspecified atrial fibrillation; E78.00 Pure hypercholesterolemia, unspecified; E11.9 Type 2 diabetes mellitus without complications; F41.9 Anxiety disorder, unspecified; F32.9 Major depressive disorder, single episode, unspecified; J44.9 Chronic obstructive pulmonary disease, unspecified; Z87.891 Personal history of nicotine dependence; Z79.899 Other long term (current) drug therapy; Z98.890 Other specified postprocedural states
CPT/HCPCS: 99212; G0463

== ENCOUNTER → 2021-11-14 | Outpatient (CLI) | payer MEDICARE ==
[2021-03-28 11:38] VITALS: BP 121/85
--- NOTE | 2021-11-14 12:13 | PDOC ---
Progress Note - Pain Clinic Date of Service: DOS: DATE: 11/14/21 TIME: 12:07 Diagnosis: Dx: Cervical radiculopathy with cervical degenerative disc disease cervical spinal stenosis and cervical postlaminectomy syndrome Lumbar radiculopathy with lumbar degenerative disease lumbar spinal stenosis and lumbar postlaminectomy syndrome Bilateral knee joint pain with osteoarthritis Bilateral shoulder joint pain with osteoarthritis History or Present Illness: HPI: 66-year-old female returns status post medication management with Lyrica and oxycodone. Patient reports she is doing fairly well on this but has a chief complaint today of right shoulder pain which is becoming much more noticeable over the past several weeks patient reports no specific injury or accident that she is aware if she is not fallen or strained her right shoulder but significant pain with motion of the shoulder especially abduction on the right side with radiating pain into the right biceps region as well as the shoulder and base of the neck on the right side. Patient reports usually her left side is more painful but now the right side is becoming much more noticeable. Patient also reports about 22 pound weight loss without significant dieting or attempting to lose weight and has a follow-up with her primary care physician next week regarding this as well. I encouraged her to make sure she attends that appointment. Patient reports her pain is a 9 on scale 10 at its worst over the past week 8 on average 8 its least is an 8 today. Patient reports no other new motor or sensory deficits or other findings or complaints. Physical Exam: VS: Blood pressure is 111/63 pulse 91 respirations 18 temperature 98.3 F height is 4 feet 11 inches weight is 118 pounds. PE: PHYSICAL EXAMINATION: GENERAL: The patient is awake, alert, oriented, appropriate, very pleasant in demeanor HEENT: Shows normocephalic, atraumatic. Extraocular movements are intact and symmetrical. Patient wearing eyeglasses. Oral cavity: Mucous membranes moist and pink. NECK: Shows anterior throat supple without palpable lymphadenopathy noted. CHEST: Shows normal on inspection. Breath sounds are clear bilaterally, distant but no rales or rhonchi auscultated. HEART: Shows S1, S2 clear. No murmurs auscultated. ABDOMEN: Soft, nontender, nondistended. No palpable organomegaly is noted. BACK: Shows spine grossly in the midline. Normal-appearing cervical lordotic curvature. There is mildly increased thoracic kyphosis, some flattening of the lumbar lordotic curvature, with well-healed surgical scar. Lumbar paraspinous muscles show symmetrical on inspection, on palpation shows some moderate tenderness diffusely throughout the upper, middle and lower distribution of the paraspinous muscles without specific trigger points, without radiation of pain. The patient has good rotational motion of the lumbar spine, both laterally as well as extension and flexion without significant difficulty. No tenderness over the spinous processes, sacrum or sacroiliac regions. EXTREMITIES: Lower extremities show deep tendon reflexes 1+ in the patellar and tendo calcaneus tendons. Motor exam is 4 on a scale of 5 with right dorsiflexion, extension, quadriceps and hamstring flexion and 4/5 on the left. Peripheral pulses are 1 posterior tibial. No peripheral edema is noted bilaterally. Lower extremities are warm and dry. Upper extremity show deep ten don reflexes 2+ in the bicep triceps tendons motor exam is strong with 4-5 fmd teacher strength bicep and tricep flexion. Patient's right shoulder shows significant tenderness with abduction past about 90 degrees as well as with palpation of the anterior aspect of the joint and the posterior aspect as well as the acromioclavicular joint but without specific radiation on palpation. Left shoulder shows moderate tenderness over the acromioclavicular joint but good range of motion without significant pain reported with abduction forward or rearward extension. SKIN: Shows warm and dry, good turgor. No edema. No sores, rashes or bruising throughout. Procedure: Procedure: Options were discussed with the patient. Patient chart was reviewed as her current medication regimen updated current review of systems updated today as well. Patient is had appropriate K tracks report as well as appropriate urinalyses to date. We will refill patient's oxycodone as well as Lyrica, and also add new prescription medication of meloxicam 15 mg once daily. Patient was given instructions well side effects aware of each of the medications. Patient will follow up in approximately 30 days as scheduled. Medication Injected: Med Injected: None Condition at Discharge: Condition at Discharge: Condition at discharge is stable. MACRINA LANDAVERDE MD Nov 14, 2021 12:13
== END | disposition home or self-care (01) ==
LOC: PNCL 11:40
PROVIDERS: ATTEND Anesthesiology
DX: M50.10 Cervical disc disorder with radiculopathy, unspecified cervical region (principal); M48.02 Spinal stenosis, cervical region; M96.1 Postlaminectomy syndrome, not elsewhere classified; M51.16 Intervertebral disc disorders with radiculopathy, lumbar region; M48.061 Spinal stenosis, lumbar region without neurogenic claudication; M17.0 Bilateral primary osteoarthritis of knee; M19.011 Primary osteoarthritis, right shoulder; M19.012 Primary osteoarthritis, left shoulder; I11.0 Hypertensive heart disease with heart failure; I50.9 Heart failure, unspecified; E78.00 Pure hypercholesterolemia, unspecified; E11.9 Type 2 diabetes mellitus without complications; E66.9 Obesity, unspecified; J44.9 Chronic obstructive pulmonary disease, unspecified; F41.9 Anxiety disorder, unspecified; F32.9 Major depressive disorder, single episode, unspecified; Z87.891 Personal history of nicotine dependence; Z79.84 Long term (current) use of oral hypoglycemic drugs; Z79.899 Other long term (current) drug therapy; Z98.890 Other specified postprocedural states; Z88.8 Allergy status to other drugs, medicaments and biological substances
CPT/HCPCS: 99212; G0463

== ENCOUNTER → 2021-12-17 | Outpatient (CLI) | payer MEDICARE ==
[2021-03-28 11:38] VITALS: BP 121/85
--- NOTE | 2021-12-17 13:16 | PDOC ---
Progress Note - Pain Clinic Date of Service: DOS: DATE: 12/17/21 TIME: 13:14 Diagnosis: Dx: Cervical radiculopathy cervical degenerative disease cervical spinal stenosis and cervical postlaminectomy syndrome Lumbar radiculopathy with lumbar degenerative disease lumbar spinal stenosis lumbar postlaminectomy syndrome Bilateral knee joint pain with osteoarthritis Bilateral shoulder joint pain with osteoarthritis History or Present Illness: HPI: 66-year-old female via telemedicine visit today with identity verified with full name as well as full date of , total time spent 12 minutes, telephone visit voice only Patient via telemedicine visit today requesting refill of oxycodone as well as Lyrica patient reports that she is doing very well with this reports some pain in her right knee as she had a fall several days ago but is getting better with time patient reports otherwise pain is very well controlled with her current medication regimen of oxycodone as well as Lyrica without specific side effects. Patient reports she is having some pain in the base the neck and shoulders as well as in the low back and the knees especially on the right side after her fall but otherwise doing very well no side effects with the medication once again. Patient has had appropriate K tracks report as well as appropriate urinalyses to date. We discussed options with the patient and we will refill her medications for 1 month prescription. Patient was given instructions well side effects aware of each of the medications. Patient will follow up in approximate 30 days as scheduled. Physical Exam: PE: MACRINA LANDAVERDE MD Dec 17, 2021 13:16
== END | disposition home or self-care (01) ==
LOC: PNCL 10:08
PROVIDERS: ATTEND Anesthesiology
DX: M50.10 Cervical disc disorder with radiculopathy, unspecified cervical region (principal); M48.02 Spinal stenosis, cervical region; M96.1 Postlaminectomy syndrome, not elsewhere classified; M51.16 Intervertebral disc disorders with radiculopathy, lumbar region; M48.061 Spinal stenosis, lumbar region without neurogenic claudication; M17.0 Bilateral primary osteoarthritis of knee; M19.011 Primary osteoarthritis, right shoulder; M19.012 Primary osteoarthritis, left shoulder; I11.0 Hypertensive heart disease with heart failure; I50.9 Heart failure, unspecified; I48.91 Unspecified atrial fibrillation; J44.9 Chronic obstructive pulmonary disease, unspecified; E66.9 Obesity, unspecified; M19.90 Unspecified osteoarthritis, unspecified site; E11.9 Type 2 diabetes mellitus without complications; F41.9 Anxiety disorder, unspecified; F32.9 Major depressive disorder, single episode, unspecified; Z87.891 Personal history of nicotine dependence; Z79.899 Other long term (current) drug therapy; Z98.890 Other specified postprocedural states; Z88.8 Allergy status to other drugs, medicaments and biological substances
CPT/HCPCS: 99212; G0463

== ENCOUNTER → 2022-01-15 | Outpatient (CLI) | payer MEDICARE ==
[2021-03-28 11:38] VITALS: BP 121/85
[~2022-01-15] MED LIST changes: -OMEP20TA8 PO; +OMEP20TA91 PO
--- NOTE | 2022-01-15 11:17 | PDOC ---
Progress Note - Pain Clinic Date of Service: DOS: DATE: 01/15/22 TIME: 11:13 Diagnosis: Dx: Cervical radiculopathy with cervical degenerative disease and cervical spinal stenosis with post cervical laminectomy syndrome Lumbar radiculopathy with lumbar degenerative disc disease lumbar spinal stenosis with lumbar postlaminectomy syndrome Bilateral knee joint pain with osteoarthritis Bilateral shoulder joint pain with osteoarthritis History or Present Illness: HPI: 67-year-old female returns for follow-up status post medication management with oxycodone and Lyrica. Patient reports she is doing fairly well we started meloxicam after last visit and reports that is doing better as well with the pain in the shoulders and knees. Patient reports no side effects with medications been on very stable regimen with appropriate K tracks reporting as well as appropriate urinalyses as well. Patient reports no significant pain base neck and shoulders upper back mid back as well as the low back and some in the hips all the knees and the shoulders doing better with the meloxicam. Patient reports her pain is a 10 on scale 10 is worse over the past week 9 on average night least is a 9 today. Patient reports no bowel or bladder incontinence reports the pain is burning and aching neck and shoulders as well as some radiating pain in the legs can be cramping and tight and shooting and stabbing as well patient reports no loss of motor function no bowel or bladder incontinence. Patient reports occasionally wakes her from sleep at night but not every night usually sleeps about 6 to 8 hours without significant disturbance. No bowel or bladder incontinence. Physical Exam: VS: Blood pressure is 102/65 pulse 78 respirations are 18 temperature 98.3 F weight is 133 pounds. PE: PHYSICAL EXAMINATION: GENERAL: The patient is awake, alert, oriented, appropriate, very pleasant in demeanor HEENT: Shows normocephalic, atraumatic. Extraocular movements are intact and symmetrical. Patient wearing eyeglasses. Oral cavity: Mucous membranes moist and pink. Dentition is intact. NECK: Shows anterior throat supple without palpable lymphadenopathy noted. Swallow reflex symmetrical. CHEST: Shows normal on inspection. Breath sounds are clear bilaterally. HEART: Shows S1, S2 clear. No murmurs auscultated. ABDOMEN: Soft, nontender, nondistended. No palpable organomegaly is noted. BACK: Shows spine grossly in the midline. Normal-appearing cervical lordotic curvature. Cervical paraspinous muscles show symmetrical inspection on palpation some moderate tenderness diffusely throughout the upper middle lower decrease the paraspinous muscles but only diffusely without radiation or trigger points. Patient does show good rotation motion cervical spine both laterally as well as extension flexion without significant difficulty. There is moderately increased thoracic kyphosis, some flattening of the lumbar lordotic curvature. Lumbar paraspinous muscles show symmetrical on inspection, on palpation shows some moderate tenderness diffusely throughout the upper, middle and lower distribution of the paraspinous muscles, but without specific trigger points, without radiation of pain. The patient has good rotational motion of the lumbar spine, both laterally as well as extension and flexion without significant difficulty. EXTREMITIES: Lower extremities show deep tendon reflexes 1 in the patellar and t endo calcaneus tendons. Motor exam is 4 on a scale of 5 with right dorsiflexion, extension, quadriceps and hamstring flexion and 4/5 on the left. Peripheral pulses are 1+ posterior tibial. No peripheral edema is noted bilaterally. Lower extremities are warm and dry. Upper extremities show deep tendon reflexes at 2+ in the bicep tricep tendons motor exam is 4 to scale 5 and equal with radiologic tech bicep and tricep flexion. Peripheral pulses are 2+ bilaterally. SKIN: Shows warm and dry, good turgor. No edema. No sores, rashes or bruising throughout. Procedure: Procedure: Options discussed with patient. Patient's old chart was reviewed as her current medication regimen updated current review of systems updated today as well. We will refill patient's oxycodone 10 mg as well as Lyrica 75 mg with instructions side effects aware of discussed with each of medications. Patient will follow up in approximately 30 days. Again, patient has had appropriate K tracks reporting, as well as appropriate urinalyses to date. Medication Injected: Med Injected: None Condition at Discharge: Condition at Discharge: Condition at discharge is stable. MACRINA LANDAVERDE MD Jan 15, 2022 11:17
== END | disposition home or self-care (01) ==
LOC: PNCL 11:04
PROVIDERS: ATTEND Anesthesiology
DX: M50.10 Cervical disc disorder with radiculopathy, unspecified cervical region (principal); M48.02 Spinal stenosis, cervical region; M96.1 Postlaminectomy syndrome, not elsewhere classified; M51.16 Intervertebral disc disorders with radiculopathy, lumbar region; M48.061 Spinal stenosis, lumbar region without neurogenic claudication; M17.0 Bilateral primary osteoarthritis of knee; M19.012 Primary osteoarthritis, left shoulder; M19.011 Primary osteoarthritis, right shoulder; I11.0 Hypertensive heart disease with heart failure; I50.9 Heart failure, unspecified; E78.00 Pure hypercholesterolemia, unspecified; I48.91 Unspecified atrial fibrillation; J44.9 Chronic obstructive pulmonary disease, unspecified; E66.9 Obesity, unspecified; E11.9 Type 2 diabetes mellitus without complications; M19.90 Unspecified osteoarthritis, unspecified site; F41.9 Anxiety disorder, unspecified; F32.9 Major depressive disorder, single episode, unspecified; Z79.82 Long term (current) use of aspirin; Z79.84 Long term (current) use of oral hypoglycemic drugs; Z79.899 Other long term (current) drug therapy; Z98.890 Other specified postprocedural states; Z87.891 Personal history of nicotine dependence; Z88.8 Allergy status to other drugs, medicaments and biological substances
CPT/HCPCS: 99212; G0463

== ENCOUNTER → 2022-02-17 | Outpatient (CLI) | payer MEDICARE ==
[2021-03-28 11:38] VITALS: BP 121/85
--- NOTE | 2022-02-17 13:09 | PDOC ---
Progress Note - [facility] Clinic Date of Service: DOS: DATE: 02/17/22 TIME: 13:07 Diagnosis: Dx: Cervical radiculopathy with cervical degenerative disease and cervical spinal stenosis with post cervical laminectomy syndrome Lumbar radiculopathy with lumbar degenerative disc disease and spinal stenosis with post lumbar laminectomy syndrome Bilateral knee joint pain with osteoarthritis Bilateral shoulder joint pain with osteoarthritis History or Present Illness: HPI: Telemedicine visit today with patient's identity verified with full name as well as full date of , total time spent 11 minutes, telephone voice only. 67-year-old female via telemedicine visit today requesting refill of Lyrica and oxycodone. Patient reports she has been doing very well with this and he has had a very stable regimen of the medication with good relief about 70% or better most times. Patient reports still some pain in the base the neck and shoulder as well as the mid back and low back and the lower extremities and some in the right shoulder and knees with recent rainy weather that we have had has been flaring this up to some extent. Patient reports that the medication does decrease the pain significantly though and has had no side effects. Patient has had appropriate K tracks portables appropriate urinalyses to date as well. Patient reports no new side effects is maintaining hydration level adequately by her report as well. We discussed options and refill of medications via electronic prescription for 30-day supply. Patient is given instructions well side effects beware of with each of the medications and will follow up in approximate 30 days as scheduled. Physical Exam: PE: MACRINA LANDAVERDE MD February 17, 2022 13:09
== END | disposition home or self-care (01) ==
LOC: PNCL 08:52
PROVIDERS: ATTEND Anesthesiology
DX: M50.10 Cervical disc disorder with radiculopathy, unspecified cervical region (principal); M48.02 Spinal stenosis, cervical region; M51.16 Intervertebral disc disorders with radiculopathy, lumbar region; M48.061 Spinal stenosis, lumbar region without neurogenic claudication; M17.0 Bilateral primary osteoarthritis of knee; M19.012 Primary osteoarthritis, left shoulder; M19.011 Primary osteoarthritis, right shoulder; M96.1 Postlaminectomy syndrome, not elsewhere classified; I11.0 Hypertensive heart disease with heart failure; I50.9 Heart failure, unspecified; I48.91 Unspecified atrial fibrillation; E78.00 Pure hypercholesterolemia, unspecified; J44.9 Chronic obstructive pulmonary disease, unspecified; E11.9 Type 2 diabetes mellitus without complications; F41.9 Anxiety disorder, unspecified; F32.9 Major depressive disorder, single episode, unspecified; Z87.891 Personal history of nicotine dependence; Z79.82 Long term (current) use of aspirin; Z79.84 Long term (current) use of oral hypoglycemic drugs; Z79.899 Other long term (current) drug therapy; Z98.890 Other specified postprocedural states; Z88.8 Allergy status to other drugs, medicaments and biological substances
CPT/HCPCS: 99212; G0463